=== PATIENT | female | born 1960 | race Caucasian/White ===

== ENCOUNTER 2023-06-09 06:11 | Emergency (ER) | payer MEDICARE, MEDICAID, SELFPAY ==
[2023-06-09 06:12] VITALS: BP 158/85; PULSE 84; RESP 16; TEMP 36.7; O2SAT 94; BMI 33.7
--- NOTE | 2023-06-09 06:18 | RAD_ITS ---
INDICATION: Fall, right wrist pain, injury EXAMINATION/TECHNIQUE: X-RAY - RIGHT XR Wrist Min 3 Views COMPARISON: None. FINDINGS: SOFT TISSUES: Wrist soft tissue swelling. No radiopaque foreign body detected. BONES/JOINTS: Mildly impacted fracture distal radial metaphysis with no definitive intra-articular extension. There is mild dorsal displacement of distal fracture fragment. No dislocation. Mild degenerative joint space narrowing 1st and 2nd carpometacarpal joints. RAD/Wrist min 3 Views IMPRESSION: Partially displaced and mildly impacted extra-articular fracture right distal radius Electronically Signed: Rafa Galindo MD at 6:43 EST ,
--- NOTE | 2023-06-09 06:19 | EX.ED.UPPERE ---
HPI History of Present Illness Chief Complaint: Upper Extremity Injury Informant: patient Narrative Narrative: Left hand dominant female presents through public service ride after waking up on the ground with right wrist pain. She thinks she is was sleepwalking. She has done this years ago. She does not remember. She denies headache neck pain. Chronic back pain on gabapentin. No worsening pain. Able to ambulate. Pain with movement of the right wrist. Does not follow an orthopedist. PFSH PFS Medical History Depression Pain Home Medications amitriptyline 25 mg tablet 25 mg PO DAILY 12/14/16 [History Last Taken 12/13/16] bupropion HCl 150 mg tablet,12 hr sustained-release 150 mg PO BID 12/14/16 [History Last Taken 12/14/16] diclofenac sodium 50 mg tablet,delayed release 50 mg PO DAILY 12/14/16 [History Last Taken 12/14/16] tramadol 50 mg tablet 50 mg PO DAILY 12/14/16 [History Last Taken 12/13/16] dicyclomine 10 mg capsule 10 mg PO TIDAC PRN Pain ##20 12/15/16 [Rx Last Taken Unknown] docusate sodium 100 mg capsule (DOK) 100 mg PO DAILY #20 CAPSULES 06/09/23 [Rx Last Taken Unknown] hydrocodone-acetaminophen 5-325mg 5mg-325mg 1 tab PO Q6H PRN PRN Pain 3 days #12 TABLETS 06/09/23 [Rx Last Taken Unknown] Allergy/AdvReac Type Severity Reaction Status Date / Time Sulfa (Sulfonamide Allergy Other Verified 06/09/23 06:12 Antibiotics) tetracycline AdvReac Vomiting Verified 06/09/23 06:12 Surgical History History of carpal tunnel surgery Social History Smoking Status: Former smoker ROS ROS ED Constitutional Constitutional ED: Denies chills, fever(s) or sweats Eyes Eyes: Denies change in vision ENT ENT ED: Denies dysphagia or sore throat Cardiovascular Cardiovascular: Denies chest pain, leg edema, palpitations or racing heartbeat Respiratory/Chest Respiratory/Chest: Denies cough, dyspnea or dyspnea on exertion Gastrointestinal Gastrointestinal: Denies abdominal pain, diarrhea, nausea or vomiting Genitourinary Genitourinary ED: Denies dysuria, hematuria or urinary frequency Musculoskeletal Musculoskeletal: Reports extremity pain; Denies back pain or neck pain Integumentary Denies rash or wounds Neurologic Neurologic: Denies headache(s), paresthesias or weakness EXAM Physical Exam Const Vital Signs: 06/09/23 06:12 Temperature 98.1 F Temperature Source Temporal Pulse Rate 84 Respiratory Rate 16 Blood Pressure 158/85 H Blood Pressure Mean 109 Pulse Ox 94 Positive well nourished and well developed Constitutional Narrative: GCS 15 General Appearance ED: well developed and NAD HEENT Reports moist mucous membranes normocephalic and atraumatic Eyes PERRL, EOMs intact bilaterally and conjunctivae normal General Eye ED: Yes normal appearance of both eyes Neck no lymphadenopathy and supple General: Negative for tenderness Chest Wall Chest: Negative for tenderness Resp normal respiratory effort and normal air movement Effort and Inspection: symmetric chest movement; Negative for respiratory distress Cardio regular rate, regular rhythm and no murmurs Peripheral Pulses: pulses 2+ throughout GI normal to inspection, nondistended, normoactive bowel sounds and non-tender Palpation: Negative for guarding or rebound tenderness present Back/Spine no CVA tenderness and no thoracic nor lumbar tenderness Extremity Extremity Narrative: Right upper extremity: No shoulder or elbow tenderness. There is swelling distal forearm with tenderness distal radius. No hand tenderness. No gross deformities. Skin intact. Neuro vas intact. Left upper extremity: Full range of motion without tenderness. No deformities. Pulses intact distally. Lower extremities: Negative logroll bilateral lower extremities. No tenderness. No deformities. Neuro vas intact distally. General Extremety ED: Yes edema and tenderness General Extremity: edema Neuro oriented x3, CN's II-XII intact bilaterally and no sensory deficits noted Sensorium / Orientation: awake and alert Skin no rashes or lesions noted and no wounds MDM MDM MDM Narrative Medical decision making narrative: Interventions / MDM: Differential diagnosis: Fracture Diagnosis considered but do not suspect: N/A My EKG interpretation: N/A Imaging independently reviewed and interpreted by myself: Three-view x-ray right wrist: Distal radius fracture minimal displacement mild dorsal tilt. Extra-articular. This also read by radiology. External documents reviewed: N/A Test considered but not ordered:N/A ED course: Patient has swelling distal forearm with tenderness bony prominences. Concerns for clinical fracture. Hydrocodone provided. X-ray right wrist ordered. X-ray confirms fracture she is placed in a wrist splint. She declines shoulder sling. Prescription for pain medicines and stool softener sent to her pharmacy. Orthopedic follow-up given. Procedure note: Verbal consent with splinting. Nylon sleeve was placed over the right forearm, Curlex dressing extra padding at the wrist. 4 inch plaster splint used for AP splinting, Marco wrap to secure place in a slight flexed position of the wrist. Toller procedure well. Neurovascular intact post splinting. Re-evaluation: stable Disposition discussed with patient/family/significant other: Patient Case discussed with consulting clinician: N/A This note was generated with [employer] dictation software. It may contain incorrect words, spelling, and punctuation that were not noted in checking the note before signing. Discharge Plan Triage Chief Complaint: Upper Extremity Injury ED Provider: Sharif Chandler Dx/Rx/DC Orders Clinical Impression: Closed fracture of distal end of radius, Fall Instructions: ED Fracture, Wrist, General Prescriptions: New docusate sodium [DOK] 100 mg capsule 100 mg PO DAILY Qty: 20 0RF hydrocodone-acetaminophen [hydrocodone-acetaminophen] 5-325 mg tablet 1 tab PO Q6H PRN PRN (Reason: Pain) 3 Days Qty: 12 0RF No Action bupropion HCl 150 MG tablet sustained-release 12 hr 150 mg PO BID tramadol 50 MG tablet 50 mg PO DAILY Patient Comments: TAKE 1 TABLET BY MOUTH EVERY 6 HOURS NEEDED FOR PAIN amitriptyline 25 MG tablet 25 mg PO DAILY Patient Comments: TAKE 1 TO 2 TABLETS BY MOUTH AT BEDTIME diclofenac sodium 50 MG tablet 50 mg PO DAILY dicyclomine 10 MG capsule 10 mg PO TIDAC PRN (Reason: Pain) Qty: 20 0RF Primary Care Provider: Rafa Clemons Referrals: Prashant Garcia DO [Med Staff - Active Staff] - 3-5 Days Rafa Clemons MD [Primary Care Provider] - Activity Restrictions/Additional Instructions: Fracture of distal radius of your wrist bone on the right side. Keep splint on, ice and elevate. Use pain medicine as prescribed. Stool softeners to prevent constipation. Call the office Dr. Garcia to make an appointment for follow-up evaluation. Disposition Disposition: Home, Self Care
[2023-06-09] MEDS: HYDROcodone Bitartrate/Apap 5/325 Tablet PO (06:27)
== END 2023-06-09 07:12 | disposition home or self-care (01) ==
PROVIDERS: Emergency Provider Emergency Medicine; PCP Family Medicine; Visit Provider Emergency Medicine
DX: S52.501A Unspecified fracture of the lower end of right radius, initial encounter for closed fracture (principal); Z87.891 Personal history of nicotine dependence; X58.XXXA Exposure to other specified factors, initial encounter
CPT/HCPCS: 73110; 99282

== ENCOUNTER 2023-06-18 10:54 | Day surgery (SDC) | payer MEDICARE, MEDICAID, SELFPAY ==
[2023-06-18] VITALS (15 sets, daily range): BP systolic 132–209; BP diastolic 59–168; PULSE 82–99; RESP 14–20; TEMP 35.9–36.3; O2SAT 16–100; BMI 31.6
[2023-06-18] MEDS: Lactated Ringers 1,000 ML 15 ML IV ×2 (11:18→16:54)
--- NOTE | 2023-06-18 13:28 | PCM.HP.BLA ---
History and Physical Date of Admission: 06/18/23 [facility] [id number] [place] [address] OFFICE VISIT Date of Service: 06/16/23 MR#: [id number] Acct: [id number] Name: NESTOR KWOK Rep #: [id number] : 1960 Provider: Dr. Prashant Garcia, Age/Sex: 62/F Location: [facility] [place].[facility] Status: Signed Intake Vital Signs 06/09/2306:12 Height 5 ft 6 in Intake Visit Reasons: RIGHT WRIST Chief Complaint: right wrist fracture Is patient in pain?: Yes Allergies Sulfa (Sulfonamide Antibiotics) Allergy (Verified 06/16/23 16:06) Othertetracycline Adverse Reaction (Verified 06/16/23 16:06) Vomiting Medications amitriptyline 25 mg tablet 25 mg PO DAILY 12/14/16 [History Confirmed 06/16/23] bupropion HCl 150 mg tablet,12 hr sustained-release 150 mg PO BID 12/14/16 [History Confirmed 06/16/23] diclofenac sodium 50 mg tablet,delayed release 50 mg PO DAILY 12/14/16 [History Confirmed 06/16/23] acetaminophen 325 mg capsule (Tylenol) 325 mg PO ONCE PRN 06/16/23 [History Confirmed 06/16/23] bupropion HCl 300 mg 24 hr tablet, extended release 300 mg PO 06/16/23 [History Confirmed 06/16/23] loratadine 10 mg tablet 10 mg PO DAILY 06/16/23 [History Confirmed 06/16/23] PFSH Medical History Depression Pain Surgical History History of carpal tunnel surgery Social History Smoking Status: Former smoker HPI RIGHT WRIST Chief Complaint: right wrist fracture. Details: This documentation accurately reflects the service provided and the decisions made by me, Dr. Prashant Garcia, 06/16/23 1156. Part of today?s visit was documented by [ ], acting as scribe. NESTOR KWOK is a 62 year old F here today for right wrist fracture. DOI 06-09-23 Pt. advises she woke up on the ground with right wrist pain. She thinks she was sleepwalking because she he has done this in the past. She does not remember. She was seen at [facility] ED dept where she was X-rayed and splinted. She is left hand dominant. She denies any numbness or tingling. Ortho Exam General General: Yes no acute distress Neurologic: Yes alert and Yes oriented x3 Psychologic: Yes reasonable and appropriate Right Wrist/Hand Skin/Wound: Yes Swelling, Yes Ecchymosis and Yes capillary refill normal WRIST: No gross motor or sensory deficits compartments are soft Left Wrist/Hand Skin/Wound: Yes Swelling and Yes Ecchymosis Head: Normocephalic Atraumatic Chest: symmetrical rise, non-labored breathing, no audible wheeze Abdomen: no guarding, non-rigid Supplemental Info 06/16/2023 x-ray right wrist:Intra-articular distal radius fracture with comminution mild loss of radial height 06/09/2023 x-ray right wrist: Intra-articular distal radius fracture with comminution mild loss of radial height Coding Level of Care Code Off vis,new,level 3 Diagnoses Other closed intra-articular fracture of distal end of right radius, initial encounter S52.571A Encounter type: initial encounter Fracture morphology: other intra-articular Laterality: right Assessment and Plan Assessment and Plan (1) Closed fracture of distal end of radius: Status: Inactive Qualifiers: Encounter type: initial encounter Fracture morphology: other intra-articular Laterality: right Qualified Code(s): S52.571A - Other intraarticular fracture of lower end of right radius, initial encounter for closed fracture Orders: Orders Wrist min 3 Views 06/16/23 S52.509A - Unspecified fracture of the lower end of unspecified radius, initial encounter for closed fracture Plan Educated the patient about the anatomy of the wrist and etiology of her pain. Spoke with her about her fracture and due to the fracture into the joint and loss of height and comminution, it is recommended that she have surgery. If she does not want to proceed with surgery, she may be casted. Spoke with her about the risks and benefits of both options. Patient should not push or pull following her surgery. She should continue to keep her wrist elevated and move her fingers. She should not take NSAIDs until after surgery. She is able to take tylenol. Risk of surgery not limited to but include infection hardware failure tendon irritation nerve artery tissue damage need for further surgery continued pain postoperative arthritis stiffness and loss of function. Follow up in 1-2 weeks depending on surgery or sooner if pain, swelling, numbness or associated symptoms, or concerns develop. All questions answered. Patient in agreement of plan. 06/17/23 1322 <Electronically signed by Prashant Garcia DO> Date Prashant Garcia DO Cosigner Signature: Date (if applicable) CC: ~ I have examined the patient and the H&P has been reviewed. There are no clinical changes since date of exam.
--- NOTE | 2023-06-18 13:33 | RAD_ITS ---
INDICATION: ORIF WRIST EXAMINATION/TECHNIQUE: X-RAY - RIGHT XR Wrist Min 3 Views 4 VIEWS COMPARISON: Prior study dated: 06/16/2023. FINDINGS: 3 views of the right wrist were obtained intraoperatively on a C-arm for open reduction internal fixation of fracture of the distal radius with sideplate and screws. The alignment and position as seen on this examination appear to be satisfactory. The examination however was not obtained for diagnostic purposes. The fluoroscopy time was 23.1 seconds. RAD/Wrist min 3 Views IMPRESSION: Intraoperative exam as described above. Electronically Signed: Eliu Cason MD at 15:52 EST ,
[2023-06-18] MEDS: Cefazolin 2 GM in 0.9% Normal Saline (100mL Bag) 100 ML IV (13:37)
--- NOTE | 2023-06-18 15:26 | OP.PCM_ITS ---
Operative Report Date of Procedure: 06/18/23 Preoperative diagnosis: Displaced distal radius fracture intra-articular comminuted greater than 3 fragments Postoperative diagnosis: Same Anesthesia: General with postop axillary block Procedure: ORIF of the distal radius Implants: Synthes distal radius variable angle locking plate Tourniquet time: 43 minutes Complications: None Indication for procedure: 62-year-old female patient had ground-level fall sustaining a impacted intra-articular distal radius fracture right hand we discu ssed risks benefits and alternatives of conservative versus surgical intervention. Including the risk of bleeding infection nerve artery tissue damage need for further surgery continued pain postoperative stiffness need for postoperative physical therapy and the expected postoperative course. Procedure: The patient was met in the preoperative holding area the operative extremity was identified by both patient and physician and marked. Patient was met by anesthesia she was brought back to the operating room on a wheeled cart and transferred to the operating table in the supine position anesthesia was started. A well-padded tourniquet was placed on the upper arm of the operative extremity. She was prepped and draped in the usual sterile fashion. A Time out was called to ensure the proper patient procedure and extremity were being contemplated. A 15 blade scalpel was used to make a linear incision over the FCR tendon this was carried down through the skin and subcutaneous tissue. Electrocautery was used to maintain hemostasis. Marizol retractors were used. The FCR tendon sheath was incised and the FCR tendon was mobilized radially. A deep blade scalpel was used to perforate the fascia of the deep FCR tendon sheath and Littler scissors were used to dissect proximally and distally. Blunt dissection was performed a kian was placed on the radial and ulnar side of the radius. The pronator quadratus was partially torn from the injury and was released off the radial border of the radius with electrocautery and was elevated with a moise elevator. The Hohmann retractors were then placed deep to this muscle. The fracture site was visualized and was freed of hematoma and clot debris with the use of small rongeur and [place]. The fracture was then reduced with the use of a [place] and ulnar deviation and wrist flexion. This was checked under fluoroscopy to ensure that an adequate reduction could be performed. A plate was then positioned over the fracture site and temporarily fixed to the bone with K wires. A cortical screw was then placed in the shaft and sequential locking screws were placed distally this was checked on both AP and lateral projections to ensure screw placement was not penetrating the joint and was in the proper location. Bone drill sleeve was used for the radial styloid screw and a variable angle fashion. The remainder of the cortical screws were placed in the shaft. And the fracture and hardware were visualized in both AP and lateral projections in good alignment and fracture positioning. The wound was thoroughly irrigated. Pronator quadratus was not repairable. Tourniquet was let let down to assess for bleeding there was some mild venous bleeding which was coagulated with the Bovie. A subcutaneous stitch with 3-0 Vicryl was p erformed followed by 4-0 nylon vertical mattress stitches. Followed by Xeroform 4 x 4 ABD web roll stockinette more web roll volar paster splint and an Marco wrap. The tourniquet was let down. There was no complications intraoperatively and the patient was brought back to the PACU in stable condition where she received an axillary block. All counts were correct.
--- NOTE | 2023-06-18 15:29 | DCINST_ITS ---
Discharge Instructions Diet Discharge Diet: No restrictions Dressing / Incision Call your doctor if you observe: Shortness of breath and Chest pain Additional Dressing/Incision Instructions:: Strict elevation of operative extremity above heart for next 72 hours. Ice 15 minutes on 15 minutes off. Continue ice and elevation for 7 days postoperatively. Encourage finger range of motion. No lifting pushing or pulling more than a coffee cup. Must keep splint on clean and dry. Follow-up in office in 2 week Follow Up Care Please Follow Up With: Prashant Garcia DO When: 2 weeks Test Results: Test results from this visit will be discussed in further detail at your follow- up appointment, if applicable. Discharge Plan Admission Primary Reason for Your Visit: Right distal radius open reduction internal fixation Attending Provider: Prashant Garcia Primary Care Provider: Rafa Clemons Discharge Orders/Prescriptions Prescriptions: New acetaminophen [acetaminophen] 500 mg tablet 1,000 mg PO Q6H PRN Qty: 100 0RF cephalexin [cephalexin] 500 mg capsule 1,000 mg PO Q8 Qty: 4 0RF Rx Instructions: take 2 tabs at 9:00 pm and 2 tabs after 5 am when you wake up oxycodone 5 mg tablet 5 - 10 mg PO Q4H PRN (Reason: pain) 5 Days Qty: 30 0RF Continued bupropion HCl 300 mg tablet extended release 24 hr 300 mg PO .qam Patient Comments: Take 1 tablet by mouth once daily. Take in AM loratadine 10 mg tablet 10 mg PO DAILY bupropion HCl 150 MG tablet sustained-release 12 hr 150 mg PO BID amitriptyline 25 MG tablet 25 mg PO DAILY Patient Comments: TAKE 1 TO 2 TABLETS BY MOUTH AT BEDTIME Held diclofenac sodium 50 MG tablet 50 mg PO DAILY Hold Instructions: Resume on 06/19/23. Discontinued acetaminophen [Tylenol] 325 mg capsule 325 mg PO ONCE PRN (Reason: fever or pain) Referrals / Follow Up: Rafa Clemons MD [Primary Care Provider] - Disposition Disposition (needs filled in before D/C Order can be placed): Home, Self Care
--- NOTE | 2023-06-18 15:35 | SUR.PHASEI ---
DR CROUCH AT BEDSIDE STATING HE WANTS PATIENT TO HAVE A POST-OP NERVE BLOCK, STATES HE DISCUSSED w/ PRE-OP. DR VOGEL NOTIFIED.
[2023-06-18] MEDS: Cefazolin 1 GM/50 ML BAG IV (15:55)
--- NOTE | 2023-06-18 16:15 | SUR.PHASEI ---
IV PAIN MEDS ARE INEFFECTIVE PATIENT CRYING, BP INCREASING, PAGED DR VOGEL TO ADMINISTER NERVE BLOCK TO WHICH PATIENT IS AGREEABLE, VERIFIED WITH 3 RN'S: KAMILLE MATTA, AND MARCELO. 1625 DR RAMIREZ ARRIVES TO PACU, EXPLAINED DR RCOUCH HAS REQUESTED A POST-OP NERVE BLOCK, IV PAIN MEDS HAVE BEEN INEFFECTIVE, PAIN NOW 9-10/10, CRYING, GRIMACING, BP ELEVATED. DR RAMIREZ PERFORMS AXILLARY NERVE BLOCK.
== END 2023-06-18 18:51 | disposition home or self-care (01) ==
LOC: SDC 10:55 → AC 10:57
PROVIDERS: PCP Family Medicine; Referring Provider Orthopaedic Surgery; Visit Provider Orthopaedic Surgery
PROC: (CPT 25608; principal; 2023-06-18 12:55)
DX: S52.571A Other intraarticular fracture of lower end of right radius, initial encounter for closed fracture (principal); F32.A Depression, unspecified; F41.9 Anxiety disorder, unspecified; Z87.891 Personal history of nicotine dependence; Z79.899 Other long term (current) drug therapy; X58.XXXA Exposure to other specified factors, initial encounter
CPT/HCPCS: 25608; 64417; 01830; 73110; 76000; 93005; C1713; J7120; J2405

== ENCOUNTER 2023-08-10 14:30 | Outpatient (RCR) | payer MEDICARE, MEDICAID, SELFPAY ==
--- NOTE | 2023-07-12 13:21 | HP.OTEVAL ---
Patient's Visit Information Visit Information Visit Information: NESTOR KWOK is a 62 year old F, referred to Occupational Therapy by Dr. Prashant Garcia DO, with a diagnosis of right distal radius fx. Date of Evaluation: 07/12/23 Occupational Therapist: Luba Self OTR/Sanjiv, CHT Subjective Subjective: This 62 year old female was seen for OT eval with dx of right distal radius fx. Pt states DOI was on 2022 and had sx on 2022. pt had ORIF to repair distal radius fx. pt [facility] pt is left handed pt is on disability due to bad back pt is limited with bilateral hand use for ADls and IADLS due to her recent fall. pt would like to return to her PLOF. Pain right wrist: Current Pain Intensity: 0 Pain Intensity Range: 1 ROM Forearm: right/left WNL Wrist: right 30/25 left 55/55 ROM Comments: right RD [address] 15 UD 15 Strength Account Services Manager: right NT left 55 Lateral Pinch: right NT left 14# Tripod Pinch: right NT left 14# Strength Comments: will test right hourly shift manager strength at later date Edema Wrist: right 18.5cm left 16cm Sensation Sensation Comments: denies Quick DASH-Disab of Arm,Shoulder& Hand Quick DASH Score: 36.3625 Goals Goal:Daily scar massage when approriate: Yes Goal:ROM equal to unaffected hand: Yes Goal:Account Services Manager/Pinch strength at least 75% of unaffected hand: Yes Comment: will not initiate strengthening until week 6 s/p unless otherwise instructe Goal:No pain with affected hand use: Yes Goal:Full use of affected hand in daily activities including work: Yes Other Goal: pt will demo understanding of using brace when out of her home by end of 1st session. Rehabilitation General Assessment: pt arrives 3 weeks and 3 days s/p ORIF of right distal radius. Pt demo with limited right wrist ROM and weakness due to healing structures. pt is limited with ADLS and IADLs at this time and would benefit from skilled OT services 2x week for 4 weeks to return pt to her PLOF. Today therapist ed. pt on AROM of wrist fles/ext RD/UD, along with tendon glide and scar mtg. pt was given handout on HEP and demo understanding and agree to her POD. Rehabilitation Potential: Good Anticipated Interventions Anticipated Interventions: A/AAROM/PROM, Strengthening, Scar Care, Triggerpoint Release, Modalities, Orthoses, Joint Protection/Energy Conservation, Education re assistive Equipment, Education re Diagnosis and Home Program Visit Plan Frequency: 2-3x /Week Duration: 4 Weeks General Plan: work on ROM until week 6 and initiate strengthening as tolerated may have brace of for ex and when in home advised to sleep in brace ( pt has been sleeping without) return pt to her PLOF. TEXT: Thank you for the opportunity to evaluate your patient. For Medicare and Medicare HMO plans, please review the plan of care and approve it. It will need to be FAXED BACK to us at [phone] for Medicare purposes. Please let me know if there are questions or concerns regarding this plan of care. Physician Signature: Date:
--- NOTE | 2023-08-10 14:53 | HP.OTDCSUM_ITS ---
Discharge Summary D/C Summary: It has been my pleasure to treat NESTOR KWOK under orders from Dr. Prashant Garcia DO, for the diagnosis of right distal radius fx for a total of 4 visit(s). Please see the following information for a summary of their discharge status. Overall Improvement % Improvement: 90 Objective Objective/Function: right wrist 45/35 right die out worker strength 40# left is at 60# right lateral pinch 8# right tripod pinch 6# pt states she does not feel her wrist or her right hand is limiting her ability to perform her ADls and IADLs. pt states she can clean/cook and do her dishes pt states she does get swelling from time to time but she will put ice pack on it and this helps. Goals Patient Goals: Regain Mobility, Regain Strength, Use Hand/Wrist/Arm Normally Again and Be More Independent in ADLS Goal:Daily scar massage when approriate: Yes Goal:ROM equal to unaffected hand: Yes Goal:Furrier Shop Supervisor/Pinch strength at least 75% of unaffected hand: Yes Goal:No pain with affected hand use: Yes Goal:Full use of affected hand in daily activities including work: Yes Other Goal: pt will demo understanding of using brace when out of her home by end of 1st session. Plan Plan: Continue POC: 4 weeks (2-3x week) D/C Information Discharge Comments: pt has made good gains in OT following a right distal radius fx with ORIF. Pt has attended 4 OT sessions- with two no show apts. pt states she feels she is 90% better and feel she can perform her ADLs and IADLs SABINA level. pt states she is ready for D/C. pt has met goals and pt agrees to continue with her HEP as tolerate. d/c sentence: If there are questions or concerns regarding this patient's occupational therapy, please fell free to call me at [phone]. Thank you for the referral of this patient. Sincerely, Luba Self, OTR/L, CHT
== END 2023-08-10 19:00 | disposition home or self-care (01) ==
LOC: OT 14:30
PROVIDERS: PCP Family Medicine; Visit Provider Orthopaedic Surgery
DX: S62.101D Fracture of unspecified carpal bone, right wrist, subsequent encounter for fracture with routine healing (principal)
CPT/HCPCS: 97110; 97166; 97530

== ENCOUNTER 2024-04-19 15:04 | Emergency (ER) | payer MEDICARE, MEDICAID, SELFPAY ==
[2024-04-19 15:06] VITALS: BP 142/100; PULSE 95; RESP 16; TEMP 36.8; O2SAT 95; BMI 32.8
[2024-04-19 17:54] LABS: Absolute Neutrophil Count 5.8 X10^3/uL (2.0-7.7); Basophil# 0.07 X10^3/uL; Basophil% 0.8 % (0-1); Eosinophil# 0.17 X10^3/uL; Eosinophils% 1.9 % (0-5); Hematocrit 43.8 % (37-47); Hemoglobin 14.4 g/dL (12.0-15.0); Lymphocyte % 23.7 % (19-41); Mean Corp Hgb Conc 32.9 g/dL (32-36); Mean Corpuscular Hgb 28.6 pg (27.0-32.0); Mean Corpuscular Volume 86.9 fL (81-99); Mean Platelet Vol. 9.2 fl (6.2-12.0); Monocyte# 0.74 X10^3/uL; Monocyte% 8.3 % (0-10); NRBC Flagged by Analyzer 0 % (0-5); Neutrophil # 5.76 X10^3/uL (2.7-7.7); Platelet Count 315 K/mm3 (150-450); RBC Distribution Width CV 12.1 % (11.6-14.6); RBC Distribution Width SD 38.4 fl (35.1-43.9); Red Blood Count 5.04 M/mm3 (4.2-5.4); White Blood Count 8.9 K/mm3 (4.4-11.0)
[2024-04-19 18:08] LABS: Anion Gap 10 (5-15); BUN 12 mg/dL (7-18); BUN/Creat Ratio 13.7 RATIO (10-20); Calcium,Total 9.3 mg/dL (8.5-10.1); Chloride 103 mmol/L (98-107); Creatinine, Serum 0.88 mg/dL (0.55-1.02); EST Glomerular Filtration Rate 69 mL/min (>60); Est Glom Filt Rate - Afr Amer 84 mL/min (>60); Estimated Creatinine Clearance 74.93 ml/min; Glucose 129 mg/dL (74-106); Potassium 3.5 mmol/L (3.5-5.1); Sodium Level 141 mmol/L (136-145)
[2024-04-19 18:35] LABS: Amphetamine Urine VISTA NEGATIVE (<1000 ng/mL); Barbiturate Urine VISTA NEGATIVE (< 200 ng/mL); Benzodiazepine Urine VISTA NEGATIVE (< 200 ng/mL); Cocaine Urine VISTA NEGATIVE (< 300 ng/mL); Ecstacy Urine VISTA POSITIVE (< 500 ng/mL); Methadone Urine VISTA NEGATIVE (< 300 ng/mL); PCP Urine VISTA NEGATIVE (< 25 ng/mL); THC Urine VISTA NEGATIVE (< 50 ng/mL); Vista UDS pH Range 4
[2024-04-19 18:43] LABS: Alcohol, Blood (Medical)-Serum < 3.0 mg/dL
--- NOTE | 2024-04-19 18:47 | EX.ED.VIS.PS ---
HPI HPI - Psych History of Present Illness Chief Complaint: Mental Health Informant: patient Narrative Narrative: Patient is a 63 year old female with history of depression, anxiety and OA presenting with worsening depression and auditory hallucinations. Patient states that she has been hearing a growling sound in her ears. She denies any HI/SI. Patient is concerned that she has upper antidepressants. Her psychiatric medications are managed by her PCP, Dr. Lico Pretty. Patient currently is on bupropion XL 300 mg in the morning as well as 150 mg in the evening. She also takes amitriptyline 100 mg every night. She denies any physical complaints. She does states she has been a bit more fatigued lately. States that she is compliant with her medications. No other complaints or concerns at this time. [facility] Medical History Wears glasses Wears dentures Anxiety Arthritis Non-smoker Pain Depression Home Medications ?Medication ?Instructions ?Recorded ?Last Taken ?Type amitriptyline 25 mg tablet 25 mg PO DAILY 12/14/16 12/13/16 History bupropion HCl 150 mg tablet,12 hr 150 mg PO BID 12/14/16 12/14/16 History sustained-release diclofenac sodium 50 mg 50 mg PO DAILY 12/14/16 12/14/16 History tablet,delayed release bupropion HCl 300 mg 24 hr tablet, 300 mg PO .qam 06/16/23 Unknown History extended release loratadine 10 mg tablet 10 mg PO DAILY 06/16/23 Unknown History acetaminophen 500 mg tablet 1,000 mg (2 x 500 mg) PO Q6H PRN 06/18/23 Unknown Rx #100 tabs cephalexin 500 mg capsule 1,000 mg (2 x 500 mg) PO Q8 #4 caps 06/18/23 Unknown Rx olanzapine 2.5 mg tablet (Zyprexa) 2.5 mg PO DAILY #30 tabs 04/19/24 Unknown Rx Allergy/AdvReac Type Severity Reaction Status Date / Time Sulfa (Sulfonamide Allergy Other Verified 04/19/24 15:06 Antibiotics) tetracycline AdvReac Vomiting Verified 04/19/24 15:06 Surgical History H/O tubal ligation History of carpal tunnel surgery Social History Smoking Status: Former smoker ROS ROS ED Constitutional Constitutional ED: Denies chills or fever(s) Eyes Eyes: Denies change in vision Respiratory/Chest Respiratory/Chest: Denies cough or dyspnea Gastrointestinal Gastrointestinal: Denies nausea or vomiting Neurologic Neurologic: Denies headache(s) Psychiatric Psychiatric: Reports anxiety, depression and other Details: Reports auditory hallucinations?hearing a growling sound ; Denies suicidal ideation or suicidal thoughts EXAM Physical Exam Const Vital Signs: 04/19/24 15:06 04/19/24 19:05 Temperature 98.3 F 98.7 F Temperature Source Temporal Temporal Pulse Rate 95 88 Respiratory Rate 16 14 Blood Pressure 142/100 H 134/78 H Blood Pressure Mean 114 96 Pulse Ox 95 98 Oxygen Delivery Method Room Air Room Air Positive well nourished and well developed General Appearance ED: well developed and NAD HEENT Reports moist mucous membranes normocephalic and atraumatic Eyes PERRL Neck supple Resp normal respiratory effort and clear to auscultation bilaterally Cardio Rate: regular rate Rhythm: regular rhythm GI non-tender and non-distended Extremity normal to inspection General Extremety ED: Negative for edema General Extremity: Negative for edema Neuro oriented x3 Sensorium / Orientation: alert Motor Exam: strength 5/5 throughout and muscle tone normal throughout Psych mental status grossly normal, cooperative, affect normal, activity/motor behavior normal, denies homicidal ideation and denies suicidal ideation Appearance: grossly normal and well kempt Attitude: calm Thought Process: normal thought process Thought Content: hallucination(s) Positive for auditory Attention / Concentration: attention grossly intact Memory / Cognition: memory grossly intact Insight: insight good Judgement: judgement good Skin Rashes: no rashes MDM MDM MDM Narrative Medical decision making narrative: Patient is evaluated for worsening depression and a new auditory hallucination. Patient overall is quite well-appearing. She is insightful about what is going on. She did bring in her medications so we could check them. She states that she has been compliant with her meds. She denies any HI or SI. At this time I do not think patient is a risk to herself or others or needs emergent psychiatric evaluation. Protocol psychiatric orders are placed which are largely normal. I did discuss the case with Dr. Ibraihm, PCP on-call for her office. He reviewed the patient's chart and medications. He confirmed that patient is taking all the medications that we discussed in the ER. We will start the patient on Zyprexa 2.5 mg daily for this new auditory elucidation and she will follow-up in the office on Wednesday at 10 AM with her PCP. I will provide this prescription. Patient is quite agreeable with this plan. Patient is also given outpatient referral information for the counseling center. Given return precautions. Patient discharged home in stable condition. Lab Data Labs: Laboratory Results - last 24 hr 04/19/24 04/19/24 17:40 17:45 WBC 8.9 RBC 5.04 Hgb 14.4 Hct 43.8 MCV 86.9 MCH 28.6 MCHC 32.9 RDW Std Deviation 38.4 RDW Coeff of Bandar 12.1 Plt Count 315 MPV 9.2 Immature Gran % (Auto) 0.300 Neut % (Auto) 65.0 Lymph % (Auto) 23.7 [place] % (Auto) 8.3 Eos % (Auto) 1.9 Baso % (Auto) 0.8 Absolute Neuts (auto) 5.8 Absolute Lymphs (auto) 2.10 Nucleated RBC % 0 Sodium 141 Potassium 3.5 Chloride 103 Carbon Dioxide 28.0 Anion Gap 10 BUN 12 Creatinine 0.88 Estim Creat Clear Calc 74.93 Est GFR (MDRD) Af Amer 84 Est GFR (MDRD) Non-Af 69 BUN/Creatinine Ratio 13.7 Glucose 129 H Calcium 9.3 Urine Opiates Screen NEGATIVE Urine Methadone Screen NEGATIVE Ur Barbiturates Screen NEGATIVE Ur Phencyclidine Scrn NEGATIVE Ur Amphetamines Screen NEGATIVE MDMA (Ecstasy) Screen POSITIVE H U Benzodiazepines Scrn NEGATIVE Urine Cocaine Screen NEGATIVE U Cannabinoids Screen NEGATIVE Ur Drug Screen Comment Ethyl Alcohol < 3.0 Discharge Plan Triage Chief Complaint: Mental Health ED Provider: Ernestine Suarez Dx/Rx/DC Orders Clinical Impression: Depression, Auditory hallucination Instructions: ED Depression Prescriptions: New olanzapine [Zyprexa] 2.5 mg tablet 2.5 mg PO DAILY Qty: 30 0RF No Action bupropion HCl 300 mg tablet extended release 24 hr 300 mg PO .qam Patient Comments: Take 1 tablet by mouth once daily. Take in AM loratadine 10 mg tablet 10 mg PO DAILY bupropion HCl 150 MG tablet sustained-release 12 hr 150 mg PO BID amitriptyline 25 MG tablet 25 mg PO DAILY Patient Comments: TAKE 1 TO 2 TABLETS BY MOUTH AT BEDTIME diclofenac sodium 50 MG tablet 50 mg PO DAILY acetaminophen [acetaminophen] 500 mg tablet 1,000 mg PO Q6H PRN Qty: 100 0RF cephalexin [cephalexin] 500 mg capsule 1,000 mg PO Q8 Qty: 4 0RF Rx Instructions: take 2 tabs at 9:00 pm and 2 tabs after 5 am when you wake up Primary Care Provider: Rafa Clemons Referrals: Counseling,Center [Group of Physicians] - As Needed Rafa Clemons MD [Primary Care Provider] - Activity Restrictions/Additional Instructions: Continue taking your medications as prescribed. We have prescribed an additional medication after talking with your primary care office. Please call the counseling center or your primary care office if you have worsening symptoms or further concerns. You have an appointment scheduled for April 28 at 10 AM with your primary care doctor. Please call the office if you need to change his appointment. Print Language: Bengali Disposition Disposition: Home, Self Care
[2024-04-19 19:05] VITALS: BP 134/78; PULSE 88; RESP 14; TEMP 37.1; O2SAT 98
[2024-04-19 19:40] VITALS: BP 137/77; PULSE 81; RESP 18; TEMP 36.7; O2SAT 98
== END 2024-04-19 19:41 | disposition home or self-care (01) ==
PROVIDERS: Emergency Provider Emergency Medicine; PCP Family Medicine; Visit Provider Emergency Medicine
DX: F32.A Depression, unspecified (principal); R44.0 Auditory hallucinations; Z87.891 Personal history of nicotine dependence
CPT/HCPCS: 36415; 80048; 80307; 82077; 85025; 99282

== ENCOUNTER 2024-04-20 09:37 | Emergency (ER) | payer MEDICARE, MEDICAID, SELFPAY ==
[2024-04-20 09:38] VITALS: BP 122/73; PULSE 96; RESP 18; TEMP 36.7; O2SAT 93; BMI 33.0
--- NOTE | 2024-04-20 10:09 | EDS_ITS ---
HPI HPI - Psych History of Present Illness Chief Complaint: Mental Health [facility] Medical History Wears glasses Wears dentures Anxiety Arthritis Non-smoker Pain Depression Home Medications ?Medication ?Instructions ?Recorded ?Last Taken ?Type amitriptyline 25 mg tablet 25 mg PO DAILY 12/14/16 12/13/16 History bupropion HCl 150 mg tablet,12 hr 150 mg PO BID 12/14/16 12/14/16 History sustained-release diclofenac sodium 50 mg 50 mg PO DAILY 12/14/16 12/14/16 History tablet,delayed release bupropion HCl 300 mg 24 hr tablet, 300 mg PO .qam 06/16/23 Unknown History extended release loratadine 10 mg tablet 10 mg PO DAILY 06/16/23 Unknown History cephalexin 500 mg capsule 1,000 mg (2 x 500 mg) PO Q8 #4 caps 06/18/23 Unknown Rx olanzapine 2.5 mg tablet (Zyprexa) 2.5 mg PO DAILY #30 tabs 04/19/24 Unknown Rx Allergy/AdvReac Type Severity Reaction Status Date / Time Sulfa (Sulfonamide Allergy Other Verified 04/19/24 15:06 Antibiotics) tetracycline AdvReac Vomiting Verified 04/19/24 15:06 Family History unable to obtain Surgical History H/O tubal ligation History of carpal tunnel surgery Social History Smoking Status: Former smoker EXAM Physical Exam Const Vital Signs: 04/20/24 09:38 04/20/24 11:37 04/20/24 13:00 Temperature 98.0 F Temperature Source Oral Pulse Rate 96 80 91 Respiratory Rate 18 17 18 Blood Pressure 122/73 H 117/61 113/61 Blood Pressure Mean 89 79 78 Pulse Ox 93 96 93 Oxygen Delivery Method Room Air Room Air Room Air 04/20/24 15:26 04/20/24 17:00 Temperature Temperature Source Pulse Rate 106 H 97 Respiratory Rate 17 16 Blood Pressure 142/98 H 147/117 H Blood Pressure Mean 112 127 Pulse Ox 93 Oxygen Delivery Method Room Air Room Air MDM MDM MDM Narrative Medical decision making narrative: HISTORY OF PRESENT ILLNESS: 63-year-old female history of depression anxiety. The patient does not participate in history. Denies any physical complaints however. REVIEW OF SYSTEMS: Unable to obtain reliable review of systems secondary to patient's altered mental status PHYSICAL EXAM: Nursing triage notes reviewed, Vital signs reviewed Constitutional: please see mdm HENT: MMM Eyes: Pupils equal round and reactive to light, Extraocular muscles intact Neck: No stridor, no JVD, full neck ROM Lungs: Clear to auscultation, No wheezing or rales. No increased work of breathing, no conversational dyspnea, no accessory muscle use, no nasal flaring. No respiratory distress noted Heart: Regular rate and rhythm, No murmurs, No rubs and No gallops, 2+ distal pulses (radial, femoral, posterior tibial) in all extremities Abdomen: Soft, there is no tenderness, rigidity, rebound or guarding, no obvious peritoneal signs, no palpable pulsatile abdominal masses, no auscultated abdominal bruit : No CVAT Extremities: No edema Neuro: Somnolent, alert to minor stimuli, oriented to person, place but not time. No obvious lateralizing focal neurological deficits, cranial nerves II through XII intact, 5/5 strength in all extremities. Intact sensation to light touch in all extremities, 2+ reflexes bilateral patella tendons. Skin: No rash or lesions noted MEDICAL DECISION MAKING: Chief Complaint: Mental health External records reviewed: Reviewed prior ED visit on 04/19/2024. Per this note patient was suffering from auditory elucidation's, depression. Medications reviewed: Patient currently on Zyprexa and bupropion. During last ED visit she was prescribed Zyprexa 2.5 mg. And discharged. During this visit patient's mental status was documented as oriented x 3. Factors affecting care: depression, anxiety Social determinants of health: n mental health disorder History obtained from others: EMS Consults: Behavioral health MDM Narrative: Patient was initially hemodynamically stable, afebrile and nontoxic-appearing. Exam without obvious trauma. No focus of infection. No focal cardiopulmonary abnormalities. Given the patient's change in mental status from yesterday I obtained a broad lab and imaging workup including a CT scan of the head as well as labs to rule out signs of electrolyte abnormalities, dehydration, infectious etiologies. Patient's pulse ox while was not in the hypoxic range was in the low end of normal so I obtained an x-ray and COVID swab as well as an EKG to further assess. I considered the following differential diagnosis: ICH, electrolyte disturbance, metabolic abnormality, infection, intoxication, decompensated psychiatric illness ALL IMAGES (IF OBTAINED) HAVE BEEN PERSONALLY REVIEWED AND INTERPRETED BY MYSELF. EKG with normal sinus rhythm, normal axis, normal intervals, no STEMI CT scan of the head was negative I have personally reviewed the patient's chest x-ray. Chest x-ray is unremarkable for pulmonary edema, pneumothorax, pneumonia or focal cardiopulmonary abnormality. CBC without leukocytosis, severe anemia, no thrombocytopenia. BMP with mild hypokalemia otherwise no other significant electrolyte normalities, there is no anion gap to suggest endorgan hypoperfusion, no signs of metabolic acidosis with normal bicarb, no acute kidney injury LFTs with minor abnormalities, no prior for comparison Serum alcohol is negative COVID-negative Crisis evaluated the patient and recommended admission. Awaiting placement this time. Signed out to p.m. physician pending placement. [place] slip and transfer form signed. The patient and/or family, caregivers express understanding. The patient and/or family, caregivers agrees with the plan. Shared decision making: I will have a discussion with the patient and or visitors regarding risk/benefits of further testing or admission. They will be made aware of of the risk/benefits inherent in this decision they will be given the opportunity to voice understanding. Total critical care time today provided was at least 0 [] minutes. This excludes separately billable procedures. Critical care time (if documented) is secondary to the patient having high probability of clinically significant/life threatening deterioration in the patient's condition which required my urgent intervention. Impression: 1. Altered mental status 2. Abnormal behavior Dispo: Admit to behavioral facility. Awaiting placement This note was generated with [employer] [employer] dictation software. It may contain incorrect words, spelling, and punctuation that were not noted in review of the chart prior to signing. Lab Data Labs: Laboratory Results - last 24 hr 04/20/24 04/20/24 11:00 11:02 WBC 8.8 RBC 4.91 Hgb 14.0 Hct 43.5 MCV 88.6 MCH 28.5 MCHC 32.2 RDW Std Deviation 39.4 RDW Coeff of [place] 12.1 Plt Count 265 MPV 8.9 Immature Gran % (Auto) 0.300 Neut % (Auto) 75.1 H Lymph % (Auto) 15.1 L [place] % (Auto) 7.8 Eos % (Auto) 1.0 Baso % (Auto) 0.7 Absolute Neuts (auto) 6.6 Absolute Lymphs (auto) 1.33 Nucleated RBC % 0 Sodium 138 Potassium 3.1 L Chloride 102 Carbon Dioxide 29.0 Anion Gap 7 BUN 18 Creatinine 1.02 Estim Creat Clear Calc 64.86 Est GFR (MDRD) Af Amer 70 Est GFR (MDRD) Non-Af 58 L BUN/Creatinine Ratio 17.6 Glucose 131 H Calcium 9.5 Total Bilirubin 0.70 AST 49 H ALT 59 H Alkaline Phosphatase 136 H Total Protein 7.8 Albumin 4.5 Globulin 3.3 Albumin/Globulin Ratio 1.4 Urine Color Yellow Urine Clarity Sl. Cloudy Urine pH 6.0 Ur Specific [place] 1.020 Urine Protein 15 H Urine Glucose (UA) Normal Urine Ketones Negative Urine Occult Blood 10 H Urine Nitrite Negative Urine Bilirubin Negative Urine Urobilinogen Normal Ur Leukocyte Esterase 500 H Urine RBC 0-5 SEEN Urine WBC 25-50 SEEN Ur Squamous Epith Cells 0-5 SEEN Urine Bacteria 2+ Urine Mucus 2+ Urine Opiates Screen NEGATIVE Urine Methadone Screen NEGATIVE Ur Barbiturates Screen NEGATIVE Ur Phencyclidine Scrn NEGATIVE Ur Amphetamines Screen NEGATIVE MDMA (Ecstasy) Screen POSITIVE H U Benzodiazepines Scrn NEGATIVE Urine Cocaine Screen NEGATIVE U Cannabinoids Screen NEGATIVE Ur Drug Screen Comment Ethyl Alcohol < 3.0 Radiography Diagnostic Testing: Clinical Impression(s) from Imaging Studies Brain CT 04/20/24 10:22 IMPRESSION: Chronic involutional changes of the brain. Electronically Signed: Taiwo Zuniga MD at 11:04 EDT , Chest X-Ray 04/20/24 10:30 IMPRESSION: No acute abnormality is seen. Electronically Signed: Taiwo Zuniga MD at 10:54 EDT , Discharge Plan Triage Chief Complaint: Mental Health ED Provider: Moe Morelos Dx/Rx/DC Orders Prescriptions: No Action bupropion HCl 300 mg tablet extended release 24 hr 300 mg PO .qam Patient Comments: Take 1 tablet by mouth once daily. Take in AM loratadine 10 mg tablet 10 mg PO DAILY bupropion HCl 150 MG tablet sustained-release 12 hr 150 mg PO BID amitriptyline 25 MG tablet 25 mg PO DAILY Patient Comments: TAKE 1 TO 2 TABLETS BY MOUTH AT BEDTIME diclofenac sodium 50 MG tablet 50 mg PO DAILY cephalexin [cephalexin] 500 mg capsule 1,000 mg PO Q8 Qty: 4 0RF Rx Instructions: take 2 tabs at 9:00 pm and 2 tabs after 5 am when you wake up olanzapine [Zyprexa] 2.5 mg tablet 2.5 mg PO DAILY Qty: 30 0RF Primary Care Provider: Rafa Clemons Referrals: Rafa Clemons MD [Primary Care Provider] - Print Language: Scottish
--- NOTE | 2024-04-20 10:22 | CT_ITS ---
STUDY: CT BRAIN WITHOUT CONTRAST REASON FOR EXAM: Female, 63 years old. AMS RADIATION DOSAGE (If Supplied By Facility): CTDIvol = ( 44.99 ) mGy, DLP = ( 812.98 ) mGycm TECHNIQUE: Transaxial CT imaging of the brain was performed without administration of intravenous contrast material. Individualized dose optimization techniques were used for this CT. COMPARISON: No relevant priors. FINDINGS: Normal soft tissue structures. Normal calvarium. There is mild cerebral atrophy with widening of the extra-axial spaces and ventricular dilatation. Normal white matter tracts of the cerebral hemispheres. Normal basal ganglia and thalami. Normal brainstem. Normal cerebellum. There is no intracranial hemorrhage. There are no findings of an acute ischemic infarction. Normal visualized paranasal sinuses. CT/Brain/Head without Contrast IMPRESSION: Chronic involutional changes of the brain. Electronically Signed: Taiwo Zuniga MD at 11:04 EDT ,
--- NOTE | 2024-04-20 10:30 | RAD_ITS ---
STUDY: X-RAY CHEST REASON FOR EXAM: Female, 63 years old. AMS TECHNIQUE: Single AP portable view of the chest. COMPARISON: None. FINDINGS: EKG electrodes are seen. The lungs are clear and expanded. There is no demonstrated pleural abnormality. Normal size heart. Normal mediastinum and adwoa. Normal visualized pulmonary arteries. Normal visualized aortic arch and descending thoracic aorta. There are degenerative changes of the visualized thoracic spine. Calcific tendinitis of the right shoulder. Degenerative changes of both acromioclavicular joints. There is no demonstrated abnormality of the visualized soft tissue structures of the upper abdomen. RAD/Chest 1 View (Portable) IMPRESSION: No acute abnormality is seen. Electronically Signed: Taiwo Zuniga MD at 10:54 EDT ,
--- NOTE | 2024-04-20 10:33 | EKG12_ITS ---
Test Reason : ALT MENTAL STATUS Blood Pressure : / mmHG Vent. Rate : 084 BPM Atrial Rate : 084 BPM P-R Int : 160 ms QRS Dur : 072 ms QT Int : 398 ms P-R-T Axes : 048 047 024 degrees QTc Int : 470 ms Normal sinus rhythm Normal ECG When compared with ECG of 18-JUN-2023 11:47, No significant change was found Confirmed by Angel Chaney ([id number]), editorial intern ANA ZUÑIGA ([id number]) on 04/24/2024 1:19:56 PM Referred By: Confirmed By:Angel Chaney
[2024-04-20 11:08] LABS: Absolute Lymphocyte Count 1.33 X10^3/uL (0.83-4.51); Absolute Neutrophil Count 6.6 X10^3/uL (2.0-7.7); Basophil# 0.06 X10^3/uL; Basophil% 0.7 % (0-1); Eosinophil# 0.09 X10^3/uL; Hematocrit 43.5 % (37-47); Lymphocyte # 1.33 X10^3/ul (0.83-4.51); Lymphocyte % 15.1 % (19-41); Mean Corp Hgb Conc 32.2 g/dL (32-36); Mean Corpuscular Hgb 28.5 pg (27.0-32.0); Mean Corpuscular Volume 88.6 fL (81-99); Mean Platelet Vol. 8.9 fl (6.2-12.0); Monocyte# 0.69 X10^3/uL; Monocyte% 7.8 % (0-10); NRBC Flagged by Analyzer 0 % (0-5); Neutrophil # 6.63 X10^3/uL (2.7-7.7); Neutrophil % 75.1 % (47-70); Platelet Count 265 K/mm3 (150-450); RBC Distribution Width CV 12.1 % (11.6-14.6); RBC Distribution Width SD 39.4 fl (35.1-43.9); Red Blood Count 4.91 M/mm3 (4.2-5.4); White Blood Count 8.8 K/mm3 (4.4-11.0)
[2024-04-20 11:18] LABS: Alcohol, Blood (Medical)-Serum < 3.0 mg/dL
[2024-04-20 11:22] LABS: ALB/GLOB Ratio 1.4 RATIO (0.9-2.4); AST(SGOT) 49 U/L (15-37); Alanine Aminotransfer ALT/SGPT 59 U/L (13-56); Albumin, Serum 4.5 g/dL (3.2-5.0); Alkaline Phosphatase 136 U/L (45-117); Anion Gap 7 (5-15); BUN 18 mg/dL (7-18); BUN/Creat Ratio 17.6 RATIO (10-20); Calcium,Total 9.5 mg/dL (8.5-10.1); Chloride 102 mmol/L (98-107); Creatinine, Serum 1.02 mg/dL (0.55-1.02); EST Glomerular Filtration Rate 58 mL/min (>60); Est Glom Filt Rate - Afr Amer 70 mL/min (>60); Estimated Creatinine Clearance 64.86 ml/min; Globulin 3.3 g/dL (2.2-4.2); Glucose 131 mg/dL (74-106); Potassium 3.1 mmol/L (3.5-5.1); Protein, Total 7.8 g/dL (6.4-8.2); Sodium Level 138 mmol/L (136-145)
[2024-04-20 11:37] VITALS: BP 117/61; PULSE 80; RESP 17; O2SAT 96
[2024-04-20 12:11] LABS: Color, Urine Yellow (Yellow); Glucose, Dipstick Normal (Normal); Ketone-Dipstick Negative (Negative); Leukocyte Esterase-Dipstick 500 /ul (Negative); Nitrite-Dipstick Negative (Negative); Occult Blood-Urine 10 /ul (Negative); Protein-Dipstick 15 mg/dl (Negative); Urine Bilirubin Dipstick Negative (Negative); Urine Clarity Sl. Cloudy (Clear); Urine Urobilinogen Normal (Normal)
[2024-04-20 12:20] LABS: Bacteria 2+ /hpf (None Seen); Mucous, Urine 2+ /hpf (<or=2+); Red Blood Cells-Urine 0-5 SEEN /hpf (0-5); Squamous Epithelial Cells - UA 0-5 SEEN /hpf (5-10); White Blood Cells 25-50 SEEN /hpf (0-5)
[2024-04-20 12:26] LABS: Amphetamine Urine VISTA NEGATIVE (<1000 ng/mL); Barbiturate Urine VISTA NEGATIVE (< 200 ng/mL); Benzodiazepine Urine VISTA NEGATIVE (< 200 ng/mL); Cocaine Urine VISTA NEGATIVE (< 300 ng/mL); Ecstacy Urine VISTA POSITIVE (< 500 ng/mL); Methadone Urine VISTA NEGATIVE (< 300 ng/mL); PCP Urine VISTA NEGATIVE (< 25 ng/mL); THC Urine VISTA NEGATIVE (< 50 ng/mL); Vista UDS pH Range 4
[2024-04-20 13:00] VITALS: BP 113/61; PULSE 91; RESP 18; O2SAT 93
--- NOTE | 2024-04-20 13:17 | NURSING ---
CALLED [facility]. TALKED TO [facility]J
--- NOTE | 2024-04-20 13:21 | NURSING ---
FAXED CHART TO [facility]
--- NOTE | 2024-04-20 13:49 | ED.RN ---
PT HEARD SCREAMING. ATTEMPT TO REORIENT PT TO SURROUNDINGS. PT STATES WANTS LIGHT ON. PT WANTS A DRINK. BOTH PROVIDED. PT THEN RIPS OFF ALL MONITOR LEADS. PT BEGINS TO COME OUT OF ROOM.THIS RN IN TO TALK TO PT. PT STATES SHE FEELS PARANOID AND SCARED. REQUESTS SOMETHING FOR ANXIETY
[2024-04-20] MEDS: OLANZapine 5 MG/TAB TAB.RAPDIS PO (14:31)
--- NOTE | 2024-04-20 15:13 | NURSING ---
JAEL, [facility] TO COME IN
[2024-04-20 15:26] VITALS: BP 142/98; PULSE 106; RESP 17
[2024-04-20 17:00] VITALS: BP 147/117; PULSE 97; RESP 16; O2SAT 93
--- NOTE | 2024-04-20 17:50 | ED.RN ---
PER PT, PT HAS NOT BEEN TAKING HER SCHEDULED MEDICATIONS.
[2024-04-21 01:15] VITALS: BP 121/89; PULSE 89; RESP 16; O2SAT 98
[2024-04-21 04:48] VITALS: BP 116/60; PULSE 88; RESP 16; TEMP 36.7; O2SAT 96
[2024-04-21 08:07] VITALS: BP 168/81; PULSE 77; RESP 18; O2SAT 98
--- NOTE | 2024-04-21 08:20 | CM.ED ---
Social Work Received call from Pankaj at [facility] ([facility]) [phone]. Pankaj asking for a status update as follow up to a concern [facility] received about this patient who reportedly lives in the independent living at [facility]. For continuity of care and safety of this patient, updated to plan for inpatient mental health treatment. Pankaj reports will make a note of this and will be closing the case for now, since patient is going to get help. -GAUTAM Cesar
== END 2024-04-21 08:58 ==
PROVIDERS: Emergency Provider Emergency Medicine; PCP Family Medicine; Visit Provider Emergency Medicine
DX: R41.82 Altered mental status, unspecified (principal); F32.A Depression, unspecified; F41.9 Anxiety disorder, unspecified; Z79.899 Other long term (current) drug therapy; Z87.891 Personal history of nicotine dependence
CPT/HCPCS: 70450; 71045; 80053; 80307; 81001; 82077; 85025; 87635; 93005; 99285; A4216

== ENCOUNTER 2024-06-10 16:15 | Emergency (ER) | payer MEDICARE, MEDICAID, SELFPAY ==
[2024-06-10 16:15] VITALS: BP 141/108; PULSE 94; RESP 18; TEMP 36.8; O2SAT 94; BMI 33.5
[2024-06-10 16:57] LABS: Absolute Lymphocyte Count 1.82 X10^3/uL (0.83-4.51); Absolute Neutrophil Count 7.3 X10^3/uL (2.0-7.7); Basophil# 0.09 X10^3/uL; Basophil% 0.9 % (0-1); Eosinophil# 0.14 X10^3/uL; Eosinophils% 1.4 % (0-5); Hematocrit 42.2 % (37-47); Hemoglobin 14.3 g/dL (12.0-15.0); Lymphocyte # 1.82 X10^3/ul (0.83-4.51); Mean Corp Hgb Conc 33.9 g/dL (32-36); Mean Corpuscular Hgb 29.4 pg (27.0-32.0); Mean Corpuscular Volume 86.7 fL (81-99); Mean Platelet Vol. 9.4 fl (6.2-12.0); Monocyte# 0.73 X10^3/uL; Monocyte% 7.2 % (0-10); NRBC Flagged by Analyzer 0 % (0-5); Neutrophil # 7.27 X10^3/uL (2.7-7.7); Neutrophil % 72.1 % (47-70); Platelet Count 308 K/mm3 (150-450); Red Blood Count 4.87 M/mm3 (4.2-5.4); White Blood Count 10.1 K/mm3 (4.4-11.0)
[2024-06-10 17:09] LABS: Bacteria 0 SEEN /hpf (None Seen); Mucous, Urine 0 SEEN /hpf (<or=2+); Red Blood Cells-Urine 0 SEEN /hpf (0-5)
[2024-06-10 17:15] LABS: Alcohol, Blood (Medical)-Serum < 3.0 mg/dL
[2024-06-10 17:16] LABS: Anion Gap 8 (5-15); BUN 16 mg/dL (7-18); BUN/Creat Ratio 16.2 RATIO (10-20); Calcium,Total 9.1 mg/dL (8.5-10.1); Chloride 105 mmol/L (98-107); Creatinine, Serum 0.99 mg/dL (0.55-1.02); EST Glomerular Filtration Rate 60 mL/min (>60); Est Glom Filt Rate - Afr Amer 73 mL/min (>60); Estimated Creatinine Clearance 67.27 ml/min; Glucose 131 mg/dL (74-106); Potassium 3.7 mmol/L (3.5-5.1); Sodium Level 140 mmol/L (136-145)
[2024-06-10 17:21] LABS: Amphetamine Urine VISTA NEGATIVE (<1000 ng/mL); Barbiturate Urine VISTA NEGATIVE (< 200 ng/mL); Benzodiazepine Urine VISTA NEGATIVE (< 200 ng/mL); Cocaine Urine VISTA NEGATIVE (< 300 ng/mL); Ecstacy Urine VISTA POSITIVE (< 500 ng/mL); Methadone Urine VISTA NEGATIVE (< 300 ng/mL); PCP Urine VISTA NEGATIVE (< 25 ng/mL); THC Urine VISTA NEGATIVE (< 50 ng/mL); Vista UDS pH Range 5
[2024-06-10 17:22] LABS: Color, Urine Straw (Yellow); Glucose, Dipstick Normal (Normal); Ketone-Dipstick Negative (Negative); Leukocyte Esterase-Dipstick 500 /ul (Negative); Nitrite-Dipstick Negative (Negative); Occult Blood-Urine Negative /ul (Negative); Protein-Dipstick Negative (Negative); Urine Bilirubin Dipstick Negative (Negative); Urine Clarity Clear (Clear); Urine Urobilinogen Normal (Normal)
[2024-06-10 17:34] LABS: Squamous Epithelial Cells - UA 10-25 SEEN /hpf (5-10); Transitional Epithelial - Ur 5-10 SEEN /hpf (0-5); White Blood Cells >100 SEEN /hpf (0-5)
== END 2024-06-10 19:43 | disposition home or self-care (01) ==
PROVIDERS: Emergency Provider Emergency Medicine; PCP Family Medicine; Referring Provider Emergency Medicine; Visit Provider Emergency Medicine
DX: Z00.00 Encounter for general adult medical examination without abnormal findings (principal); F41.9 Anxiety disorder, unspecified; F32.A Depression, unspecified; Z79.899 Other long term (current) drug therapy; Z87.891 Personal history of nicotine dependence
CPT/HCPCS: 80048; 80307; 81001; 82077; 85025; 87086; 87088; 99282

== ENCOUNTER 2025-03-03 10:43 | Emergency (ER) | payer MEDICARE, MEDICAID, SELFPAY ==
[2025-03-03 10:43] VITALS: BP 147/67; PULSE 89; RESP 14; TEMP 35.6; O2SAT 98; BMI 30.7
--- NOTE | 2025-03-03 11:17 | EX.ED.DYSGE1 ---
HPI History of Present Illness Chief Complaint: Mental Health Narrative Narrative: Patient is a 64-year-old female with past medical history anxiety, depression who presented to the emergency department with a chief complaint of wandering around. Per crisis they note that they brought her manage as they were called out as she is wandering into the streets and notes that she does not recall this. She states that she has been hearing voices through the register that is telling her to take her medications. Patient denies any suicidal homicidal ideation [facility] Medical History Wears glasses Wears dentures Anxiety Arthritis Non-smoker Pain Depression Home Medications ?Medication ?Instructions ?Recorded ?Last Taken ?Type bupropion HCl 150 mg tablet,12 hr 150 mg PO QHS 12/14/16 12/14/16 History sustained-release bupropion HCl 300 mg 24 hr tablet, 300 mg PO .qam 06/16/23 Unknown History extended release loratadine 10 mg tablet 10 mg PO DAILY 06/16/23 Unknown History olanzapine 2.5 mg tablet (Zyprexa) 2.5 mg PO DAILY #30 tabs 04/19/24 Unknown Rx amitriptyline 100 mg tablet 100 mg PO QHS 06/10/24 Unknown History diclofenac sodium 75 mg 75 mg PO BID pain 06/10/24 Unknown History tablet,delayed release gabapentin 400 mg capsule 400 mg PO BID 06/10/24 Unknown History Allergy/AdvReac Type Severity Reaction Status Date / Time Sulfa (Sulfonamide Allergy Other Verified 04/19/24 15:06 Antibiotics) tetracycline AdvReac Vomiting Verified 04/19/24 15:06 Surgical History H/O tubal ligation History of carpal tunnel surgery Social History Smoking Status: Heavy Smoker (>10/day) ROS ROS ED ROS Narrative Constitutional: Denies headache, lightness, dizziness, fevers or chills Eyes: Denies double vision Cardiovascular: Denies chest pain Respiratory: Denies shortness of breath Abdomen: Denies abdominal pain nausea vomit diarrhea : Denies any urinary symptoms Neurological: Denies numbness, wheeze, tingling Musculoskeletal: Denies back pain Skin: Denies any rashes or lesions EXAM Physical Exam Narrative Exam Narrative: General: Patient lying in bed rest comfortably did not appear in any acute distress Head: Atraumatic, normocephalic Eyes: PERRL bilaterally, EOMI bilaterally no conjunctival injection noted Neck: Soft, supple, trachea midline Cardiovascular: Regular rate and rhythm Respiratory: Clear to auscultation bilaterally Abdomen: Soft, nondistended, nontender to palpation Extremities: +5/5 strength noted in the bilateral lower extremities Neurological: Patient follow commands and that she was at [facility] years 2024 Psych: Calm, cooperative, Skin: Warm, dry, tact no rashes or lesions noted Const Vital Signs: 03/03/25 10:43 Temperature 96.1 F L Temperature Source Temporal Pulse Rate 89 Respiratory Rate 14 Blood Pressure 147/67 H Blood Pressure Mean 93 Pulse Ox 98 Oxygen Delivery Method Room Air MDM MDM MDM Narrative Medical decision making narrative: Patient is a 64-year-old female who presented to the emergency department with a chief complaint of hearing voices and needing stabilization. On the differential diagnosis includes but limited to electrolyte O'Carlos, UTI, schizophrenia, anxiety, depression. Once workup is obtained reviewed she will be placed by crisis. Patient CBC reviewed showed no evidence leukocytosis white blood count was normal at 9.6, hemoglobin stable 12.1, platelet count of 270. Patient sodium is 140, potassium normal at 3.6, creatinine normal at 0.73. Patient's drug screen negative, alcohol level less than 10. Patient is medically cleared will be evaluated by crisis and will be placed for stabilization. Lab Data Labs: Laboratory Results - last 24 hr 03/03/25 03/03/25 11:49 13:10 WBC 9.6 RBC 4.19 L Hgb 12.1 Hct 36.8 L MCV 87.8 MCH 28.9 MCHC 32.9 RDW Std Deviation 41.1 RDW Coeff of Bandar 12.8 Plt Count 270 MPV 9.3 Immature Gran % (Auto) 0.400 Neut % (Auto) 73.3 H Lymph % (Auto) 14.5 L [place] % (Auto) 7.6 Eos % (Auto) 3.6 Baso % (Auto) 0.6 Absolute Neuts (auto) 7.0 Absolute Lymphs (auto) 1.39 Nucleated RBC % 0 Sodium 140 Potassium 3.6 Chloride 105 Carbon Dioxide 22.7 Anion Gap 13 BUN 15 Creatinine 0.73 Estim Creat Clear Calc 86.21 Est GFR (MDRD) Non-Af 91 BUN/Creatinine Ratio 21.0 H Glucose 110 H Calcium 8.7 Urine Opiates Screen NEGATIVE U Buprenorphine Qual NEGATIVE Ur Oxycodone Screen NEGATIVE Urine Methadone Screen NEGATIVE Urine Fentanyl Screen NEGATIVE Ur Barbiturates Screen NEGATIVE Ur Phencyclidine Scrn NEGATIVE Ur Amphetamines Screen NEGATIVE U Benzodiazepines Scrn NEGATIVE Urine Cocaine Screen NEGATIVE U Cannabinoids Screen NEGATIVE Ethyl Alcohol < 10.1 Discharge Plan Triage Chief Complaint: Mental Health ED Provider: Prosper [place] Dx/Rx/DC Orders Clinical Impression: Auditory hallucinations, Depression Prescriptions: No Action bupropion HCl 300 mg tablet extended release 24 hr 300 mg PO .qam Patient Comments: Take 1 tablet by mouth once daily. Take in AM loratadine 10 mg tablet 10 mg PO DAILY bupropion HCl 150 MG tablet sustained-release 12 hr 150 mg PO QHS olanzapine [Zyprexa] 2.5 mg tablet 2.5 mg PO DAILY Qty: 30 0RF Patient Comments: Stopped taking give hallucinations gabapentin 400 mg capsule 400 mg PO BID diclofenac sodium 75 mg tablet,delayed release (DR/EC) 75 mg PO BID amitriptyline 100 mg tablet 100 mg PO QHS Primary Care Provider: Rafa Clemons Referrals: Rafa Clemons MD [Primary Care Provider] - Print Language: Salvadorean Disposition Disposition: Psychiatric Hospital or Unit
--- OUTSIDE RECORDS SUMMARY | 2025-03-03 11:32 | XMS RPT_ITS | CCD ---
Author Organization [facility] Care Team Providers Care Hearing Care Practitioner Name Role Phone Jason Clemons MD Primary Care Provider Dr. Jason Clemons Primary Care Provider Dr. Jason Clemons Referring Provider Dr. Prashant Garcia Attending Provider Dr. Tam Briggs Attending Provider Dr. Prashant Garcia Referring Provider Dr. Prashant Garcia Other Provider Jason Clemons MD Primary Care Provider Dr. Dulce Penn Attending Provider Dr. Prashant Garcia Referring Provider Jason Clemons MD Primary Care Provider Jason Clemons Primary Care Unavailable Moe Morelos Attending Unavailable Jason Clemons Primary Care Unavailable Prosper España Attending Unavailable Prosper España Referring Unavailable Jason Clemons Primary Care Unavailable Jason Clemons Referring Unavailable Prashant Garcia Attending Unavailable Kaci, Jason Primary Care Unavailable Tam Briggs Attending Unavailable Prashant Garcia Referring Unavailable Kaci, Jason Primary Care Unavailable Prashant Garcia Attending Unavailable Kaci, Jason Primary Care Unavailable Ernestine Suarez Attending Unavailable Kaci, Jason Primary Care Unavailable Prashant Garcia Attending Unavailable Prashant Garcia Attending Unavailable Kaci, Jason Primary Care Unavailable Kaci, Jason Primary Care Unavailable Dulce Penn Attending Unavailable Prashant Garcia Referring Unavailable Kaci, Jason Primary Care Unavailable Prashant Garcia Attending Unavailable Elderbrock, Jason Referring Unavailable Borruso, Prashant Referring Unavailable Borruso, Prashant Consulting Unavailable Elderbrock, Jason Primary Care Unavailable Borruso, Prashant Attending Unavailable Elderbrock, Jason Primary Care Unavailable Elderbrock, Jason Referring Unavailable Borruso, Prashant Attending Unavailable Elderbrock, Jason Primary Care Unavailable Tam Briggs Attending Unavailable Tannhof QUILTER FIXER.TAZOmarCarmina Unavailable Jose Alfredo QUILTER FIXER.LICENSED AIRCRAFT MAINTENANCE ENGINEERQuinton Unavailable [place]annhof QUILTER FIXER.LICENSED AIRCRAFT MAINTENANCE ENGINEEROmarCarmina Unavailable ELDERBROCK, JASON D Attending Unavailable ELDERBROCK, JASON D Primary Care Unavailable ELDERBROCK, JASON D Attending Unavailable ELDERBROCK, JASON D Primary Care Unavailable ELDERBROCK, JASON D Attending Unavailable ELDERBROCK, JASON D Primary Care Unavailable ELDERBROCK, JASON D Referring Unavailable ELDERBROCK, JASON D Primary Care Unavailable JEMAL MORALEZ Attending Unavailable ELDERBROCK, JASON D Referring Unavailable ELDERBROCK, JASON D Primary Care Unavailable ELDERBROCK, JASON D Primary Care Unavailable GALLITO NUR Attending Unavailable ELDERBROCK, JASON D Attending Unavailable ELDERBROCK, JASON D Primary Care Unavailable ELDERBROCK, JASON D Referring Unavailable ELDERBROCK, JASON D Primary Care Unavailable CARMINA SUAZO Attending Unavailable ELDERBROCK, JASON D Primary Care Unavailable ELDERBROCK, JASON D Attending Unavailable SELF Referring Unavailable ELDERBROCK, JASON D Primary Care Unavailable Allergies Allergy Classification Reported Allergen(s) Allergy Type Date of Onset Reaction(s) Facility (20 sources) metroNIDAZOLE; Translations: [METRONIDAZOLE] [facility] Sulfonamides (Antibiotic); Translations: [SULFA (SULFONAMIDE ANTIBIOTICS)] Drug Allergy 0 Hives [facility] (20 sources) Tetracycline; Translations: [TETRACYCLINE] Drug Allergy 0 Vomiting [facility] (20 sources) Sertraline; Translations: [SERTRALINE] [facility] (3 sources) Sulfonamides (Antibiotic) Allergy to substance 3 [facility] (1 source) Sulfonamides (Antibiotic) Drug allergy (disorder) 4 [facility] (1 source) Tetracycline Drug Allergy 4 [facility] Medications Current Medications Medication Drug Class(es) Dates Sig (Normalized) Sig (Original) acetaminophen 500 mg oral tablet (20 sources) Start: 06-18-2023 take 1000 mg by mouth every six hours as needed Acetaminophen Active 1000 MG PO EVERY 6 HOURS NEEDED 100 June 18, 2023 12:00am Start: 06-16-2023 End: 06-18-2023 take 1 capsule by mouth once Acetaminophen (Tylenol) 3 25 mg capsule Discontinued 325 MG PO ONCE June 16, 2023 12:00am June 18, 2023 3:30pm Start: 12-09-2018 take 1 tablet by jacobo th every six hours as needed acetaminophen (TYLENOL) 500 mg tablet Take 500 mg by mouth every 6 hours as needed. FOR PAIN 0 12/09/2018 Active Comment on above: Take 500 mg by mouth every 6 hours as needed. FOR PAIN amitriptyline hydrochloride 100 mg oral tablet (20 sources) Tricyclic Antidepressant Start: 06-07-20 End: 08-07-19 take 1 tablet by mouth once daily at bedtime amitriptyline (ELAVIL) 100 mg tablet Indications: Insomnia, unspecified type Take 1 tablet by mouth daily at bedtime. 30 tablet 08/07/2024 Active Start: 12-11-2022 take 1 tablet by jacobo th once daily at bedtime amitriptyline (ELAVIL) 100 mg tablet Indications: Insomnia, unspecified type Take 1 tablet by mouth daily at bedtime. 30 tablet 5 12/11/2022 Active Start: 06-16-2022 take 1 tablet by jacobo th once daily at bedtime amitriptyline (ELAVIL) 100 mg tablet Indications: Insomnia, unspecified type Take 1 tablet by mouth daily at bedtime. 30 tablet 5 06/16/2022 Active Start: 12-17-2021 take 1 tablet by jacobo th once daily at bedtime amitriptyline (ELAVIL) 100 mg tablet Indications: Insomnia, unspecified type Take 1 tablet by mouth daily at bedtime. 30 tablet 5 12/17/2021 Active Start: 07-01-2021 take 1 tablet by jacobo th once daily at bedtime amitriptyline (ELAVIL) 100 mg tablet Indications: Insomnia, unspecified type Take 1 tablet by mouth daily at bedtime. 30 tablet 5 07/01/2021 Active Start: 12-14-2016 take 25 mg by mouth once daily Amitriptyline Active 25 MG PO DAILY December 13, 2016 11:00pm Comment on above: Take 1 tablet by jacobo th daily at bedtime. atorvastatin 20 mg oral tablet (20 sources) HMG-CoA Reductase Inhibitor Start : 12-05 End: 12-05 take 1 tablet by mouth once daily at bedtime for hyperlipidemia atorvastatin (LIPITOR) 20 mg tablet Indications: Hypertriglyceridemia , Mixed hyperlipidemia Take 1 tablet by mouth daily at bedtime. For cholesterol. 90 tablet 1 12/05/2024 Active 24 hr buPROPion hydrochloride 150 mg extended release oral tablet (20 sources) Aminoketone Start : 10-12 buPROPion XL (WELLBUTRIN XL) 150 mg 24 hr tablet Indications: Depression, unspecified depression type Take once daily in the AM. Takes the 300 mg in the PM 10/12/2024 Active Start: 06-16-2022 End: 10-12-2024 buPROPion XL (WELLBUTRIN XL) 300 mg 24 hr tablet Indications: Depression, unspecified depression type Take 1 pill daily in PM. 30 tablet 11 10/12/2024 Active Start: 03-17-2022 End: 10-12-2024 take 1 tablet by mouth once daily in the evening buPROPion XL (WELLBUTRIN XL) 150 mg 24 hr tablet Indications: Depression, unspecified depression type Take 1 tablet by mouth once daily. Take in PM 30 tablet 11 03/21/2024 10/12/2024 Discontinued (Adjust Sig - Block E-Cancel) Start: 12-26-2021 End: 04-15-2022 take 1 tablet by mouth once daily in the morning buPROPion XL (WELLBUTRIN XL) 300 mg 24 hr tablet Indications: Depression, unspecified depression type Take 1 tablet by mouth once daily. Take in AM 30 tablet 1 04/16/2022 Active Start: 09-23-2021 take 1 tablet by jacobo th once daily in the evening buPROPion XL (WELLBUTRIN XL) 150 mg 24 hr tablet Indications: Depression, unspecified depression type Take 1 tablet by mouth once daily. Take in PM 30 tablet 5 09/23/2021 Active Start: 06-24-2021 take 1 tablet by jacobo th once daily in the morning buPROPion XL (WELLBUTRIN XL) 300 mg 24 hr tablet Indications: Depression, unspecified depression type Take 1 tablet by mouth once daily. Take in AM 30 tablet 1 06/24/2021 Active Start: 12-14-2016 take 150 mg by mouth twice daily Bupropion Hcl Active 150 MG PO TWICE A DAY December 13, 2016 11:00pm Start: 12-14-2016 take 150 mg by mouth twice daily Bupropion Hcl Active 150 MG PO TWICE A DAY December 13, 2016 11:00pm Comment on above: Take 1 tablet by jacobo th once daily. Take in AM Take 1 tablet by jacobo th once daily. Take in PM cephalexin 500 mg oral capsule (3 sources) Cephalosporin Antibacterial Start: End: take 1 capsule by mouth twice daily cephALEXin (KEFLEX) 500 mg capsule Indications: Paronychia of great toe of left foot Take 1 capsule by mouth two times a day for 7 days. 14 capsule 01/15/2025 01/22/2025 Active Start: 06-18-2023 Cephalexin Act rachelle 1000 MG PO EVERY 8 HOURS June 18, 2023 12:00am take 2 tabs at 9:00 pm and 2 tabs after 5 am when you wake up diclofenac sodium 75 mg delayed release oral tablet (20 sources) Nonsteroidal Anti-inflammatory Drug Start: 07-17-2022 End: 07-21-2024 take 1 tablet by mouth twice daily at mealtime for pain diclofenac, EC, (VOLTAREN) 75 mg EC tablet Indications: Low back pain with sciatica, sciatica laterality unspecified, unspecified back pain laterality, unspecified chronicity , Arthritis of both hands TAKE 1 TABLET BY MOUTH WITH FOOD TWICE DAILY for pain and inflamation 180 tablet 3 07/21/2024 Active Start: 07-23-2021 take 1 tablet by jacobo th twice daily at mealtime for pain diclofenac, EC, (VOLTAREN) 75 mg EC tablet Indications: Low back pain with sciatica, sciatica laterality unspecified, unspecified back pain laterality, unspecified chronicity , Arthritis of both hands TAKE 1 TABLET BY MOUTH WITH FOOD TWICE DAILY for pain and inflamation 180 tablet 3 07/23/2021 Active Start: 12-14-2016 take 50 mg by mouth once daily Diclofenac Sodium Active 50 MG PO DAILY December 13, 2016 11:00pm Comment on above: TAKE 1 TABLET BY JACOBO TH WITH FOOD TWICE DAILY for pain and inflamation doxycycline hyclate 100 mg oral capsule (2 sources) Tetracycline-class Drug Start: End: take 1 capsule by mouth twice daily doxycycline hyclate (VIBRAMYCIN) 100 mg capsule Indications: Hidradenitis suppurativa Take 1 capsule by mouth two times a day for 10 days. 20 capsule 02/15/2025 02/25/2025 Active gabapentin 400 mg oral capsule (20 sources) Anti-epileptic Agent Start: End: take 1 capsule by mouth twice daily gabapentin (NEURONTIN) 400 mg capsule Indications: Low back pain with sciatica, sciatica laterality unspecified, unspecified back pain laterality, unspecified chronicity Take 1 capsule by mouth two times a day for 180 days. 60 capsule 5 02/01/2025 07/31/2025 Active Start: 05-10-2023 End: 05-23-2024 take 1 capsule by mouth twice daily gabapentin (NEURONTIN) 300 mg capsule Indications: Low back pain with sciatica, sciatica laterality unspecified, unspecified back pain laterality, unspecified chronicity Take 1 capsule by mouth two times a day for 180 days. 60 capsule 5 11/25/2023 12/06/2023 Discontinued Start: 07-01-2021 End: 06-09-2023 take 2 capsules by mouth once daily at bedtime gabapentin (NEURONTIN) 300 mg capsule Indications: Low back pain with sciatica, sciatica laterality unspecified, unspecified back pain laterality, unspecified chronicity Take 2 capsules by mouth daily at bedtime for 180 days. 180 capsule 1 12/11/2022 05/10/2023 Discontinued Comment on above: Take 2 capsules by m outh daily at bedtime for 180 days. Take 1 capsule by mo uth two times a day for 90 days. loratadine 10 mg oral tablet (20 sources) Start: 06-07-2023 End: 08-07-2024 take 1 tablet by mouth once daily loratadine (CLARITIN) 10 mg tablet Take 1 tablet by mouth once daily. 30 tablet 11 08/07/2024 Active Start: 06-16-2022 take 1 tablet by jacobo th once daily loratadine (CLARITIN) 10 mg tablet Take 1 tablet by mouth once daily. 30 tablet 11 06/16/2022 Active Start: 06-20-2021 take 1 tablet by jacobo th once daily loratadine (CLARITIN) 10 mg tablet Take 1 tablet by mouth once daily. 30 tablet 11 06/20/2021 Active Comment on above: Take 1 tablet by jacobo th once daily. mv,Ca,min-folic acid-vit K1 (ONE-A-DAY WOMEN'S 50 PLUS) 400-20 mcg tab (20 sources) Start: 01-28-20 take 50-400 tablets by mouth once daily mv,Ca,min-folic acid-vit K1 (ONE-A-DAY WOMEN'S 50 PLUS) 400-20 mcg tab Take 1 tablet by mouth once daily. 90 tablet 3 01/27/2017 Active Comment on above: Take 1 tablet by jacobo once daily. phenylephrine hydrochloride 25 mg/ml ophthalmic solution (2 sources) alpha-1 Adrenergic Agonist Start: 12-12-19 End: 12-12-19 PHENYLephrine 2.5 % 1 drop (AK-DILATE, JAKE-SYNEPHRINE) Start: 12-11-2024 End: 12-11-2024 1 drop, BOTH EYES, DIRECT ED, Starting on Wed12/11/24 at 1000, Until Wed12/11/24 at 2159, Administer for dilation PROTECT FROM LIGHT predniSONE 10 mg oral tablet (2 sources) Start: 02-15-2025 End: 02-24-2025 predniSONE (DELTASONE) 10 mg tablet Indications: Hidradenitis suppurativa Take 4 tabs daily for 3 days, then 2 tabs daily for 3 days, then 1 tab daily for 3 days with food. 21 tablet 02/15/2025 02/24/2025 Active proparacaine hydrochloride 5 mg/ml ophthalmic solution (2 sources) Local Anesthetic Start: 12-11-2024 End: 12-11-2024 proparacaine 0.5 % 1 drop (ALCAINE) Start: 12-11-2024 End: 12-11-2024 1 drop, BOTH EYES, DIRECT ED, Starting on Wed12/11/24 at 1000, Until Wed12/11/24 at 2158, Administer for pneumo tonometry, tonopen tonometry, or pachymetry. In the event of a proparacaine shortage, administer tetracaine 0.5% ophthalmic drops 1 drop in the left eye as directed for pneumo tonometry, tonopen tonometry, or pachymetry Pseudoephedrine (20 sources) alpha-Adrenergic Agonist PSEUDOE PHEDRINE HCL (SUDAFED ORAL) Take by mouth. Active PSEUDOEPHEDRINE HCL (SUDAFED ORAL) Take by mouth. 0 Active Comment on above: Take by mouth. QUEtiapine 25 mg oral tablet (19 sources) Atypical Antipsychotic Start: 06-12-20 End: 10-14-19 take 1 tablet by mouth once daily at bedtime QUEtiapine (SEROQUEL) 25 mg tablet Indications: Auditory hallucinations Take 1 tablet by mouth daily at bedtime. 30 tablet 5 10/13/2024 Active tropicamide 10 mg/ml ophthalmic solution (2 sources) Anticholinergic Start: 12-12-19 End: 12-12-19 tropicamide 1 % 1 drop (MYDRIACYL) Start: 12-11-2024 End: 12-11-2024 1 drop, BOTH EYES, DIRECT ED, Starting on Wed12/11/24 at 1000, Until Wed12/11/24 at 2158, Administer for dilation Completed/Discontinued Medications Medication Drug Class(es) Dates Sig (Normalized) Sig (Original) acetaminophen 325 mg / HYDROcodone bitartrate 5 mg oral tablet (3 sources) Opioid Agonist Start: 06-09-2023 End: 06-16-2023 take 1 tablet by mouth every six hours as needed Hydrocodone-Acetami nophen Discontinued 1 TABLET PO EVERY 6 HOURS NEEDED 12 June 09, 2023 June 16, 2023 4:21pm ciclopirox 80 mg/ml topical solution (6 sources) Start: 11-24-2021 End: 05-06-2022 Ciclopirox (PENLAC) 8 % solution Indications: Achalasia Apply to affected area once daily. TO AFFECTED AREA. 6.6 mL 3 11/24/2021 05/06/2022 Discontinued Start: 07-24-2021 Ciclopirox (PE NLAC) 8 % solution Apply to affected area once daily. TO AFFECTED AREA. 6.6 mL 3 07/24/2021 Active Comment on above: Apply to affected ar ea once daily. TO AFFECTED AREA. dicyclomine hydrochloride 10 mg oral capsule (3 sources) Anticholinergic Start: End: take 10 mg by mouth three times daily before mealtime Dicyclomine Discontinued 10 MG PO THREE TIMES DAILY BEFORE MEALS December 14, 2016 11:35pm June 16, 2023 4:20pm docusate sodium 100 mg oral capsule (3 sources) Start: End: take 1 capsule by mouth once daily Docusate Sodium (Dok) 100 mg capsule Discontinued 100 MG PO DAILY June 09, 2023 12:00am June 16, 2023 4:21pm OLANZapine 2.5 mg oral tablet (2 sources) Atypical Antipsychotic Start: End: take 1 tablet by mouth once daily at bedtime OLANZapine (ZYPREXA) 2.5 mg tablet Indications: Mental health disorder , Auditory hallucinations Take 1 tablet by mouth daily at bedtime. 30 tablet 2 06/05/2024 06/12/2024 Discontinued (Changing Therapy/Dosage Form) oxyCODONE hydrochloride 5 mg oral tablet (2 sources) Opioid Agonist Start: End: take 5-10 mg by mouth every four hours Oxycodone Discontinued 5 - 10 MG PO Q4H 30 5 June 18, 2023 July 05, 2023 2:55pm sertraline 50 mg oral tablet (2 sources) Serotonin Reuptake Inhibitor Start: End: take 1 tablet by mouth once daily sertraline (ZOLOFT) 50 mg tablet Indications: Depression, unspecified depression type Take 1 tablet by mouth once daily. 30 tablet 5 07/23/2021 11/12/2021 Discontinued Comment on above: Take 1 tablet by jacobo th once daily. traMADol hydrochloride 50 mg oral tablet (3 sources) Opioid Agonist Start: End: take 50 mg by mouth once daily Tramadol Discontinued 50 MG PO DAILY December 13, 2016 11:00pm June 16, 2023 4:14pm Problems Active Problems Problem Classification Problem Date Documented Date Episodic/Chronic Anxiety disorders (5 sources) Generalized anxiety disorder; Translations: [Generalized anxiety disorder] Onset: 02-15-2025 05-18-2024 Chronic Blindness and vision defects (10 sources) Bilateral myopia of eyes; Translations: [Myopia, bilateral] Onset: 12-11-2024 Episodic Cataract (3 sources) Bilateral senile combined form cataracts of eyes; Translations: [Combined forms of age-related cataract, bilateral] Onset: 12-11-2024 Chronic Diabetes mellitus without complication (4 sources) Increased glucose level; Translations: [Other abnormal glucose] Onset: 02-15-2025 12-06-2023 Episodic Disorders of lipid metabolism (13 sources) Hypercholesterolemia; Translations: [Pure hypercholesterolemia, unspecified] Onset: 02-15-2025 Chronic E Codes: Fall (3 sources) Fall; Translations: [Unspecified fall, initial encounter] 06-09-2023 Episodic Immunizations and screening for infectious disease (1 source) Needs influenza immunization; Translations: [Encounter for immunization] Episodic Miscellaneous mental health disorders (3 sources) Mental disorder; Translations: [Mental disorder, not otherwise specified] 05-18-2024 Chronic Mood disorders (20 sources) Depressive disorder; Translations: [Depression, unspecified depression type] Onset: 05-27-2010 Chronic Mood disorders (2 sources) Mood disorders; Translations: [Depression, unspecified] Onset: 08-13-2015 Osteoarthritis (20 sources) Degenerative joint disease involving multiple joints; Translations: [Polyosteoarthritis, unspecified] Onset: 03-02-2019 03-02-2019 Chronic Other aftercare (1 source) Encounter for other orthopedic aftercare; Translations: [Unspecified orthopedic aftercare] 07-05-2023 Episodic Other aftercare (1 source) Post-discharge follow-up; Translations: [Encounter for follow-up examination after completed treatment for conditions other than malignant neoplasm] 05-18-2024 Episodic Other aftercare (1 source) Encounter for therapeutic drug level monitoring; Translations: [Medication monitoring encounter] Onset: 02-15-2025 Episodic Other circulatory disease (3 sources) Elevated blood-pressure reading without diagnosis of hypertension; Translations: [Elevated blood-pressure reading, without diagnosis of hypertension] 03-14-2024 Episodic Other eye disorders (2 sources) Posterior vitreous detachment of left eye; Translations: [Vitreous degeneration, left eye] Chronic Other eye disorders (1 source) Vitreous degeneration, left eye; Translations: [Posterior vitreous detachment of left eye] Onset: 12-11-2024 Chronic Other eye disorders (1 source) Tear film insufficiency; Translations: [Dry eye syndrome of bilateral lacrimal glands] Episodic Other eye disorders (1 source) Eye / vision finding 11-07-2024 Episodic Other nervous system disorders (1 source) Chronic pain; Translations: [Other chronic pain] 11-07-2024 Chronic Other nervous system disorders (2 sources) Acute postoperative pain; Translations: [Other acute postprocedural pain] 06-18-2023 Episodic Other screening for suspected conditions (not mental disorders or infectious disease) (7 sources) Patient encounter status; Translations: [Encounter for screening mammogram for malignant neoplasm of breast] Episodic Other skin disorders (2 sources) Onychogryposis; Translations: [Onychogryphosis] 01-15-2025 Episodic Other skin disorders (1 source) Hidradenitis suppurativa; Translations: [Hidradenitis suppurativa] 02-15-2025 Episodic Other skin disorders (1 source) Hidradenitis suppurativa; Translations: [Hidradenitis suppurativa] Onset: 02-15-2025 Episodic Other skin disorders (1 source) Onychogryphosis; Translations: [Onychogryposis of toenail] Onset: 01-15-2025 Episodic Other upper respiratory disease (20 sources) Allergic rhinitis; Translations: [Allergic rhinitis, unspecified] Chronic Other upper respiratory disease (20 sources) Seasonal allergy; Translations: [Other seasonal allergic rhinitis] Onset: 05-27-2010 05-27-2010 Chronic Residual codes; unclassified (6 sources) Auditory hallucinations; Translations: [Auditory hallucinations] 05-18-2024 Episodic Residual codes; unclassified (1 source) Altered mental status, unspecified; Translations: [Altered mental status, unspecified] Onset: 05-15-2024 Episodic Skin and subcutaneous tissue infections (3 sources) Paronychia of toe of left foot; Translations: [Cellulitis of left toe] Onset: 01-15-2025 01-15-2025 Episodic Substance-related disorders (1 source) Tobacco dependence caused by cigarettes; Translations: [Nicotine dependence, cigarettes, uncomplicated] 11-07-2024 Chronic Past or Other Problems Problem Classification Problem Date Documented Da te Episodic/Chronic Fracture of upper limb (9 sources) Fracture at wrist and/or hand level; Translations: [Fracture of unspecified carpal bone, right wrist, initial encounter for closed fracture] Onset: 07-19-2023 06-09-2023 Episodic Other circulatory disease (1 source) Elevated blood-pressure reading, without diagnosis of hypertension; Translations: [Elevated blood pressure reading without diagnosis of hypertension] Onset: 03-14-2024 Episodic Residual codes; unclassified (20 sources) Insomnia; Translations: [Insomnia, unspecified] Onset: 01-04-2015 01-04-2015 Episodic Residual codes; unclassified (1 source) Insomnia, unspecified; Translations: [Insomnia, unspecified type] Onset: 01-04-2015 Episodic Spondylosis; intervertebral disc disorders; other back problems (20 sources) Backache; Translations: [Dorsalgia, unspecified] Onset: 05-27-2010 Episodic Unclassified (1 source) Patient encounter status 10-10-2024 Results Test Name Value Interpretation Reference Range Facility CBC panel Auto (Bld)on 02-15 Erythrocyte distribution width (RBC) [Ratio] 12.1 % Normal 11.5-15.0 [facility] Comment on above: Order Comment: Speci men Type: BLOOD SPECIMENOrdering Facility: [facility] Address: [address] [place] [address] Performed By: #### 5 8410-2 ####[facility] [id number] [place] [address] [place] Hematocrit (Bld) [Volume fraction] 39.6 % Normal 36.0-46.0 [facility] Comment on above: Order Comment: Speci men Type: BLOOD SPECIMENOrdering Facility: [facility] Address: [address] [place] [address] Performed By: #### 5 8410-2 ####[facility] [id number] [place] [address] [place] Hemoglobin (Bld) [Mass/Vol] 13.0 g/dL Normal 11.5-15.5 [facility] Comment on above: Order Comment: Speci men Type: BLOOD SPECIMENOrdering Facility: [facility] Address: [address] [place] [address] Performed By: #### 5 8410-2 ####[facility]IA [id number] [place] [address] [place] MCH (RBC) [Entitic mass] 29.1 pg Normal 26.0-34.0 [facility] Comment on above: Order Comment: Speci men Type: BLOOD SPECIMENOrdering Facility: [facility] Address: [address] [place] [address] Performed By: #### 5 8410-2 ####[facility] [id number] [place] [address] [place] MCHC (RBC) [Mass/Vol] 32.8 g/dL Normal 30.5-36.0 [facility] Comment on above: Order Comment: Speci men Type: BLOOD SPECIMENOrdering Facility: [facility] Address: [address] [place] [address] Performed By: #### 5 8410-2 ####[facility]IA [id number] [place] [address] [place] MCV (RBC) [Entitic vol] 88.8 fL Normal 80.0-100.0 [facility] Comment on above: Order Comment: Speci men Type: BLOOD SPECIMENOrdering Facility: [facility] Address: [address] [place] [address] Performed By: #### 5 8410-2 ####[facility] LABIA [id number] [place] [address] [place] Nucleated RBC (Bld) [#/Vol] 10*3/uL Normal <0.01 [facility] Comment on above: Order Comment: Speci men Type: BLOOD SPECIMENOrdering Facility: [facility] Address: [address] [place] [address] Performed By: #### 5 8410-2 ####[facility] [id number] [place] [address] [place] Platelet mean volume (Bld) [Entitic vol] 9.3 fL Normal 9.0-12.7 [facility] Comment on above: Order Comment: Speci men Type: BLOOD SPECIMENOrdering Facility: [facility] Address: [address] [place] [address] Performed By: #### 5 8410-2 ####[facility] [id number] [place] [address] [place] Platelets (Bld) [#/Vol] 435 10*3/uL High 150-400 [facility] Comment on above: Order Comment: Speci men Type: BLOOD SPECIMENOrdering Facility: [facility] Address: [address] [place] [address] Performed By: #### 5 8410-2 ####[facility] [id number] [place] [address] [place] RBC (Bld) [#/Vol] 4.46 10*6/uL Normal 3.90-5.20 [facility] Comment on above: Order Comment: Speci men Type: BLOOD SPECIMENOrdering Facility: [facility] Address: [address] [place] [address] Performed By: #### 5 8410-2 ####[facility] [id number] [address] [address] [place] WBC (Bld) [#/Vol] 13.29 10*3/uL High 3.70-11.00 [facility] Comment on above: Order Comment: Speci men Type: BLOOD SPECIMENOrdering Facility: [facility] Address: [address] [place] [address] Performed By: #### 5 8410-2 ####[facility] CARMITA [id number] [place] [address] [place] CNOVon 02-15-2025 CNOV Office Visit (FAMPWS ) YADIRA CANAS ([id number]) 1960 F Date Time Provider Department 02/15/25 3:20 PM JASON CLEMONS FAMPWS During your visit today, we recorded the following information about you: Pulse Respiration Blood pressure Weight 88/minute 18/minute 120/80 86.9 kg Jason Clemons MD 02/15/2025 5:14 PM Signed Chief Complaint Patient presents with: F/U 3 Month HPI Yadira Canas is a 64 year old female who presents here today for 3 month follow up. No bowel, Gi, or urinary. Hx of elevated BP. No chest pains, dizziness, or SOB. Watching sodium in food. Lipid: Taking Lipitor 20 mg daily, tolerating well. Tries to watch diet and walks for exercise. Watching sodium in diet. Pain: Chronic; stable with Amitriptyline 100 mg at bedtime, Gabapentin 400 mg 1 pill BID and Voltarent 75 mg 1 pill BID. Psych: Hx of auditory hallucinations and been hospitalized for psychiatric issues. Denies having anymore hallucinations. [facility] but never scheduled. Taking Seroquel 25 mg daily, Wellbutrin xl 150 mg at night and 300 mg daily in AM. Uses Amitriptyline for insomnia. Saw Optometry Dr. Moralez for vision changes on 12/11/24. Rash: under the right arm, painful, pimple like bumps that started a few days ago. Has been putting Petroleum jelly on the arm. Positive bleeding. No rash anywhere else, never had rash like this before. Past medical history, appointments, medications, allergies reviewed. Previous Medical History PAST MEDICAL HISTORY Diagnosis Date Allergic rhinitis Back pain Depression Previous Surgical History PAST SURGICAL HISTORY Procedure Laterality Date COLONOSCOPY FLX DX W/COLLJ SPEC WHEN PFRMD 11/01/13 Colonoscopy LIG/TRNSXJ FLP TUBE ABDL/VAG APPR UNI/BI 1989 Tubal ligation NEUROPLASTY AND/TRANSPOS MEDIAN NRV CARPAL TUNNE Carpal tunnel decomp bilaterally PAST SURGICAL HISTORY OF 2013 dental extractions Family History FAMILY HISTORY Problem Relation Age of Onset Cataract Mother Diabetes Mother Arthritis Mother Stroke Mother Patient Allergies ALLERGIES Allergen Reactions Sulfa (Sulfonamide * Hives Tetracycline Vomiting Flagyl [Metronidazo* GI Upset Sertraline GI Upset Current Medications Current Outpatient Medications on File Prior to Visit Medication Sig gabapentin (NEURONTIN) 400 mg capsule Take 1 capsule by mouth two times a day for 180 days. atorvastatin (LIPITOR) 20 mg tablet Take 1 tablet by mouth daily at bedtime. For cholesterol. QUEtiapine (SEROQUEL) 25 mg tablet Take 1 tablet by mouth daily at bedtime. buPROPion XL (WELLBUTRIN XL) 300 mg 24 hr tablet Take 1 pill daily in PM. buPROPion XL (WELLBUTRIN XL) 150 mg 24 hr tablet Take once daily in the AM. Takes the 300 mg in the PM loratadine (CLARITIN) 10 mg tablet Take 1 tablet by mouth once daily. amitriptyline (ELAVIL) 100 mg tablet Take 1 tablet by mouth daily at bedtime. diclofenac, EC, (VOLTAREN) 75 mg EC tablet TAKE 1 TABLET BY MOUTH WITH FOOD TWICE DAILY for pain and inflamation acetaminophen (TYLENOL) 500 mg tablet Take 500 mg by mouth every 6 hours as needed. FOR PAIN mv,Ca,min-folic acid-vit K1 (ONE-A-DAY WOMEN'S 50 PLUS) 400-20 mcg tab Take 1 tablet by mouth once daily. PSEUDOEPHEDRINE HCL (SUDAFED ORAL) Take by mouth. No current facility-administered medications on file prior to visit. Social History Social History Tobacco Use Smoking status: Every Day Current packs/day: 0.00 Average packs/day: 0.5 packs/day for 5.0 years (2.5 ttl pk-yrs) Types: Cigarettes Start date: 05/02/2011 Last attempt to quit: 05/02/2016 Years since quittin.7 Smokeless tobacco: Never Tobacco comments: Smoking about 1/4 ppd Vaping Use Vaping status: Never Used Substance Use Topics Alcohol use: No Drug use: No EXAM: BP 120/80 Pulse 88 Resp 18 Wt 86.9 kg (191 lb 9.3 oz) BMI 31.88 kg/m? General Appearance: Well appearing, alert, in no acute distress, well-hydrated, well nourished.. Skin: multiple cysts and inflammation right axilla; several cysts have ruptured and are draining blood.. Lungs: Lungs clear to auscultation. No wheezing, rhonchi, rales.. Heart: RRR without murmur, gallop, or rubs. No ectopy . Health Maintenance List DTaP,Tdap,Td Vaccine(1 - Tdap) Never done Mammogram Screening due on 02/04/2022 Cervical Cancer Screening due on 03/14/2025 HIV Screening due on 03/14/2025 Covid-19 Vaccine( season) due on 05/18/2025 Pneumococcal Vaccine: 50+(2 of 2 - PPSV23) due on 02/15/2026 Influenza Vaccine(1) due on 04/02/2025 Anxiety Screening due on 05/18/2025 Diabetes Screening due on 11/07/2026 Lipid Screening due on 11/07/2028 Colorectal Cancer Screening due on 03/07/2029 RSV Vaccine(1 - 1-dose 75+ series) due on 10/06/2035 Medicare Advantage Annual Wellness Visit Completed Hepatitis C Screeni (more content not included)... Normal [facility] Comprehensive metabolic 2000 panelon 02-15-2025 Albumin [Mass/Vol] 4.3 g/dL Normal 3.9-4.9 [facility] Comment on above: Order Comment: Speci men Type: BLOOD SPECIMENOrdering Facility: [facility] Address: [address] [place] [address] Performed By: #### L IP, 38457-6 ####[facility] LABCLIA [id number] [place] [address] [place] ALP [Catalytic activity/Vol] 146 U/L High 34-123 [facility] Comment on above: Order Comment: Speci men Type: BLOOD SPECIMENOrdering Facility: [facility] Address: [address] [place] [address] Performed By: #### L IPNF, 13654-1 ####[facility] LABCLIA [id number] [address] [address] [place] ALT [Catalytic activity/Vol] 17 U/L Normal 7-38 [facility] Comment on above: Order Comment: Speci men Type: BLOOD SPECIMENOrdering Facility: [facility] Address: [address] [place] [address] Performed By: #### L IPNF, 73504-4 ####[facility] LABCLIA [id number] [place] [id number] [place] Anion gap [Moles/Vol] 15 mmol/L Normal 8-15 [facility] Comment on above: Order Comment: Speci men Type: BLOOD SPECIMENOrdering Facility: [facility] Address: [address] [place] [address] Performed By: #### L IPNF, 53228-9 ####[facility] LABCLIA [id number] [place] [id number] [place] AST [Catalytic activity/Vol] 17 U/L Normal 13-35 [facility] Comment on above: Order Comment: Speci men Type: BLOOD SPECIMENOrdering Facility: [facility] Address: [address] [place] [address] Performed By: #### L IPNF, 59762-2 ####[facility] LABCLIA [id number] [place] [id number] [place] Bilirubin [Mass/Vol] mg/dL Low 0.2-1.3 [facility] Comment on above: Order Comment: Speci men Type: BLOOD SPECIMENOrdering Facility: [facility] Address: [address] [place] [address] Performed By: #### L IPNF, 98841-7 ####[facility] LABCLIA [id number] [place] [id number] [place] Calcium [Mass/Vol] 9.4 mg/dL Normal 8.5-10.2 [facility] Comment on above: Order Comment: Speci men Type: BLOOD SPECIMENOrdering Facility: [facility] Address: [address] [place] [address] Performed By: #### L IPNF, ####[facility] LABCLIA [id number] [place] [address] [place] Chloride [Moles/Vol] 101 mmol/L Normal 98-107 [facility] Comment on above: Order Comment: Speci men Type: BLOOD SPECIMENOrdering Facility: [facility] Address: [address] [place] [address] Performed By: #### L IPNF, ####[facility]CL[facility] [id number] [place] [address] [place] CO2 [Moles/Vol] 24 mmol/L Normal 22-30 [facility] Comment on above: Order Comment: Speci men Type: BLOOD SPECIMENOrdering Facility: [facility] Address: [address] [place] [address] Performed By: #### L IPNF, ####[facility] LABCL[facility] [id number] [place] [address] [place] Creatinine [Mass/Vol] 0.77 mg/dL Normal 0.58-0.96 [facility] Comment on above: Order Comment: Speci men Type: BLOOD SPECIMENOrdering Facility: [facility] Address: [address] [place] [address] Performed By: #### L IPNF, ####[facility]CL[facility] [id number] [place] [id number] [place] eGFRcr SerPlBld CKD-EPI 2021 86 mL/min/1.73m??? Normal >=60 [facility] Comment on above: Order Comment: Speci men Type: BLOOD SPECIMENOrdering Facility: [facility] Address: [address] [place] [address] Result Comment: Shannon mated Glomerular Filtration Rate (eGFR) is calculated using the 2020 CKD-EPI creatinine equation. This equation utilizes serum creatinine, sex, and age as parameters. The creatinine assay has traceable calibration to isotope dilution-mass spectrometry. Refer to KDIGO guidelines for clinical interpretation. In patients with unstable renal function, e.g. those with acute kidney injury, the eGFR may not accurately reflect actual GFR. Performed By: #### L CHATA, 85170-2 ####[facility] [id number] [place] [address] [place] Glucose [Mass/Vol] 102 mg/dL High 74-99 [facility] Comment on above: Order Comment: Ken boateng Type: BLOOD SPECIMENOrdering Facility: [facility] Address: [address] [place] [address] Result Comment: The [place] Diabetes Association (ADA) provides guidance for cutoff values for fasting glucose and random glucose. The ADA defines fasting as no caloric intake for at least 8 hours. Fasting plasma glucose results between 100 to 125 mg/dL indicate increased risk for diabetes (prediabetes). Fasting plasma glucose results greater than or equal to 126 mg/dL meet the criteria for diagnosis of diabetes. In the absence of unequivocal hyperglycemia, results should be confirmed by repeat testing. In a patient with classic symptoms of hyperglycemia or hyperglycemic crisis, random plasma glucose results greater than or equal to 200 mg/dL meet the criteria for diagnosis of diabetes. Reference: Standards of Medical Care in Diabetes 2016, [place] Diabetes Association. Diabetes Care. 2016.39(Suppl 1). Performed By: #### L CHATA, 94917-4 ####[facility] [id number] [place] [id number] [place] Potassium [Moles/Vol] 4.7 mmol/L Normal 3.7-5.1 [facility] Comment on above: Order Comment: Ken boateng Type: BLOOD SPECIMENOrdering Facility: [facility] Address: [address] [place] [address] Performed By: #### L CHATA, ####[facility] LABCLIA [id number] [address] [address] [place] Protein [Mass/Vol] 6.9 g/dL Normal 6.3-8.0 [facility] Comment on above: Order Comment: Speci men Type: BLOOD SPECIMENOrdering Facility: [facility] Address: [address] [place] [address] Performed By: #### L IPNF, 71458-0 ####[facility] LABCL[facility] [id number] [place] [address] [place] Sodium [Moles/Vol] 140 mmol/L Normal 136-144 [facility] Comment on above: Order Comment: Speci men Type: BLOOD SPECIMENOrdering Facility: [facility] Address: [address] [place] [address] Performed By: #### L IPNF, 97995-2 ####[facility] LABCL[facility] [id number] [place] [address] [place] Urea nitrogen [Mass/Vol] 10 mg/dL Normal 7-21 [facility] Comment on above: Order Comment: Speci men Type: BLOOD SPECIMENOrdering Facility: [facility] Address: [address] [place] [address] Performed By: #### L IPNF, 83872-6 ####[facility] LABCL[facility] [id number] [place] [id number] [place] HbA1c (Bld)on 02-15-2025 Average glucose Estimated from glycated hemoglobin (Bld) [Mass/Vol] 123 mg/dL Normal [facility] Comment on above: Order Comment: Speci men Type: BLOOD SPECIMENOrdering Facility: [facility] Address: [address] [place] [address] Result Comment: eAG: (Estimated average glucose) is a calculated value from HgbA1c and is manufacturer's representative of the average blood glucose level in the last 2-3 month period. Performed By: #### 5 5454-3 ####[facility] LABCLIA [id number] [facility] [id number] [address] [place] HbA1c (Bld) [Mass fraction] 5.9 % High 4.3-5.6 [facility] Comment on above: Order Comment: Ken boateng Type: BLOOD SPECIMENOrdering Facility: [facility] Address: [address] [place] [address] Result Comment: Amer [place] Diabetes Association guidelines indicate that patients with HgbA1c in the range 5.7-6.4% are at increased risk for development of diabetes, and intervention by lifestyle modification may be beneficial. HgbA1c greater or equal to 6.5% is considered diagnostic of diabetes. Performed By: #### 5 5454-3 ####[facility]CL[facility] [id number] [facility] [address], [facility]95 [facility] [place] LIPID PANEL, NONFASTINGon Cholesterol [Mass/Vol] 134 mg/dL Normal <200 [facility] Comment on above: Order Comment: Ken men Type: BLOOD SPECIMENOrdering Facility: [facility] Address: [address] [place] [address] Result Comment: <200 mg/dL, Desirable 200-239 mg/dL, Borderline high >239 mg/dL, High Performed By: #### L IPNF, 82651-4 ####[facility]CLIA [id number] [facility] [address], [facility] [place] HDL CHOLESTEROL, NF 32 mg/dL Low >39 [facility] Comment on above: Order Comment: Robi men Type: BLOOD SPECIMENOrdering Facility: [facility] Address: [address] [place] [address] Result Comment: 40-5 9 mg/dL, Acceptable >59 mg/dL, High: Negative risk factor for coronary heart disease <40 mg/dL, Low: Positive risk factor for coronary heart disease Performed By: #### L IPNF, 45937-4 ####[facility]CL[facility] [id number] [facility] LDL CHOLESTEROL CALCULATED, NF 56 mg/dL Normal <100 [facility] Comment on above: Order Comment: Ken tasneem Type: BLOOD SPECIMENOrdering Facility: [facility] Address: [address] [place] [address] Result Comment: <100 mg/dL, Optimal 100-129 mg/dL, Near optimal/above optimal 130-159 mg/dL, Borderline high 160-189 mg/dL, High >189 mg/dL, Very high Secondary prevention optimal LDL Cholesterol levels are recommended to be <70 mg/dL LDL cholesterol is calculated using the Kwong-NIH equation. Performed By: #### L ALISE, 86317-6 ####[facility] [id number] [address] LDL/HDL RATIO, NF 1.75 mg/dL Normal <2.54 [facility] Comment on above: Order Comment: Ken boateng Type: BLOOD SPECIMENOrdering Facility: [facility] Address: [address] [place] [address] Result Comment: Refmilly thomson: 1. National Cholesterol Education Program ATP III Guideline At-A-Glance Quick Desk Reference: National Heart, Lung, and Blood [place]. National Institutes of Health. 2001: NIH Publication No. 01-3305. 2. An International Atherosclerosis Society position paper: global recommendations for the management of dyslipidemia: executive summary, Atherosclerosis. 2014: 232(2):410-413. Performed By: #### L CHATA, 51639-5 ####[facility] [id number] [address] STATES [place] [facility] NON HDL CHOL, NF 102 mg/dL Normal <130 [facility] Comment on above: Order Comment: Ken tasneem Type: BLOOD SPECIMENOrdering Facility: [facility] Address: [address] [place] [address] Result Comment: <130 mg/dL, Optimal 130-159 mg/dL, Near optimal/above optimal 160-189 mg/dL, Borderline high 190-219 mg/dL, High >219 mg/dL, Very high Secondary prevention optimal non HDL Cholesterol levels are recommended to be <100 mg/dL Performed By: #### L IPNF, 78754-0 ####[facility] LABCL[facility] [id number] [address] STATES [place] T CHOL/HDL RATIO NF 4.19 mg/dL Normal <5.10 [facility] Comment on above: Order Comment: Speci men Type: BLOOD SPECIMENOrdering Facility: [facility] Address: [address] [place] [address] Performed By: #### L IPNF, ####[facility] [id number] [place] [address] [facility] [place] TRIGLYCERIDES, NF 291 mg/dL High <150 [facility] Comment on above: Order Comment: Speci men Type: BLOOD SPECIMENOrdering Facility: [facility] Address: [address] [place] [address] Result Comment: <150 mg/dL, Normal 150-199 mg/dL, Borderline high 200-499 mg/dL, High >499 mg/dL, Very high Performed By: #### L IPNF, ####[facility] [id number] [address] STATES [place] VLDL CHOLESTEROL, NF 42 mg/dL High <30 [facility] Comment on above: Order Comment: Speci men Type: BLOOD SPECIMENOrdering Facility: [facility] Address: [address] [place] [address] Performed By: #### L IPNF, ####[facility] [id number] [address] [place] Paul 01-16-2025 YAO Telephone (JOSSIE) MISSAELYADIRA eMlonie ([id number]) 1960 F Date Time Provider Department 01/16/25 NEGRO MORGAN During your visit today, we recorded the following information about you: Negro Morgan MSW 01/16/2025 8:43 AM Signed Sw left patient message in regards to transportation assistance needs. Sw unsure if patient is linked up with [employer] [facility] that assists with rides or [employer] [place]. Sw will be out of the office for a few days and will return on 01/22. Sw will check in with patient at that time and see what transportation assistance needs patient has. Negro Morgan MSW 01/23/2025 10:55 AM Signed Sw left message for patient to return Sw call to discuss transportation resource needs to medical appts. Allergies As of Date: 01/16/2025 Noted Allergy Reaction SULFA (SULFONAMIDE ANTIBIOTICS) 05/27/2010 4 - Hives TETRACYCLINE 05/27/2010 11 - Vomiting FLAGYL (METRONIDAZOLE) 03/14/2019 8 - GI Upset SERTRALINE 11/12/2021 8 - GI Upset Date Reviewed: 01/15/2025 Reviewed by: Louann Quan MA - Fully Assessed Prescriptions as of 01/23/2025 - atorvastatin (LIPITOR) 20 mg tablet Take 1 tablet by mouth daily at bedtime. For cholesterol. - QUEtiapine (SEROQUEL) 25 mg tablet Take 1 tablet by mouth daily at bedtime. - buPROPion XL (WELLBUTRIN XL) 300 mg 24 hr tablet Take 1 pill daily in PM. - buPROPion XL (WELLBUTRIN XL) 150 mg 24 hr tablet Take once daily in the AM. Takes the 300 mg in the PM - loratadine (CLARITIN) 10 mg tablet Take 1 tablet by mouth once daily. - amitriptyline (ELAVIL) 100 mg tablet Take 1 tablet by mouth daily at bedtime. - diclofenac, EC, (VOLTAREN) 75 mg EC tablet TAKE 1 TABLET BY MOUTH WITH FOOD TWICE DAILY for pain and inflamation - gabapentin (NEURONTIN) 400 mg capsule Take 1 capsule by mouth two times a day for 180 days. - acetaminophen (TYLENOL) 500 mg tablet Take 500 mg by mouth every 6 hours as needed. FOR PAIN - mv,Ca,min-folic acid-vit K1 (ONE-A-DAY WOMEN'S 50 PLUS) 400-20 mcg tab Take 1 tablet by mouth once daily. - PSEUDOEPHEDRINE HCL (SUDAFED ORAL) Take by mouth. Problem List As Of Date 01/16/2025 Noted Resolved Depression [F32.A] 05/27/2010 Seasonal allergies [J30.2] 05/27/2010 Back pain [M54.9] 05/27/2010 Insomnia [G47.00] 01/04/2015 Generalized osteoarthritis [M15.9] 03/02/2019 Allergic rhinitis [J30.9] Encounter Status:Closed by NEGRO MORGAN on 01/23/25 [facility] CNOVon 01-15-2025 CNOV Office Visit (UCWSTR ) YADIRA CANAS ([id number]) 1960 F Date Time Provider Department 01/15/25 5:15 PM GALLITO NUR [facility] During your visit today, we recorded the following information about you: Temperature Pulse Respiration Blood pressure 98.3 degrees 112/minute 20/minute 148/68 Weight 89 kg Gallito Nur MD 01/15/2025 5:29 PM Signed [facility] Subjective Yadira Wilhelm Missael is a 64 year old female. Patient presents with: Ingrown Toenail: ZOHREH great toe issues x 1 week Patient presents with 4 days of left great toe pain. She has swelling and discomfort. She is concerned she has an ingrown nail with an infection. She has tried to treat the nail by filing it down. She has a thickened right great nail also but it is not painful. She has been applying triple antibiotic ointment to the toe. Review of Systems Objective BP 148/68 Pulse 112 Temp 36.8 ?C (98.3 ?F) Resp 20 Wt 89 kg (196 lb 3.4 oz) SpO2 95% BMI 32.65 kg/m? Physical Exam Constitutional: General: She is not in acute distress. Feet: Comments: Thickened discolored and deformed great toenails. Trace periungual erythema on the right great toe. Violaceous erythema with edema at the proximal nail fold on the left. No obvious fluctuance however pressing on the distal nail raises the nail below the proximal nail fold. The medial distal corner of the left great nail was filed to the point of revealing some nailbed. Neurological: Mental Status: She is alert. {ASSESSMENT/PLAN: 1. Paronychia of great toe of left foot - ICD9: 681.11, ICD10: L03.032 (primary diagnosis) 2. Onychogryposis of toenail - ICD9: 703.8, ICD10: L60.2 - CONSULT TO PODIATRY for further evaluation and treatment. - CEPHALEXIN 500 MG CAPSULE -to help with current infection. She has limited ability to get rides and came by taxi here today. I suggested she contact her insurance to see if they provide vouchers for travel to medical appointments and offered referral to social work. Gallito Nur MD Differential Diagnoses - Thickened nails with mechanical trauma and paronychia is more likely for the following reason(s): suggested by [facility] Procedures Allergies As of Date: 01/15/2025 Noted Allergy Reaction SULFA (SULFONAMIDE ANTIBIOTICS) 05/27/2010 4 - Hives TETRACYCLINE 05/27/2010 11 - Vomiting FLAGYL (METRONIDAZOLE) 03/14/2019 8 - GI Upset SERTRALINE 11/12/2021 8 - GI Upset Date Reviewed: 01/15/2025 Reviewed by: Louann Quan MA - Fully Assessed Reason for Visit: Ingrown Toenail [111] Cmt: ZOHREH great toe issues x 1 week Primary Visit Diagnosis:Paronychia of great toe of left foot [L03.032] Other Visit Diagnosis:Onychogrypos is of toenail [L60.2] Order(s):CONSULT TO PODIATRY [9034] Order #: [id number]: 1 FUTURE cephALEXin (KEFLEX) 500 mg capsuleTake 1 capsule by mouth two times a day for 7 days.Disp: 14 capsuleRfl: 0 Prescriptions as of 01/15/2025 - cephALEXin (KEFLEX) 500 mg capsule Take 1 capsule by mouth two times a day for 7 days. - atorvastatin (LIPITOR) 20 mg tablet Take 1 tablet by mouth daily at bedtime. For cholesterol. - QUEtiapine (SEROQUEL) 25 mg tablet Take 1 tablet by mouth daily at bedtime. - buPROPion XL (WELLBUTRIN XL) 300 mg 24 hr tablet Take 1 pill daily in PM. - buPROPion XL (WELLBUTRIN XL) 150 mg 24 hr tablet Take once daily in the AM. Takes the 300 mg in the PM - loratadine (CLARITIN) 10 mg tablet Take 1 tablet by mouth once daily. - amitriptyline (ELAVIL) 100 mg tablet Take 1 tablet by mouth daily at bedtime. - diclofenac, EC, (VOLTAREN) 75 mg EC tablet TAKE 1 TABLET BY MOUTH WITH FOOD TWICE DAILY for pain and inflamation - gabapentin (NEURONTIN) 400 mg capsule Take 1 capsule by mouth two times a day for 180 days. - acetaminophen (TYLENOL) 500 mg tablet Take 500 mg by mouth every 6 hours as needed. FOR PAIN - mv,Ca,min-folic acid-vit K1 (ONE-A-DAY WOMEN'S 50 PLUS) 400-20 mcg tab Take 1 tablet by mouth once daily. - PSEUDOEPHEDRINE HCL (SUDAFED ORAL) Take by mouth. Problem List As Of Date 01/15/2025 Noted Resolved Depression [F32.A] 05/27/2010 Seasonal allergies [J30.2] 05/27/2010 Back pain [M54.9] 05/27/2010 Insomnia [G47.00] 01/04/2015 Generalized osteoarthritis [M15.9] 03/02/2019 Allergic rhinitis [J30.9] Prescriptions ordered this encounter Disp Refills Start End CEPHALEXIN 500 MG CAPSULE 14 c* 0 01/15/2025 01/22/2025 Route: PO Sig: Take 1 capsule by mouth two times a day for 7 days. Level of Service: OFFICE/OUTPATIENT ESTABLISHED MOD MDM 30 MIN [39243] Encounter Status:Closed by GALLITO NUR on 01/15/25 [facility] CNOVon 11-07-2024 CNOV Office Visit (FAMPWS ) YADIRA CANAS ([id number]) 1960 F Date Time Provider Department 11/07/24 1:20 PM [facility] During your visit today, we recorded the following information about you: Pulse Respiration Blood pressure Weight 84/minute 18/minute 128/80 89.4 kg Height 1.651 m Jason Clemons MD 11/07/2024 3:02 PM Addendum Yadira Canas is a 64 year old female here for a Medicare wellness visit. Medicare Health Risk Assessment General Health Excellent Exercise: Minutes/Day 60 min Exercise: Days/Week 7 days Alcohol: Daily Use Never Alcohol: Drinks/Day Patient does not drink Alcohol: 6 or more drinks Never Feel off balance No Concerns: Teeth/Dentures No Concerns: Sexual function No Troubled by feelings None of the above Frequency: Eating healthy diet Nearly every day ADLs requiring help None of the above; Driving Safety precautions in home/vehicle Yes Smoke, vape, chews tobacco Yes, but I'm not ready to quit Difficulty hearing No Difficulty seeing Yes Current Providers Specialists: I have reviewed specialist-related care of the patient in the medical record. Current care team: Patient Care Team: Jason Clemons MD as PCP - General (Family Medicine) Carmina Suazo APRN.CNP as Slitter Scorer Cut Off Operator (Family Medicine) Quinton Ramirez APRN.CNP as Slitter Scorer Cut Off Operator (Family Medicine) Medical/Family history review Reviewed and updated problem list, medical/surgical/famil y/social history, medications, and allergies. Opioid use review Opioid Medications (last 90 days) No data to display Anxiety/Depression screening PHQ-2 Score: 0 (Lower risk for depression) Recommendation: no further intervention at this time Cognitive screening Mini Cog Score: 1 Cognitive screening reviewed and Recommended referral for further evaluation (score 0-2). Functional Observation Was the patient's Timed Up AND Go test unsteady or >= 12 seconds? No Advance Care Planning Patient did not wish or was not able to name a surrogate decision maker or provide an advance care plan Measurements BP 128/80 Pulse 84 Resp 18 Ht 165.1 cm (5' 5) Wt 89.4 kg (197 lb 1.5 oz) BMI 32.80 kg/m? Vision Screening: Right: 20/20 Left: 20/ 20 Both: 20/20 Assessment/Plan Medicare annual wellness visit, subsequent (Z00.00) - Counseled on healthy diet and regular exercise - Fall avoidance information provided - Personalized prevention plan provided Chief Complaint Patient presents with: Medicare Wellness Exam 6 Month Exam HPI Yadira Canas is a 64 year old female who presents here today for 3 month follow up. No bowel, Gi, or urinary. Lipid: Taking Lipitor 20 mg daily, tolerating well. Tries to watch diet and walks for exercise. Watching sodium in diet. Pain: Chronic; stable with Amitriptyline 100 mg at bedtime, Gabapentin 400 mg 1 pill BID and Voltarent 75 mg 1 pill BID. Psych: Hx of auditory hallucinations and been hospitalized for psychiatric issues. Denies having anymore hallucinations. Referred to Counseling Center but never scheduled. Taking Seroquel 25 mg daily, Wellbutrin xl 150 mg at night and 300 mg daily in AM. Uses Amitriptyline for insomnia. Hx of elevated BP. No chest pains, dizziness, or SOB. Watching sodium in food. Past medical history, appointments, medications, allergies reviewed. Previous Medical History PAST MEDICAL HISTORY Diagnosis Date Allergic rhinitis Back pain Depression Previous Surgical History PAST SURGICAL HISTORY Procedure Laterality Date COLONOSCOPY FLX DX W/COLLJ SPEC WHEN PFRMD 11/01/13 Colonoscopy LIG/TRNSXJ FLP TUBE ABDL/VAG APPR UNI/BI 1989 Tubal ligation NEUROPLASTY AND/TRANSPOS MEDIAN NRV CARPAL TUNNE Carpal tunnel decomp bilaterally PAST SURGICAL HISTORY OF 2013 dental extractions Family History FAMILY HISTORY Problem Relation Age of Onset Diabetes Mother Arthritis Mother Stroke Mother Patient Allergies ALLERGIES Allergen Reactions Sulfa (Sulfonamide * Hives Tetracycline Vomiting Flagyl [Metronidazo* GI Upset Sertraline GI Upset Current Medications Current Outpatient Medications on File Prior to Visit Medication Sig loratadine (CLARITIN) 10 mg tablet Take 1 tablet by mouth once daily. amitriptyline (ELAVIL) 100 mg tablet Take 1 tablet by mouth daily at bedtime. diclofenac, EC, (VOLTAREN) 75 mg EC tablet TAKE 1 TABLET BY MOUTH WITH FOOD TWICE DAILY for pain and inflamation gabapentin (NEURONTIN) 400 mg capsule Take 1 capsule by mouth two times a day for 180 days. atorvastatin (LIPITOR) 20 mg tablet Take 1 tablet by mouth daily at bedtime. For cholesterol. QUEtiapine (SEROQUEL) 25 mg tablet Take 1 tablet by mouth daily at bedtime. buPROPion XL (WELLBUTRIN XL) 150 mg 24 hr tablet Take 1 tablet by mouth once daily. Take in PM buPROPion XL (WELLBUTRIN XL) 300 mg 24 hr tablet Take 1 ta (more content not included)... Normal [facility] CNOVon 08-07-2024 CNOV Office Visit (FAMPWS ) YADIRA CANAS ([id number]) 1960 F Date Time Provider Department 08/07/24 5:00 PM JASON CLEMONS During your visit today, we recorded the following information about you: Pulse Respiration Blood pressure Weight 80/minute 18/minute 124/66 90.7 kg Jason Clemons MD 08/07/2024 5:21 PM Signed Chief Complaint Patient presents with: Follow Up HPI Yadira Canas is a 63 year old female who presents here today for 2 month follow up. Pt here today for a 2 month follow up. Psych: Was referred to the Counseling Center at previous visit. Pt has not made an appt at the Counseling Center, she's decided not to go. Asking if she needs to do this? Reports she only has a track phone not a mobile plan. Wondering if she could get a home phone for medical reasons. Pt was started on Seroquel 25 mg daily at last visit in addition to her regimen of Wellbutrin xl 150 mg in PM and 300 mg in AM. Is also taking Amitriptyline 100 mg at bedtime. Pt reports that the Seroquel medication has helped a lot, feels a lot more mentally clearer. No longer having any auditory hallucinations. Overall feels she's she's doing well. BP - Hx of elevated BP at recent office visits. At most recent OV pt's BP was normal. Currently on no medication at this time. Denies checking her BP at home or having symptoms of chest pain, sob, or dizziness. Has cut back on high foods in sodium. Lipids - Taking Lipitor 20 mg once daily. Working on watching her diet and losing weight. Cut out high foods in sodium, eating better food options. Exercising by walking a lot. Pain: Chronic; taking Voltaren 75 mg 1 pill BID, Amitriptyline 100 mg at bedtime, and Gabapentin 400 mg 1 pill BID. Past medical history, appointments, medications, allergies reviewed. Previous Medical History PAST MEDICAL HISTORY Diagnosis Date Allergic rhinitis Back pain Depression Previous Surgical History PAST SURGICAL HISTORY Procedure Laterality Date COLONOSCOPY FLX DX W/COLLJ SPEC WHEN PFRMD 11/01/13 Colonoscopy LIG/TRNSXJ FLP TUBE ABDL/VAG APPR UNI/BI 1989 Tubal ligation NEUROPLASTY AND/TRANSPOS MEDIAN NRV CARPAL TUNNE Carpal tunnel decomp bilaterally PAST SURGICAL HISTORY OF 2013 dental extractions Family History FAMILY HISTORY Problem Relation Age of Onset Diabetes Mother Arthritis Mother Stroke Mother Patient Allergies ALLERGIES Allergen Reactions Sulfa (Sulfonamide * Hives Tetracycline Vomiting Flagyl [Metronidazo* GI Upset Sertraline GI Upset Current Medications Current Outpatient Medications on File Prior to Visit Medication Sig diclofenac, EC, (VOLTAREN) 75 mg EC tablet TAKE 1 TABLET BY MOUTH WITH FOOD TWICE DAILY for pain and inflamation gabapentin (NEURONTIN) 400 mg capsule Take 1 capsule by mouth two times a day for 180 days. atorvastatin (LIPITOR) 20 mg tablet Take 1 tablet by mouth daily at bedtime. For cholesterol. QUEtiapine (SEROQUEL) 25 mg tablet Take 1 tablet by mouth daily at bedtime. buPROPion XL (WELLBUTRIN XL) 150 mg 24 hr tablet Take 1 tablet by mouth once daily. Take in PM buPROPion XL (WELLBUTRIN XL) 300 mg 24 hr tablet Take 1 tablet by mouth once daily. Take in AM amitriptyline (ELAVIL) 100 mg tablet Take 1 tablet by mouth daily at bedtime. loratadine (CLARITIN) 10 mg tablet Take 1 tablet by mouth once daily. acetaminophen (TYLENOL) 500 mg tablet Take 500 mg by mouth every 6 hours as needed. FOR PAIN mv,Ca,min-folic acid-vit K1 (ONE-A-DAY WOMEN'S 50 PLUS) 400-20 mcg tab Take 1 tablet by mouth once daily. PSEUDOEPHEDRINE HCL (SUDAFED ORAL) Take by mouth. No current facility-administered medications on file prior to visit. Social History Social History Tobacco Use Smoking status: Former Current packs/day: 0.00 Average packs/day: 0.5 packs/day for 5.0 years (2.5 ttl pk-yrs) Types: Cigarettes Start date: 05/02/2011 Quit date: 05/02/2016 Years since quittin.2 Smokeless tobacco: Never Vaping Use Vaping status: Never Used Substance Use Topics Alcohol use: No Drug use: No Review of Symptoms EXAM: BP 124/66 (BP Site: Left Arm, BP Position: Sitting, BP Cuff Size: Large Adult) Pulse 80 Resp 18 Wt 90.7 kg (199 lb 15.3 oz) BMI 33.27 kg/m? General Appearance: Well appearing, alert, in no acute distress, well-hydrated, well nourished. and Obese. Lungs: Lungs clear to auscultation. No wheezing, rhonchi, rales.. Heart: RRR without murmur, gallop, or rubs. No ectopy. Health Maintenance List DTaP,Tdap,Td Vaccine(1 - Tdap) Never done Pneumococcal Vaccine: 50+(2 of 2 - PPSV23) due on 04/11/2020 Mammogram Screening due on 02/04/2022 Cervical Cancer Screening due on 03/14/2025 HIV Screening due on 03/14/2025 Covid-19 Vaccine( season) due on 05/18/2025 Anxiety Screening due on 05/18/2025 Diabetes Screening due on 11/07 (more content not included)... Normal [facility] Krunal 07-18-2024 CNCO Letter Text Normal [facility] Paul 06-19-2024 [facility] MISSAELYADIRA ([id number]) 1960 F Date Time Provider Department 06/19/24 JASON CLEMONS During your visit today, we recorded the following information about you: Lois Douglas RN 06/19/2024 4:12 PM Addendum [facility] calling to say that during the month of May they only filled the Wellbutrin script for 150 mg daily. She says they did not call PCP office to verity patient's dose after she was treated in an inpatient facility. She says they will now fill both scripts for 150 mg in the PM and 300 mg in the AM. SOLOMON Bates Mark D, MD 06/19/2024 7:04 PM Signed Noted; do they need new prescriptions? If not may close encounter. MD Misael Castillo Donna M, RN 06/19/2024 7:42 PM Signed No new scripts needed at this time. Lois Douglas RN Allergies As of Date: 06/19/2024 Noted Allergy Reaction SULFA (SULFONAMIDE ANTIBIOTICS) 05/27/2010 4 - Hives TETRACYCLINE 05/27/2010 11 - Vomiting FLAGYL (METRONIDAZOLE) 03/14/2019 8 - GI Upset SERTRALINE 11/12/2021 8 - GI Upset Date Reviewed: 06/12/2024 Reviewed by: Rossi Wall MA - Fully Assessed Reason for Visit: Medication Problem [65] Prescriptions as of 06/19/2024 - QUEtiapine (SEROQUEL) 25 mg tablet Take 1 tablet by mouth daily at bedtime. - buPROPion XL (WELLBUTRIN XL) 150 mg 24 hr tablet Take 1 tablet by mouth once daily. Take in PM - atorvastatin (LIPITOR) 20 mg tablet Take 1 tablet by mouth daily at bedtime. For cholesterol. - gabapentin (NEURONTIN) 400 mg capsule Take 1 capsule by mouth two times a day for 180 days. - buPROPion XL (WELLBUTRIN XL) 300 mg 24 hr tablet Take 1 tablet by mouth once daily. Take in AM - diclofenac, EC, (VOLTAREN) 75 mg EC tablet TAKE 1 TABLET BY MOUTH WITH FOOD TWICE DAILY for pain and inflamation - amitriptyline (ELAVIL) 100 mg tablet Take 1 tablet by mouth daily at bedtime. - loratadine (CLARITIN) 10 mg tablet Take 1 tablet by mouth once daily. - acetaminophen (TYLENOL) 500 mg tablet Take 500 mg by mouth every 6 hours as needed. FOR PAIN - mv,Ca,min-folic acid-vit K1 (ONE-A-DAY WOMEN'S 50 PLUS) 400-20 mcg tab Take 1 tablet by mouth once daily. - PSEUDOEPHEDRINE HCL (SUDAFED ORAL) Take by mouth. Problem List As Of Date 06/19/2024 Noted Resolved Depression [F32.A] 05/27/2010 Seasonal allergies [J30.2] 05/27/2010 Back pain [M54.9] 05/27/2010 Insomnia [G47.00] 01/04/2015 Generalized osteoarthritis [M15.9] 03/02/2019 Allergic rhinitis [J30.9] Encounter Status:Closed by LOIS DOUGLAS on 06/19/24 [facility] CNOVon 06-12-2024 CNOV Office Visit (FAMPWS ) YADIRA CANAS ([id number]) 1960 F Date Time Provider Department 06/12/24 5:40 PM JASON CLEMONSPWS During your visit today, we recorded the following information about you: Pulse Respiration Blood pressure Weight 88/minute 16/minute 120/72 90.2 kg Jason Clemons MD 06/12/2024 5:58 PM Signed Chief Complaint Patient presents with: Medication Follow-up HPI Yadira Melonie Missael is a 63 year old female who presents here today for medication follow up. Pt seen at [facility] ED on 06/10/24 for hearing things in her apartment complex and wanting a mental evaluation. Psych: Is on Wellbutrin 300 mg daily in AM and 150 mg daily at night, Amitriptyline 100 mg daily at bedtime, and Zyprexa 2.5 mg daily. She stated prior to adding Zyprexa she was hallucinating, hearing people in the hallway of her apt complex that were not there. Referred to Psychiatry from the ER. She feels that the Zyprexa made her loopy so she stopped taking it. This hallucinations and voices are different than it was when she was admitted to the Psych [facility]. She is still hearing voices but not as much as before. She feels like she is sleeping better. She is willing to go to the counseling center for psychiatric treatment. [facility] ED records: Narrative: Patient is a 63-year-old female past medical history of anxiety, depression who presents to the emergency department with a chief complaint of needing a mental health evaluation. According to the patient and she states that she has been having issues with her neighbors and they think that she is crazy. They claim that she is hearing things in the [place] which she states that she has but states that she is hearing the events in the wall and notes that this is normal. Patient states that she had been hospitalized in the past for anxiety but deniesany history of schizophrenia, paranoia. Patient denies any suicidal or homicidal ideation. Medical decision making narrative: Patient is a 63-year-old female who presented to the emerged part with a chief complaint of needing a mental health evaluation. Patient will have a workup performed here on the differential diagnose includes Melamin to anxiety, depression, schizophrenia, paranoia, UTI. Once workup is obtained she will be reevaluated. Patient CBC reviewed and was largely unremarkable no evidence leukocytosis white blood count normal at 10.1, hemoglobin stable 14.3, platelet count normal at 308. Patient sodium normal at 140, potassium normal at 3.7, creatinine normal at 0.99. Patient's urinalysis was reviewed and showed 500 leukocyte esterase greater than 100 white cells however there are 10-25 squamous epithelial cells indicating a contaminated sample with no bacteria seen and this will be sent forculture. Patient's drug screen was positive for MDMA rest of her test was negative. Patient's alcohol level less than 3. Patient was evaluated by social work team here in the emergency department and the patient was referred to counseling services and was help with getting transportation to the services and other resources. Once again the patient is not suicidal homicidal is acting appropriate here in the emergency department. Patient was encouraged to return with worsening symptoms or any concerns. She is advised to follow-up with her primary care physician as well. She is agreeable this plan she would like to go all question concerns answered she was discharged home in stable condition. Past medical history, appointments, medications, allergies reviewed. Previous Medical History PAST MEDICAL HISTORY Diagnosis Date Allergic rhinitis Back pain Depression Previous Surgical History PAST SURGICAL HISTORY Procedure Laterality Date COLONOSCOPY FLX DX W/COLLJ SPEC WHEN PFRMD 11/01/13 Colonoscopy LIG/TRNSXJ FLP TUBE ABDL/VAG APPR UNI/BI 1989 Tubal ligation NEUROPLASTY AND/TRANSPOS MEDIAN NRV CARPAL TUNNE 1980s Carpal tunnel decomp bilaterally PAST SURGICAL HISTORY OF 2013 dental extractions Family History FAMILY HISTORY Problem Relation Age of Onset Diabetes Mother Arthritis Mother Stroke Mother Patient Allergies ALLERGIES Allergen Reactions Sulfa (Sulfonamide * Hives Tetracycline Vomiting Flagyl [Metronidazo* GI Upset Sertraline GI Upset Current Medications Current Outpatient Medications on File Prior to Visit Medication Sig OLANZapine (ZYPREXA) 2.5 mg tablet Take 1 tablet by mouth daily at bedtime. buPROPion XL (WELLBUTRIN XL) 150 mg 24 hr tablet Take 1 tablet by mouth once daily. Take in PM atorvastatin (LIPITOR) 20 mg tablet Take 1 tablet by mouth daily at bedtime. For cholesterol. gabapentin (NEURONTIN) 400 mg capsule Take 1 capsule by mouth two times a day for 180 days. buPROPion XL (WELLBUTRIN XL) 300 mg 24 hr tablet Take 1 tablet by mouth once daily. Take in AM d (more content not included)... Normal [facility] Urine Cultureon 06-12-2024 URC Mixed Gram Positive Organisms [place] Count 1000-10,000 MIXC Mixed contaminants. Submit a new specimen if indicated. Normal [facility] Comment on above: Performed By: #### M 100.2200 ####[facility] [address] [place], [address] Alcohol, Blood (Medical)-Ser umon 06-10-2024 SERUM ETOH < 3.0 Normal [facility] Comment on above: Result Comment: The serum:whole blood ethanol ratio is approximately 1.14 and varies slightly with hematocrit. Medical Alcohol reference interval and critical value in non-tolerant individuals; 50 - 100 Impairment 100 Intoxication 100 - 250 Severe Poisoning 250 - 400 Deep/possible fatal coma Performed By: #### L 505.5000, L500.2500, L100.0100, L501.9100 #### [facility] [address] [place], [address] Basic Metabolic Profile (BMP )on 06-10-2024 BUN/CRE 16.2 RATIO Normal 10-20 [facility] Comment on above: Performed By: #### L 505.5000, L500.2500, L100.0100, L501.9100 ####[facility] [address] [place], [address] CA,Total 9.1 mg/dL Normal 8.5-10.1 [facility] Comment on above: Performed By: #### L 505.5000, L500.2500, L100.0100, L501.9100 ####[facility] [address] [place], [address] Chloride [Moles/Vol] 105 mmol/L Normal 98-107 [facility] Comment on above: Performed By: #### L 505.5000, L500.2500, L100.0100, L501.9100 ####[facility] [address] [facility] [address] CO2 [Moles/Vol] 27.0 mmol/L Normal 21.0-32.0 [facility] Comment on above: Performed By: #### L 505.5000, L500.2500, L100.0100, L501.9100 ####[facility] [address] [place], [address] Creatinine [Mass/Vol] 0.99 mg/dL Normal 0.55-1.02 [facility] Comment on above: Result Comment: The validity of the calculated GFR GFRAA in patients over 70 years has not been determined. Clinical correlation is essential. Performed By: #### L 505.5000, L500.2500, L100.0100, L501.9100 ####[facility] [address] [place], [address] ECRCL 67.27 ml/min Normal [facility] Comment on above: Performed By: #### L 505.5000, L500.2500, L100.0100, L501.9100 ####[facility] [address] [place], [address] EST GFR - AA 73 mL/min Normal >60 [facility] Comment on above: Result Comment: Afri can [place] GFR Calc Performed By: #### L 505.5000, L500.2500, L100.0100, L501.9100 ####[facility] [address] [place], [address] GAP 8 Normal 5-15 [facility] Comment on above: Performed By: #### L 505.5000, L500.2500, L100.0100, L501.9100 ####[facility] [address] [place], [address] GFR/1.73 sq M.predicted among non-blacks MDRD (S/P/Bld) [Vol rate/Area] 60 mL/min/{1.73_m2} Normal >60 [facility] Comment on above: Result Comment: Non- GFR Calc Performed By: #### L 505.5000, L500.2500, L100.0100, L501.9100 ####[facility] [address] [place], [address] Glucose [Mass/Vol] 131 mg/dL High 74-106 [facility] Comment on above: Result Comment: Fast ing Glucose result greater than or equal to 126 mg/dL suggests DIABETES MELLITUS per A.D.A. criteria. Performed By: #### L 505.5000, L500.2500, L100.0100, L501.9100 ####[facility] [address] [place], [address] Potassium [Moles/Vol] 3.7 mmol/L Normal 3.5-5.1 [facility] Comment on above: Performed By: #### L 505.5000, L500.2500, L100.0100, L501.9100 ####[facility] [address] [place], [address] Sodium [Moles/Vol] 140 mmol/L Normal 136-145 [facility] Comment on above: Performed By: #### L 505.5000, L500.2500, L100.0100, L501.9100 ####[facility] [address] [place], [address] Urea nitrogen [Mass/Vol] 16 mg/dL Normal 7-18 [facility] Comment on above: Performed By: #### L 505.5000, L500.2500, L100.0100, L501.9100 ####[facility] [address] [place], [address] CBC W/Diff, Automatedon 11-0 9-2023 Absolute Lymph 1.82 X10 3/uL Normal 0.83-4.51 [facility] Comment on above: Performed By: #### L 505.5000, L500.2500, L100.0100, L501.9100 #### [facility] [address] [place], [address] Absolute Neut 7.3 X10 3/uL Normal 2.0-7.7 [facility] Comment on above: Performed By: #### L 505.5000, L500.2500, L100.0100, L501.9100 #### [facility] [address] [place], [address] Basophils/100 WBC (Bld) 0.9 % Normal 0-1 [facility] Comment on above: Performed By: #### L 505.5000, L500.2500, L100.0100, L501.9100 #### [facility] [address] [place], [address] Eosinophils/100 WBC (Bld) 1.4 % Normal 0-5 [facility] Comment on above: Performed By: #### L 505.5000, L500.2500, L100.0100, L501.9100 #### [facility] [address] [place], [address] Erythrocyte distribution width (RBC) [Ratio] 12.0 % Normal 11.6-14.6 [facility] Comment on above: Performed By: #### L 505.5000, L500.2500, L100.0100, L501.9100 #### [facility] [address] [place], [address] Hematocrit (Bld) [Volume fraction] 42.2 % Normal 37-47 [facility] Comment on above: Performed By: #### L 505.5000, L500.2500, L100.0100, L501.9100 #### [facility] [address] [place], [address] Hemoglobin (Bld) [Mass/Vol] 14.3 g/dL Normal 12.0-15.0 [facility] Comment on above: Performed By: #### L 505.5000, L500.2500, L100.0100, L501.9100 #### [facility] [address] [place], [address] IG% 0.400 Normal 0.0-0.9 [facility] Comment on above: Result Comment: IG% - Immature Granulocytes (promyelocytes, myelocytes and metamyelocytes) > 1% indicates that a LEFT SHIFT is Present. Performed By: #### L 505.5000, L500.2500, L100.0100, L501.9100 #### [facility] [address] [place], [address] Lymphocytes/100 WBC (Bld) 18.0 % Low 19-41 [facility] Comment on above: Performed By: #### L 505.5000, L500.2500, L100.0100, L501.9100 #### [facility] [address] [place], [address] MCH (RBC) [Entitic mass] 29.4 pg Normal 27.0-32.0 [facility] Comment on above: Performed By: #### L 505.5000, L500.2500, L100.0100, L501.9100 #### [facility] [address] [place], [address] MCHC (RBC) [Mass/Vol] 33.9 g/dL Normal 32-36 [facility] Comment on above: Performed By: #### L 505.5000, L500.2500, L100.0100, L501.9100 #### [facility] [address] [place], [address] MCV (RBC) [Entitic vol] 86.7 fL Normal 81-99 [facility] Comment on above: Performed By: #### L 505.5000, L500.2500, L100.0100, L501.9100 #### [facility] [address] [place], [address] Monocytes/100 WBC (Bld) 7.2 % Normal 0-10 [facility] Comment on above: Performed By: #### L 505.5000, L500.2500, L100.0100, L501.9100 #### [facility] [address] [place], [address] Neutrophils/100 WBC (Bld) 72.1 % High 47-70 [facility] Comment on above: Performed By: #### L 505.5000, L500.2500, L100.0100, L501.9100 #### [facility] [address] [place], [address] Nucleated RBC (Bld) [#/Vol] 0 10*3/uL Normal 0-5 [facility] Comment on above: Performed By: #### L 505.5000, L500.2500, L100.0100, L501.9100 #### [facility] [address] [place], [address] Platelet mean volume (Bld) [Entitic vol] 9.4 fL Normal 6.2-12.0 [facility] Comment on above: Performed By: #### L 505.5000, L500.2500, L100.0100, L501.9100 #### [facility] [address] [place], [address] Platelets (Bld) [#/Vol] 308 10*3/uL Normal 150-450 [facility] Comment on above: Performed By: #### L 505.5000, L500.2500, L100.0100, L501.9100 #### [facility] [address] [place], [address] RBC (Bld) [#/Vol] 4.87 10*6/uL Normal 4.2-5.4 [facility] Comment on above: Performed By: #### L 505.5000, L500.2500, L100.0100, L501.9100 #### [facility] [address] [place], [address] RDW SD 38.0 fl Normal 35.1-43.9 [facility] Comment on above: Performed By: #### L 505.5000, L500.2500, L100.0100, L501.9100 #### [facility] [address] [place], [address] WBC (Bld) [#/Vol] 10.1 10*3/uL Normal 4.4-11.0 [facility] Comment on above: Performed By: #### L 505.5000, L500.2500, L100.0100, L501.9100 #### [facility] [address] [place], [address] Emergency Department Summary on 06-10-2024 Emergency Department Summary [facility] Medical Records Department [address] [place] [address] Emergency Department Summary 06/10/24 MR#: [id number] Acct: [id number] Name: YADIRA CANAS Rep #: [id number] : 1960 63 From: Prosper España DO PCP: Dr. Jason Clemons MD Status:REG ER Location: ED HPI HPI - Psych History of Present Illness Chief Complaint: Mental Health Narrative Narrative: Patient is a 63-year-old female past medical history of anxiety, depression who presents to the emergency department with a chief complaint of needing a mental health evaluation. According to the patient and she states that she has been having issues with her neighbors and they think that she is crazy. They claim that she is hearing things in the gallegos which she states that she has but states that she is hearing the events in the wall and notes that this is normal. Patient states that she had been hospitalized in the past for anxiety but denies any history of schizophrenia, paranoia. Patient denies any suicidal or homicidal ideation [facility] Medical History Wears glasses Wears dentures Anxiety Arthritis Non-smoker Pain Depression Home Medications ???Medication ???Instructions ???Recorded ???Last Taken ???Type bupropion HCl 150 mg tablet,12 hr 150 mg PO QHS 12/14/16 12/14/16 History sustained-release bupropion HCl 300 mg 24 hr tablet, 300 mg PO .qam 06/16/23 Unknown History extended release loratadine 10 mg tablet 10 mg PO DAILY 06/16/23 Unknown History olanzapine 2.5 mg tablet (Zyprexa) 2.5 mg PO DAILY #30 tabs 04/19/24 Unknown Rx amitriptyline 100 mg tablet 100 mg PO QHS 06/10/24 Unknown History diclofenac sodium 75 mg 75 mg PO BID pain 06/10/24 Unknown History tablet,delayed release gabapentin 400 mg capsule 400 mg PO BID 06/10/24 Unknown History Allergy/AdvReac Type Severity Reaction Status Date / Time Sulfa (Sulfonamide Allergy Other Verified 04/19/24 15:06 Antibiotics) tetracycline AdvReac Vomiting Verified 04/19/24 15:06 Surgical History H/O tubal ligation History of carpal tunnel surgery Social History Smoking Status: Former smoker ROS ROS ED ROS Narrative Constitutional: Denies any fevers, chills, headaches, lightness, dizziness Eyes: Denies change in vision double vision blurry vision Cardiovascular: Denies chest pain palpitations Respiratory: Denies cough or wheezing shortness of breath Abdomen: Denies abdominal pain nausea vomit diarrhea : Denies any urinary symptoms Neurological: Denies numbness, just, tingling Musculoskeletal: Denies back pain Skin: Denies rashes or lesions EXAM Physical Exam Narrative Exam Narrative: General: Patient lying in bed rest comfortably did not appear to be in acute distress Head: Atraumatic, normocephalic Eyes: PERRL bilateral, EOMI bladder, no conjunctival injection noted Neck: Soft, supple, trach midline Cardiovascular: Regular rate and rhythm no murmurs gallops rubs noted Respiratory: Clear to auscultation bilaterally Abdomen: Soft, nondistended, nontender to palpation, bowel sounds present for Extremities: +5/5 strength noted in the bilateral lower extremities, no pedal edema on exam, radial pulses +2/4 in the bilateral per extremities Neurological: Patient follow commands knew that she was at [facility] the year is 2023 Skin: Warm, dry, intact Const Vital Signs: 06/10/24 16:15 Temperature 98.2 F Temperature Source Temporal Pulse Rate 94 Respiratory Rate 18 Blood Pressure 141/108 H Blood Pressure Mean 119 Pulse Ox 94 Oxygen Delivery Method Room Air MDM MDM MDM Narrative Medical decision making narrative: Patient is a 63-year-old female who presented to the emerged part with a chief complaint of needing a mental health evaluation. Patient will have a workup performed here on the differential diagnose includes Melamin to anxiety, depression, schizophrenia, paranoia, UTI. Once workup is obtained she will be reevaluated. Patient CBC reviewed and was largely unremarkable no evidence leukocytosis white blood count normal at 10.1, hemoglobin stable 14.3, platelet count normal at 308. Patient sodium normal at 140, potassium normal at 3.7, creatinine normal at 0.99. Patient's urinalysis was reviewed and showed 500 leukocyte esterase greater than 100 white cells however there are 10-25 squamous epithelial cells indicating a contaminated sample with no bacteria seen and this will be sent for culture. Patient's drug screen was positive for MDMA rest of her test was negative. Patient's alcohol level less than 3. Patient was evaluated by social work team here in the emergency dep (more content not included)... Normal [facility] Urinalysis, Completeon 06-10 EPI,SQUAMOUS 10-25 SEEN Normal 5-10 [facility] Comment on above: Order Comment: CLEAN CATCH Performed By: #### L 400.0001 #### [facility] [address] [place], [address] EPI,TRANSITION 5-10 SEEN Normal 0-5 [facility] Comment on above: Order Comment: CLEAN CATCH Performed By: #### L 400.0001 #### [facility] [address] [place], [address] WBC >100 SEEN Normal 0-5 [facility] Comment on above: Order Comment: CLEAN CATCH Performed By: #### L 400.0001 #### [facility] [address] [place], [address] BILIRUBIN URINE Negative Normal Negative [facility] Comment on above: Order Comment: CLEAN CATCH Performed By: #### L 400.0001 #### [facility] [address] [place], [address] Clarity (U) Clear Normal Clear [facility] Comment on above: Order Comment: CLEAN CATCH Performed By: #### L 400.0001 #### [facility] [address] [place], [address] Color (U) Straw Normal Yellow [facility] Comment on above: Order Comment: CLEAN CATCH Performed By: #### L 400.0001 #### [facility] [address] [place], [address] GLUCOSE, UR Normal Normal Normal [facility] Comment on above: Order Comment: CLEAN CATCH Performed By: #### L 400.0001 #### [facility] [address] [place], [address] KETONE UR Negative Normal Negative [facility] Comment on above: Order Comment: CLEAN CATCH Performed By: #### L 400.0001 #### [facility] [address] [place], [address] LEUK ESTERASE 500 /ul Abnormal Negative [facility] Comment on above: Order Comment: CLEAN CATCH Performed By: #### L 400.0001 #### [facility] [address] [facility] [address] Nitrite Ql (U) Negative Normal Negative [facility] Comment on above: Order Comment: CLEAN CATCH Performed By: #### L 400.0001 #### [facility] [address] [place], [address] OCCULT BLOOD-UR Negative Normal Negative [facility] Comment on above: Order Comment: CLEAN CATCH Performed By: #### L 400.0001 #### [facility] [address] [place], [address] pH UR 6.0 Normal 5.0 - 8.0 [facility] Comment on above: Order Comment: CLEAN CATCH Performed By: #### L 400.0001 #### [facility] [address] [place], [address] PROT DIPSTX Negative Normal Negative [facility] Comment on above: Order Comment: CLEAN CATCH Performed By: #### L 400.0001 #### [facility] [address] [place], [address] SP.GR. DIPSTX 1.010 Normal 1.002-1.030 [facility] Comment on above: Order Comment: CLEAN CATCH Performed By: #### L 400.0001 #### [facility] [address] [place], [address] UROBILI Normal Normal Normal [facility] Comment on above: Order Comment: CLEAN CATCH Performed By: #### L 400.0001 #### [facility] [address] [place], [address] BACTERIA 0 SEEN Normal None Seen [facility] Comment on above: Order Comment: CLEAN CATCH Performed By: #### L 400.0001 #### [facility] [address] [place], [address] Mucus Ql (Urine sed) 0 SEEN Normal [facility] Comment on above: Order Comment: CLEAN CATCH Performed By: #### L 400.0001 #### [facility] [address] [place], [address] RBC 0 SEEN Normal 0-5 [facility] Comment on above: Order Comment: CLEAN CATCH Performed By: #### L 400.0001 #### [facility] [address] [place], [address] Urine Drug Screen (VISTA)on 06-10-2024 AMPHETAMINES Negative Normal <1000 ng/mL [facility] Comment on above: Performed By: #### L 505.5000, L500.2500, L100.0100, L501.9100 #### [facility] [address] [place], [address] BARBITIURATES Negative Normal < 200 ng/mL [facility] Comment on above: Performed By: #### L 505.5000, L500.2500, L100.0100, L501.9100 #### [facility] [address] [place], [address] BENZODIAZIPINE Negative Normal < 200 ng/mL [facility] Comment on above: Performed By: #### L 505.5000, L500.2500, L100.0100, L501.9100 #### [facility] [address] [place], [address] COCAINE Negative Normal < 300 ng/mL [facility] Comment on above: Performed By: #### L 505.5000, L500.2500, L100.0100, L501.9100 #### [facility] [address] [place], [address] ECSTACY Positive Abnormal < 500 ng/mL [facility] Comment on above: Performed By: #### L 505.5000, L500.2500, L100.0100, L501.9100 #### [facility] [address] [place], [address] METHADONE Negative Normal < 300 ng/mL [facility] Comment on above: Performed By: #### L 505.5000, L500.2500, L100.0100, L501.9100 #### [facility] [address] [place], [address] OPIATES Negative Normal < 300 ng/mL [facility] Comment on above: Performed By: #### L 505.5000, L500.2500, L100.0100, L501.9100 #### [facility] [address] [place], [address] PCP Negative Normal < 25 ng/mL [facility] Comment on above: Performed By: #### L 505.5000, L500.2500, L100.0100, L501.9100 #### [facility] [address] [place], [address] THC Negative Normal < 50 ng/mL [facility] Comment on above: Performed By: #### L 505.5000, L500.2500, L100.0100, L501.9100 #### [facility] [address] [place], [address] VISTA UDS PH 5 Normal [facility] Comment on above: Performed By: #### L 505.5000, L500.2500, L100.0100, L501.9100 #### [facility] [address] [place], [address] CNPDiana 06-06-2024 CNPN Telephone (4CQ) YADIRA CANAS ([id number]) 1960 F Date Time Provider Department 06/06/24 JASON CLEMONS 4CQ During your visit today, we recorded the following information about you: LarsAideeHiwot 06/06/2024 8:02 AM Signed Pt has consult to psych, please advise Lois Douglas RN 06/12/2024 12:58 PM Signed Patient calling to say she feels she is having side effect of hallucinations from Olanzapine. Asking to discuss alternatives with PCP. While scheduling patient, noticed that she was in the ER on 06/10/24 requesting mental health evaluation. Scheduled same day appointment with PCP. SOLOMON Bates Mark D, MD 06/12/2024 6:00 PM Signed Seen in office Jason Clemons MD Allergies As of Date: 06/06/2024 Noted Allergy Reaction SULFA (SULFONAMIDE ANTIBIOTICS) 05/27/2010 4 - Hives TETRACYCLINE 05/27/2010 11 - Vomiting FLAGYL (METRONIDAZOLE) 03/14/2019 8 - GI Upset SERTRALINE 11/12/2021 8 - GI Upset Date Reviewed: 05/18/2024 Reviewed by: Jolynn Brock MA - Fully Assessed Reason for Visit: Medication Follow-up [270] Prescriptions as of 06/12/2024 - QUEtiapine (SEROQUEL) 25 mg tablet Take 1 tablet by mouth daily at bedtime. - buPROPion XL (WELLBUTRIN XL) 150 mg 24 hr tablet Take 1 tablet by mouth once daily. Take in PM - atorvastatin (LIPITOR) 20 mg tablet Take 1 tablet by mouth daily at bedtime. For cholesterol. - gabapentin (NEURONTIN) 400 mg capsule Take 1 capsule by mouth two times a day for 180 days. - buPROPion XL (WELLBUTRIN XL) 300 mg 24 hr tablet Take 1 tablet by mouth once daily. Take in AM - diclofenac, EC, (VOLTAREN) 75 mg EC tablet TAKE 1 TABLET BY MOUTH WITH FOOD TWICE DAILY for pain and inflamation - amitriptyline (ELAVIL) 100 mg tablet Take 1 tablet by mouth daily at bedtime. - loratadine (CLARITIN) 10 mg tablet Take 1 tablet by mouth once daily. - acetaminophen (TYLENOL) 500 mg tablet Take 500 mg by mouth every 6 hours as needed. FOR PAIN - mv,Ca,min-folic acid-vit K1 (ONE-A-DAY WOMEN'S 50 PLUS) 400-20 mcg tab Take 1 tablet by mouth once daily. - PSEUDOEPHEDRINE HCL (SUDAFED ORAL) Take by mouth. Problem List As Of Date 06/06/2024 Noted Resolved Depression [F32.A] 05/27/2010 Seasonal allergies [J30.2] 05/27/2010 Back pain [M54.9] 05/27/2010 Insomnia [G47.00] 01/04/2015 Generalized osteoarthritis [M15.9] 03/02/2019 Allergic rhinitis [J30.9] Encounter Status:Closed by JASON CLEMONS on 06/12/24 [facility] 05-18-2024 [facility] Office Visit (FAMPWS ) YADIRA CANAS ([id number]) 1960 F Date Time Provider Department 05/18/24 2:20 PM [facility] During your visit today, we recorded the following information about you: Pulse Respiration Blood pressure Weight 84/minute 18/minute 142/70 92.9 kg Jason Clemons MD 05/18/2024 4:12 PM Signed Chief Complaint Patient presents with: Hospital Follow Up HPI Yadira Canas is a 63 year old female who presents here today for Hospital Discharge Follow up. Almost forgot about her appt today, her Transportation called and reminded her. Pt admitted to [facility] on 04/19/24 for Mental Health concerns, was evaluated and was safe to discharge home. Given Counseling Center information to contact them. She then returned back to the [facility] ER on 04/20/24 for same issues and was admitted, pink slipped and transferred to [facility] [address]. Pt at this time is unsure when she got d/c from the Facility. Pt today reports that she is feeling much better than she was prior to going to ED. Pt today reports she feels happy, healthy and is walking more. Very happy with where she is now at present time. Pt states she doesn't really remember a lot of the events that occurred, which she is okay with, she doesn't want to remember. Was given the Counseling Centers information to setup a follow up visit. Pt asking to not have to go due to having to find Transportation and she doesn't want to go talk to someone or remember what occurred. Pt unable to recall how long she was experiencing symptoms prior to going to ED but doesn't feel it was very long. Notes that she does have increased stress with her Brother and Daughter, they try to control her. She is unsure if this is a potential reason this occurred. Pt admits that she doesn't really remember her trips to the [facility] ED. She vaguely remembers being taken in the Ambulance to [place]. Pt was d/c home with Zyprexa 2.5 mg once daily and Seroquel 25 mg once daily. States she took this for a couple of days and feels these made her loopy and confused on where she was. She was not able to function while taking thses so she stopped thism After d/c medications this resolved. Pt had lab work, urine screening, Covid test and Urine Tox screen. Pt's UDS showed + for MDMA. Below copied from Care Everywhere: 04/19/24 HPI - Psych History of Present Illness Chief Complaint: Mental Health Informant: patient Narrative Narrative: Patient is a 63 year old female with history of depression, anxiety and OA presenting with worsening depression and auditory hallucinations. Patient states that she has been hearing a growling sound in her ears. She denies any HI/SI. Patient is concerned that she has upper antidepressants. Her psychiatric medications are managed by her PCP, Dr. Lico Pretty. Patient currently is on bupropion XL 300 mg in the morning as well as 150 mg in the evening. She also takes amitriptyline 100 mg every night. She denies any physical complaints. She does states she has been a bit more fatigued lately. States that she is compliant with her medications. No other complaints or concerns at this time. Medical decision making narrative: Patient is evaluated for worsening depression and a new auditory hallucination. Patient overall is quite well-appearing. She is insightful about what is going on. She did bring in her medications so we could check them. She states that she has been compliant with her meds. She denies any HI or SI. At this time I do not think patient is a risk to herself or others or needs emergent psychiatric evaluation. Protocol psychiatric orders are placed which are largely normal. I did discuss the case with Dr. Zabala, PCP on-call for her office. He reviewedthe patient's chart and medications. He confirmed that patient is taking all the medications that we discussed in the ER. We will start the patient on Zyprexa 2.5 mg daily for this new auditory elucidation and she will follow-up inthe office on Wednesday at 10 AM with her PCP. I will provide this prescription. Patient is quite agreeable with this plan. Patient is also givenoutpatient referral information for the counseling center. Given return precautions. Patient discharged home in stable condition. 04/20/24 [facility] Narrative: Patient was initially hemodynamically stable, afebrile and nontoxic-appearing. Exam without obvious trauma. No focus of infection. No focal cardiopulmonary abnormalities. Given the patient's change in mental status from yesterday I obtained a broad lab and imaging workup including a CT scan of the head as well as labs to rule out signs of electrolyte abnormalities, dehydration, infectious etiologies. Patient's pulse ox while was not in the hypoxic range was in the low end of normal so I obtained an x-ray and COVID swab as w (more content not included)... [facility] CNPNon 04-21-2024 CNPN Telephone (FAMWS) YADIRA CANAS ([id number]) 1960 F Date Time Provider Department 04/21/24 [facility] During your visit today, we recorded the following information about you: Lorena Cedeno RN 04/21/2024 2:47 PM Signed [facility] pharmacist calls as patient is currently there for treatment and they are needing to verify gabapentin and amitriptyline orders. Verified current orders on file with gabapentin 400 mg by mouth two times daily and amitriptyline 10 mg at bedtime. Pharmacist viewed oars report and recommended that [facility] be contacted as patient has been filling a prescription for both gabapentin 300 mg and 400 mg. Called and spoke to Angelika with [facility]. Cancelled further refills on gabapentin 300 mg prescription as current order should be 400 mg. SOLOMON Rider Jesse, APRN.TAZ 04/24/2024 12:40 PM Signed Okalexandr noted. Thank you for cancelling the 300 mg order. Quinton Ramirez APRN.[facility] Allergies As of Date: 04/21/2024 Noted Allergy Reaction SULFA (SULFONAMIDE ANTIBIOTICS) 05/27/2010 4 - Hives TETRACYCLINE 05/27/2010 11 - Vomiting FLAGYL (METRONIDAZOLE) 03/14/2019 8 - GI Upset SERTRALINE 11/12/2021 8 - GI Upset Date Reviewed: 03/14/2024 Reviewed by: Carline Lane LPN - Fully Assessed Reason for Visit: Patient Question [5087] Prescriptions as of 04/24/2024 - buPROPion XL (WELLBUTRIN XL) 150 mg 24 hr tablet Take 1 tablet by mouth once daily. Take in PM - atorvastatin (LIPITOR) 20 mg tablet Take 1 tablet by mouth daily at bedtime. For cholesterol. - gabapentin (NEURONTIN) 400 mg capsule Take 1 capsule by mouth two times a day for 180 days. - buPROPion XL (WELLBUTRIN XL) 300 mg 24 hr tablet Take 1 tablet by mouth once daily. Take in AM - diclofenac, EC, (VOLTAREN) 75 mg EC tablet TAKE 1 TABLET BY MOUTH WITH FOOD TWICE DAILY for pain and inflamation - amitriptyline (ELAVIL) 100 mg tablet Take 1 tablet by mouth daily at bedtime. - loratadine (CLARITIN) 10 mg tablet Take 1 tablet by mouth once daily. - acetaminophen (TYLENOL) 500 mg tablet Take 500 mg by mouth every 6 hours as needed. FOR PAIN - mv,Ca,min-folic acid-vit K1 (ONE-A-DAY WOMEN'S 50 PLUS) 400-20 mcg tab Take 1 tablet by mouth once daily. - PSEUDOEPHEDRINE HCL (SUDAFED ORAL) Take by mouth. Problem List As Of Date 04/21/2024 Noted Resolved Depression [F32.A] 05/27/2010 Seasonal allergies [J30.2] 05/27/2010 Back pain [M54.9] 05/27/2010 Insomnia [G47.00] 01/04/2015 Generalized osteoarthritis [M15.9] 03/02/2019 Allergic rhinitis [J30.9] Encounter Status:Closed by QUINTON RAMIREZ on 04/24/24 [facility] 12 Lead EKGon 04-20-2024 12 Lead EKG [facility] Cardiovascular Services [address] [place] [address] 12 Lead EKG 04/20/24 1048 MR#: [id number] Acct: [id number] Name: YADIRA CANAS Rep #: [id number] : 1960 63 From: Angel Chaney MD Attending Dr: Status: DEP ER Ordering Dr: Moe Morelos DO Date: 04/20/24 Location: ED Sex: F C Admitted: Test Reason : ALT MENTAL STATUS Blood Pressure : / mmHG Vent. Rate : 084 BPM Atrial Rate : 084 BPM P-R Int : 160 ms QRS Dur : 072 ms QT Int : 398 ms P-R-T Axes : 048 047 024 degrees QTc Int : 470 ms Normal sinus rhythm Normal ECG When compared with ECG of 18-JUN-2023 11:47, No significant change was found Confirmed by Angel Chaney ([id number]), avid editor ANA ZUÑIGA ([id number]) on 04/24/2024 1:19:56 PM Referred By: Confirmed By:Angel Chaney 04/24/24 1320 Date Angel Chaney MD CC: Dr. Jason Clemons MD; Dr. Moe Morelos DO Signed Normal [facility] Alcohol, Blood (Medical)-Ser on 04-20-2024 SERUM ETOH < 3.0 Normal [facility] Comment on above: Result Comment: The serum:whole blood ethanol ratio is approximately 1.14 and varies slightly with hematocrit. Medical Alcohol reference interval and critical value in non-tolerant individuals; 50 - 100 Impairment 100 Intoxication 100 - 250 Severe Poisoning 250 - 400 Deep/possible fatal coma Performed By: #### M 100.019, L501.9100, L500.4050, L100.0100, L505.5000 ####[facility] [address] [facility] [place], [address] Brain/Head without Contrasto n 04-20-2024 Brain/Head without Contrast [facility] Imaging Services [address] [place] [address] Brain/Head without Contrast MR#: [id number] Acct: [id number] Name: YADIRA CANAS Rep #: [id number] : 1960 F 63 From: Taiwo baker MD PCP: Dr. Jason Clemons MD Status: REG ER Study: Brain/Head without Contrast Date of Exam: 04/02 04/25 Exam# [id number] Ordering Dr: Moe Morelos DO [id number] STUDY: CT BRAIN WITHOUT CONTRAST REASON FOR EXAM: Female, 63 years old. AMS RADIATION DOSAGE (If Supplied By Facility): CTDIvol = ( 44.99 ) mGy, DLP = ( 812.98 ) mGycm TECHNIQUE: Transaxial CT imaging of the brain was performed without administration of intravenous contrast material. Individualized dose optimization techniques were used for this CT. COMPARISON: No relevant priors. FINDINGS: Normal soft tissue structures. Normal calvarium. There is mild cerebral atrophy with widening of the extra-axial spaces and ventricular dilatation. Normal white matter tracts of the cerebral hemispheres. Normal basal ganglia and thalami. Normal brainstem. Normal cerebellum. There is no intracranial hemorrhage. There are no findings of an acute ischemic infarction. Normal visualized paranasal sinuses. CT/Brain/Head without Contrast IMPRESSION: Chronic involutional changes of the brain. Electronically Signed: Taiwo Zuniga MD at 11:04 EDT Reading Location ID and State: [address] [place] [address] , Service support , CC: Dr. Jason Clemons MD; Dr. Moe Morelos DO Gauge Checker: Signed Normal [facility] CBC W/Diff, Automatedon 04-02 Absolute Lymph 1.33 X10 3/uL Normal 0.83-4.51 [facility] Comment on above: Performed By: #### M 100.019, L501.9100, L500.4050, L100.0100, L505.5000 ####[facility] [address] [place], [place], [address] Absolute Neut 6.6 X10 3/uL Normal 2.0-7.7 [facility] Comment on above: Performed By: #### M 100.019, L501.9100, L500.4050, L100.0100, L505.5000 ####[facility] [address] [place], [address] Basophils/100 WBC (Bld) 0.7 % Normal 0-1 [facility] Comment on above: Performed By: #### M 100.019, L501.9100, L500.4050, L100.0100, L505.5000 ####[facility] [address] [place], [address] Eosinophils/100 WBC (Bld) 1.0 % Normal 0-5 [facility] Comment on above: Performed By: #### M 100.019, L501.9100, L500.4050, L100.0100, L505.5000 ####[facility] [address] [place], [address] Erythrocyte distribution width (RBC) [Ratio] 12.1 % Normal 11.6-14.6 [facility] Comment on above: Performed By: #### M 100.019, L501.9100, L500.4050, L100.0100, L505.5000 ####[facility] [address] [place], [address] Hematocrit (Bld) [Volume fraction] 43.5 % Normal 37-47 [facility] Comment on above: Performed By: #### M 100.019, L501.9100, L500.4050, L100.0100, L505.5000 ####[facility] [address] [place], [address] Hemoglobin (Bld) [Mass/Vol] 14.0 g/dL Normal 12.0-15.0 [facility] Comment on above: Performed By: #### M 100.019, L501.9100, L500.4050, L100.0100, L505.5000 ####[facility] [address] [place], [address] IG% 0.300 Normal 0.0-0.9 [facility] Comment on above: Result Comment: IG% - Immature Granulocytes (promyelocytes, myelocytes and metamyelocytes) > 1% indicates that a LEFT SHIFT is Present. Performed By: #### M 100.019, L501.9100, L500.4050, L100.0100, L505.5000 ####[facility] [address] [place], [address] Lymphocytes/100 WBC (Bld) 15.1 % Low 19-41 [facility] Comment on above: Performed By: #### M 100.019, L501.9100, L500.4050, L100.0100, L505.5000 ####[facility] [address] [place], [address] MCH (RBC) [Entitic mass] 28.5 pg Normal 27.0-32.0 [facility] Comment on above: Performed By: #### M 100.019, L501.9100, L500.4050, L100.0100, L505.5000 ####[facility] [address] [place], [address] MCHC (RBC) [Mass/Vol] 32.2 g/dL Normal 32-36 [facility] Comment on above: Performed By: #### M 100.019, L501.9100, L500.4050, L100.0100, L505.5000 ####[facility] [address] [place], [address] MCV (RBC) [Entitic vol] 88.6 fL Normal 81-99 [facility] Comment on above: Performed By: #### M 100.019, L501.9100, L500.4050, L100.0100, L505.5000 ####[facility] [address] [place], [address] Monocytes/100 WBC (Bld) 7.8 % Normal 0-10 [facility] Comment on above: Performed By: #### M 100.019, L501.9100, L500.4050, L100.0100, L505.5000 ####[facility] [address] [place], [address] Neutrophils/100 WBC (Bld) 75.1 % High 47-70 [facility] Comment on above: Performed By: #### M 100.019, L501.9100, L500.4050, L100.0100, L505.5000 ####[facility] [address] [place], [address] Nucleated RBC (Bld) [#/Vol] 0 10*3/uL Normal 0-5 [facility] Comment on above: Performed By: #### M 100.019, L501.9100, L500.4050, L100.0100, L505.5000 ####[facility] [address] [place], [address] Platelet mean volume (Bld) [Entitic vol] 8.9 fL Normal 6.2-12.0 [facility] Comment on above: Performed By: #### M 100.019, L501.9100, L500.4050, L100.0100, L505.5000 ####[facility] [address] [place], [address] Platelets (Bld) [#/Vol] 265 10*3/uL Normal 150-450 [facility] Comment on above: Performed By: #### M 100.019, L501.9100, L500.4050, L100.0100, L505.5000 ####[facility] [address] [place], [address] RBC (Bld) [#/Vol] 4.91 10*6/uL Normal 4.2-5.4 [facility] Comment on above: Performed By: #### M 100.019, L501.9100, L500.4050, L100.0100, L505.5000 ####[facility] [address] [place], [address] RDW SD 39.4 fl Normal 35.1-43.9 [facility] Comment on above: Performed By: #### M 100.019, L501.9100, L500.4050, L100.0100, L505.5000 ####[facility] [address] [place], [address] WBC (Bld) [#/Vol] 8.8 10*3/uL Normal 4.4-11.0 [facility] Comment on above: Performed By: #### M 100.019, L501.9100, L500.4050, L100.0100, L505.5000 ####[facility] [address] [place], [address] Chest 1 View (Portable)on Chest 1 View (Portable) [facility] Imaging Services [address] [place] [address] Chest 1 View (Portable) MR#: [id number] Acct: [id number] Name: YADIRA CANAS Rep #: [id number] : 1960 F 63 From: Taiwo baker MD PCP: Dr. Jason Clemons MD Status: [facility] ER Study: Chest 1 View (Portable) Date of Exam: 04/20/24 Exam# [id number] Ordering Dr: Moe Morelos DO [id number] STUDY: X-RAY CHEST REASON FOR EXAM: Female, 63 years old. AMS TECHNIQUE: Single AP portable view of the chest. COMPARISON: None. FINDINGS: EKG electrodes are seen. The lungs are clear and expanded. There is no demonstrated pleural abnormality. Normal size heart. Normal mediastinum and adwoa. Normal visualized pulmonary arteries. Normal visualized aortic arch and descending thoracic aorta. There are degenerative changes of the visualized thoracic spine. Calcific tendinitis of the right shoulder. Degenerative changes of both acromioclavicular joints. There is no demonstrated abnormality of the visualized soft tissue structures of the upper abdomen. RAD/Chest 1 View (Portable) IMPRESSION: No acute abnormality is seen. Electronically Signed: Taiwo Zuniga MD at 10:54 EDT , CC: Dr. Jason Clemons MD; Dr. Moe Morelos DO Gauge Checker: Signed Normal [facility] Comprehensive Metabolic Prof ilon 04-20-2024 Albumin [Mass/Vol] 4.5 g/dL Normal 3.2-5.0 [facility] Comment on above: Performed By: #### M 100.019, L501.9100, L500.4050, L100.0100, L505.5000 ####[facility] [address] [place], [address] Albumin/Globulin [Mass ratio] 1.4 {ratio} Normal 0.9-2.4 [facility] Comment on above: Performed By: #### M 100.019, L501.9100, L500.4050, L100.0100, L505.5000 ####[facility] [address] [place], [address] ALK P 136 U/L High 45-117 [facility] Comment on above: Performed By: #### M 100.019, L501.9100, L500.4050, L100.0100, L505.5000 ####[facility] [address] [place], [address] ALT [Catalytic activity/Vol] 59 U/L High 13-56 [facility] Comment on above: Performed By: #### M 100.019, L501.9100, L500.4050, L100.0100, L505.5000 ####[facility] [address] [place], [address] AST [Catalytic activity/Vol] 49 U/L High 15-37 [facility] Comment on above: Performed By: #### M 100.019, L501.9100, L500.4050, L100.0100, L505.5000 ####[facility] [address] [place], [address] Bilirubin [Mass/Vol] 0.70 mg/dL Normal 0.20-1.00 [facility] Comment on above: Result Comment: For patients on eltrombopag therapy, use of Dimension [place] TBIL is not recommended. Performed By: #### M 100.019, L501.9100, L500.4050, L100.0100, L505.5000 ####[facility] [address] [place], [address] BUN/CRE 17.6 RATIO Normal 10-20 [facility] Comment on above: Performed By: #### M 100.019, L501.9100, L500.4050, L100.0100, L505.5000 ####[facility] [address] [place], [address] CA,Total 9.5 mg/dL Normal 8.5-10.1 [facility] Comment on above: Performed By: #### M 100.019, L501.9100, L500.4050, L100.0100, L505.5000 ####[facility] [address] [place], [address] Chloride [Moles/Vol] 102 mmol/L Normal 98-107 [facility] Comment on above: Performed By: #### M 100.019, L501.9100, L500.4050, L100.0100, L505.5000 ####[facility] [address] [place], [address] CO2 [Moles/Vol] 29.0 mmol/L Normal 21.0-32.0 [facility] Comment on above: Performed By: #### M 100.019, L501.9100, L500.4050, L100.0100, L505.5000 ####[facility] [address] [place], [address] Creatinine [Mass/Vol] 1.02 mg/dL Normal 0.55-1.02 [facility] Comment on above: Result Comment: The validity of the calculated GFR GFRAA in patients over 70 years has not been determined. Clinical correlation is essential. Performed By: #### M 100.019, L501.9100, L500.4050, L100.0100, L505.5000 ####[facility] [address] [place], [address] ECRCL 64.86 ml/min Normal [facility] Comment on above: Performed By: #### M 100.019, L501.9100, L500.4050, L100.0100, L505.5000 ####[facility] [address] [place], [address] EST GFR - AA 70 mL/min Normal >60 [facility] Comment on above: Result Comment: Afri can Rw[place]an GFR Calc Performed By: #### M 100.019, L501.9100, L500.4050, L100.0100, L505.5000 ####[facility] [address] [place], [address] GAP 7 Normal 5-15 [facility] Comment on above: Performed By: #### M 100.019, L501.9100, L500.4050, L100.0100, L505.5000 ####[facility] [address] [place], [address] GFR/1.73 sq M.predicted among non-blacks MDRD (S/P/Bld) [Vol rate/Area] 58 mL/min/{1.73_m2} Low >60 [facility] Comment on above: Result Comment: Non- GFR Calc Performed By: #### M 100.019, L501.9100, L500.4050, L100.0100, L505.5000 ####[facility] [address] [place], [address] Globulin (S) [Mass/Vol] 3.3 g/dL Normal 2.2-4.2 [facility] Comment on above: Performed By: #### M 100.019, L501.9100, L500.4050, L100.0100, L505.5000 ####[facility] [address] [place], [address] Glucose [Mass/Vol] 131 mg/dL High 74-106 [facility] Comment on above: Result Comment: Fast ing Glucose result greater than or equal to 126 mg/dL suggests DIABETES MELLITUS per A.D.A. criteria. Performed By: #### M 100.019, L501.9100, L500.4050, L100.0100, L505.5000 ####[facility] [address] [place], [address] Potassium [Moles/Vol] 3.1 mmol/L Low 3.5-5.1 [facility] Comment on above: Performed By: #### M 100.019, L501.9100, L500.4050, L100.0100, L505.5000 ####[facility] [address] [place], [address] Sodium [Moles/Vol] 138 mmol/L Normal 136-145 [facility] Comment on above: Performed By: #### M 100.019, L501.9100, L500.4050, L100.0100, L505.5000 ####[facility] [address] [place], [address] T PROT 7.8 g/dL Normal 6.4-8.2 [facility] Comment on above: Performed By: #### M 100.019, L501.9100, L500.4050, L100.0100, L505.5000 ####[facility] [address] [place], [address] Urea nitrogen [Mass/Vol] 18 mg/dL Normal 7-18 [facility] Comment on above: Performed By: #### M 100.019, L501.9100, L500.4050, L100.0100, L505.5000 ####[facility] [address] [place], [address] Emergency Department Summary on 04-20-2024 Emergency Department Summary [facility] Medical Records Department [address] [place] [address] Emergency Department Summary 04/20/24 MR#: [id number] Acct: [id number] Name: YADIRA CANAS Rep #: [id number] : 1960 63 From: Moe Morelos DO PCP: Dr. Jason Clemons MD Status:REG ER Location: ED HPI HPI - Psych History of Present Illness Chief Complaint: Mental Health [facility] Medical History Wears glasses Wears dentures Anxiety Arthritis Non-smoker Pain Depression Home Medications ???Medication ???Instructions ???Recorded ???Last Taken ???Type amitriptyline 25 mg tablet 25 mg PO DAILY 12/14/16 12/13/16 History bupropion HCl 150 mg tablet,12 hr 150 mg PO BID 12/14/16 12/14/16 History sustained-release diclofenac sodium 50 mg 50 mg PO DAILY 12/14/16 12/14/16 History tablet,delayed release bupropion HCl 300 mg 24 hr tablet, 300 mg PO .qam 06/16/23 Unknown History extended release loratadine 10 mg tablet 10 mg PO DAILY 06/16/23 Unknown History cephalexin 500 mg capsule 1,000 mg (2 x 500 mg) PO Q8 #4 caps 06/18/23 Unknown Rx olanzapine 2.5 mg tablet (Zyprexa) 2.5 mg PO DAILY #30 tabs 04/19/24 Unknown Rx Allergy/AdvReac Type Severity Reaction Status Date / Time Sulfa (Sulfonamide Allergy Other Verified 04/19/24 15:06 Antibiotics) tetracycline AdvReac Vomiting Verified 04/19/24 15:06 Family History unable to obtain Surgical History H/O tubal ligation History of carpal tunnel surgery Social History Smoking Status: Former smoker EXAM Physical Exam Const Vital Signs: 04/20/24 09:38 04/20/24 11:37 04/20/24 13:00 Temperature 98.0 F Temperature Source Oral Pulse Rate 96 80 91 Respiratory Rate 18 17 18 Blood Pressure 122/73 H 117/61 113/61 Blood Pressure Mean 89 79 78 Pulse Ox 93 96 93 Oxygen Delivery Method Room Air Room Air Room Air 04/20/24 15:26 04/20/24 17:00 Temperature Temperature Source Pulse Rate 106 H 97 Respiratory Rate 17 16 Blood Pressure 142/98 H 147/117 H Blood Pressure Mean 112 127 Pulse Ox 93 Oxygen Delivery Method Room Air Room Air [facility] MDM MDM Narrative Medical decision making narrative: HISTORY OF PRESENT ILLNESS: 63-year-old female history of depression anxiety. The patient does not participate in history. Denies any physical complaints however. REVIEW OF SYSTEMS: Unable to obtain reliable review of systems secondary to patient's altered mental status PHYSICAL EXAM: Nursing triage notes reviewed, Vital signs reviewed Constitutional: please see mdm HENT: MMM Eyes: Pupils equal round and reactive to light, Extraocular muscles intact Neck: No stridor, no JVD, full neck ROM Lungs: Clear to auscultation, No wheezing or rales. No increased work of breathing, no conversational dyspnea, no accessory muscle use, no nasal flaring. No respiratory distress noted Heart: Regular rate and rhythm, No murmurs, No rubs and No gallops, 2+ distal pulses (radial, femoral, posterior tibial) in all extremities Abdomen: Soft, there is no tenderness, rigidity, rebound or guarding, no obvious peritoneal signs, no palpable pulsatile abdominal masses, no auscultated abdominal bruit : No CVAT Extremities: No edema Neuro: Somnolent, alert to minor stimuli, oriented to person, place but not time. No obvious lateralizing focal neurological deficits, cranial nerves II through XII intact, 5/5 strength in all extremities. Intact sensation to light touch in all extremities, 2+ reflexes bilateral patella tendons. Skin: No rash or lesions noted MEDICAL DECISION MAKING: Chief Complaint: Mental health External records reviewed: Reviewed prior ED visit on 04/19/2024. Per this note patient was suffering from auditory elucidation's, depression. Medications reviewed: Patient currently on Zyprexa and bupropion. During last ED visit she was prescribed Zyprexa 2.5 mg. And discharged. During this visit patient's mental status was documented as oriented x 3. Factors affecting care: depression, anxiety Social determinants of health: n mental health disorder History obtained from others: EMS Consults: Behavioral health MDM Narrative: Patient was initially hemodynamically stable, afebrile and nontoxic-appearing. Exam without obvious trauma. No focus of infection. No focal cardiopulmonary abnormalities. Given the patient's change in mental status from yesterday I obtained a broad lab and imaging workup including a CT scan of the head as well as labs to rule out signs of electrolyte abnormalities, dehydration, infectious etiologies. Patient's pulse ox while was not in the hypox (more content not included)... Normal [facility] M100.019on 04-20-2024 M100.019 Negative Normal [facility] Comment on above: Performed By: #### M 100.019, L501.9100, L500.4050, L100.0100, L505.5000 ####[facility] [address] [place], [address] Urinalysis, Completeon 04-20 BACTERIA 2+ /hpf Normal None Seen [facility] Comment on above: Order Comment: CLEAN CATCH Performed By: #### L 400.0001 ####[facility] [address] [place], [address] EPI,SQUAMOUS 0-5 SEEN Normal 5-10 [facility] Comment on above: Order Comment: CLEAN CATCH Performed By: #### L 400.0001 ####[facility] [address] [place], [address] Mucus Ql (Urine sed) 2+ /hpf Normal [facility] Comment on above: Order Comment: CLEAN CATCH Performed By: #### L 400.0001 ####[facility] [address] [place], [address] RBC 0-5 SEEN Normal 0-5 [facility] Comment on above: Order Comment: CLEAN CATCH Performed By: #### L 400.0001 ####[facility] [address] [place], [address] WBC 25-50 SEEN Normal 0-5 [facility] Comment on above: Order Comment: CLEAN CATCH Performed By: #### L 400.0001 ####[facility] [address] [place], [address] Urine Drug Screen (VISTA)on 04-20-2024 AMPHETAMINES Negative Normal <1000 ng/mL [facility] Comment on above: Performed By: #### M 100.019, L501.9100, L500.4050, L100.0100, L505.5000 ####[facility] [address] [place], [address] BARBITIURATES Negative Normal < 200 ng/mL [facility] Comment on above: Performed By: #### M 100.019, L501.9100, L500.4050, L100.0100, L505.5000 ####[facility] [address] [place], [address] BENZODIAZIPINE Negative Normal < 200 ng/mL [facility] Comment on above: Performed By: #### M 100.019, L501.9100, L500.4050, L100.0100, L505.5000 ####[facility] [address] [place], [address] COCAINE Negative Normal < 300 ng/mL [facility] Comment on above: Performed By: #### M 100.019, L501.9100, L500.4050, L100.0100, L505.5000 ####[facility] [address] [place], [address] ECSTACY Positive Abnormal < 500 ng/mL [facility] Comment on above: Performed By: #### M 100.019, L501.9100, L500.4050, L100.0100, L505.5000 ####[facility] [address] [place], [address] METHADONE Negative Normal < 300 ng/mL [facility] Comment on above: Performed By: #### M 100.019, L501.9100, L500.4050, L100.0100, L505.5000 ####[facility] [address] [place], [address] OPIATES Negative Normal < 300 ng/mL [facility] Comment on above: Performed By: #### M 100.019, L501.9100, L500.4050, L100.0100, L505.5000 ####[facility] [address] [place], [address] PCP Negative Normal < 25 ng/mL [facility] Comment on above: Performed By: #### M 100.019, L501.9100, L500.4050, L100.0100, L505.5000 ####[facility] [address] [place], [address] THC Negative Normal < 50 ng/mL [facility] Comment on above: Performed By: #### M 100.019, L501.9100, L500.4050, L100.0100, L505.5000 ####[facility] [address] [place], [address] VISTA UDS PH 4 Normal [facility] Comment on above: Performed By: #### M 100.019, L501.9100, L500.4050, L100.0100, L505.5000 ####[facility] [address] [place], [address] Alcohol, Blood (Medical)-Ser umon 04-19-2024 SERUM ETOH < 3.0 Normal [facility] Comment on above: Result Comment: The serum:whole blood ethanol ratio is approximately 1.14 and varies slightly with hematocrit. Medical Alcohol reference interval and critical value in non-tolerant individuals; 50 - 100 Impairment 100 Intoxication 100 - 250 Severe Poisoning 250 - 400 Deep/possible fatal coma Performed By: #### L 505.5000, L500.2500, L501.9100, L100.0100 ####[facility] [address] [place], [address] Basic Metabolic Profile (BMP )on 04-19-2024 BUN/CRE 13.7 RATIO Normal 10-20 [facility] Comment on above: Performed By: #### L 505.5000, L500.2500, L501.9100, L100.0100 ####[facility] [address] [place], [address] CA,Total 9.3 mg/dL Normal 8.5-10.1 [facility] Comment on above: Performed By: #### L 505.5000, L500.2500, L501.9100, L100.0100 ####[facility] [address] [place], [address] Chloride [Moles/Vol] 103 mmol/L Normal 98-107 [facility] Comment on above: Performed By: #### L 505.5000, L500.2500, L501.9100, L100.0100 ####[facility] [address] [place], [address] CO2 [Moles/Vol] 28.0 mmol/L Normal 21.0-32.0 [facility] Comment on above: Performed By: #### L 505.5000, L500.2500, L501.9100, L100.0100 ####[facility] [address] [place], [address] Creatinine [Mass/Vol] 0.88 mg/dL Normal 0.55-1.02 [facility] Comment on above: Result Comment: The validity of the calculated GFR GFRAA in patients over 70 years has not been determined. Clinical correlation is essential. Performed By: #### L 505.5000, L500.2500, L501.9100, L100.0100 ####[facility] [address] [place], [address] ECRCL 74.93 ml/min Normal [facility] Comment on above: Performed By: #### L 505.5000, L500.2500, L501.9100, L100.0100 ####[facility] [address] [place], [address] EST GFR - AA 84 mL/min Normal >60 [facility] Comment on above: Result Comment: Afri can Rwandan GFR Calc Performed By: #### L 505.5000, L500.2500, L501.9100, L100.0100 ####[facility] [address] [place], [address] GAP 10 Normal 5-15 [facility] Comment on above: Performed By: #### L 505.5000, L500.2500, L501.9100, L100.0100 ####[facility] [address] [place], [address] GFR/1.73 sq M.predicted among non-blacks MDRD (S/P/Bld) [Vol rate/Area] 69 mL/min/{1.73_m2} Normal >60 [facility] Comment on above: Result Comment: Non- GFR Calc Performed By: #### L 505.5000, L500.2500, L501.9100, L100.0100 ####[facility] [address] [place], [address] Glucose [Mass/Vol] 129 mg/dL High 74-106 [facility] Comment on above: Result Comment: Fast ing Glucose result greater than or equal to 126 mg/dL suggests DIABETES MELLITUS per A.D.A. criteria. Performed By: #### L 505.5000, L500.2500, L501.9100, L100.0100 ####[facility] [address] [place], [address] Potassium [Moles/Vol] 3.5 mmol/L Normal 3.5-5.1 [facility] Comment on above: Performed By: #### L 505.5000, L500.2500, L501.9100, L100.0100 ####[facility] [address] [place], [address] Sodium [Moles/Vol] 141 mmol/L Normal 136-145 [facility] Comment on above: Performed By: #### L 505.5000, L500.2500, L501.9100, L100.0100 ####[facility] [address] [place], [address] Urea nitrogen [Mass/Vol] 12 mg/dL Normal 7-18 [facility] Comment on above: Performed By: #### L 505.5000, L500.2500, L501.9100, L100.0100 ####[facility] [address] [place], [address] CBC W/Diff, Automatedon 04-02 Absolute Lymph 2.10 X10 3/uL Normal 0.83-4.51 [facility] Comment on above: Performed By: #### L 505.5000, L500.2500, L501.9100, L100.0100 ####[facility] [address] [place], [address] Absolute Neut 5.8 X10 3/uL Normal 2.0-7.7 [facility] Comment on above: Performed By: #### L 505.5000, L500.2500, L501.9100, L100.0100 ####[facility] [address] [place], [address] Basophils/100 WBC (Bld) 0.8 % Normal 0-1 [facility] Comment on above: Performed By: #### L 505.5000, L500.2500, L501.9100, L100.0100 ####[facility] [address] [place], [address] Eosinophils/100 WBC (Bld) 1.9 % Normal 0-5 [facility] Comment on above: Performed By: #### L 505.5000, L500.2500, L501.9100, L100.0100 ####[facility] [address] [place], [address] Erythrocyte distribution width (RBC) [Ratio] 12.1 % Normal 11.6-14.6 [facility] Comment on above: Performed By: #### L 505.5000, L500.2500, L501.9100, L100.0100 ####[facility] [address] [place], [address] Hematocrit (Bld) [Volume fraction] 43.8 % Normal 37-47 [facility] Comment on above: Performed By: #### L 505.5000, L500.2500, L501.9100, L100.0100 ####[facility] [address] [place], [address] Hemoglobin (Bld) [Mass/Vol] 14.4 g/dL Normal 12.0-15.0 [facility] Comment on above: Performed By: #### L 505.5000, L500.2500, L501.9100, L100.0100 ####[facility] [address] [place], [address] IG% 0.300 Normal 0.0-0.9 [facility] Comment on above: Result Comment: IG% - Immature Granulocytes (promyelocytes, myelocytes and metamyelocytes) > 1% indicates that a LEFT SHIFT is Present. Performed By: #### L 505.5000, L500.2500, L501.9100, L100.0100 ####[facility] [address] [place], [address] Lymphocytes/100 WBC (Bld) 23.7 % Normal 19-41 [facility] Comment on above: Performed By: #### L 505.5000, L500.2500, L501.9100, L100.0100 ####[facility] [address] [place], [address] MCH (RBC) [Entitic mass] 28.6 pg Normal 27.0-32.0 [facility] Comment on above: Performed By: #### L 505.5000, L500.2500, L501.9100, L100.0100 ####[facility] [address] [place], [address] MCHC (RBC) [Mass/Vol] 32.9 g/dL Normal 32-36 [facility] Comment on above: Performed By: #### L 505.5000, L500.2500, L501.9100, L100.0100 ####[facility] [address] [place], [address] MCV (RBC) [Entitic vol] 86.9 fL Normal 81-99 [facility] Comment on above: Performed By: #### L 505.5000, L500.2500, L501.9100, L100.0100 ####[facility] [address] [place], [address] Monocytes/100 WBC (Bld) 8.3 % Normal 0-10 [facility] Comment on above: Performed By: #### L 505.5000, L500.2500, L501.9100, L100.0100 ####[facility] [address] [place], [address] Neutrophils/100 WBC (Bld) 65.0 % Normal 47-70 [facility] Comment on above: Performed By: #### L 505.5000, L500.2500, L501.9100, L100.0100 ####[facility] [address] [place], [address] Nucleated RBC (Bld) [#/Vol] 0 10*3/uL Normal 0-5 [facility] Comment on above: Performed By: #### L 505.5000, L500.2500, L501.9100, L100.0100 ####[facility] [address] [place], [address] Platelet mean volume (Bld) [Entitic vol] 9.2 fL Normal 6.2-12.0 [facility] Comment on above: Performed By: #### L 505.5000, L500.2500, L501.9100, L100.0100 ####[facility] [address] [place], [address] Platelets (Bld) [#/Vol] 315 10*3/uL Normal 150-450 [facility] Comment on above: Performed By: #### L 505.5000, L500.2500, L501.9100, L100.0100 ####[facility] [address] [place], [address] RBC (Bld) [#/Vol] 5.04 10*6/uL Normal 4.2-5.4 [facility] Comment on above: Performed By: #### L 505.5000, L500.2500, L501.9100, L100.0100 ####[facility] [address] [place], [address] RDW SD 38.4 fl Normal 35.1-43.9 [facility] Comment on above: Performed By: #### L 505.5000, L500.2500, L501.9100, L100.0100 ####[facility] [address] [place], [place], [address] WBC (Bld) [#/Vol] 8.9 10*3/uL Normal 4.4-11.0 [facility] Comment on above: Performed By: #### L 505.5000, L500.2500, L501.9100, L100.0100 ####[facility] [address] [place], [place], [address] [facility] Tele[facility] (INTMWS) YADIRA CANAS ([id number]) 1960 F Date Time Provider Department 04/19/24 JARETH ZABALA INTWS During your visit today, we recorded the following information about you: Jareth Zabala MD 04/19/2024 6:55 PM Signed DOC received call from [facility]. Patient presented with c/o of increased auditory hallucinations (growling sounds). Patient brought in bottle of Elavil and her Wellbutrin XL 300 mg a day. Chart says she should also be on Wellbutrin XL 150 mg as well for a total of 450 mg a day. Per ER provider it does not seem like patient needs an acute psych admission. Will have her place patient on zyprexia 2.5 mg a day if she is taking both doses of Wellbutrin and f/u with PCP on 04/28/2024 at 10:00 AM. If she is not on both doses she will be instructed to do so and keep the f/u appt. Patient may need to see Betty in Psych here at [facility]. (Please schedule patient with Dr. Clemons for hospital f/u on 04/28/2024 at 10:00 Am for 40 min) Saray Price MA 04/19/2024 7:10 PM Signed Patient scheduled. Please assist patient with scheduling with Betty. DEIDRA Cast Ida 04/20/2024 12:04 PM Signed Routed to Raissa Brar MA 04/20/2024 12:39 PM Signed Betty is not accepting new patients at this time due to patient over load and only being in [place] one day a week. Staff please have patient call to schedule with psych at [facility] [phone] Or [facility] [phone] DEIDRA Powell Kathryn, MA 04/20/2024 1:40 PM Signed Called pt, line rings, VM picks up with pt stating her name, then static and disconnects. Will try again later. DEIDRA Luna Kathryn, MA 04/25/2024 11:25 AM Signed Pt was recently admitted to [facility]. Rossi Wall MA Allergies As of Date: 04/19/2024 Noted Allergy Reaction SULFA (SULFONAMIDE ANTIBIOTICS) 05/27/2010 4 - Hives TETRACYCLINE 05/27/2010 11 - Vomiting FLAGYL (METRONIDAZOLE) 03/14/2019 8 - GI Upset SERTRALINE 11/12/2021 8 - GI Upset Date Reviewed: 03/14/2024 Reviewed by: Carline Lane LPN - Fully Assessed Reason for Visit: Patient Update [1234] Prescriptions as of 04/25/2024 - buPROPion XL (WELLBUTRIN XL) 150 mg 24 hr tablet Take 1 tablet by mouth once daily. Take in PM - atorvastatin (LIPITOR) 20 mg tablet Take 1 tablet by mouth daily at bedtime. For cholesterol. - gabapentin (NEURONTIN) 400 mg capsule Take 1 capsule by mouth two times a day for 180 days. - buPROPion XL (WELLBUTRIN XL) 300 mg 24 hr tablet Take 1 tablet by mouth once daily. Take in AM - diclofenac, EC, (VOLTAREN) 75 mg EC tablet TAKE 1 TABLET BY MOUTH WITH FOOD TWICE DAILY for pain and inflamation - amitriptyline (ELAVIL) 100 mg tablet Take 1 tablet by mouth daily at bedtime. - loratadine (CLARITIN) 10 mg tablet Take 1 tablet by mouth once daily. - acetaminophen (TYLENOL) 500 mg tablet Take 500 mg by mouth every 6 hours as needed. FOR PAIN - mv,Ca,min-folic acid-vit K1 (ONE-A-DAY WOMEN'S 50 PLUS) 400-20 mcg tab Take 1 tablet by mouth once daily. - PSEUDOEPHEDRINE HCL (SUDAFED ORAL) Take by mouth. Problem List As Of Date 04/19/2024 Noted Resolved Depression [F32.A] 05/27/2010 Seasonal allergies [J30.2] 05/27/2010 Back pain [M54.9] 05/27/2010 Insomnia [G47.00] 01/04/2015 Generalized osteoarthritis [M15.9] 03/02/2019 Allergic rhinitis [J30.9] Encounter Status:Closed by ROSSI WALL on 04/25/24 Normal [facility] Emergency Department Summary on 04-19-2024 Emergency Department Summary [facility] Medical Records Department [address] [place] [id number] Emergency Department Summary 04/19/24 MR#: [id number] Acct: [id number] Name: YADIRA CANAS Rep #: [id number] : 1960 63 From: Ernestine Suarez DO PCP: Dr. Jason Clemons MD Status:REG ER Location: ED HPI HPI - Psych History of Present Illness Chief Complaint: Mental Health Informant: patient Narrative Narrative: Patient is a 63 year old female with history of depression, anxiety and OA presenting with worsening depression and auditory hallucinations. Patient states that she has been hearing a growling sound in her ears. She denies any HI/SI. Patient is concerned that she has upper antidepressants. Her psychiatric medications are managed by her PCP, Dr. Lico Pretty. Patient currently is on bupropion XL 300 mg in the morning as well as 150 mg in the evening. She also takes amitriptyline 100 mg every night. She denies any physical complaints. She does states she has been a bit more fatigued lately. States that she is compliant with her medications. No other complaints or concerns at this time. [facility] Medical History Wears glasses Wears dentures Anxiety Arthritis Non-smoker Pain Depression Home Medications ???Medication ???Instructions ???Recorded ???Last Taken ???Type amitriptyline 25 mg tablet 25 mg PO DAILY 12/14/16 12/13/16 History bupropion HCl 150 mg tablet,12 hr 150 mg PO BID 12/14/16 12/14/16 History sustained-release diclofenac sodium 50 mg 50 mg PO DAILY 12/14/16 12/14/16 History tablet,delayed release bupropion HCl 300 mg 24 hr tablet, 300 mg PO .qam 06/16/23 Unknown History extended release loratadine 10 mg tablet 10 mg PO DAILY 06/16/23 Unknown History acetaminophen 500 mg tablet 1,000 mg (2 x 500 mg) PO Q6H PRN 06/18/23 Unknown Rx #100 tabs cephalexin 500 mg capsule 1,000 mg (2 x 500 mg) PO Q8 #4 caps 06/18/23 Unknown Rx olanzapine 2.5 mg tablet (Zyprexa) 2.5 mg PO DAILY #30 tabs 04/19/24 Unknown Rx Allergy/AdvReac Type Severity Reaction Status Date / Time Sulfa (Sulfonamide Allergy Other Verified 04/19/24 15:06 Antibiotics) tetracycline AdvReac Vomiting Verified 04/19/24 15:06 Surgical History H/O tubal ligation History of carpal tunnel surgery Social History Smoking Status: Former smoker ROS ROS ED Constitutional Constitutional ED: Denies chills or fever(s) Eyes Eyes: Denies change in vision Respiratory/Chest Respiratory/Chest: Denies cough or dyspnea Gastrointestinal Gastrointestinal: Denies nausea or vomiting Neurologic Neurologic: Denies headache(s) Psychiatric Psychiatric: Reports anxiety, depression and other Details: Reports auditory hallucinations???heari ng a growling sound ; Denies suicidal ideation or suicidal thoughts EXAM Physical Exam Const Vital Signs: 04/19/24 15:06 04/19/24 19:05 Temperature 98.3 F 98.7 F Temperature Source Temporal Temporal Pulse Rate 95 88 Respiratory Rate 16 14 Blood Pressure 142/100 H 134/78 H Blood Pressure Mean 114 96 Pulse Ox 95 98 Oxygen Delivery Method Room Air Room Air Positive well nourished and well developed General Appearance ED: well developed and NAD HEENT Reports moist mucous membranes normocephalic and atraumatic Eyes PERRL Neck supple Resp normal respiratory effort and clear to auscultation bilaterally Cardio Rate: regular rate Rhythm: regular rhythm GI non-tender and non-distended Extremity normal to inspection General Extremety ED: Negative for edema General Extremity: Negative for edema Neuro oriented x3 Sensorium / Orientation: alert Motor Exam: strength 5/5 throughout and muscle tone normal throughout Psych mental status grossly normal, cooperative, affect normal, activity/motor behavior normal, denies homicidal ideation and denies suicidal ideation Appearance: grossly normal and well kempt Attitude: calm Thought Process: normal thought process Thought Content: hallucination(s) Positive for auditory Attention / Concentration: attention grossly intact Memory / Cognition: memory grossly intact Insight: insight good Judgement: judgement good Skin Rashes: no rashes MDM MDM MDM Narrative Medical decision making narrative: Patient is evaluated for worsening depression and a new auditory hallucination. Patient overall is quite well-appearing. She is insightful about what is going on. She did bring in her medications so we could check them. She states that she has been compliant with her meds. She denies any HI or SI. At this time I do not think patient is a risk to herself or others or needs aurora (more content not included)... Normal [facility] Urine Drug Screen (VISTA)on 04-19-2024 AMPHETAMINES Negative Normal <1000 ng/mL [facility] Comment on above: Performed By: #### L 505.5000, L500.2500, L501.9100, L100.0100 ####[facility] [address] [place], [place], [id number] BARBITIURATES Negative Normal < 200 ng/mL [facility] Comment on above: Performed By: #### L 505.5000, L500.2500, L501.9100, L100.0100 ####[facility] [address] [place], [address] BENZODIAZIPINE Negative Normal < 200 ng/mL [facility] Comment on above: Performed By: #### L 505.5000, L500.2500, L501.9100, L100.0100 ####[facility] [address] [place], [address] COCAINE Negative Normal < 300 ng/mL [facility] Comment on above: Performed By: #### L 505.5000, L500.2500, L501.9100, L100.0100 ####[facility] [address] [place], [place], [phone] ECSTACY Positive Abnormal < 500 ng/mL [facility] Comment on above: Performed By: #### L 505.5000, L500.2500, L501.9100, L100.0100 ####[facility] [address] [place], [place], [phone] METHADONE Negative Normal < 300 ng/mL [facility] Comment on above: Performed By: #### L 505.5000, L500.2500, L501.9100, L100.0100 ####[facility] [address] [place], [place], [phone] OPIATES Negative Normal < 300 ng/mL [facility] Comment on above: Performed By: #### L 505.5000, L500.2500, L501.9100, L100.0100 ####[facility] [address] [place], [address] PCP Negative Normal < 25 ng/mL [facility] Comment on above: Performed By: #### L 505.5000, L500.2500, L501.9100, L100.0100 ####[facility] [address] [place], [address] THC Negative Normal < 50 ng/mL [facility] Comment on above: Performed By: #### L 505.5000, L500.2500, L501.9100, L100.0100 ####[facility] [address] [place], [address] VISTA UDS PH 4 Normal [facility] Comment on above: Performed By: #### L 505.5000, L500.2500, L501.9100, L100.0100 ####[facility] [address] [place], [address] CNOVon 03-14-2024 CNOV Office Visit (FAMPWS ) YADIRA CANAS ([id number]) 1960 F Date Time Provider Department 03/14/24 2:20 PM [facility] During your visit today, we recorded the following information about you: Pulse Respiration Blood pressure Weight 89/minute 16/minute 150/80 92 kg Carmina Suazo APRN.CNP 03/14/2024 2:19 PM Addendum Get fasting labs completed, no food 10-12 hours prior, may have black coffee and water. Continue to take all medication as prescribed. May consider Tdap booster at the pharmacy. Monitor blood pressure at home, goal 130/80 or less. If BP is elevated follow back up in the office. Follow up in 6 months or sooner pending test results. Carmina Suazo APRN.CNP 03/14/2024 5:28 PM Signed This is a 63 year old female who presents today with: Patient presents with: Follow Up: 3 month follow up HISTORY OF PRESENT ILLNESS: Yadira Melonie Canas is a 63 year old female. Patient presents with: Follow Up: 3 month follow up 3 month follow up Chronic low back pain: Using Tylenol, amitriptyline 100 mg, diclofenac 75 mg twice daily, and gabapentin 400 mg twice daily. Pain is stable with medication. Depression: Taking Wellbutrin XL 450 mg daily. Symptoms well controlled. No SI/HI. Lipids: Started on Lipitor 20 mg daily Tolerating medication well. Eating a well balanced diet. Walking daily. Due for repeat labs. Pap: Last completed 2017. Would like to exit screening. Vaccines: Due for Tdap booster at pharmacy. PAST MEDICAL HISTORY: PAST MEDICAL HISTORY No date: Allergic rhinitis No date: Back pain No date: Depression PAST SURGICAL HISTORY 11/01/13: COLONOSCOPY FLX DX W/COLLJ SPEC WHEN PFRMD Comment: Colonoscopy 1989: LIG/TRNSXJ FLP TUBE ABDL/VAG APPR UNI/BI Comment: Tubal ligation 1980s: NEUROPLASTY AND/TRANSPOS MEDIAN NRV CARPAL TUNNE Comment: Carpal tunnel decomp bilaterally 2013: PAST SURGICAL HISTORY OF Comment: dental extractions ALLERGIES Sulfa (Sulfonamide Antibiotics), Tetracycline, Flagyl [Metronidazole], and Sertraline MEDICATIONS Current Outpatient Medications Medication Sig atorvastatin (LIPITOR) 20 mg tablet Take 1 tablet by mouth daily at bedtime. For cholesterol. gabapentin (NEURONTIN) 400 mg capsule Take 1 capsule by mouth two times a day for 180 days. buPROPion XL (WELLBUTRIN XL) 300 mg 24 hr tablet Take 1 tablet by mouth once daily. Take in AM diclofenac, EC, (VOLTAREN) 75 mg EC tablet TAKE 1 TABLET BY MOUTH WITH FOOD TWICE DAILY for pain and inflamation amitriptyline (ELAVIL) 100 mg tablet Take 1 tablet by mouth daily at bedtime. loratadine (CLARITIN) 10 mg tablet Take 1 tablet by mouth once daily. buPROPion XL (WELLBUTRIN XL) 150 mg 24 hr tablet Take 1 tablet by mouth once daily. Take in PM acetaminophen (TYLENOL) 500 mg tablet Take 500 mg by mouth every 6 hours as needed. FOR PAIN mv,Ca,min-folic acid-vit K1 (ONE-A-DAY WOMEN'S 50 PLUS) 400-20 mcg tab Take 1 tablet by mouth once daily. PSEUDOEPHEDRINE HCL (SUDAFED ORAL) Take by mouth. No current facility-administered medications for this visit. FAMILY HISTORY Problem Relation Age of Onset Diabetes Mother Arthritis Mother Stroke Mother Social History Tobacco Use Smoking status: Former Packs/day: 0.50 Years: 5.00 Additional pack years: 0.00 Total pack years: 2.50 Types: Cigarettes Quit date: 05/02/2016 Years since quittin.8 Smokeless tobacco: Never Vaping Use Vaping Use: Never used Substance Use Topics Alcohol use: No Drug use: No REVIEW OF SYSTEMS GENERAL: No weight loss, malaise or fevers/chills HEENT: Negative for frequent or significant headaches, No changes in hearing or vision. NECK: Negative for lumps, goiter, pain and significant neck swelling RESPIRATORY: Negative for cough, hemoptysis, wheezing, dyspnea or shortness of breath CARDIOVASCULAR: Negative for chest pain, leg swelling, orthopnea, or palpitations GI: No nausea, vomiting, or diarrhea/constipation. No hematochezia/melena. No heartburn or reflux symptoms. : No history of dysuria, frequency or incontinence MUSCULOSKELETAL: Negative for joint pain or swelling. SKIN: Negative for lesions, rash, and itching ENDOCRINE: Negative for cold or heat intolerance, polyuria, polydipsia and goiter NEURO: No history of headaches, syncope, paralysis, seizures or tremors MOOD: Negative for depression, anxiety, or suicidal ideation. EXAM: BP 160/72 Pulse 89 Resp 16 Wt 92 kg (202 lb 13.2 oz) SpO2 98% BMI 33.75 kg/m? BP 150/80 Pulse 89 Resp 16 Wt 92 kg (202 lb 13.2 oz) SpO2 98% BMI 33.75 kg/m? PHYSICAL EXAM: General Appearance: Well appearing, alert, in no acute distress, well-hydrated, well nourished. Skin: Skin color, texture, turgor normal, no suspicious rashes or lesions. Head: Normocephalic, no masses, lesions, tenderness or abnormalities. Eyes: Anicteric sc (more content not included)... [facility] Tele[facility] (FAMPWS) YADIRA CANAS ([id number]) 1960 F Date Time Provider Department 03/08/24 CARMINA SUAZO During your visit today, we recorded the following information about you: Abhi Perezie MAXWELL Hobson 03/08/2024 2:16 PM Signed Pt called and she had an apt scheduled for today and her transportation did not show up. Pt has been rescheduled to 03-14-24. Office notified. Anastacio Perez LPN Twila Saab 03/08/2024 2:57 PM Signed Patient called back and confirmed the below appointment. Twila Marie Pss Allergies As of Date: 03/08/2024 Noted Allergy Reaction SULFA (SULFONAMIDE ANTIBIOTICS) 05/27/2010 4 - Hives TETRACYCLINE 05/27/2010 11 - Vomiting FLAGYL (METRONIDAZOLE) 03/14/2019 8 - GI Upset SERTRALINE 11/12/2021 8 - GI Upset Date Reviewed: 05/10/2023 Reviewed by: Jolynn Brock MA - Fully Assessed Reason for Visit: apt problem pt calling [Other] Prescriptions as of 03/08/2024 - atorvastatin (LIPITOR) 20 mg tablet Take 1 tablet by mouth daily at bedtime. For cholesterol. - gabapentin (NEURONTIN) 400 mg capsule Take 1 capsule by mouth two times a day for 180 days. - buPROPion XL (WELLBUTRIN XL) 300 mg 24 hr tablet Take 1 tablet by mouth once daily. Take in AM - diclofenac, EC, (VOLTAREN) 75 mg EC tablet TAKE 1 TABLET BY MOUTH WITH FOOD TWICE DAILY for pain and inflamation - amitriptyline (ELAVIL) 100 mg tablet Take 1 tablet by mouth daily at bedtime. - loratadine (CLARITIN) 10 mg tablet Take 1 tablet by mouth once daily. - buPROPion XL (WELLBUTRIN XL) 150 mg 24 hr tablet Take 1 tablet by mouth once daily. Take in PM - acetaminophen (TYLENOL) 500 mg tablet Take 500 mg by mouth every 6 hours as needed. FOR PAIN - mv,Ca,min-folic acid-vit K1 (ONE-A-DAY WOMEN'S 50 PLUS) 400-20 mcg tab Take 1 tablet by mouth once daily. - PSEUDOEPHEDRINE HCL (SUDAFED ORAL) Take by mouth. Problem List As Of Date 03/08/2024 Noted Resolved Depression [F32.A] 05/27/2010 Seasonal allergies [J30.2] 05/27/2010 Back pain [M54.9] 05/27/2010 Insomnia [G47.00] 01/04/2015 Generalized osteoarthritis [M15.9] 03/02/2019 Allergic rhinitis [J30.9] Encounter Status:Closed by ANA ANASTACIO ANGELESN on 03/08/24 Normal [facility] OT D/C Summaryon 08-10-2023 OT D/C Summary [facility] Occupational Therapy [facility] [address] [place] [address] / REHABILITATION SERVICES DISCHARGE SUMMARY MR#: [id number] Acct: [id number] Name: YADIRA CANAS Rep #: [id number] : 1960 62 From: Luba Self OTR/L, CHT Referring Dr.: Dr. Prashant Garcia DO Status: R EG RCR Eval Date: Discharge Date: Discharge Summary D/C Summary: It has been my pleasure to treat YADIRA CANAS under orders from Dr. Prashant Garcia DO, for the diagnosis of right distal radius fx for a total of 4 visit(s). Please see the following information for a summary of their discharge status. Overall Improvement % Improvement: 90 Objective Objective/Function: right wrist 45/35 right monkey keeper strength 40# left is at 60# right lateral pinch 8# right tripod pinch 6# pt states she does not feel her wrist or her right hand is limiting her ability to perform her ADls and IADLs. pt states she can clean/cook and do her dishes pt states she does get swelling from time to time but she will put ice pack on it and this helps. Goals Patient Goals: Regain Mobility, Regain Strength, Use Hand/Wrist/Arm Normally Again and Be More Independent in ADLS Goal:Daily scar massage when approriate: Yes Goal:ROM equal to unaffected hand: Yes Goal:Senior Adults Director/Pinch strength at least 75% of unaffected hand: Yes Goal:No pain with affected hand use: Yes Goal:Full use of affected hand in daily activities including work: Yes Other Goal: pt will demo understanding of using brace when out of her home by end of 1st session. Plan Plan: Continue POC: 4 weeks (2-3x week) D/C Information Discharge Comments: pt has made good gains in OT following a right distal radius fx with ORIF. Pt has attended 4 OT sessions- with two no show apts. pt states she feels she is 90% better and feel she can perform her ADLs and IADLs SABINA level. pt states she is ready for D/C. pt has met goals and pt agrees to continue with her HEP as tolerate. d/c sentence: If there are questions or concerns regarding this patient's occupational therapy, please fell free to call me at [phone]. Thank you for the referral of this patient. Sincerely, JOVANNY Bobo/EMILE Kincaid 08/10/23 1453 CC: Dr. Prashant Garcia DO; Dr. Jason Clemons MD MK Signed Normal [facility] OT General Evaluationon 07-02 OT General Evaluation [facility] [address] [place] [address] [address] [place] [address] / REHABILITATION SERVICES INITIAL EVALUATION MR#: [id number] Acct: [id number] Name: YADIRA CANAS Rep #: [id number] : 1960 62 From: Luba WEEKS CHT Referring Dr.: Dr. Prashant Garcia DO Status: R EG RCR Insurance: [facility] COMPLETE Eval Date: MEDICAID Patient's Visit Information Visit Information Visit Information: YADIRA CANAS is a 62 year old F, referred to Occupational Therapy by Dr. Prashant Garcia DO, with a diagnosis of right distal radius fx. Date of Evaluation: 07/12/23 Occupational Therapist: JOVANNY Bobo/EMILE Kincaid Subjective Subjective: This 62 year old female was seen for OT eval with dx of right distal radius fx. Pt states DOI was on 2022 and had sx on 2022. pt had ORIF to repair distal radius fx. pt lives at [facility] pt is left handed pt is on disability due to bad back pt is limited with bilateral hand use for ADls and IADLS due to her recent fall. pt would like to return to her PLOF. Pain right wrist: Current Pain Intensity: 0 Pain Intensity Range: 1 ROM Forearm: right/left WNL Wrist: right 30/25 left 55/55 ROM Comments: right RD [address] 15 UD 15 Strength Senior Adults Director: right NT left 55 Lateral Pinch: right NT left 14# Tripod Pinch: right NT left 14# Strength Comments: will test right monkey keeper strength at later date Edema Wrist: right 18.5cm left 16cm Sensation Sensation Comments: denies Quick DASH-Disab of Arm,Shoulder Hand Quick DASH Score: 36.3625 Goals Goal:Daily scar massage when approriate: Yes Goal:ROM equal to unaffected hand: Yes Goal:Senior Adults Director/Pinch strength at least 75% of unaffected hand: Yes Comment: will not initiate strengthening until week 6 s/p unless otherwise instructe Goal:No pain with affected hand use: Yes Goal:Full use of affected hand in daily activities including work: Yes Other Goal: pt will demo understanding of using brace when out of her home by end of 1st session. Rehabilitation General Assessment: pt arrives 3 weeks and 3 days s/p ORIF of right distal radius. Pt demo with limited right wrist ROM and weakness due to healing structures. pt is limited with ADLS and IADLs at this time and would benefit from skilled OT services 2x week for 4 weeks to return pt to her PLOF. Today therapist ed. pt on AROM of wrist fles/ext RD/UD, along with tendon glide and scar mtg. pt was given handout on HEP and demo understanding and agree to her POD. Rehabilitation Potential: Good Anticipated Interventions Anticipated Interventions: A/AAROM/PROM, Strengthening, Scar Care, Triggerpoint Release, Modalities, Orthoses, Joint Protection/Energy Conservation, Education re assistive Equipment, Education re Diag nosis and Home Program Visit Plan Frequency: 2-3x /Week Duration: 4 Weeks General Plan: work on ROM until week 6 and initiate strengthening as tolerated may have brace of for ex and when in home advised to sleep in brace ( pt has been sleeping without) return pt to her PLOF. TEXT: Thank you for the opportunity to evaluate your patient. For Medicare and Medicare HMO plans, please review the plan of care and approve it. It will need to be FAXED BACK to us at [phone] for Medicare purposes. Please let me know if there are questions or concerns regarding this plan of care. Physician Signature: Date:__ 07/12/23 1321 CC: Dr. Prashant Garcia DO; Dr. Jason Clemons MD MK Signed For Medicare only, by signing this I certify the plan of care. Physicians Signature Date Normal [facility] Orthopedic Visit Reporton Orthopedic Visit Report [facility] [address] [place], [place] [id number] OFFICE VISIT Date of Service: 07/05/23 MR#: [id number] Acct: [id number] Name: MISSAELYADIRA J Rep #: [id number] : 1960 Provider: Dr. Prashant manzo DO Age/Sex: 62/F Location: [facility] Status: Signed Intake Vital Signs 06/18/23 11:09 Height 5 ft 6 in Intake Visit Reasons: RIGHT WRIST Chief Complaint: right wrist fracture Accompanied by: Self Allergies Sulfa (Sulfonamide Antibiotics) Allergy (Verified 07/05/23 14:55) Other tetracycline Adverse Reaction (Verified 07/05/23 14:55) Vomiting Medications amitriptyline 25 mg tablet 25 mg PO DAILY 12/14/16 [History Confirmed 07/05/23] bupropion HCl 150 mg tablet,12 hr sustained-release 150 mg PO BID 12/14/16 [History Confirmed 07/05/23] diclofenac sodium 50 mg tablet,delayed release 50 mg PO DAILY 12/14/16 [History Confirmed 07/05/23] bupropion HCl 300 mg 24 hr tablet, extended release 300 mg PO .qam 06/16/23 [History Confirmed 07/05/23] loratadine 10 mg tablet 10 mg PO DAILY 06/16/23 [History Confirmed 07/05/23] acetaminophen 500 mg tablet 1,000 mg (2 x 500 mg) PO Q6H PRN #100 tabs 06/18/23 [Rx Confirmed 07/05/23] cephalexin 500 mg capsule 1,000 mg (2 x 500 mg) PO Q8 #4 caps 06/18/23 [Rx Confirmed 07/05/23] PFSH Medical History Anxiety Arthritis Depression Non-smoker Pain Wears dentures Wears glasses Surgical History H/O tubal ligation History of carpal tunnel surgery Social History Smoking Status: Former smoker HPI RIGHT WRIST Details: This documentation accurately reflects the service provided and the decisions made by me, Dr. Prashant Garcia, DO 07/05/23 0757. Part of today???s visit was documented by [ ], acting as scribe. YADIRA CANAS is a 62 year old F here today for 2 wk post-op ORIF of the distal radius. States that she is doing well and she only gets pain if she moves her wrist the wrong way. Denies numbness, tingling or other associated symptoms. She takes extra strength Tylenol for her pain is she needs it. She is doing well on her finger ROM as well. Ortho Exam General General: Yes no acute distress Neurologic: Yes alert and Yes oriented x3 Right Wrist/Hand WRIST: chronic deformity of index finger-unable to bend at PIP. other fingers able to bring to palm. 5 extension, 10 flexion, radial deviation 5, ulnar deviation 7, Incision well-approximated no signs of infection sutures were removed today Supplemental Info 06/18/2023 ORIF right wrist distal radius Dr. Garcia 06/16/2023 x-ray right wrist:Intra-articular distal radius fracture with comminution mild loss of radial height 06/09/2023 x-ray right wrist: Intra-articular distal radius fracture with comminution mild loss of radial height Coding Level of Care Code Global Post Op Diagnoses Orthopedic aftercare Z47.89 Assessment and Plan Assessment and Plan (1) Orthopedic aftercare: Orders: Orders Wrist min 3 Views Today S52.509A - Unspecified fracture of the lower end of unspecified radius, initial encounter for closed fracture Wrist 2 Views Today S52.509A - Unspecified fracture of the lower end of unspecified radius, initial encounter for closed fracture Referrals Occupational Therapy Referral S62.101A - Fracture of unspecified carpal bone, right wrist, initial encounter for closed fracture Plan Patient should continue to work on wrist range of motion. Demonstrated all exercises she should do. She should remove her splint 3 times a day for range of motion. She should not push or pull any weight for 4 weeks. She is only able to lift 1/2 pound. She should do formal occupational therapy. She should wash her incision daily but should not submurge. I encouraged her to DC the splint completely in 2 weeks and to try to be without it is much as possible. Follow up in 4 weeks no x-rays at that time or sooner if pain, swelling, numbness or associated symptoms, or concerns develop. All questions answered. Patient in agreement of plan. 07/05/23 1553 Date Prashant Garcia DO Cosigner Signature: Date (if applicable) CC: Normal [facility] Wrist min 3 Viewson 07-05-20 Wrist min 3 Views [facility] [address] [place] [address] Wrist min 3 Views MR#: [id number] Acct: [id number] Name: YADIRA CANAS Melonie Rep #: [id number] : 1960 F 62 From: Keith Mcmahon DO PCP: Dr. Jason Clemons MD Status: DEP AMB Study: Wrist min 3 Views Date of Exam: 07/05/23 Exam# [id number] Ordering Dr: Prashant Garcia DO [id number] INDICATION: s/p dital radius fx -- 2 view, modified EXAMINATION/TECHNIQUE: X-RAY - RIGHT XR Wrist 3 VIEWS COMPARISON: June 16, 2023 FINDINGS: Status post ORIF a distal radius. The bony fragments are relatively well aligned and approximated RAD/Wrist min 3 Views IMPRESSION: Status post ORIF for a distal radial fracture. Electronically Signed: Keith Mcmahon DO at 16:15 EST , CC: Dr. Prashant Garcia DO; Dr. Jason Clemons MD Gauge Checker: Signed Normal [facility] Discharge Instructionon 06-02 Discharge Instruction [facility] Medical Records Department [address] [place] [address] Instructions for Home/Discharge Instructions 06/18/23 1529 MR#: [id number] Acct: [id number] Name: YADIRA CANAS Rep #: [id number] : 1960 62 From: Prashant Garcia DO PCP: Dr. Jason Clemons MD Status:[facility] Discharge Instructions Diet Discharge Diet: No restrictions Dressing / Incision Call your doctor if you observe: Shortness of breath and Chest pain Additional Dressing/Incision Instructions:: Strict elevation of operative extremity above heart for next 72 hours. Ice 15 minutes on 15 minutes off. Continue ice and elevation for 7 days postoperatively. Encourage finger range of motion. No lifting pushing or pulling more than a coffee cup. Must keep splint on clean and dry. Follow-up in office in 2 week Follow Up Care Please Follow Up With: Prashant Garcia DO When: 2 weeks Test Results: Test results from this visit will be discussed in further detail at your follow-up appointment, if applicable. Discharge Plan Admission Primary Reason for Your Visit: Right distal radius open reduction internal fixation Attending Provider: Prashant Garcia Primary Care Provider: Jason Clemons Discharge Orders/Prescriptions Prescriptions: New acetaminophen [acetaminophen] 500 mg tablet 1,000 mg PO Q6H PRN Qty: 100 0RF cephalexin [cephalexin] 500 mg capsule 1,000 mg PO Q8 Qty: 4 0RF Rx Instructions: take 2 tabs at 9:00 pm and 2 tabs after 5 am when you wake up oxycodone 5 mg tablet 5 - 10 mg PO Q4H PRN (Reason: pain) 5 Days Qty: 30 0RF Continued bupropion HCl 300 mg tablet extended release 24 hr 300 mg PO .qam Patient Comments: Take 1 tablet by mouth once daily. Take in AM loratadine 10 mg tablet 10 mg PO DAILY bupropion HCl 150 MG tablet sustained-release 12 hr 150 mg PO BID amitriptyline 25 MG tablet 25 mg PO DAILY Patient Comments: TAKE 1 TO 2 TABLETS BY MOUTH AT BEDTIME Held diclofenac sodium 50 MG tablet 50 mg PO DAILY Hold Instructions: Resume on 06/19/23. Discontinued acetaminophen [Tylenol] 325 mg capsule 325 mg PO ONCE PRN (Reason: fever or pain) Referrals / Follow Up: Jason Clemons MD [Primary Care Provider] - Disposition Disposition (needs filled in before D/C Order can be placed): Home, Self Care 06/18/23 1533 Prashant Garcia DO CC: Dr. Jason Clemons MD Signed Normal [facility] Operative Reporton 3 Operative Report [facility] Medical Records Department [address] [place] [address] Operative Report 06/18/23 1526 MR#: [id number] Acct: [id number] Name: YADIRA CANAS Rep #: [id number] : 1960 62 From: Prashant Garcia DO PCP: Dr. Jason Clemons MD Status:[facility] Location: [place] [address] Operative Report Date of Procedure: 06/18/23 Preoperative diagnosis: Displaced distal radius fracture intra-articular comminuted greater than 3 fragments Postoperative diagnosis: Same Anesthesia: General with postop axillary block Procedure: ORIF of the distal radius Implants: Synthes distal radius variable angle locking plate Tourniquet time: 43 minutes Complications: None Indication for procedure: 62-year-old female patient had ground-level fall sustaining a impacted intra-articular distal radius fracture right hand we discussed risks benefits and alternatives of conservative versus surgical intervention. Including the risk of bleeding infection nerve artery tissue damage need for further surgery continued pain postoperative stiffness need for postoperative physical therapy and the expected postoperative course. Procedure: The patient was met in the preoperative holding area the operative extremity was identified by both patient and physician and marked. Patient was met by anesthesia she was brought back to the operating room on a wheeled cart and transferred to the operating table in the supine position anesthesia was started. A well-padded tourniquet was placed on the upper arm of the operative extremity. She was prepped and draped in the usual sterile fashion. A Time out was called to ensure the proper patient procedure and extremity were being contemplated. A 15 blade scalpel was used to make a linear incision over the FCR tendon this was carried down through the skin and subcutaneous tissue. Electrocautery was used to maintain hemostasis. Marizol retractors were used. The FCR tendon sheath was incised and the FCR tendon was mobilized radially. A deep blade scalpel was used to perforate the fascia of the deep FCR tendon sheath and Littler scissors were used to dissect proximally and distally. Blunt dissection was performed a kian was placed on the radial and ulnar side of the radius. The pronator quadratus was partially torn from the injury and was released off the radial border of the radius with electrocautery and was elevated with a moise elevator. The Hohmann retractors were then placed deep to this muscle. The fracture site was visualized and was freed of hematoma and clot debris with the use of small rongeur and Bainbridge. The fracture was then reduced with the use of a Bainbridge and ulnar deviation and wrist flexion. This was checked under fluoroscopy to ensure that an adequate reduction could be performed. A plate was then positioned over the fracture site and temporarily fixed to the bone with K wires. A cortical screw was then placed in the shaft and sequential locking screws were placed distally this was checked on both AP and lateral projections to ensure screw placement was not penetrating the joint and was in the proper location. Bone drill sleeve was used for the radial styloid screw and a variable angle fashion. The remainder of the cortical screws were placed in the shaft. And the fracture and hardware were visualized in both AP and lateral projections in good alignment and fracture positioning. The wound was thoroughly irrigated. Pronator quadratus was not repairable. Tourniquet was let let down to assess for bleeding there was some mild venous bleeding which was coagulated with the Bovie. A subcutaneous stitch with 3-0 Vicryl was performed followed by 4-0 nylon vertical mattress stitches. Followed by Xeroform 4 x 4 ABD web roll stockinette more web roll volar paster splint and an Marco wrap. The tourniquet was let down. There was no complications intraoperatively and the patient was brought back to the PACU in stable condition where she received an axillary block. All counts were correct. 06/18/23 1528 Cosigner Signature (if applicable): CC: Dr. Prashant Garcia DO; Dr. Jason Clemons MD Signed Normal [facility] Wrist min 3 Viewson 06-18-20 Wrist min 3 Views [facility] [address] [place] [address] Wrist min 3 Views MR#: [id number] Acct: [id number] Name: YADIRA CANAS Rep #: [id number] : 1960 F 62 From: Eliu Acevedo PCP: Dr. Jason Clemons MD Status: [facility] Study: Wrist min 3 Views Date of Exam: 06/18/23 Exam# [id number] Ordering Dr: Prashant Garcia DO [id number] INDICATION: ORIF WRIST EXAMINATION/TECHNIQUE: X-RAY - RIGHT XR Wrist Min 3 Views 4 VIEWS COMPARISON: Prior study dated: 06/16/2023. FINDINGS: 3 views of the right wrist were obtained intraoperatively on a C-arm for open reduction internal fixation of fracture of the distal radius with sideplate and screws. The alignment and position as seen on this examination appear to be satisfactory. The examination however was not obtained for diagnostic purposes. The fluoroscopy time was 23.1 seconds. RAD/Wrist min 3 Views IMPRESSION: Intraoperative exam as described above. Electronically Signed: Eliu Cason MD at 15:52 EST , CC: Dr. Prashant Garcia DO; Dr. Jason Clemons MD Gauge Checker: Signed Normal [facility] Orthopedic Visit Reporton Orthopedic Visit Report [facility] [address] [place] [address] [address] [place] [address] OFFICE VISIT Date of Service: 06/16/23 MR#: [id number] Acct: [id number] Name: YADIRA CANAS Rep #: [id number] : 1960 Provider: Dr. Prashant manzo DO Age/Sex: 62/F Location: [facility] Status: Signed Intake Vital Signs 06/09/23 06:12 Height 5 ft 6 in Intake Visit Reasons: RIGHT WRIST Chief Complaint: right wrist fracture Is patient in pain?: Yes Allergies Sulfa (Sulfonamide Antibiotics) Allergy (Verified 06/16/23 16:06) Other tetracycline Adverse Reaction (Verified 06/16/23 16:06) Vomiting Medications amitriptyline 25 mg tablet 25 mg PO DAILY 12/14/16 [History Confirmed 06/16/23] bupropion HCl 150 mg tablet,12 hr sustained-release 150 mg PO BID 12/14/16 [History Confirmed 06/16/23] diclofenac sodium 50 mg tablet,delayed release 50 mg PO DAILY 12/14/16 [History Confirmed 06/16/23] acetaminophen 325 mg capsule (Tylenol) 325 mg PO ONCE PRN 06/16/23 [History Confirmed 06/16/23] bupropion HCl 300 mg 24 hr tablet, extended release 300 mg PO 06/16/23 [History Confirmed 06/16/23] loratadine 10 mg tablet 10 mg PO DAILY 06/16/23 [History Confirmed 06/16/23] [facility] Medical History Depression Pain Surgical History History of carpal tunnel surgery Social History Smoking Status: Former smoker HPI RIGHT WRIST Chief Complaint: right wrist fracture. Details: This documentation accurately reflects the service provided and the decisions made by me, Dr. Prashant Garcia, DO 06/16/23 1156. Part of today???s visit was documented by [ ], acting as scribe. YADIRA CANAS is a 62 year old F here today for right wrist fracture. DOI 06-09-23 Pt. advises she woke up on the ground with right wrist pain. She thinks she was sleepwalking because she he has done this in the past. She does not remember. She was seen at [facility] ED dept where she was X-rayed and splinted. She is left hand dominant. She denies any numbness or tingling. Ortho Exam General General: Yes no acute distress Neurologic: Yes alert and Yes oriented x3 Psychologic: Yes reasonable and appropriate Right Wrist/Hand Skin/Wound: Yes Swelling, Yes Ecchymosis and Yes capillary refill normal WRIST: No gross motor or sensory deficits compartments are soft Left Wrist/Hand Skin/Wound: Yes Swelling and Yes Ecchymosis Supplemental Info 06/16/2023 x-ray right wrist:Intra-articular distal radius fracture with comminution mild loss of radial height 06/09/2023 x-ray right wrist: Intra-articular distal radius fracture with comminution mild loss of radial height Coding Level of Care Code Off vis,new,level 3 Diagnoses Other closed intra-articular fracture of distal end of right radius, initial encounter S52.571A Encounter type: initial encounter Fracture morphology: other intra-articular Laterality: right Assessment and Plan Assessment and Plan (1) Closed fracture of distal end of radius: Status: Inactive Qualifiers: Encounter type: initial encounter Fracture morphology: other intra-articular Laterality: right Qualified Code(s): S52.571A - Other intraarticular fracture of lower end of right radius, initial encounter for closed fracture Orders: Orders Wrist min 3 Views 06/16/23 S52.509A - Unspecified fracture of the lower end of unspecified radius, initial encounter for closed fracture Plan Educated the patient about the anatomy of the wrist and etiology of her pain. Spoke with her about her fracture and due to the fracture into the joint and loss of height and comminution, it is recommended that she have surgery. If she does not want to proceed with surgery, she may be casted. Spoke with her about the risks and benefits of both options. Patient should not push or pull following her surgery. She should continue to keep her wrist elevated and move her fingers. She should not take NSAIDs until after surgery. She is able to take tylenol. Risk of surgery not limited to but include infection hardware failure tendon irritation nerve artery tissue damage need for further surgery continued pain postoperative arthritis stiffness and loss of function. Follow up in 1-2 weeks depending on surgery or sooner if pain, swelling, numbness or associated symptoms, or concerns develop. All questions answered. Patient in agreement of plan. 06/17/23 1322 Date Prashant Garcia DO Cosignsteven Signature: Date (if applicable) CC: Normal [facility] Wrist min 3 Viewson 06-16-20 Wrist min 3 Views [facility] [address] [place] [address] Wrist min 3 Views MR#: [id number] Acct: [id number] Name: YADIRA CANAS Rep #: [id number] : 1960 F 62 From: Gallito Acevedo PCP: Dr. Jason Clemons MD Status: DEP AMB Study: Wrist min 3 Views Date of Exam: 06/16/23 Exam# [id number] Ordering Dr: Prashant Garcia DO [id number] STUDY: X-RAY - RIGHT WRIST REASON FOR EXAM: Female, 62 years old. PAIN TECHNIQUE: 3 view(s) of the wrist were obtained. COMPARISON: June 09, 2023 FINDINGS: Fracture distal radius unchanged in alignment. Fiberglas splint obscures detail. Normal radiocarpal articulation. Normal distal radioulnar articulation. Normal carpal bones. Normal carpal articulations. Normal carpometacarpal articulation of the thumb. Normal second through fifth carpometacarpal articulations. Normal visualized metacarpal bones. The soft tissue structures are unremarkable. RAD/Wrist min 3 Views IMPRESSION: Fracture distal radius unchanged status post casting Electronically Signed: Gallito Mota MD at 18:40 EST , CC: Dr. Prashant Garcia DO; Dr. Jason Clemons MD Gauge Checker: Signed [facility] Vital Signs Date Time Vital Sign Value Performing Clinician Facility 02-15-2025 15:28-0400 Body mass index (BMI) [Ratio] 31.88 kg/m2 Jason Clemons MD Work Phone: [facility] 02-15-2025 15:28-0400 Body weight 86.9 kg Jason Clemons MD Work Phone: [facility] 02-15-2025 15:28-0400 Diastolic blood pressure 80 mm[Hg] Jason Celmons MD Work Phone: [facility] 02-15-2025 15:28-0400 Heart rate 88 /min Jason Clemons MD Work Phone: [facility] 02-15-2025 15:28-0400 Respiratory rate 18 /min Jason Clemons MD Work Phone: [facility] 02-15-2025 15:28-0400 Systolic blood pressure 120 mm[Hg] Jason Clemons MD Work Phone: [facility] 01-15-2025 17:07-0400 Body mass index (BMI) [Ratio] 32.65 kg/m2 Gallito Nur MD Work Phone: [facility] 01-15-2025 17:07-0400 Body temperature 98.29 [degF] Gallito Nur MD Work Phone: [facility] 01-15-2025 17:07-0400 Body weight 89 kg Gallito Nur MD Work Phone: [facility] 01-15-2025 17:07-0400 Diastolic blood pressure 68 mm[Hg] Gallito Nur MD Work Phone: [facility] 01-15-2025 17:07-0400 Heart rate 112 /min Gallito Nur MD Work Phone: [facility] 01-15-2025 17:07-0400 Respiratory rate 20 /min Gallito Nur MD Work Phone: [facility] 01-15-2025 17:07-0400 SaO2% (BldA) [Mass fraction] 95 % Gallito Nur MD Work Phone: [facility] 01-15-2025 17:07-0400 Systolic blood pressure 148 mm[Hg] Gallito Nur MD Work Phone: [facility] 11-07-2024 13:15-0400 Body height 165.1 cm Jason Clemons MD Work Phone: [facility] 11-07-2024 13:15-0400 Body mass index (BMI) [Ratio] 32.8 kg/m2 Jason Clemons MD Work Phone: [facility] 11-07-2024 13:15-0400 Body weight 89.4 kg Jason Clemons MD Work Phone: [facility] 11-07-2024 13:15-0400 Diastolic blood pressure 80 mm[Hg] Jason Clemons MD Work Phone: [facility] 11-07-2024 13:15-0400 Heart rate 84 /min Jason Clemons MD Work Phone: [facility] 11-07-2024 13:15-0400 Respiratory rate 18 /min Jason Clemons MD Work Phone: [facility] 11-07-2024 13:15-0400 Systolic blood pressure 128 mm[Hg] Jason Clemons MD Work Phone: [facility] 08-07-2024 16:49-0500 Body mass index (BMI) [Ratio] 33.27 kg/m2 Jason Clemons MD Work Phone: [facility] 08-07-2024 16:49-0500 Body weight 90.7 kg Jason Clemons MD Work Phone: [facility] 08-07-2024 16:49-0500 Diastolic blood pressure 66 mm[Hg] Jason Clemons MD Work Phone: [facility] 08-07-2024 16:49-0500 Heart rate 80 /min Jason Clemons MD Work Phone: [facility] 08-07-2024 16:49-0500 Respiratory rate 18 /min Jason Clemons MD Work Phone: [facility] 08-07-2024 16:49-0500 Systolic blood pressure 124 mm[Hg] Jason Clemons MD Work Phone: [facility] 06-12-2024 17:43-0500 Body mass index (BMI) [Ratio] 33.09 kg/m2 Jason Clemons MD Work Phone: [facility] 06-12-2024 17:43-0500 Body weight 90.2 kg Jason Clemons MD Work Phone: [facility] 06-12-2024 17:43-0500 Diastolic blood pressure 72 mm[Hg] Jason Clemons MD Work Phone: [facility] 06-12-2024 17:43-0500 Heart rate 88 /min Jason Clemons MD Work Phone: [facility] 06-12-2024 17:43-0500 Respiratory rate 16 /min Jason Clemons MD Work Phone: [facility] 06-12-2024 17:43-0500 Systolic blood pressure 120 mm[Hg] Jason Clemons MD Work Phone: [facility] 05-18-2024 14:30-0400 Diastolic blood pressure 70 mm[Hg] Jason Clemons MD Work Phone: [facility] 05-18-2024 14:30-0400 Systolic blood pressure 142 mm[Hg] Jason Clemons MD Work Phone: [facility] 05-18-2024 14:15-0400 Body mass index (BMI) [Ratio] 34.08 kg/m2 Jason Clemons MD Work Phone: [facility] 05-18-2024 14:15-0400 Body weight 92.9 kg Jason Clemons MD Work Phone: [facility] 05-18-2024 14:15-0400 Heart rate 84 /min Jason Clemons MD Work Phone: [facility] 05-18-2024 14:15-0400 Respiratory rate 18 /min Jason Clemons MD Work Phone: [facility] 03-14-2024 14:15-0400 Diastolic blood pressure 80 mm[Hg] Carmina Matthof QUILTER FIXER.[employer]ICENSED AIRCRAFT MAINTENANCE ENGINEER Work Phone: [facility] 03-14-2024 14:15-0400 Systolic blood pressure 150 mm[Hg] Carminakiara Matthof QUILTER FIXER.LICENSED AIRCRAFT MAINTENANCE ENGINEER Work Phone: [facility] 03-14-2024 14:01-0400 Body mass index (BMI) [Ratio] 33.75 kg/m2 Carmina Matthof QUILTER FIXER.LICENSED AIRCRAFT MAINTENANCE ENGINEER Work Phone: [facility] 03-14-2024 14:01-0400 Body weight 92 kg Carmina Matthof QUILTER FIXER.LICENSED AIRCRAFT MAINTENANCE ENGINEER Work Phone: [facility] 03-14-2024 14:01-0400 Heart rate 89 /min Carmina Matthof QUILTER FIXER.LICENSED AIRCRAFT MAINTENANCE ENGINEER Work Phone: [facility] 03-14-2024 14:01-0400 Respiratory rate 16 /min Carmina Matthof QUILTER FIXER.LICENSED AIRCRAFT MAINTENANCE ENGINEER Work Phone: [facility] 03-14-2024 14:01-0400 SaO2% (BldA) [Mass fraction] 98 % Carmina Tannhof QUILTER FIXER.LICENSED AIRCRAFT MAINTENANCE ENGINEER Work Phone: [facility] 12-06-2023 13:47-0400 Body mass index (BMI) [Ratio] 34.11 kg/m2 Quinton Jose Alfredo QUILTER FIXER.LICENSED AIRCRAFT MAINTENANCE ENGINEER Work Phone: [facility] 12-06-2023 13:47-0400 Body weight 92.99 kg Quinton Jose Alfredo QUILTER FIXER.LICENSED AIRCRAFT MAINTENANCE ENGINEER Work Phone: [facility] 12-06-2023 13:47-0400 Diastolic blood pressure 77 mm[Hg] Quinton Jose Alfredo QUILTER FIXER.LICENSED AIRCRAFT MAINTENANCE ENGINEER Work Phone: [facility] 12-06-2023 13:47-0400 Heart rate 93 /min Quinton Jose Alfredo QUILTER FIXER.LICENSED AIRCRAFT MAINTENANCE ENGINEER Work Phone: [facility] 12-06-2023 13:47-0400 Respiratory rate 16 /min Quinton Jose Alfredo QUILTER FIXER.LICENSED AIRCRAFT MAINTENANCE ENGINEER Work Phone: [facility] 12-06-2023 13:47-0400 SaO2% (BldA) [Mass fraction] 98 % Quinton Jose Alfredo QUILTER FIXER.LICENSED AIRCRAFT MAINTENANCE ENGINEER Work Phone: [facility] 12-06-2023 13:47-0400 Systolic blood pressure 131 mm[Hg] Quinton Jose Alfredo QUILTER FIXER.LICENSED AIRCRAFT MAINTENANCE ENGINEER Work Phone: [facility] 06-18-2023 18:20-0500 Diastolic blood pressure 64 mm[Hg] Dr. Jason Clemons Work Phone: [facility] 06-18-2023 18:20-0500 Heart rate 84 /min Dr. Jason Clemons Work Phone: [facility] 06-18-2023 18:20-0500 Respiratory rate 16 /min Dr. Jason Clemons Work Phone: [facility] 06-18-2023 18:20-0500 SaO2% (BldA) [Mass fraction] 100 % Dr. Jason Clemons Work Phone: [facility] 06-18-2023 18:20-0500 Systolic blood pressure 140 mm[Hg] Dr. Jason Clemons Work Phone: [facility] 06-18-2023 18:10-0500 Body temperature 96.9 [degF] Dr. Jason Clemons Work Phone: [facility] 06-18-2023 17:45-0500 Inhaled oxygen flow rate 1 L/min Dr. Jason Clemons Work Phone: [facility] 06-18-2023 11:09-0500 Body height 167.[address] Jason Clemons Work Phone: [facility] 06-18-2023 11:09-0500 Body mass index (BMI) [Ratio] 31.6 kg/m2 Dr. Jason Clemons Work Phone: [facility] 06-18-2023 11:09-0500 Body weight [address] Jason Clemons Work Phone: [facility] 06-09-2023 06:12-0500 Body height 167.64 cm [facility] 06-09-2023 06:12-0500 Body mass index (BMI) [Ratio] 33.7 kg/m2 [facility] 06-09-2023 06:12-0500 Body temperature 98.1 [degF] [facility] 06-09-2023 06:12-0500 Body weight 94.8 kg [facility] 06-09-2023 06:12-0500 Diastolic blood pressure 85 mm[Hg] [facility] 06-09-2023 06:12-0500 Heart rate 84 /min [facility] 06-09-2023 06:12-0500 Respiratory rate 16 /min [facility] 06-09-2023 06:12-0500 SaO2% (BldA) [Mass fraction] 94 % [facility] 06-09-2023 06:12-0500 Systolic blood pressure 158 mm[Hg] [facility] 05-10-2023 12:26-0400 Body weight 90.54 kg Jason Clemons MD Work Phone: [facility] 05-10-2023 12:26-0400 Diastolic blood pressure 70 mm[Hg] Jason Clemons MD Work Phone: [facility] 05-10-2023 12:26-0400 Heart rate 96 /min Jason Clemons MD Work Phone: [facility] 05-10-2023 12:26-0400 Respiratory rate 18 /min Jason Clemons MD Work Phone: [facility] 05-10-2023 12:26-0400 Systolic blood pressure 128 mm[Hg] Jason Clemons MD Work Phone: [facility] 11-05-2022 08:16-0400 Body weight 91.81 kg Jason Clemons MD Work Phone: [facility] 11-05-2022 08:16-0400 Diastolic blood pressure 74 mm[Hg] Jason Clemons MD Work Phone: [facility] 11-05-2022 08:16-0400 Heart rate 78 /min Jason Clemons MD Work Phone: [facility] 11-05-2022 08:16-0400 Respiratory rate 16 /min Jason Clemons MD Work Phone: [facility] 11-05-2022 08:16-0400 Systolic blood pressure 122 mm[Hg] Jason Clemons MD Work Phone: [facility] 05-06-2022 12:42-0400 Body weight 89.36 kg Jason Clemons MD Work Phone: [facility] 05-06-2022 12:42-0400 Diastolic blood pressure 78 mm[Hg] Jason Clemons MD Work Phone: [facility] 05-06-2022 12:42-0400 Heart rate 80 /min Jason Clemons MD Work Phone: [facility] 05-06-2022 12:42-0400 Respiratory rate 18 /min Jason Clemons MD Work Phone: [facility] 05-06-2022 12:42-0400 Systolic blood pressure 120 mm[Hg] Jason Clemons MD Work Phone: [facility] 10-27-2021 13:37-0400 Body weight 89.13 kg Jason Clemons MD Work Phone: [facility] 10-27-2021 13:37-0400 Diastolic blood pressure 76 mm[Hg] Jason Clemons MD Work Phone: [facility] 10-27-2021 13:37-0400 Heart rate 72 /min Jason Clemons MD Work Phone: [facility] 10-27-2021 13:37-0400 Respiratory rate 16 /min Jason Clemons MD Work Phone: [facility] 10-27-2021 13:37-0400 Systolic blood pressure 120 mm[Hg] Jason Clemons MD Work Phone: [facility] Encounters Encounter Date Encounter Type Care Provider Facility Start: 02-20-2025 End: 02-21-2025 Follow-up encounter Jason Clemons MD Work Phone: [facility] Comment on above: Results Start: 02-15-2025 End: 02-15-2025 ambulatory JASON CLEMONS Facility:[facility] Start: 02-15-2025 End: 02-15-2025 Office outpatient visit 25 minutes Jason Clemons MD Work Phone: [facility] Comment on above: Depression, unspecif ied depression type (Primary Dx); Mixed hyperlipidemia; ROBERT (generalized anxiety disorder); Low back pain with sciatica, sciatica laterality unspecified, unspecified back pain laterality, unspecified chronicity; Medication monitoring encounter; Elevated glucose; Hidradenitis suppurativa; Major depressive disorder with single episode, in full remission Start: 01-31-2025 End: 02-01-2025 Refill Jason Clemons MD Work Phone: [facility] Comment on above: Refill Request Start: 01-16-2025 End: 01-23-2025 Telephone encounter Negro [facility] Start: 01-15-2025 End: 01-15-2025 Office outpatient visit 25 minutes Gallito Nur MD Work Phone: [facility] Comment on above: Paronychia of great toe of left foot (Primary Dx); Onychogryposis of toenail Start: 01-15-2025 End: 01-15-2025 ambulatory JASON CLEMONS Facility:[facility] Start: 12-11-2024 End: 12-11-2024 Patient encounter procedure Jemal Moralez OD Work Phone: Ophthalmology Comment on above: Combined forms of ag e-related cataract of both eyes (Primary Dx); Posterior vitreous detachment of left eye; Myopia, bilateral; Regular astigmatism of both eyes; Presbyopia Start: 12-11-2024 End: 12-11-2024 ambulatory JEMAL MORALEZ Facility:[facility] Start: 12-05-2024 End: 12-05-2024 Refill Jason Clemons MD Work Phone: [facility] Comment on above: Refill Request Start: 11-07-2024 End: 11-07-2024 ambulatory JASON CLEMONS Facility:[facility] Start: 11-07-2024 End: 11-07-2024 Patient encounter procedure Jason Clemons MD Work Phone: [facility] Comment on above: Depression, unspecif ied depression type (Primary Dx); ROBERT (generalized anxiety disorder); Mixed hyperlipidemia; Elevated glucose; Medication monitoring encounter; Vision changes; Encounter for Medicare annual wellness exam; Nicotine dependence, cigarettes, uncomplicated; Other chronic pain Start: 10-13-2024 End: 10-13-2024 Refill Jason Clemons MD Work Phone: [facility] Comment on above: Refill Request Start: 10-12-2024 End: 10-12-2024 Refill Jason Clemons MD Work Phone: [address] [place] [address] Comment on above: Refill Request Start: 10-10-2024 End: 11-10-2024 Refill Jason Clemons MD Work Phone: [facility] Comment on above: Refill Request Start: 09-13-2024 End: 09-13-2024 Refill Jason Clemons MD Work Phone: [facility] Comment on above: Pharmacy Call Start: 08-07-2024 End: 08-07-2024 ambulatory JASON CLEMONS Facility:[facility] Start: 08-07-2024 End: 08-07-2024 Patient encounter procedure Jason Clemons MD Work Phone: [facility] Comment on above: Auditory hallucinati ons (Primary Dx); Depression, unspecified depression type; ROBERT (generalized anxiety disorder); Mental health disorder; Insomnia, unspecified type; Elevated blood pressure reading without diagnosis of hypertension; Low back pain with sciatica, sciatica laterality unspecified, unspecified back pain laterality, unspecified chronicity Start: 07-21-2024 End: 07-21-2024 Refill Jason Clemons MD Work Phone: [facility] Comment on above: Refill Request Start: 07-10-2024 End: 07-11-2024 Refill Jason Clemons MD Work Phone: Family [facility] Comment on above: Refill Request Start: 07-06-2024 End: 07-06-2024 Refill Jason Clemons MD Work Phone: [facility] Comment on above: Refill Request Start: 06-21-2024 End: 06-21-2024 [facility] Start: 06-21-2024 End: 06-21-2024 Patient encounter procedure [facility] Comment on above: Population Health Na vigation Outreach ([facility] AWV Initiative) Start: 06-12-2024 End: 06-12-2024 ambulatory JASON CLEMONS Facility:[facility] Start: 06-12-2024 End: 06-12-2024 Patient encounter procedure Jason Clemons MD Work Phone: [facility] Comment on above: Auditory hallucinati ons (Primary Dx); Depression, unspecified depression type; Low back pain with sciatica, sciatica laterality unspecified, unspecified back pain laterality, unspecified chronicity Start: 06-10-2024 End: 06-10-2024 Emergency department patient visit [facility] Facility:[facility] Start: 06-06-2024 End: 06-12-2024 Telephone encounter Jason Clemons MD Work Phone: [address] [place] [address] Comment on above: Medication Follow-up Start: 06-05-2024 End: 06-05-2024 ambulatory Jason Clemons MD Work Phone: [facility] Comment on above: Symptoms Start: 05-18-2024 End: 05-18-2024 ambulatory JASON CLEMONS Facility:[facility] Start: 05-18-2024 End: 05-18-2024 Patient encounter procedure Jason Clemons MD Work Phone: [facility] Comment on above: Hospital discharge f ollow-up (Primary Dx); Mental health disorder; Depression, unspecified depression type; Auditory hallucinations; ROBERT (generalized anxiety disorder); Elevated BP without diagnosis of hypertension; Encounter for screening examination for other mental health and behavioral disorders; Encounter for immunization Start: 04-21-2024 End: 04-24-2024 Telephone encounter Jason Clemons MD Work Phone: [facility] Comment on above: Patient Question Start: 04-20-2024 End: 04-21-2024 Emergency department patient visit [facility] Facility:[facility] Start: 04-19-2024 End: 04-19-2024 Emergency department patient visit [facility] Facility:[facility] Start: 04-19-2024 End: 04-25-2024 Telephone encounter Jareth Zabala MD Work Phone: [facility] Comment on above: Patient Update Start: 03-21-2024 End: 03-21-2024 Refill Jason Clemons MD Work Phone: [facility] Comment on above: Refill Request Start: 03-14-2024 End: 03-14-2024 Patient encounter procedure Carmina Suazo APRN.CNP Work Phone: [facility] Comment on above: Elevated blood press ure reading without diagnosis of hypertension (Primary Dx); Low back pain with sciatica, sciatica laterality unspecified, unspecified back pain laterality, unspecified chronicity; Depression, unspecified depression type; Mixed hyperlipidemia; Insomnia, unspecified type Start: 03-14-2024 End: 03-14-2024 ambulatory CARMINA SUAZO Facility:[facility] Start: 03-08-2024 Telephone encounter Carmina Augustine jael QUILTER FIXER.[employer]ENS[employer]CRAFT MAINTENANCE ENGINEER Work Phone: [facility] Comment on above: apt problem pt juani ng Start: 12-06-2023 End: 12-06-2023 Office outpatient visit 25 minutes Quinton Ramirez QUILTER [employer]ER.[employer]ENS[employer]CRAFT MAINTENANCE ENGINEER Work Phone: [facility] Comment on above: Low back pain with s ciatica, sciatica laterality unspecified, unspecified back pain laterality, unspecified chronicity (Primary Dx); Depression, unspecified depression type; Insomnia, unspecified type; Hypertriglyceridemia; Mixed hyperlipidemia; Elevated glucose Start: 11-25-2023 Telephone encounter Jason thomas MD Work Phone: [facility] Comment on above: Refill Request Start: 11-10-2023 ambulatory Jason feliciano MD Work Phone: [facility] [place] Start: 10-01-2023 Refill Jason feliciano MD Work Phone: [facility] Comment on above: Refill Request Start: 09-07-2023 Refill Jason feliciano MD Work Phone: [facility] Comment on above: Refill Request Start: 08-23-2023 ambulatory [facility] Facility :[facility] Start: 08-10-2023 End: 08-10-[address] Jason Clemons Work Phone: [facility] Work Phone: Start: 08-10-2023 End: 08-10-[address] Jason Clemons Work Phone: [facility] Work Phone: Start: 08-04-2023 ambulatory Jason Clemons Facilit y:[facility] Start: 07-06-2023 Refill Jason feliciano MD Work Phone: [facility] Comment on above: Refill Request Start: 07-05-2023 End: 07-05-[address] Jason Clemons Work Phone: [facility] Work Phone: Start: 07-05-2023 End: 07-05-2023 ambulatory Jason Clemons Facility:[facility] Start: 06-18-2023 ambulatory [facility] Facility :[facility] Start: 06-18-2023 Non-patient / Non-visit Dr. Deidra Clemons Work Phone: [facility] Start: 06-18-2023 End: 06-18-2023 Non-patient / Non-visit Dr. Jason Clemons Work Phone: [facility] Work Phone: Start: 06-18-2023 End: 06-18-2023 Admission to same day surgery center Dr. Jason Clemons Work Phone: [facility] Start: 06-18-2023 End: 06-18-[address] Jason Clemons Work Phone: [facility] Work Phone: Start: 06-16-2023 End: 06-16-[address] Jason Clemons Work Phone: [facility] Work Phone: Start: 06-16-2023 End: 06-16-2023 ambulatory Jason Clemons Facility:[facility] Start: 06-09-2023 End: 06-09-2023 Emergency department patient visit [facility] Work Phone: Start: 05-10-2023 End: 05-10-2023 Patient encounter procedure Jason Clemons MD Work Phone: [facility] Comment on above: Depression, unspecif ied depression type (Primary Dx); Low back pain with sciatica, sciatica laterality unspecified, unspecified back pain laterality, unspecified chronicity; Insomnia, unspecified type; Elevated cholesterol Start: 03-09-2023 Refill Jason feliciano MD Work Phone: [facility] [place] Comment on above: Refill Request Start: 11-06-2022 Telephone encounter Jason thomas MD Work Phone: [facility] Comment on above: Results Start: 11-05-2022 End: 11-05-2022 Patient encounter procedure Jason Clemons MD Work Phone: [facility] [place] Comment on above: Depression, unspecif ied depression type (Primary Dx); Insomnia, unspecified type; Low back pain with sciatica, sciatica laterality unspecified, unspecified back pain laterality, unspecified chronicity; Elevated cholesterol Start: 10-13-2022 Refill Jason feliciano MD Work Phone: [facility] [place] Comment on above: Refill Request Start: 08-14-2022 Refill Jason feliciano MD Work Phone: [facility] [place] Comment on above: Refill Request Start: 05-28-2022 End: 05-28-2022 Patient encounter procedure Jemal Moralez OD Work Phone: Ophthalmology Comment on above: Posterior vitreous d etachment of left eye (Primary Dx); Combined forms of age-related cataract of both eyes; Dry eye syndrome of both eyes; Myopia, bilateral; Regular astigmatism of both eyes; Presbyopia Start: 05-06-2022 End: 05-06-2022 Patient encounter procedure Jason Clemons MD Work Phone: [facility] [place] Comment on above: Depression, unspecif ied depression type (Primary Dx); Need for influenza vaccination; Insomnia, unspecified type; Generalized osteoarthritis; Back pain, unspecified back location, unspecified back pain laterality, unspecified chronicity; Elevated cholesterol Start: 04-15-2022 Refill Brianda Seal [facility] [place] Comment on above: Refill Request Start: 03-18-2022 ambulatory Jason feliciano MD Work Phone: [facility] Medicine [place] Start: 02-16-2022 Refill Jason feliciano MD Work Phone: [facility] [place] Comment on above: Refill Request Start: 11-11-2021 ambulatory Jason feliciano MD Work Phone: [facility] [place] Comment on above: Nurse Triage Call Start: 10-27-2021 End: 10-27-2021 Patient encounter procedure Jason Clemons MD Work Phone: [facility] [place] Comment on above: Depression, unspecif ied depression type (Primary Dx); Back pain, unspecified back location, unspecified back pain laterality, unspecified chronicity; Allergic rhinitis, unspecified seasonality, unspecified trigger Procedures Date Procedure Procedure Detail Performing Clinician Start: 02-15-2025 Lipid 1995 panel - S glory or Plasma Jason Clemons MD Work Phone: Start: 11-08-2023 Lipid 1995 panel - S glory or Plasma Jason Clemons MD Work Phone: Start: 07-05-2023 Plain x-ray of wrist Dr Alysha Clemons Work Phone: Start: 06-18-2023 Fluoroscopic guidance Kristina Clemons Work Phone: Start: 06-18-2023 Plain x-ray of wrist Dr Alysha Clemons Work Phone: Start: 06-18-2023 Open reduction of fr acture with internal fixation Dr. Jason Clemons Work Phone: Start: 06-16-2023 Plain x-ray of wrist Dr Alysha Clemons Work Phone: Start: 06-09-2023 Plain x-ray of wrist Start: 11-05-2022 Lipid 1996 panel - S glory or Plasma Jason Clemons MD Work Phone: Start: 05-06-2022 INFLUENZA VACCINE QUADRIVALENT 6 MO - 64 YRS IM Jason Clemons MD Work Phone: Start: 02-04-2021 Mammography Jason pretty MD Work Phone: Start: 03-07-2019 Colonoscopy Jason pretty MD Work Phone: Plan of Treatment Date Care Activity Detail Author Start: 10-06-2035 RSV Vaccine (1 - 1-dose 75+ series) RSV Vaccine (1 - 1-dose 75+ series) [facility] Start: 02-15-2030 Lipid panel Lipid Screening [facility] Start: 03-07-2029 Colonoscopy COLONOSCOPY [facility] Start: 03-07-2029 COLORECTAL CANCER SCREENING COLORECTAL CANCER SCREENING [facility] Start: 03-07-2029 Screening for malignant neoplasm of colon [facility] Start: 11-07-2028 Lipid panel Lipid Screening [facility] Start: 02-16-2028 Diabetes Screening Diabetes Screening [facility] Start: 11-06-2027 Lipid 1996 panel - Serum or Plasma Lipid Screening [facility] Start: 11-06-2027 Lipid panel Lipid Screening [facility] Start: 11-06-2027 LIPID SCREEN LIPID SCREEN [facility] Start: 11-07-2026 Diabetes Screening Diabetes Screening [facility] Start: 02-15-2026 Pneumococcal Vaccine: 50+ (2 of 2 - PPSV23) Pneumococcal Vaccine: 50+ (2 of 2 - PPSV23) [facility] Comment on above: Postponed from 06/06/2019 (Declined at t his time) Start: 01-22-2026 LIPID SCREEN LIPID SCREEN [facility] Start: 12-13-2025 End: 12-13-2025 Patient encounter procedure 12/13/2025 9:45 AM EDT Office Visit [facility] [address] [place] [address] Jemal Moralez, OD [address] [place] [address] Return in one year (after December 11, 2025) for complete eye exam Ophthalmology Comment on above: Return in one year (after December 11, 2025) for complete eye exam Start: 11-05-2025 DIABETES SCREEN DIABETES SCREEN [facility] Start: 11-05-2025 Diabetes Screening Diabetes Screening [facility] Start: 08-20-2025 End: 08-20-2025 Patient encounter procedure 08/20/2025 3:40 PM EST Office Visit [facility] [place] [address] [facility] [place] [address] Bradley Sheldon MD [address] [place] [address] transfer care/6 month follow [facility] [place] Comment on above: transfer care/6 month follow Start: 05-18-2025 Anxiety Screening Anxiety Screening [facility] Start: 05-18-2025 Covid-19 Vaccine () Covid-19 Vaccine () [facility] Comment on above: Postponed from 04/02/2024 (Declined at t his time) Start: 04-02-2025 Influenza vaccination Influenza Vaccine (#1) [facility] Start: 03-14-2025 HIV screening HIV Screening [facility] Comment on above: Postponed from 1978 (Declined at t his time) Start: 03-14-2025 Screening for malignant neoplasm of cervix Cervical Cancer Screening [facility] Comment on above: Postponed from 03/01/2023 (Declined at t his time) Start: 02-15-2025 End: 02-15-2025 Patient encounter procedure 02/15/2025 3:20 PM EDT Office Visit [facility] [place] [address] [place] [address] Jason Clemons MD [address] [place] [address] 3 month follow up [facility] [place] Comment on above: 3 month follow up Start: 02-15-2025 End: 05-17-2025 CBC panel - Blood by Automated count [facility] Comment on above: Expected: 02/15/2025 (Approximate), Expi res: 05/17/2025 Start: 02-15-2025 End: 05-17-2025 Comprehensive metabolic 2000 panel - Serum or Plasma [facility] Work Phone: Comment on above: Expected: 02/15/2025 (Approximate), Expi res: 05/17/2025 Start: 02-15-2025 End: 05-17-2025 Hemoglobin A1c in Blood [facility] Comment on above: Expected: 02/15/2025, Expires: Start: 02-15-2025 End: 05-17-2025 LIPID PANEL, NONFASTING [facility] Comment on above: Expected: 02/15/2025 (Approximate), Expi res: 05/17/2025 Start: 02-06-2025 End: 02-06-2025 Patient encounter procedure 02/06/2025 2:00 PM EDT Office Visit [facility] [place] [address] [place] [address] Jason Clemons MD [address] [place] [address] 3 month follow up [facility] [place] Comment on above: 3 month follow up Start: 02-05-2025 End: 02-05-2025 Patient encounter procedure 02/05/2025 2:00 PM EDT Office Visit Podiatry [address] [place] [address] Mirza Becerra [address] [place] [address] Paronychia of great toe of left foot [L03.032]; Onychogryposis of toenail [L60.2] Podiatry Comment on above: Paronychia of great toe of left foot [L0 3.032]; Onychogryposis of toenail [L60.2] Start: 12-19-2024 End: 12-19-2024 Patient encounter procedure 12/19/2024 2:30 PM EDT Office Visit [facility] [address] [place] [address] Jemal Moralez, OD [address] [place] [address] Vision changes [H53.9] Ophthalmology Comment on above: Vision changes [H53.9] Start: 11-07-2024 End: 02-06-2025 CBC panel - Blood by Automated count COMPLETE BLOOD COUNT Lab Routine ROBERT (generalized anxiety disorder) Medication monitoring encounter Expected: 11/07/2024 (Approximate), Expires: 02/06/2025 [facility] Comment on above: Expected: 11/07/2024 (Approximate), Expi res: 02/06/2025 Start: 11-07-2024 End: 02-06-2025 Comprehensive metabolic 2000 panel - Serum or Plasma COMPREHENSIVE METABOLIC PANEL Lab Routine Mixed hyperlipidemia Elevated glucose Medication monitoring encounter Expected: 11/07/2024 (Approximate), Expires: 02/06/2025 [facility] Work Phone: Comment on above: Expected: 11/07/2024 (Approximate), Expi res: 02/06/2025 Start: 11-07-2024 End: 02-06-2025 Hemoglobin A1c in Blood HEMOGLOBIN A1C Lab Routine Elevated glucose Expected: 11/07/2024 (Approximate), Expires: 02/06/2025 [facility] Comment on above: Expected: 11/07/2024 (Approximate), Expi res: 02/06/2025 Start: 11-07-2024 End: 02-06-2025 Lipid 1996 panel - Serum or Plasma LIPID PANEL, FASTING Lab Routine Mixed hyperlipidemia Elevated glucose Medication monitoring encounter Expected: 11/07/2024 (Approximate), Expires: 02/06/2025 [facility] Comment on above: Expected: 11/07/2024 (Approximate), Expi res: 02/06/2025 Start: 11-07-2024 End: 11-07-2024 Patient encounter procedure 11/07/2024 1:20 PM EDT Office Visit [facility] [place] [address] [place] [id number] Jason Clemons MD [address] [place] [place] [address] 3 mo f/u - Medicare Wellness [facility] [place] Comment on above: 3 mo f/u - Medicare Wellness Start: 09-25-2024 End: 09-25-2024 Patient encounter procedure [facility] [place] Comment on above: 6 month follow up 6 month follow up - Needs Medicare Wellness on list to complete. 6 month follow up/Me dicare Wellness*Per [employer] Initiative- G0438, G0439 Modifier 25* Start: 07-18-2024 End: 07-18-2024 Patient encounter procedure 07/18/2024 3:00 PM EST Office Visit [facility] [place] [address] [facility] [place] [address] Jason Clemons MD [address] [facility] [place] [address] 2 mo f/u - BP check/Psych Family [facility] [place] Comment on above: 2 mo f/u - BP check/Psych Start: 04-28-2024 End: 04-28-2024 Patient encounter procedure 04/28/2024 10:00 AM EDT Office Visit [facility] [place] [address] [facility] [place] [address] Jason Clemons MD [address] [facility] [place], [place] [address] hospital follow up [facility] [place] Comment on above: hospital follow up Start: 04-02-2024 Covid-19 Vaccine ( season) Covid-19 Vaccine ( season) [facility] Start: 04-02-2024 Influenza vaccination Influenza Vaccine (#1) [facility] Start: 03-14-2024 End: 03-14-2024 Patient encounter procedure 03/14/2024 2:20 PM EDT Office Visit [facility] Luanne [place] [address] [place] [address] Carmina Suazo, QUILTER FIXER.LICENSED AIRCRAFT MAINTENANCE ENGINEER [address] [place] [address] 3 month follow up [facility] [place] Comment on above: 3 month follow up Start: 03-07-2024 End: 06-06-2024 Comprehensive metabolic 2000 panel - Serum or Plasma COMPREHENSIVE METABOLIC PANEL Lab Routine Hypertriglyceridemia Mixed hyperlipidemia Expected: 03/07/2024 (Approximate), Expires: 06/06/2024 [facility] Comment on above: Expected: 03/07/2024 (Approximate), Expi res: 06/06/2024 Start: 03-07-2024 End: 06-06-2024 Hemoglobin A1c in Blood HEMOGLOBIN A1C Lab Routine Elevated glucose Expected: 03/07/2024 (Approximate), Expires: 06/06/2024 [facility] Comment on above: Expected: 03/07/2024 (Approximate), Expi res: 06/06/2024 Start: 03-07-2024 End: 06-06-2024 Lipid 1996 panel - Serum or Plasma LIPID PANEL BASIC Lab Routine Hypertriglyceridemia Mixed hyperlipidemia Expected: 03/07/2024 (Approximate), Expires: 06/06/2024 [facility] Work Phone: Comment on above: Expected: 03/07/2024 (Approximate), Expi res: 06/06/2024 Start: 03-07-2024 End: 03-07-2024 Patient encounter procedure 03/07/2024 1:00 PM EDT Office Visit Family [facility] [place] [address] [place] [address] Quinton Ramirez, QUILTER FIXER.LICENSED AIRCRAFT MAINTENANCE ENGINEER [address] [place] [address] 3 Month F/U Family [facility] [place] Comment on above: 3 Month F/U Start: 01-23-2024 DIABETES SCREEN DIABETES SCREEN [facility] Start: 12-06-2023 End: 12-06-2023 Patient encounter procedure 12/06/2023 1:40 PM EDT Office Visit [facility] Luanne [place] [address] [place] [address] Quinton Ramirez, QUILTER FIXER.LICENSED AIRCRAFT MAINTENANCE ENGINEER [address] [place], [place] [address] 7 month follow up [facility] [place] Comment on above: 7 month follow up Start: 11-09-2023 End: 01-09-2024 Comprehensive metabolic 2000 panel - Serum or Plasma COMP METABOLIC PANEL Lab Routine Elevated cholesterol Expected: 11/09/2023 (Approximate), Expires: 01/09/2024 [facility] Work Phone: Comment on above: Expected: 11/09/2023 (Approximate), Expi res: 01/09/2024 Start: 11-09-2023 End: 01-09-2024 Lipid 1996 panel - Serum or Plasma LIPID PANEL BASIC Lab Routine Elevated cholesterol Expected: 11/09/2023 (Approximate), Expires: 01/09/2024 [facility] Work Phone: Comment on above: Expected: 11/09/2023 (Approximate), Expi res: 01/09/2024 Start: 11-06-2023 HIV SCREENING HIV SCREENING [facility] Comment on above: Postponed from 1978 (Declined at t his time) Start: 11-06-2023 HIV screening HIV Screening [facility] Comment on above: Postponed from 1978 (Declined at t his time) Start: 11-06-2023 HPV TESTING HPV TESTING [facility] Comment on above: Postponed from 03/01/2023 (Declined at t his time) Start: 11-06-2023 Mammography [facility] Comment on above: Postponed from 02/04/2022 (Declined at t his time) Start: 11-06-2023 PAP TESTING PAP TESTING [facility] Comment on above: Postponed from 03/01/2023 (Declined at t his time) Start: 11-06-2023 Screening for malignant neoplasm of breast Mammogram Screening [facility] Comment on above: Postponed from 02/04/2022 (Declined at t his time) Start: 11-06-2023 Screening for malignant neoplasm of cervix [facility] Comment on above: Postponed from 03/01/2023 (Declined at t his time) Start: 07-05-2023 Patient referral [facility] Work Phone: Start: 06-18-2023 Application of ice collar, cap or bag [facility] Start: 06-18-2023 Elevation of affected extremity [facility] Start: 06-18-2023 Patient discharge [facility] Start: 06-18-2023 Catheterization of vein [facility] Start: 06-18-2023 Following clinical pathway protocol [facility] Start: 06-18-2023 Procedure discontinued [facility] Start: 06-18-2023 Taking patient vital signs [facility] Start: 06-18-2023 Vital signs measurements [facility] Start: 06-18-2023 [facility] Start: 06-18-2023 Anes arthrs/endscpy dstl radius ulna/wrist/hand ANESTH LOWER ARM SURGERY [facility] Start: 06-18-2023 Injection aa&/strd axillary nerve NJX AA&/STRD AX NERVE IMG [facility] Start: 06-18-2023 Optx dstl radl i-artic fx/epiphysl sep 2 frag TREAT FX RAD INTRA-ARTICUL [facility] Start: 06-18-2023 Medication education [facility] Start: 06-09-2023 [facility] Start: 04-02-2023 Covid-19 Vaccine () Covid-19 Vaccine () [facility] Start: 04-02-2023 Influenza vaccination [facility] Start: 03-01-2023 HPV TESTING HPV TESTING [facility] Start: 03-01-2023 PAP TESTING PAP TESTING [facility] Start: 03-01-2023 Screening for malignant neoplasm of cervix [facility] Start: 11-04-2022 End: 01-04-2023 CBC W Auto Differential panel - Blood CBC + DIFF Lab Routine Generalized osteoarthritis Depression, unspecified depression type Expected: 11/04/2022 (Approximate), Expires: 01/04/2023 [facility] Work Phone: Comment on above: Expected: 11/04/2022 (Approximate), Expi res: 01/04/2023 Start: 11-04-2022 End: 01-04-2023 Comprehensive metabolic 2000 panel - Serum or Plasma COMP METABOLIC PANEL Lab Routine Depression, unspecified depression type Elevated cholesterol Expected: 11/04/2022 (Approximate), Expires: 01/04/2023 [facility] Work Phone: Comment on above: Expected: 11/04/2022 (Approximate), Expi res: 01/04/2023 Start: 11-04-2022 End: 01-04-2023 Lipid 1996 panel - Serum or Plasma LIPID PANEL BASIC Lab Routine Elevated cholesterol Expected: 11/04/2022 (Approximate), Expires: 01/04/2023 [facility] Work Phone: Comment on above: Expected: 11/04/2022 (Approximate), Expi res: 01/04/2023 Start: 04-02-2022 Influenza vaccination INFLUENZA (#1) [facility] Start: 03-03-2022 COVID-19 VACCINE (5 - Booster for Moderna series) COVID-19 VACCINE (5 - Booster for Moderna series) [facility] Start: 02-04-2022 Mammography MAMMOGRAM [facility] Start: 02-04-2022 Screening for malignant neoplasm of breast Mammogram Screening [facility] Start: 01-20-2022 HIV SCREENING HIV SCREENING [facility] Comment on above: Postponed from 1978 (Declined at t his time) Start: 11-29-2021 COVID-19 VACCINE (4 - Booster for Moderna series) COVID-19 VACCINE (4 - Booster for Moderna series) [facility] Start: 2020 RSV Vaccine (1 - 1-dose 60+ series) RSV Vaccine (1 - 1-dose 60+ series) [facility] Start: 04-11-2020 Pneumococcal Vaccine: 50+ (2 of 2 - PPSV23) Pneumococcal Vaccine: 50+ (2 of 2 - PPSV23) [facility] Start: 06-06-2019 Pneumococcal Vaccine: 50+ (2 of 2 - PPSV23) Pneumococcal Vaccine: 50+ (2 of 2 - PPSV23) [facility] Start: 09-29-2014 FECAL OCCULT BLOOD FECAL OCCULT BLOOD [facility] Start: 09-29-2014 Screening for malignant neoplasm of colon Fecal Occult Blood [facility] Start: 2005 COLOGUARD (FIT-DNA) COLOGUARD (FIT-DNA) [facility] Start: [address] COLONOGRAPHY [facility] Start: 2005 Screening for malignant neoplasm of colon [facility] Start: 2005 SIGMOIDOSCOPY SIGMOIDOSCOPY [facility] Start: 10-06-1979 Urine microalbumin profile [facility] Start: 1978 Anxiety Screening Anxiety Screening [facility] Start: 1978 HIV SCREENING HIV SCREENING [facility] Start: 1978 HIV screening HIV Screening [facility] End: 11-09-2025 DBT Breast - bilateral screening [facility] Radiology Routine Encounter for screening mammogram for breast cancer 1 Occurrences starting 10/10/2024 until 11/09/2025 [facility] Work Phone: Comment on above: 1 Occurrences starting 10/10/2024 until 11/09/2025 End: 12-09-2024 MG Breast Screening [facility] Routine Encounter for screening mammogram for breast cancer 1 Occurrences starting 11/10/2023 until 12/09/2024 [facility] Work Phone: Comment on above: 1 Occurrences starting 11/10/2023 until 12/09/2024 Patient Education ED Fracture, Wrist, Gen eral [facility] Work Phone: Patient referral [facility] Work Phone: End: 04-17-2023 Screening mammography bi 2-view breast inc cad [facility] Routine Encounter for screening mammogram for breast cancer 1 Occurrences starting 03/18/2022 until 04/17/2023 [facility] Work Phone: Comment on above: 1 Occurrences starting 03/18/2022 until 04/17/2023 [place]R Wrist 2 [place] [facility] Immunization Date Immunization Notes Care Provider [facility] 05-18-2024 influenza, seasonal, injectable Jason Clemons MD Work Phone: [facility] 05-18-2024 influenza virus vaccine, unspecified formulation Jason Clemons MD Work Phone: [facility] 04-16-2023 influenza, injectabl e, quadrivalent, preservative free Quinton Ramirez QUILTER [employer]ER.LICENSED AIRCRAFT MAINTENANCE ENGINEER Work Phone: [facility] 04-16-2023 influenza virus vaccine, unspecified formulation Carmina Suazo QUILTER FIXER.LICENSED AIRCRAFT MAINTENANCE ENGINEER Work Phone: [facility] 05-06-2022 influenza, injectabl e, quadrivalent, contains preservative Jason Clemons MD Work Phone: [facility] 05-06-2022 influenza virus vaccine, unspecified formulation Jason Clemons MD Work Phone: [facility] 05-02-2021 influenza, seasonal, injectable Jason Clemons MD Work Phone: [facility] 04-28-2021 influenza, injectabl e, quadrivalent, preservative free Quinton Jose Alfredo QUILTER FIXER.LICENSED AIRCRAFT MAINTENANCE ENGINEER Work Phone: [facility] 01-01-2021 COVID-19 vaccine, fu ll dose (MODERNA) Jason Clemons MD Work Phone: [facility] 12-03-2020 COVID-19 vaccine, fu ll dose (MODERNA) Jason Clemons MD Work Phone: [facility] 04-03-2020 influenza, injectabl e, quadrivalent, preservative free Quinton Jose Alfredo QUILTER FIXER.LICENSED AIRCRAFT MAINTENANCE ENGINEER Work Phone: [facility] 01-11-2020 zoster vaccine recombinant Jason Clemons MD Work Phone: [facility] 08-31-2019 zoster vaccine recombinant Jason Clemons MD Work Phone: [facility] 06-20-2019 zoster vaccine recombinant Jason Clemons MD Work Phone: [facility] 04-11-2019 influenza, injectabl e, quadrivalent, contains preservative Jason Clemons MD Work Phone: [facility] 04-11-2019 influenza, injectabl e, quadrivalent, preservative free Quinton Jose Alfredo QUILTER FIXER.LICENSED AIRCRAFT MAINTENANCE ENGINEER Work Phone: [facility] 04-11-2019 pneumococcal conjuga te vaccine, 13 valent Jason Clemons MD Work Phone: [facility] 05-09-2018 influenza, seasonal, injectable Jason Clemons MD Work Phone: [facility] 04-19-2018 influenza, injectabl e, quadrivalent, preservative free Quinton Jose Alfredo QUILTER FIXER.LICENSED AIRCRAFT MAINTENANCE ENGINEER Work Phone: [facility] 04-21-2017 influenza, injectabl e, quadrivalent, contains preservative Jason Clemons MD Work Phone: [facility] 05-02-2016 influenza, seasonal, injectable Jason Clemons MD Work Phone: [facility] 06-02-2015 influenza, seasonal, injectable Jason Clemons MD Work Phone: [facility] Payers Date Payer Category Payer Self-pay 2023 Unknown [id number] 2022 Medicare (Managed Care) [id number] 2022 Unknown [id number] 2019 Medicaid [place] [id number] 2019-Present [phone] [address] [place] [address] Medicaid [id number] 2019 Medicaid [id number] 2019 Unknown [id number] 2018 Medicare MEDICARE MEDICAR E A AND B [id number] 2018-Present [phone] [address] [address] [place] [address] Medicare [id number] 2018 Medicare [id number] 2010 Unknown [employer] [id number] Medicare MEDICARE PART A B [id number] Unknown [id number] Unknown [id number] Unknown [id number] Unknown [id number] Unknown [id number] Unknown [id number] 462 Unknown [id number] 462 Unknown [id number] 462 Unknown [id number] 462 Unknown [id number] 462 Unknown [id number] 462 Unknown [id number] 462 Unknown [id number] 462 Social History Date Type Detail Facility Start: 09-30-2016 End: 05-18-2024 Tobacco smoking status NHIS Ex-smoker [facility] Start: 05-02-2011 End: 05-02-2016 History of tobacco use Current smoker [facility] Start: 05-02-2011 End: 05-02-2016 History of tobacco use Cigarette Smoker [facility] Start: 09-30-2016 End: 05-10-2023 Cigarettes smoked current (pack per day) - Reported 0.5 [facility] Work Phone: Start: 09-30-2016 End: 08-07-2024 Tobacco use and exposure Smokeless tobacco non-user [facility] Start: 10-27-2021 End: 02-15-2025 Alcohol intake Current non-drinker of alcohol (finding) [facility] Start: 03-04-2020 History SDOH Social Connections Phone 5 [facility] Start: 03-04-2020 History SDOH Social Connections [facility] Start: 03-04-2020 History SDOH Social Connections Meetings 2 [facility] Start: 03-04-2020 History SDOH Physica l Activity DPW 6 [facility] Start: 03-04-2020 History SDOH Physica l Activity MPS 3 [facility] Start: 03-04-2020 Education 13 [facility] Start: 1960 Sex Assigned At Not on file [facility] Start: 10-17-2021 End: 05-06-2022 Exposure to SARS-CoV-2 (event) Not sure [facility] Start: 03-04-2020 End: 05-10-2023 Social connection and isolation panel [facility] Work Phone: Do you belong to any clubs or organizations such as taoist groups, unions, fraternal or athletic groups, or school groups? Yes [facility] Work Phone: Are you now , , , , never or living with a partner? [facility] Work Phone: How hard is it for y ou to pay for the very basics like food, housing, medical care, and heating Not hard at all [facility] Work Phone: Do you feel stress - tense, restless, nervous, or anxious, or unable to sleep at night because your mind is troubled all the time - these days [OSQ] Only a little [facility] Work Phone: (I/We) worried wheth er (my/our) food would run out before (I/we) got money to buy more. Never true [facility] Work Phone: Start: 06-09-2023 End: 07-05-2023 Tobacco smoking status NHIS Unknown if ever smoked [facility] Start: 06-09-2023 None [facility] Start: 06-09-2023 Alone [facility] Start: 06-09-2023 Cigarettes [facility] Start: 1960 Sex Assigned At Female [facility] Start: 05-02-2011 [facility] Start: 08-07-2024 Tobacco Comment Smoking about 1/4 pp d [facility] How often to you hav e a drink containing alcohol? Never [facility] Medical Equipment Procedure Code Equipment Code Equipment Origin al Text Equipment Identifier Dates ORIF, fracture, wrist ([id number]) Orthopaedic fixation plate, non-bioabsorbable, sterile ()[id number] FDA Start: 06-18-2023 ORIF, fracture, wrist ([id number]) Orthopaedic bone screw, non-bioabsorbable, non-sterile ()[id number] FDA Start: 06-18-2023 ORIF, fracture, wrist ([id number]) Orthopaedic bone screw, non-bioabsorbable, non-sterile ()[id number] FDA Start: 06-18-2023 Goals Date Patient Goal Desired Activity /State Functional Status Date Assessment Result Facility 11-07-2024 Total score [AUDIT-C] 0 11/08/19 25 1:08 PM BREANNT Rossi Wall MA [facility] 01-04-2015 Are you deaf, or do you have serious difficulty hearing No 01/04/2015 8:15 AM BREANNT Caitie Falcon LPN No [facility] 01-04-2015 Are you blind, or do you have serious difficulty seeing, even when wearing glasses Yes 01/04/2015 8:15 AM Caitie Lawson LPN Yes [facility] 01-04-2015 Do you have serious difficulty walking or climbing stairs No 01/04/2015 8:15 AM Caitie Lawson LPN No [facility] 01-04-2015 Do you have difficul ty dressing or bathing No 01/04/2015 8:15 AM Caitie Lawson LPN No [facility] 01-04-2015 Because of a physica l, mental, or emotional condition, do you have difficulty doing errands alone such as visiting a physician's office or shopping No 01/04/2015 8:15 AM EDT Caitie Falcon LPN No [facility] Mental Status Date Assessment Result Facility 06-18-2023 Cognitive function Touch/Shaking ;Light Pain [facility] Work Phone: 01-04-2015 Because of a physica l, mental, or emotional condition, do you have serious difficulty concentrating, remembering, or making decisions Yes 01/04/2015 8:15 AM EDT Caitie Falcon LPN Yes [facility] Clinical Notes 10-27-2021 to 02-21-2025 Telephone Encounter - Jolynn Brock MA - 02/21/2025 11:12 AM EDTTelephone Encounter - Jolynn Brock MA - 02/21/2025 11:12 AM EDTTelephone Encounter - Jason Clemons MD - 02/20/2025 5:29 PM EDT Note Date & Type Note Facility 02-21-2025 Telephone encounter Note Pt called and notified of results below from Provider. Pt verbalized understanding. Jolynn Brock MA [facility] 02-21-2025 Miscellaneous Notes Pt called and notified of results below from Provider. Pt verbalized understanding. Jolynn Brock MA Please notify patient that her recent lab results look OK; some slight abnormalities because of the infection in her armpit, so let me know if the infection under her arm has not cleared up. Jason Clemons MD documented in this encounter [facility] 02-20-2025 Telephone encounter Note Please notify patient that her recent lab results look OK; some slight abnormalities because of the infection in her armpit, so let me know if the infection under her arm has not cleared up. Jason Clemons MD [facility] 02-15-2025 History of Present illness Narrative Chief Complaint Patient presents with: F/U 3 Month HPI Yadira Canas is a 64 year old female who presents here today for 3 month follow up. No bowel, Gi, or urinary. Hx of elevated BP. No chest pains, dizziness, or SOB. Watching sodium in food. Lipid: Taking Lipitor 20 mg daily, tolerating well. Tries to watch diet and walks for exercise. Watching sodium in diet. Pain: Chronic; stable with Amitriptyline 100 mg at bedtime, Gabapentin 400 mg 1 pill BID and Voltarent 75 mg 1 pill BID. Psych: Hx of auditory hallucinations and been hospitalized for psychiatric issues. Denies having anymore hallucinations. [facility] but never scheduled. Taking Seroquel 25 mg daily, Wellbutrin xl 150 mg at night and 300 mg daily in AM. Uses Amitriptyline for insomnia. Saw Optometry Dr. Moralez for vision changes on 12/11/24. Rash: under the right arm, painful, pimple like bumps that started a few days ago. Has been putting Petroleum jelly on the arm. Positive bleeding. No rash anywhere else, never had rash like this before. Past medical history, appointments, medications, allergies reviewed. Previous Medical History PAST MEDICAL HISTORY Diagnosis Date Allergic rhinitis Back pain Depression Previous Surgical History PAST SURGICAL HISTORY Procedure Laterality Date COLONOSCOPY FLX DX W/COLLJ SPEC WHEN PFRMD 11/01/13 Colonoscopy LIG/TRNSXJ FLP TUBE ABDL/VAG APPR UNI/BI 1989 Tubal ligation NEUROPLASTY &/TRANSPOS MEDIAN NRV CARPAL TUNNE 1980s Carpal tunnel decomp bilaterally PAST SURGICAL HISTORY OF 2013 dental extractions Family History FAMILY HISTORY Problem Relation Age of Onset Cataract Mother Diabetes Mother Arthritis Mother Stroke Mother Patient Allergies ALLERGIES Allergen Reactions Sulfa (Sulfonamide * Hives Tetracycline Vomiting Flagyl [Metronidazo* GI Upset Sertraline GI Upset Current Medications Current Outpatient Medications on File Prior to Visit Medication Sig gabapentin (NEURONTIN) 400 mg capsule Take 1 capsule by mouth two times a day for 180 days. atorvastatin (LIPITOR) 20 mg tablet Take 1 tablet by mouth daily at bedtime. For cholesterol. QUEtiapine (SEROQUEL) 25 mg tablet Take 1 tablet by mouth daily at bedtime. buPROPion XL (WELLBUTRIN XL) 300 mg 24 hr tablet Take 1 pill daily in PM. buPROPion XL (WELLBUTRIN XL) 150 mg 24 hr tablet Take once daily in the AM. Takes the 300 mg in the PM loratadine (CLARITIN) 10 mg tablet Take 1 tablet by mouth once daily. amitriptyline (ELAVIL) 100 mg tablet Take 1 tablet by mouth daily at bedtime. diclofenac, EC, (VOLTAREN) 75 mg EC tablet TAKE 1 TABLET BY MOUTH WITH FOOD TWICE DAILY for pain and inflamation acetaminophen (TYLENOL) 500 mg tablet Take 500 mg by mouth every 6 hours as needed. FOR PAIN mv,Ca,min-folic acid-vit K1 (ONE-A-DAY WOMEN'S 50 PLUS) 400-20 mcg tab Take 1 tablet by mouth once daily. PSEUDOEPHEDRINE HCL (SUDAFED ORAL) Take by mouth. No current facility-administered medications on file prior to visit. Social History Social History Tobacco Use Smoking status: Every Day Current packs/day: 0.00 Average packs/day: 0.5 packs/day for 5.0 years (2.5 ttl pk-yrs) Types: Cigarettes Start date: 05/02/2011 Last attempt to quit: 05/02/2016 Years since quittin.7 Smokeless tobacco: Never Tobacco comments: Smoking about 1/4 ppd Vaping Use Vaping status: Never Used Substance Use Topics Alcohol use: No Drug use: No EXAM: BP 120/80 Pulse 88 Resp 18 Wt 86.9 kg (191 lb 9.3 oz) BMI 31.88 kg/m General Appearance: Well appearing, alert, in no acute distress, well-hydrated, well nourished.. Skin: multiple cysts and inflammation right axilla; several cysts have ruptured and are draining blood.. Lungs: Lungs clear to auscultation. No wheezing, rhonchi, rales.. Heart: RRR without murmur, gallop, or rubs. No ectopy . Health Maintenance List DTaP,Tdap,Td Vaccine(1 - Tdap) Never done Mammogram Screening due on 02/04/2022 Cervical Cancer Screening due on 03/14/2025 HIV Screening due on 03/14/2025 Covid-19 Vaccine( season) due on 05/18/2025 Pneumococcal Vaccine: 50+(2 of 2 - PPSV23) due on 02/15/2026 Influenza Vaccine(1) due on 04/02/2025 Anxiety Screening due on 05/18/2025 Diabetes Screening due on 11/07/2026 Lipid Screening due on 11/07/2028 Colorectal Cancer Screening due on 03/07/2029 RSV Vaccine(1 - 1-dose 75+ series) due on 10/06/2035 Medicare Advantage Annual Wellness Visit Completed Hepatitis C Screening Completed Shingrix Vaccine Completed Data reviewed none 1. Mixed hyperlipidemia (E78.2) Clinically stable on Lipitor. - Ordered non-fasting lipid panel. 2. 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 3. ROBERT (generalized anxiety disorder) (F41.1) Clinically stable on Seroquel and Wellbutrin. 4. Low back pain with sciatica, sciatica laterality unspecified, unspecified back pain laterality, unspecified chronicity (M54.40) Chronic condition managed with gabapentin, Voltaren, and amitriptyline. 5. Medication monitoring encounter (Z51.81) Medications managed through [facility] with home delivery service. 6. Elevated glucose (R73.09) - Ordered non-fasting glucose level. 7. Hidradenitis suppurativa (L73.2) Acute onset approximately one week ago, presenting with painful, pruritic, and bleeding lesions under the arm. Exam reveals infected and inflamed cysts. - Initiated doxycycline and a 9-day course of prednisone. - Prescriptions sent to [facility]. - Advised patient to monitor for gastrointestinal side effects from doxycycline and to report if the rash does not improve within a week. Follow up in 6 months I agree with the Chief Complaint, ROS, and Past Histories independently gathered by the clinical learning support specialist and the remaining scribed note accurately describes my personal service to the patient. Recording using ambient ShareSDK software for draft documentation of the visit was discussed with the patient/authorized manufacturer's representative; all questions welcomed and answered. Patient/authorized manufacturer's representative agreed to proceed Medical Decision Making: Problems: Moderate: New problem with uncertain prognosis and 2+ stable chronic illnesses Data: Unique test(s) ordered: 3+ Risk: Moderate: Drug management Medical Decision Making Level: 4 - Moderate Jason Clemons MD The documentation for this note was completed by Rossi Wall MA acting as scribe for Jason Clemons MD. February 15, 2025 3:25 PM. Rossi Wall MA documented in this encounter [facility] 02-15-2025 Note HNO ID: [id number] Author: JASON CLEMONS MD Service: ? Author Type: Physician Type: Progress Notes Filed: 02/15/2025 17:14 Note Text: Chief Complaint Patient presents with: F/U 3 Month HPI Yadira Canas is a 64 year old female who presents here today for 3 month follow up. No bowel, Gi, or urinary. Hx of elevated BP. No chest pains, dizziness, or SOB. Watching sodium in food. Lipid: Taking Lipitor 20 mg daily, tolerating well. Tries to watch diet and walks for exercise. Watching sodium in diet. Pain: Chronic; stable with Amitriptyline 100 mg at bedtime, Gabapentin 400 mg 1 pill BID and Voltarent 75 mg 1 pill BID. Psych: Hx of auditory hallucinations and been hospitalized for psychiatric issues. Denies having anymore hallucinations. [facility]erred to [facility] but never scheduled. Taking Seroquel 25 mg daily, Wellbutrin xl 150 mg at night and 300 mg daily in AM. Uses Amitriptyline for insomnia. Saw Optometry Dr. Moralez for vision changes on 12/11/24. Rash: under the right arm, painful, pimple like bumps that started a few days ago. Has been putting Petroleum jelly on the arm. Positive bleeding. No rash anywhere else, never had rash like this before. Past medical history, appointments, medications, allergies reviewed. Previous Medical History PAST MEDICAL HISTORY Diagnosis Date Allergic rhinitis Back pain Depression Previous Surgical History PAST SURGICAL HISTORY Procedure Laterality Date COLONOSCOPY FLX DX W/COLLJ SPEC WHEN PFRMD 11/01/13 Colonoscopy LIG/TRNSXJ FLP TUBE ABDL/VAG APPR UNI/BI 1989 Tubal ligation NEUROPLASTY AND/TRANSPOS MEDIAN NRV CARPAL TUNNE 1980s Carpal tunnel decomp bilaterally PAST SURGICAL HISTORY OF 2013 dental extractions Family History FAMILY HISTORY Problem Relation Age of Onset Cataract Mother Diabetes Mother Arthritis Mother Stroke Mother Patient Allergies ALLERGIES Allergen Reactions Sulfa (Sulfonamide * Hives Tetracycline Vomiting Flagyl [Metronidazo* GI Upset Sertraline GI Upset Current Medications Current Outpatient Medications on File Prior to Visit Medication Sig gabapentin (NEURONTIN) 400 mg capsule Take 1 capsule by mouth two times a day for 180 days. atorvastatin (LIPITOR) 20 mg tablet Take 1 tablet by mouth daily at bedtime. For cholesterol. QUEtiapine (SEROQUEL) 25 mg tablet Take 1 tablet by mouth daily at bedtime. buPROPion XL (WELLBUTRIN XL) 300 mg 24 hr tablet Take 1 pill daily in PM. buPROPion XL (WELLBUTRIN XL) 150 mg 24 hr tablet Take once daily in the AM. Takes the 300 mg in the PM loratadine (CLARITIN) 10 mg tablet Take 1 tablet by mouth once daily. amitriptyline (ELAVIL) 100 mg tablet Take 1 tablet by mouth daily at bedtime. diclofenac, EC, (VOLTAREN) 75 mg EC tablet TAKE 1 TABLET BY MOUTH WITH FOOD TWICE DAILY for pain and inflamation acetaminophen (TYLENOL) 500 mg tablet Take 500 mg by mouth every 6 hours as needed. FOR PAIN mv,Ca,min-folic acid-vit K1 (ONE-A-DAY WOMEN'S 50 PLUS) 400-20 mcg tab Take 1 tablet by mouth once daily. PSEUDOEPHEDRINE HCL (SUDAFED ORAL) Take by mouth. No current facility-administered medications on file prior to visit. Social History Social History Tobacco Use Smoking status: Every Day Current packs/day: 0.00 Average packs/day: 0.5 packs/day for 5.0 years (2.5 ttl pk-yrs) Types: Cigarettes Start date: 05/02/2011 Last attempt to quit: 05/02/2016 Years since quittin.7 Smokeless tobacco: Never Tobacco comments: Smoking about 1/4 ppd Vaping Use Vaping status: Never Used Substance Use Topics Alcohol use: No Drug use: No EXAM: BP 120/80 Pulse 88 Resp 18 Wt 86.9 kg (191 lb 9.3 oz) BMI 31.88 kg/m? General Appearance: Well appearing, alert, in no acute distress, well-hydrated, well nourished.. Skin: multiple cysts and inflammation right axilla; several cysts have ruptured and are draining blood.. Lungs: Lungs clear to auscultation. No wheezing, rhonchi, rales.. Heart: RRR without murmur, gallop, or rubs. No ectopy . Health Maintenance List DTaP,Tdap,Td Vaccine(1 - Tdap) Never done Mammogram Screening due on 02/04/2022 Cervical Cancer Screening due on 03/14/2025 HIV Screening due on 03/14/2025 Covid-19 Vaccine( season) due on 05/18/2025 Pneumococcal Vaccine: 50+(2 of 2 - PPSV23) due on 02/15/2026 Influenza Vaccine(1) due on 04/02/2025 Anxiety Screening due on 05/18/2025 Diabetes Screening due on 11/07/2026 Lipid Screening due on 11/07/2028 Colorectal Cancer Screening due on 03/07/2029 RSV Vaccine(1 - 1-dose 75+ series) due on 10/06/2035 Medicare Advantage Annual Wellness Visit Completed Hepatitis C Screening Completed Shingrix Vaccine Completed Data reviewed none 1. Mixed hyperlipidemia (E78.2) Clinically stable on Lipitor. - Ordered non-fasting lipid panel. 2. Depression, unspecified depression type (F32.A) Major depressive disorder with single episode, in full (more content not included)... [facility] 02-01-2025 Telephone encounter Note The following approved medication requests have been transmitted electronically. Requested Prescriptions Pending Prescriptions Disp Refills gabapentin (NEURONTIN) 400 mg capsule 60 capsule 5 Sig: Take 1 capsule by mouth two times a day for 180 days. Quinton Ramirez APRN.CNP [facility] 02-01-2025 Miscellaneous Notes The following approved medication requests have been transmitted electronically. Requested Prescriptions Pending Prescriptions Disp Refills gabapentin (NEURONTIN) 400 mg capsule 60 capsule 5 Sig: Take 1 capsule by mouth two times a day for 180 days. Quinton Ramirez APRN.CNP The patient has been identified by name and date of : Yes Caregiver verified no other encounters exist for this prescription request: Yes Caregiver confirmed with patient/requestor that no other refills are due, in the near future, with this provider at this time: Yes The last office visit in the department: 11/07/2024 Does the patient have a future office visit with this provider/department: Yes 02/15/2025 Requested Prescriptions Pending Prescriptions Disp Refills gabapentin (NEURONTIN) 400 mg capsule 60 capsule 5 Sig: Take 1 capsule by mouth two times a day for 180 days. Merry Hassan RN documented in this encounter [facility] 01-31-2025 Telephone encounter Note The patient has been identified by name and date of : Yes Caregiver verified no other encounters exist for this prescription request: Yes Caregiver confirmed with patient/requestor that no other refills are due, in the near future, with this provider at this time: Yes The last office visit in the department: 11/07/2024 Does the patient have a future office visit with this provider/department: Yes 02/15/2025 Requested Prescriptions Pending Prescriptions Disp Refills gabapentin (NEURONTIN) 400 mg capsule 60 capsule 5 Sig: Take 1 capsule by mouth two times a day for 180 days. Merry Hassan RN [facility] 01-23-2025 Telephone encounter Note Sw left message for patient to return Sw call to discuss transportation resource needs to medical appts. [facility] 01-23-2025 Miscellaneous Notes Sw left message for patient to return Sw call to discuss transportation resource needs to medical appts. Sw left patient message in regards to transportation assistance needs. Bee unsure if patient is linked up with [employer] that assists with rides or [employer], [place]. Sw will be out of the office for a few days and will return on 01/22. Sw will check in with patient at that time and see what transportation assistance needs patient has. documented in this encounter [facility] 01-16-2025 Telephone encounter Note Bee left patient message in regards to transportation assistance needs. Bee unsure if patient is linked up with [employer] that assists with rides or [employer], [place] [facility]. Sw will be out of the office for a few days and will return on 01/22. Sw will check in with patient at that time and see what transportation assistance needs patient has. [facility] 01-15-2025 History of Present illness Narrative [facility] Subjective Yadira Canas is a 64 year old female. Patient presents with: Ingrown Toenail: ZOHREH great toe issues x 1 week Patient presents with 4 days of left great toe pain. She has swelling and discomfort. She is concerned she has an ingrown nail with an infection. She has tried to treat the nail by filing it down. She has a thickened right great nail also but it is not painful. She has been applying triple antibiotic ointment to the toe. Review of Systems Objective BP 148/68 Pulse 112 Temp 36.8 C (98.3 F) Resp 20 Wt 89 kg (196 lb 3.4 oz) SpO2 95% BMI 32.65 kg/m Physical Exam Constitutional: General: She is not in acute distress. Feet: Comments: Thickened discolored and deformed great toenails. Trace periungual erythema on the right great toe. Violaceous erythema with edema at the proximal nail fold on the left. No obvious fluctuance however pressing on the distal nail raises the nail below the proximal nail fold. The medial distal corner of the left great nail was filed to the point of revealing some nailbed. Neurological: Mental Status: She is alert. {ASSESSMENT/PLAN: 1. Paronychia of great toe of left foot - ICD9: 681.11, ICD10: L03.032 (primary diagnosis) 2. Onychogryposis of toenail - ICD9: 703.8, ICD10: L60.2 - CONSULT TO PODIATRY for further evaluation and treatment. - CEPHALEXIN 500 MG CAPSULE -to help with current infection. She has limited ability to get rides and came by taxi here today. I suggested she contact her insurance to see if they provide vouchers for travel to medical appointments and offered referral to social work. Gallito Nur MD Differential Diagnoses - Thickened nails with mechanical trauma and paronychia is more likely for the following reason(s): suggested by H&P Procedures documented in this encounter [facility] 01-15-2025 Note HNO ID: [id number] Author: GALLITO NUR MD Service: ? Author Type: Physician Type: Progress Notes Filed: 01/15/2025 17:29 Note Text: [facility] Subjective Yadira Canas is a 64 year old female. Patient presents with: Ingrown Toenail: ZOHREH great toe issues x 1 week Patient presents with 4 days of left great toe pain. She has swelling and discomfort. She is concerned she has an ingrown nail with an infection. She has tried to treat the nail by filing it down. She has a thickened right great nail also but it is not painful. She has been applying triple antibiotic ointment to the toe. Review of Systems Objective BP 148/68 Pulse 112 Temp 36.8 ?C (98.3 ?F) Resp 20 Wt 89 kg (196 lb 3.4 oz) SpO2 95% BMI 32.65 kg/m? Physical Exam Constitutional: General: She is not in acute distress. Feet: Comments: Thickened discolored and deformed great toenails. Trace periungual erythema on the right great toe. Violaceous erythema with edema at the proximal nail fold on the left. No obvious fluctuance however pressing on the distal nail raises the nail below the proximal nail fold. The medial distal corner of the left great nail was filed to the point of revealing some nailbed. Neurological: Mental Status: She is alert. {ASSESSMENT/PLAN: 1. Paronychia of great toe of left foot - ICD9: 681.11, ICD10: L03.032 (primary diagnosis) 2. Onychogryposis of toenail - ICD9: 703.8, ICD10: L60.2 - CONSULT TO PODIATRY for further evaluation and treatment. - CEPHALEXIN 500 MG CAPSULE -to help with current infection. She has limited ability to get rides and came by taxi here today. I suggested she contact her insurance to see if they provide vouchers for travel to medical appointments and offered referral to social work. Gallito Nur MD Differential Diagnoses - Thickened nails with mechanical trauma and paronychia is more likely for the following reason(s): suggested by [facility] Procedures [facility] 12-11-2024 Note HNO ID: [id number] Author: JEMAL MORALEZ, JAYE Service: ? Author Type: CORPORATE DIRECTOR OF PHARMACY Type: Progress Notes Filed: 12/11/2024 10:31 Note Text: 1. Combined forms of age-related cataract of both eyes (Primary) PSC OS>OD Educated pt on condition Will observe for now 2. Posterior vitreous detachment of left eye Stable Warned patient about signs/symptoms of retinal pathology and to call immediately with any sudden increase in flashes/floaters or curtain/veil over vision 3. Myopia, bilateral 4. Regular astigmatism of both eyes 5. Presbyopia Finalized spec rx- educated pt that vision left eye with only be slightly improved due to cataract Follow-up in 1 year or sooner as needed Jemal Moralez, OD December 11, 2024 10:28 AM [facility] 12-11-2024 History of Present illness Narrative 1. Combined forms of age-related cataract of both eyes (Primary) PSC OS>OD Educated pt on condition Will observe for now 2. Posterior vitreous detachment of left eye Stable Warned patient about signs/symptoms of retinal pathology and to call immediately with any sudden increase in flashes/floaters or curtain/veil over vision 3. Myopia, bilateral 4. Regular astigmatism of both eyes 5. Presbyopia Finalized spec rx- educated pt that vision left eye with only be slightly improved due to cataract Follow-up in 1 year or sooner as needed Jemal Moralez, JAYE December 11, 2024 10:28 AM documented in this encounter [facility] 12-11-2024 Instructions Jemal Moralez, OD - 12/11/2024 10:26 AM EDT Use Systane Complete or Refresh Relieva 2-3 times daily Use Systane, Refresh or Blink gel nightly before bed in both eyes documented in this encounter [facility] 12-05-2024 Telephone encounter Note Upcoming appt at January The following approved medication requests have been transmitted electronically. Requested Prescriptions Pending Prescriptions Disp Refills atorvastatin (LIPITOR) 20 mg tablet 90 tablet 1 Sig: Take 1 tablet by mouth daily at bedtime. For cholesterol. Quinton Ramirez APRN.CNP [facility] 12-05-2024 Miscellaneous Notes Upcoming appt at January The following approved medication requests have been transmitted electronically. Requested Prescriptions Pending Prescriptions Disp Refills atorvastatin (LIPITOR) 20 mg tablet 90 tablet 1 Sig: Take 1 tablet by mouth daily at bedtime. For cholesterol. Quinton Ramirez APRN.CNP Prescription Refill Information The patient has been identified by name and date of : Yes Caregiver verified no other encounters exist for this prescription request: Yes Caregiver confirmed with patient/requestor that no other refills are due, in the near future, with this provider at this time: Yes The last office visit in the department: 08-07-24 Does the patient have a future office visit with this provider/department: Yes Requested Prescriptions Pending Prescriptions Disp Refills atorvastatin (LIPITOR) 20 mg tablet 90 tablet 1 Sig: Take 1 tablet by mouth daily at bedtime. For cholesterol. Susanna Swan December 05, 2024 8:49 AM documented in this encounter [facility] 12-05-2024 Telephone encounter Note Prescription Refill Information The patient has been identified by name and date of : Yes Caregiver verified no other encounters exist for this prescription request: Yes Caregiver confirmed with patient/requestor that no other refills are due, in the near future, with this provider at this time: Yes The last office visit in the department: 08-07-24 Does the patient have a future office visit with this provider/department: Yes Requested Prescriptions Pending Prescriptions Disp Refills atorvastatin (LIPITOR) 20 mg tablet 90 tablet 1 Sig: Take 1 tablet by mouth daily at bedtime. For cholesterol. Susanna Swan December 05, 2024 8:49 AM [facility] 11-07-2024 Instructions Jason Clemons MD - 11/07/2024 1:49 PM EDT We discussed your overall health and medications: - Continue taking your current medications as prescribed: - Seroquel 25 mg at bedtime. - Gabapentin 400 mg twice daily. - Diclofenac daily for pain. - Wellbutrin (300 mg and 150 mg). - Lipitor for cholesterol. - Amitriptyline 100 mg at bedtime. - No refills are needed at this time, as your pharmacy, [facility], is managing your medications and providing blister packs for easy use. We discussed your vision concerns: - You reported blurry vision in your left eye, which is weaker than your right eye. - I will place a referral for you to see an eye doctor (tablet machine operator) through the [facility] to evaluate your vision and provide a prescription for new glasses. - Once you have the prescription, you can take it to a vision provider of your choice, such as [facility], to purchase glasses. We discussed your preventive care: - It has been several years since your last mammogram. I will place an order for you to have this done at the [facility], located at the corner of [facility]. You can take a cab there if needed. - Please schedule this mammogram at your earliest convenience. We discussed your lab work: - It has been about a year since your last blood work. I have placed an order for fasting labs to check your cholesterol and other markers. - Please come in one morning for these labs. Do not eat or drink anything except water for 12 hours before your appointment. We discussed your lifestyle and habits: - You are staying active by walking regularly around [facility]--please continue this. - You are currently smoking about a quarter of a pack of cigarettes per day. While you are not ready to quit yet, cutting back is a positive step. Let us know if you would like support in quitting in the future. We discussed your next steps: - Schedule an appointment with the eye doctor through the [facility] to address your vision concerns. - Schedule your mammogram at the [facility]. - Come in for fasting labs as discussed. - We will plan to follow up with you in 3 months to check on your progress and overall health. documented in this encounter [facility] 11-07-2024 History of Present illness Narrative Images from the original note were not included. Yadira Canas is a 64 year old female here for a Medicare wellness visit. Medicare Health Risk Assessment General Health Excellent Exercise: Minutes/Day 60 min Exercise: Days/Week 7 days Alcohol: Daily Use Never Alcohol: Drinks/Day Patient does not drink Alcohol: 6 or more drinks Never Feel off balance No Concerns: Teeth/Dentures No Concerns: Sexual function No Troubled by feelings None of the above Frequency: Eating healthy diet Nearly every day ADLs requiring help None of the above; Driving Safety precautions in home/vehicle Yes Smoke, vape, chews tobacco Yes, but I'm not ready to quit Difficulty hearing No Difficulty seeing Yes Current Providers Specialists: I have reviewed specialist-related care of the patient in the medical record. Current care team: Patient Care Team: Jason Clemons MD as PCP - General (Family Medicine) Carmina Suazo APRN.TAZ as Slitter Scorer Cut Off Operator (Family Medicine) Quinton Ramirez APRN.TAZ as Slitter Scorer Cut Off Operator (Family Medicine) Medical/Family history review Reviewed and updated problem list, medical/surgical/family/social history, medications, and allergies. Opioid use review Opioid Medications (last 90 days) No data to display Anxiety/Depression screening PHQ-2 Score: 0 (Lower risk for depression) Recommendation: no further intervention at this time Cognitive screening Mini Cog Score: 1 Cognitive screening reviewed and Recommended referral for further evaluation (score 0-2). Functional Observation Was the patient's Timed Up & Go test unsteady or >= 12 seconds? No Advance Care Planning Patient did not wish or was not able to name a surrogate decision maker or provide an advance care plan Measurements BP 128/80 Pulse 84 Resp 18 Ht 165.1 cm (5' 5) Wt 89.4 kg (197 lb 1.5 oz) BMI 32.80 kg/m Vision Screening: Right: 20/20 Left: 20/ 20 Both: 20/20 Assessment/Plan Medicare annual wellness visit, subsequent (Z00.00) - Counseled on healthy diet and regular exercise - Fall avoidance information provided - Personalized prevention plan provided Chief Complaint Patient presents with: Medicare Wellness Exam 6 Month Exam HPI Yadira Canas is a 64 year old female who presents here today for 3 month follow up. No bowel, Gi, or urinary. Lipid: Taking Lipitor 20 mg daily, tolerating well. Tries to watch diet and walks for exercise. Watching sodium in diet. Pain: Chronic; stable with Amitriptyline 100 mg at bedtime, Gabapentin 400 mg 1 pill BID and Voltarent 75 mg 1 pill BID. Psych: Hx of auditory hallucinations and been hospitalized for psychiatric issues. Denies having anymore hallucinations. [facility]. Taking Seroquel 25 mg daily, Wellbutrin xl 150 mg at night and 300 mg daily in AM. Uses Amitriptyline for insomnia. Hx of elevated BP. No chest pains, dizziness, or SOB. Watching sodium in food. Past medical history, appointments, medications, allergies reviewed. Previous Medical History PAST MEDICAL HISTORY Diagnosis Date Allergic rhinitis Back pain Depression Previous Surgical History PAST SURGICAL HISTORY Procedure Laterality Date COLONOSCOPY FLX DX W/COLLJ SPEC WHEN PFRMD 11/01/13 Colonoscopy LIG/TRNSXJ FLP TUBE ABDL/VAG APPR UNI/BI 1989 Tubal ligation NEUROPLASTY &/TRANSPOS MEDIAN NRV CARPAL TUNNE Carpal tunnel decomp bilaterally PAST SURGICAL HISTORY OF 2013 dental extractions Family History FAMILY HISTORY Problem Relation Age of Onset Diabetes Mother Arthritis Mother Stroke Mother Patient Allergies ALLERGIES Allergen Reactions Sulfa (Sulfonamide * Hives Tetracycline Vomiting Flagyl [Metronidazo* GI Upset Sertraline GI Upset Current Medications Current Outpatient Medications on File Prior to Visit Medication Sig loratadine (CLARITIN) 10 mg tablet Take 1 tablet by mouth once daily. amitriptyline (ELAVIL) 100 mg tablet Take 1 tablet by mouth daily at bedtime. diclofenac, EC, (VOLTAREN) 75 mg EC tablet TAKE 1 TABLET BY MOUTH WITH FOOD TWICE DAILY for pain and inflamation gabapentin (NEURONTIN) 400 mg capsule Take 1 capsule by mouth two times a day for 180 days. atorvastatin (LIPITOR) 20 mg tablet Take 1 tablet by mouth daily at bedtime. For cholesterol. QUEtiapine (SEROQUEL) 25 mg tablet Take 1 tablet by mouth daily at bedtime. buPROPion XL (WELLBUTRIN XL) 150 mg 24 hr tablet Take 1 tablet by mouth once daily. Take in PM buPROPion XL (WELLBUTRIN XL) 300 mg 24 hr tablet Take 1 tablet by mouth once daily. Take in AM acetaminophen (TYLENOL) 500 mg tablet Take 500 mg by mouth every 6 hours as needed. FOR PAIN mv,Ca,min-folic acid-vit K1 (ONE-A-DAY WOMEN'S 50 PLUS) 400-20 mcg tab Take 1 tablet by mouth once daily. PSEUDOEPHEDRINE HCL (SUDAFED ORAL) Take by mouth. No current facility-administered medications on file prior to visit. Social History Social History Tobacco Use Smoking status: Every Day Current packs/day: 0.00 Average packs/day: 0.5 packs/day for 5.0 years (2.5 ttl pk-yrs) Types: Cigarettes Start date: 05/02/2011 Last attempt to quit: 05/02/2016 Years since quittin.5 Smokeless tobacco: Never Tobacco comments: Smoking about 1/4 ppd Vaping Use Vaping status: Never Used Substance Use Topics Alcohol use: No Drug use: No EXAM: BP 128/80 Pulse 84 Resp 18 Ht 165.1 cm (5' 5) Wt 89.4 kg (197 lb 1.5 oz) BMI 32.80 kg/m General Appearance: Well appearing, alert, in no acute distress, well-hydrated, well nourished.. Lungs: Lungs clear to auscultation. No wheezing, rhonchi, rales.. Heart: RRR without murmur, gallop, or rubs. No ectopy. Health Maintenance List DTaP,Tdap,Td Vaccine(1 - Tdap) Never done Pneumococcal Vaccine: 50+(2 of 2 - PPSV23) due on 06/06/2019 Mammogram Screening due on 02/04/2022 Cervical Cancer Screening due on 03/14/2025 HIV Screening due on 03/14/2025 Covid-19 Vaccine( season) due on 05/18/2025 Anxiety Screening due on 05/18/2025 Diabetes Screening due on 11/07/2026 Lipid Screening due on 11/07/2028 Colorectal Cancer Screening due on 03/07/2029 RSV Vaccine(1 - 1-dose 75+ series) due on 10/06/2035 Influenza Vaccine Completed Hepatitis C Screening Completed Shingrix Vaccine Completed Data reviewed none ASSESSMENT/PLAN: 1. Depression, unspecified depression type - ICD9: 311, ICD10: F32.A (primary diagnosis) Stable Continue current medications. 2. ROBERT (generalized anxiety disorder) - ICD9: 300.02, ICD10: F41.1 Continue current medications. - COMPLETE BLOOD COUNT 3. Mixed hyperlipidemia - ICD9: 272.2, ICD10: E78.2 - Control undetermined, due for labs - Continue current medications - Counseled on healthy diet and regular exercise - COMPREHENSIVE METABOLIC PANEL - LIPID PANEL, FASTING 4. Elevated glucose - ICD9: 790.29, ICD10: R73.09 Check labs - COMPREHENSIVE METABOLIC PANEL - LIPID PANEL, FASTING - HEMOGLOBIN A1C 5. Medication monitoring encounter - ICD9: V58.83, ICD10: Z51.81 Check labs - COMPREHENSIVE METABOLIC PANEL - COMPLETE BLOOD COUNT - LIPID PANEL, FASTING 6. Vision changes - ICD9: 368.9, ICD10: H53.9 - CONSULT TO OPTOMETRY 7. Encounter for Medicare annual wellness exam - ICD9: V70.0, ICD10: Z00.00 - Counseled on healthy diet and regular exercise - Follow up for annual exam in one year 8. Nicotine dependence, cigarettes, uncomplicated - ICD9: 305.1, ICD10: F17.210 - Cessation encouraged. - Physiologic and physical aspects of tobacco addiction as well as strategies for quitting were discussed. - Counseling was given focusing on the harmful effects of this addiction especially given the patient's medical condition(s) which will be worsened because of the chemicals in tobacco. 9. Other chronic pain - ICD9: 338.29, ICD10: G89.29 Stable Continue current medications. Notify of lab results Follow up in 3 months Medical Decision Making: Problems: Moderate: 2+ stable chronic illnesses Data: Unique test(s) ordered: 3+ Risk: Moderate: Drug management Medical Decision Making Level: 4 - Moderate Jason Clemons MD The documentation for this note was completed by Rossi Wall MA acting as scribe for Jason Clemons MD. November 07, 2024 1:16 PM. Rossi Wall MA The patient consented to the use of [employer] software for draft documentation of the visit consistent with [facility] s Notice of Privacy Practices. documented in this encounter [facility] 11-07-2024 Note HNO ID: [id number] Author: JASON CLEMONS MD Service: ? Author Type: Physician Type: Progress Notes Filed: 11/07/2024 15:02 Note Text: Yadira Canas is a 64 year old female here for a Medicare wellness visit. Medicare Health Risk Assessment General Health Excellent Exercise: Minutes/Day 60 min Exercise: Days/Week 7 days Alcohol: Daily Use Never Alcohol: Drinks/Day Patient does not drink Alcohol: 6 or more drinks Never Feel off balance No Concerns: Teeth/Dentures No Concerns: Sexual function No Troubled by feelings None of the above Frequency: Eating healthy diet Nearly every day ADLs requiring help None of the above; Driving Safety precautions in home/vehicle Yes Smoke, vape, chews tobacco Yes, but I'm not ready to quit Difficulty hearing No Difficulty seeing Yes Current Providers Specialists: I have reviewed specialist-related care of the patient in the medical record. Current care team: Patient Care Team: Jason Clemons MD as PCP - General (Family Medicine) Carmina Suazo APRN.TAZ as Slitter Scorer Cut Off Operator (Family Medicine) Quinton Ramirez APRN.CNP as Slitter Scorer Cut Off Operator (Family Medicine) Medical/Family history review Reviewed and updated problem list, medical/surgical/family/social history, medications, and allergies. Opioid use review Opioid Medications (last 90 days) No data to display Anxiety/Depression screening PHQ-2 Score: 0 (Lower risk for depression) Recommendation: no further intervention at this time Cognitive screening Mini Cog Score: 1 Cognitive screening reviewed and Recommended referral for further evaluation (score 0-2). Functional Observation Was the patient's Timed Up AND Go test unsteady or >= 12 seconds? No Advance Care Planning Patient did not wish or was not able to name a surrogate decision maker or provide an advance care plan Measurements BP 128/80 Pulse 84 Resp 18 Ht 165.1 cm (5' 5) Wt 89.4 kg (197 lb 1.5 oz) BMI 32.80 kg/m? Vision Screening: Right: 20/20 Left: 20/ 20 Both: 20/20 Assessment/Plan Medicare annual wellness visit, subsequent (Z00.00) - Counseled on healthy diet and regular exercise - Fall avoidance information provided - Personalized prevention plan provided Chief Complaint Patient presents with: Medicare Wellness Exam 6 Month Exam HPI Yadira Canas is a 64 year old female who presents here today for 3 month follow up. No bowel, Gi, or urinary. Lipid: Taking Lipitor 20 mg daily, tolerating well. Tries to watch diet and walks for exercise. Watching sodium in diet. Pain: Chronic; stable with Amitriptyline 100 mg at bedtime, Gabapentin 400 mg 1 pill BID and Voltarent 75 mg 1 pill BID. Psych: Hx of auditory hallucinations and been hospitalized for psychiatric issues. Denies having anymore hallucinations. [facility] but never scheduled. Taking Seroquel 25 mg daily, Wellbutrin xl 150 mg at night and 300 mg daily in AM. Uses Amitriptyline for insomnia. Hx of elevated BP. No chest pains, dizziness, or SOB. Watching sodium in food. Past medical history, appointments, medications, allergies reviewed. Previous Medical History PAST MEDICAL HISTORY Diagnosis Date Allergic rhinitis Back pain Depression Previous Surgical History PAST SURGICAL HISTORY Procedure Laterality Date COLONOSCOPY FLX DX W/COLLJ SPEC WHEN PFRMD 11/01/13 Colonoscopy LIG/TRNSXJ FLP TUBE ABDL/VAG APPR UNI/BI 1989 Tubal ligation NEUROPLASTY AND/TRANSPOS MEDIAN NRV CARPAL TUNNE Carpal tunnel decomp bilaterally PAST SURGICAL HISTORY OF 2013 dental extractions Family History FAMILY HISTORY Problem Relation Age of Onset Diabetes Mother Arthritis Mother Stroke Mother Patient Allergies ALLERGIES Allergen Reactions Sulfa (Sulfonamide * Hives Tetracycline Vomiting Flagyl [Metronidazo* GI Upset Sertraline GI Upset Current Medications Current Outpatient Medications on File Prior to Visit Medication Sig loratadine (CLARITIN) 10 mg tablet Take 1 tablet by mouth once daily. amitriptyline (ELAVIL) 100 mg tablet Take 1 tablet by mouth daily at bedtime. diclofenac, EC, (VOLTAREN) 75 mg EC tablet TAKE 1 TABLET BY MOUTH WITH FOOD TWICE DAILY for pain and inflamation gabapentin (NEURONTIN) 400 mg capsule Take 1 capsule by mouth two times a day for 180 days. atorvastatin (LIPITOR) 20 mg tablet Take 1 tablet by mouth daily at bedtime. For cholesterol. QUEtiapine (SEROQUEL) 25 mg tablet Take 1 tablet by mouth daily at bedtime. buPROPion XL (WELLBUTRIN XL) 150 mg 24 hr tablet Take 1 tablet by mouth once daily. Take in PM buPROPion XL (WELLBUTRIN XL) 300 mg 24 hr tablet Take 1 tablet by mouth once daily. Take in AM acetaminophen (TYLENOL) 500 mg tablet Take 500 mg by mouth every 6 hours as needed. FOR PAIN mv,Ca,min-folic acid-vit K1 (ONE-A-DAY WOMEN'S 50 PLUS) 400-20 mcg tab Take 1 tablet by mouth once daily. PSEUDOEPHEDRINE HCL (SUDAFED ORAL) Take by mouth. (more content not included)... [facility] 10-13-2024 Telephone encounter Note OK to refill as ordered Jason Clemons MD [facility] 10-13-2024 Miscellaneous Notes OK to refill as ordered Jason Clemons MD The patient has been identified by name and date of : Yes Caregiver verified no other encounters exist for this prescription request: Yes Caregiver confirmed with patient/requestor that no other refills are due, in the near future, with this provider at this time: Yes The last office visit in the department: 08/07/2024 Does the patient have a future office visit with this provider/department: Yes 11/07/2024 Requested Prescriptions Pending Prescriptions Disp Refills QUEtiapine (SEROQUEL) 25 mg tablet 30 tablet 5 Sig: Take 1 tablet by mouth daily at bedtime. Elizabeth Hunter LPN October 13, 2024 9:13 AM documented in this encounter [facility] 10-13-2024 Telephone encounter Note The patient has been identified by name and date of : Yes Caregiver verified no other encounters exist for this prescription request: Yes Caregiver confirmed with patient/requestor that no other refills are due, in the near future, with this provider at this time: Yes The last office visit in the department: 08/07/2024 Does the patient have a future office visit with this provider/department: Yes 11/07/2024 Requested Prescriptions Pending Prescriptions Disp Refills QUEtiapine (SEROQUEL) 25 mg tablet 30 tablet 5 Sig: Take 1 tablet by mouth daily at bedtime. Elizabeth Hunter LPN October 13, 2024 9:13 AM [facility] 10-12-2024 Telephone encounter Note OK to refill as ordered Jason Clemons MD [facility] 10-12-2024 Miscellaneous Notes OK to refill as ordered Jason Clemons MD Prescription Refill Information The patient has been identified by name and date of : Yes Caregiver verified no other encounters exist for this prescription request: Yes Caregiver confirmed with patient/requestor that no other refills are due, in the near future, with this provider at this time: Yes The last office visit in the department: Does the patient have a future office visit with this provider/department: Yes Pharmacy stated that Dr Virgie Macario up this to 300 mg in PM and 150 mg is the am pill. Requested Prescriptions Pending Prescriptions Disp Refills buPROPion XL (WELLBUTRIN XL) 300 mg 24 hr tablet 30 tablet 11 Sig: Take 1 tablet by mouth once daily. Take in AM Merry Swan October 12, 2024 10:53 AM documented in this encounter [facility] 10-12-2024 Telephone encounter Note Prescription Refill Information The patient has been identified by name and date of : Yes Caregiver verified no other encounters exist for this prescription request: Yes Caregiver confirmed with patient/requestor that no other refills are due, in the near future, with this provider at this time: Yes The last office visit in the department: Does the patient have a future office visit with this provider/department: Yes Pharmacy stated that Dr Virgie Macario up this to 300 mg in PM and 150 mg is the am pill. Requested Prescriptions Pending Prescriptions Disp Refills buPROPion XL (WELLBUTRIN XL) 300 mg 24 hr tablet 30 tablet 11 Sig: Take 1 tablet by mouth once daily. Take in AM Merry Swan October 12, 2024 10:53 AM [facility] 10-10-2024 Telephone encounter Note Prescription Refill Information The patient has been identified by name and date of : Yes Caregiver verified no other encounters exist for this prescription request: Yes Caregiver confirmed with patient/requestor that no other refills are due, in the near future, with this provider at this time: Yes The last office visit in the department: 08-07-24 Does the patient have a future office visit with this provider/department: Yes Requested Prescriptions Pending Prescriptions Disp Refills QUEtiapine (SEROQUEL) 25 mg tablet 30 tablet 5 Sig: Take 1 tablet by mouth daily at bedtime. Susanna Swan October 10, 2024 8:31 AM [facility] 10-10-2024 Miscellaneous Notes Prescription Refill Information The patient has been identified by name and date of : Yes Caregiver verified no other encounters exist for this prescription request: Yes Caregiver confirmed with patient/requestor that no other refills are due, in the near future, with this provider at this time: Yes The last office visit in the department: 08-07-24 Does the patient have a future office visit with this provider/department: Yes Requested Prescriptions Pending Prescriptions Disp Refills QUEtiapine (SEROQUEL) 25 mg tablet 30 tablet 5 Sig: Take 1 tablet by mouth daily at bedtime. Susanna Swan October 10, 2024 8:31 AM documented in this encounter [facility] 10-10-2024 Note Patient Outreach (FA MPWS) YADIRA CANAS ([id number]) 1960 F Date Time Provider Department 10/10/24 JASON CLEMONS During your visit today, we recorded the following information about you: Allergies As of Date: 10/10/2024 Noted Allergy Reaction SULFA (SULFONAMIDE ANTIBIOTICS) 05/27/2010 4 - Hives TETRACYCLINE 05/27/2010 11 - Vomiting FLAGYL (METRONIDAZOLE) 03/14/2019 8 - GI Upset SERTRALINE 11/12/2021 8 - GI Upset Date Reviewed: 08/07/2024 Reviewed by: Jolynn Brock MA - Fully Assessed Visit Diagnosis:Encounter for screening mammogram for breast cancer [Z12.31] Order(s):ELMER SCREENING W ARIANNA [[id number]] Order #: [id number] FUTURE Prescriptions as of 11/10/2024 - QUEtiapine (SEROQUEL) 25 mg tablet Take 1 tablet by mouth daily at bedtime. - buPROPion XL (WELLBUTRIN XL) 300 mg 24 hr tablet Take 1 pill daily in PM. - buPROPion XL (WELLBUTRIN XL) 150 mg 24 hr tablet Take once daily in the AM. Takes the 300 mg in the PM - loratadine (CLARITIN) 10 mg tablet Take 1 tablet by mouth once daily. - amitriptyline (ELAVIL) 100 mg tablet Take 1 tablet by mouth daily at bedtime. - diclofenac, EC, (VOLTAREN) 75 mg EC tablet TAKE 1 TABLET BY MOUTH WITH FOOD TWICE DAILY for pain and inflamation - gabapentin (NEURONTIN) 400 mg capsule Take 1 capsule by mouth two times a day for 180 days. - atorvastatin (LIPITOR) 20 mg tablet Take 1 tablet by mouth daily at bedtime. For cholesterol. - acetaminophen (TYLENOL) 500 mg tablet Take 500 mg by mouth every 6 hours as needed. FOR PAIN - mv,Ca,min-folic acid-vit K1 (ONE-A-DAY WOMEN'S 50 PLUS) 400-20 mcg tab Take 1 tablet by mouth once daily. - PSEUDOEPHEDRINE HCL (SUDAFED ORAL) Take by mouth. Problem List As Of Date 10/10/2024 Noted Resolved Depression [F32.A] 05/27/2010 Seasonal allergies [J30.2] 05/27/2010 Back pain [M54.9] 05/27/2010 Insomnia [G47.00] 01/04/2015 Generalized osteoarthritis [M15.9] 03/02/2019 Allergic rhinitis [J30.9] Encounter Status:Closed by GÓMEZ ERICKSON on 11/10/24 [facility] 02-12-2025 Telephone encounter Note [facility] requesting refill of pt's olanzapine.Updated pharmacy that this has been discontinued and pt has been switched to quetiapine. Merry Hassan RN [facility] 09-13-2024 Miscellaneous Notes [facility] requesting refill of pt's olanzapine.Updated pharmacy that this has been discontinued and pt has been switched to quetiapine. Merry Hassan RN documented in this encounter [facility] 08-07-2024 Instructions Jolynn Brock MA - 08/07/2024 5:15 PM EST Still recommend seeing the counseling center due to history of mental health. documented in this encounter [facility] 08-07-2024 History of Present illness Narrative Chief Complaint Patient presents with: Follow Up HPI Yadira Canas is a 63 year old female who presents here today for 2 month follow up. Pt here today for a 2 month follow up. Psych: Was referred to the Counseling Center at previous visit. Pt has not made an appt at the Counseling Center, she's decided not to go. Asking if she needs to do this? Reports she only has a track phone not a mobile plan. Wondering if she could get a home phone for medical reasons. Pt was started on Seroquel 25 mg daily at last visit in addition to her regimen of Wellbutrin xl 150 mg in PM and 300 mg in AM. Is also taking Amitriptyline 100 mg at bedtime. Pt reports that the Seroquel medication has helped a lot, feels a lot more mentally clearer. No longer having any auditory hallucinations. Overall feels she's she's doing well. BP - Hx of elevated BP at recent office visits. At most recent OV pt's BP was normal. Currently on no medication at this time. Denies checking her BP at home or having symptoms of chest pain, sob, or dizziness. Has cut back on high foods in sodium. Lipids - Taking Lipitor 20 mg once daily. Working on watching her diet and losing weight. Cut out high foods in sodium, eating better food options. Exercising by walking a lot. Pain: Chronic; taking Voltaren 75 mg 1 pill BID, Amitriptyline 100 mg at bedtime, and Gabapentin 400 mg 1 pill BID. Past medical history, appointments, medications, allergies reviewed. Previous Medical History PAST MEDICAL HISTORY Diagnosis Date Allergic rhinitis Back pain Depression Previous Surgical History PAST SURGICAL HISTORY Procedure Laterality Date COLONOSCOPY FLX DX W/COLLJ SPEC WHEN PFRMD 11/01/13 Colonoscopy LIG/TRNSXJ FLP TUBE ABDL/VAG APPR UNI/BI 1989 Tubal ligation NEUROPLASTY &/TRANSPOS MEDIAN NRV CARPAL TUNNE 1980s Carpal tunnel decomp bilaterally PAST SURGICAL HISTORY OF 2012 dental extractions Family History FAMILY HISTORY Problem Relation Age of Onset Diabetes Mother Arthritis Mother Stroke Mother Patient Allergies ALLERGIES Allergen Reactions Sulfa (Sulfonamide * Hives Tetracycline Vomiting Flagyl [Metronidazo* GI Upset Sertraline GI Upset Current Medications Current Outpatient Medications on File Prior to Visit Medication Sig diclofenac, EC, (VOLTAREN) 75 mg EC tablet TAKE 1 TABLET BY MOUTH WITH FOOD TWICE DAILY for pain and inflamation gabapentin (NEURONTIN) 400 mg capsule Take 1 capsule by mouth two times a day for 180 days. atorvastatin (LIPITOR) 20 mg tablet Take 1 tablet by mouth daily at bedtime. For cholesterol. QUEtiapine (SEROQUEL) 25 mg tablet Take 1 tablet by mouth daily at bedtime. buPROPion XL (WELLBUTRIN XL) 150 mg 24 hr tablet Take 1 tablet by mouth once daily. Take in PM buPROPion XL (WELLBUTRIN XL) 300 mg 24 hr tablet Take 1 tablet by mouth once daily. Take in AM amitriptyline (ELAVIL) 100 mg tablet Take 1 tablet by mouth daily at bedtime. loratadine (CLARITIN) 10 mg tablet Take 1 tablet by mouth once daily. acetaminophen (TYLENOL) 500 mg tablet Take 500 mg by mouth every 6 hours as needed. FOR PAIN mv,Ca,min-folic acid-vit K1 (ONE-A-DAY WOMEN'S 50 PLUS) 400-20 mcg tab Take 1 tablet by mouth once daily. PSEUDOEPHEDRINE HCL (SUDAFED ORAL) Take by mouth. No current facility-administered medications on file prior to visit. Social History Social History Tobacco Use Smoking status: Former Current packs/day: 0.00 Average packs/day: 0.5 packs/day for 5.0 years (2.5 ttl pk-yrs) Types: Cigarettes Start date: 05/02/2011 Quit date: 05/02/2016 Years since quittin.2 Smokeless tobacco: Never Vaping Use Vaping status: Never Used Substance Use Topics Alcohol use: No Drug use: No Review of Symptoms EXAM: BP 124/66 (BP Site: Left Arm, BP Position: Sitting, BP Cuff Size: Large Adult) Pulse 80 Resp 18 Wt 90.7 kg (199 lb 15.3 oz) BMI 33.27 kg/m General Appearance: Well appearing, alert, in no acute distress, well-hydrated, well nourished. and Obese. Lungs: Lungs clear to auscultation. No wheezing, rhonchi, rales.. Heart: RRR without murmur, gallop, or rubs. No ectopy. Health Maintenance List DTaP,Tdap,Td Vaccine(1 - Tdap) Never done Pneumococcal Vaccine: 50+(2 of 2 - PPSV23) due on 04/11/2020 Mammogram Screening due on 02/04/2022 Cervical Cancer Screening due on 03/14/2025 HIV Screening due on 03/14/2025 Covid-19 Vaccine( season) due on 05/18/2025 Anxiety Screening due on 05/18/2025 Diabetes Screening due on 11/07/2026 Lipid Screening due on 11/07/2028 Colorectal Cancer Screening due on 03/07/2029 RSV Vaccine(1 - 1-dose 75+ series) due on 10/06/2035 Influenza Vaccine Completed Hepatitis C Screening Completed Shingrix Vaccine Completed Data reviewed None ASSESSMENT/PLAN: 1. Auditory hallucinations - ICD9: 780.1, ICD10: R44.0 (primary diagnosis) - Stable, resolved - Continue current medication regimen. - Recommend seeing Psych/Counseling Center 2. Depression, unspecified depression type - ICD9: 311, ICD10: F32.A - Continue current medication regimen. 3. ROBERT (generalized anxiety disorder) - ICD9: 300.02, ICD10: F41.1 - Continue current medication regimen. 4. Mental health disorder - ICD9: 300.9, ICD10: F99 - As noted above 5. Insomnia, unspecified type - ICD9: 780.52, ICD10: G47.00 - Continue current medication regimen. - AMITRIPTYLINE 100 MG TABLET 6. Elevated blood pressure reading without diagnosis of hypertension - ICD9: 796.2, ICD10: R03.0 - Stable today - Goal of BP <130/80 7. Low back pain with sciatica, sciatica laterality unspecified, unspecified back pain laterality, unspecified chronicity - ICD9: 724.3, ICD10: M54.40 - chronic, stable - Continue current medication regimen. 3 mo f/u - Medicare Wellness. I agree with the Chief Complaint, ROS, and Past Histories independently gathered by the clinical learning support specialist and the remaining scribed note accurately describes my personal service to the patient. Medical Decision Making: Problems: Moderate: 2+ stable chronic illnesses Risk: Moderate: Drug management Medical Decision Making Level: 4 - Moderate Jason Clemons MD The documentation for this note was completed by Jolynn Brock MA acting as scribe for Jason Clemons MD. August 07, 2024 5:17 PM. Jolynn Brock MA documented in this encounter [facility] 08-07-2024 Note HNO ID: [id number] Author: JASON CLEMONS MD Service: ? Author Type: Physician Type: Progress Notes Filed: 08/07/2024 17:21 Note Text: Chief Complaint Patient presents with: Follow Up HPI Yadira Canas is a 63 year old female who presents here today for 2 month follow up. Pt here today for a 2 month follow up. Psych: Was referred to the Counseling Center at previous visit. Pt has not made an appt at the Counseling Center, she's decided not to go. Asking if she needs to do this? Reports she only has a track phone not a mobile plan. Wondering if she could get a home phone for medical reasons. Pt was started on Seroquel 25 mg daily at last visit in addition to her regimen of Wellbutrin xl 150 mg in PM and 300 mg in AM. Is also taking Amitriptyline 100 mg at bedtime. Pt reports that the Seroquel medication has helped a lot, feels a lot more mentally clearer. No longer having any auditory hallucinations. Overall feels she's she's doing well. BP - Hx of elevated BP at recent office visits. At most recent OV pt's BP was normal. Currently on no medication at this time. Denies checking her BP at home or having symptoms of chest pain, sob, or dizziness. Has cut back on high foods in sodium. Lipids - Taking Lipitor 20 mg once daily. Working on watching her diet and losing weight. Cut out high foods in sodium, eating better food options. Exercising by walking a lot. Pain: Chronic; taking Voltaren 75 mg 1 pill BID, Amitriptyline 100 mg at bedtime, and Gabapentin 400 mg 1 pill BID. Past medical history, appointments, medications, allergies reviewed. Previous Medical History PAST MEDICAL HISTORY Diagnosis Date Allergic rhinitis Back pain Depression Previous Surgical History PAST SURGICAL HISTORY Procedure Laterality Date COLONOSCOPY FLX DX W/COLLJ SPEC WHEN PFRMD 11/01/13 Colonoscopy LIG/TRNSXJ FLP TUBE ABDL/VAG APPR UNI/BI 1989 Tubal ligation NEUROPLASTY AND/TRANSPOS MEDIAN NRV CARPAL TUNNE Carpal tunnel decomp bilaterally PAST SURGICAL HISTORY OF 2013 dental extractions Family History FAMILY HISTORY Problem Relation Age of Onset Diabetes Mother Arthritis Mother Stroke Mother Patient Allergies ALLERGIES Allergen Reactions Sulfa (Sulfonamide * Hives Tetracycline Vomiting Flagyl [Metronidazo* GI Upset Sertraline GI Upset Current Medications Current Outpatient Medications on File Prior to Visit Medication Sig diclofenac, EC, (VOLTAREN) 75 mg EC tablet TAKE 1 TABLET BY MOUTH WITH FOOD TWICE DAILY for pain and inflamation gabapentin (NEURONTIN) 400 mg capsule Take 1 capsule by mouth two times a day for 180 days. atorvastatin (LIPITOR) 20 mg tablet Take 1 tablet by mouth daily at bedtime. For cholesterol. QUEtiapine (SEROQUEL) 25 mg tablet Take 1 tablet by mouth daily at bedtime. buPROPion XL (WELLBUTRIN XL) 150 mg 24 hr tablet Take 1 tablet by mouth once daily. Take in PM buPROPion XL (WELLBUTRIN XL) 300 mg 24 hr tablet Take 1 tablet by mouth once daily. Take in AM amitriptyline (ELAVIL) 100 mg tablet Take 1 tablet by mouth daily at bedtime. loratadine (CLARITIN) 10 mg tablet Take 1 tablet by mouth once daily. acetaminophen (TYLENOL) 500 mg tablet Take 500 mg by mouth every 6 hours as needed. FOR PAIN mv,Ca,min-folic acid-vit K1 (ONE-A-DAY WOMEN'S 50 PLUS) 400-20 mcg tab Take 1 tablet by mouth once daily. PSEUDOEPHEDRINE HCL (SUDAFED ORAL) Take by mouth. No current facility-administered medications on file prior to visit. Social History Social History Tobacco Use Smoking status: Former Current packs/day: 0.00 Average packs/day: 0.5 packs/day for 5.0 years (2.5 ttl pk-yrs) Types: Cigarettes Start date: 05/02/2011 Quit date: 05/02/2016 Years since quittin.2 Smokeless tobacco: Never Vaping Use Vaping status: Never Used Substance Use Topics Alcohol use: No Drug use: No Review of Symptoms EXAM: BP 124/66 (BP Site: Left Arm, BP Position: Sitting, BP Cuff Size: Large Adult) Pulse 80 Resp 18 Wt 90.7 kg (199 lb 15.3 oz) BMI 33.27 kg/m? General Appearance: Well appearing, alert, in no acute distress, well-hydrated, well nourished. and Obese. Lungs: Lungs clear to auscultation. No wheezing, rhonchi, rales.. Heart: RRR without murmur, gallop, or rubs. No ectopy. Health Maintenance List DTaP,Tdap,Td Vaccine(1 - Tdap) Never done Pneumococcal Vaccine: 50+(2 of 2 - PPSV23) due on 04/11/2020 Mammogram Screening due on 02/04/2022 Cervical Cancer Screening due on 03/14/2025 HIV Screening due on 03/14/2025 Covid-19 Vaccine( season) due on 05/18/2025 Anxiety Screening due on 05/18/2025 Diabetes Screening due on 11/07/2026 Lipid Screening due on 11/07/2028 Colorectal Cancer Screening due on 03/07/2029 RSV Vaccine(1 - 1-dose 75+ series) due on 10/06/2035 Influenza Vaccine Completed Hepatitis C Screening Completed Shingrix Vaccine Completed Data reviewed None ASSESSMENT/ (more content not included)... [facility] 07-21-2024 Telephone encounter Note The following approved medication requests have been transmitted electronically. Requested Prescriptions Pending Prescriptions Disp Refills diclofenac, EC, (VOLTAREN) 75 mg EC tablet 180 tablet 3 Sig: TAKE 1 TABLET BY MOUTH WITH FOOD TWICE DAILY for pain and inflamation Quinton Ramirez APRN.CNP [facility] 07-21-2024 Miscellaneous Notes The following approved medication requests have been transmitted electronically. Requested Prescriptions Pending Prescriptions Disp Refills diclofenac, EC, (VOLTAREN) 75 mg EC tablet 180 tablet 3 Sig: TAKE 1 TABLET BY MOUTH WITH FOOD TWICE DAILY for pain and inflamation Quinton Ramirez APRN.CNP Prescription Refill Information The patient has been identified by name and date of : Yes Caregiver verified no other encounters exist for this prescription request: Yes Caregiver confirmed with patient/requestor that no other refills are due, in the near future, with this provider at this time: Yes The last office visit in the department: 06-12-24 Does the patient have a future office visit with this provider/department: Yes Requested Prescriptions Pending Prescriptions Disp Refills diclofenac, EC, (VOLTAREN) 75 mg EC tablet 180 tablet 3 Sig: TAKE 1 TABLET BY MOUTH WITH FOOD TWICE DAILY for pain and inflamation Paris Swan July 21, 2024 11:54 AM documented in this encounter [facility] 07-21-2024 Telephone encounter Note Prescription Refill Information The patient has been identified by name and date of : Yes Caregiver verified no other encounters exist for this prescription request: Yes Caregiver confirmed with patient/requestor that no other refills are due, in the near future, with this provider at this time: Yes The last office visit in the department: 06-12-24 Does the patient have a future office visit with this provider/department: Yes Requested Prescriptions Pending Prescriptions Disp Refills diclofenac, EC, (VOLTAREN) 75 mg EC tablet 180 tablet 3 Sig: TAKE 1 TABLET BY MOUTH WITH FOOD TWICE DAILY for pain and inflamation Paris Nur [facility] July 21, 2024 11:54 AM [facility] 07-11-2024 Telephone encounter Note Pt called and is notified of providers rmessage. Pt voices understanding. Tuyet Denson RN [facility] 07-11-2024 Miscellaneous Notes Pt called and is notified of providers rmessage. Pt voices understanding. Tuyet Denson RN OK to refill as ordered Jason Clemons MD Prescription Refill Information The patient has been identified by name and date of : Yes Caregiver verified no other encounters exist for this prescription request: Yes Caregiver confirmed with patient/requestor that no other refills are due, in the near future, with this provider at this time: Yes The last office visit in the department: 06/12/2024 Does the patient have a future office visit with this provider/department: Yes Requested Prescriptions Pending Prescriptions Disp Refills gabapentin (NEURONTIN) 400 mg capsule 60 capsule 5 Sig: Take 1 capsule by mouth two times a day for 180 days. Mei Lopez July 10, 2024 4:39 PM documented in this encounter [facility] 07-10-2024 Telephone encounter Note OK to refill as ordered Jason Clemons MD [facility] 07-10-2024 Telephone encounter Note Prescription Refill Information The patient has been identified by name and date of : Yes Caregiver verified no other encounters exist for this prescription request: Yes Caregiver confirmed with patient/requestor that no other refills are due, in the near future, with this provider at this time: Yes The last office visit in the department: 06/12/2024 Does the patient have a future office visit with this provider/department: Yes Requested Prescriptions Pending Prescriptions Disp Refills gabapentin (NEURONTIN) 400 mg capsule 60 capsule 5 Sig: Take 1 capsule by mouth two times a day for 180 days. Mei Lopez July 10, 2024 4:39 PM [facility] 07-06-2024 Telephone encounter Note The following approved medication requests have been transmitted electronically. Requested Prescriptions Pending Prescriptions Disp Refills atorvastatin (LIPITOR) 20 mg tablet 90 tablet 1 Sig: Take 1 tablet by mouth daily at bedtime. For cholesterol. Quinton Ramirez APRN.CNP [facility] 07-06-2024 Miscellaneous Notes The following approved medication requests have been transmitted electronically. Requested Prescriptions Pending Prescriptions Disp Refills atorvastatin (LIPITOR) 20 mg tablet 90 tablet 1 Sig: Take 1 tablet by mouth daily at bedtime. For cholesterol. Quinton Ramirez APRN.CNP Patient has been identified by name and date of : Yes Pharmacy phones for refill(s): Requested Prescriptions Pending Prescriptions Disp Refills atorvastatin (LIPITOR) 20 mg tablet 90 tablet 1 Sig: Take 1 tablet by mouth daily at bedtime. For cholesterol. Date of last office visit in primary care: 06/12/2024 Date of next office visit in primary care: 07/18/2024 Please advise. Thank you. Teresa Hankins. documented in this encounter [facility] 07-06-2024 Telephone encounter Note Patient has been identified by name and date of : Yes Pharmacy phones for refill(s): Requested Prescriptions Pending Prescriptions Disp Refills atorvastatin (LIPITOR) 20 mg tablet 90 tablet 1 Sig: Take 1 tablet by mouth daily at bedtime. For cholesterol. Date of last office visit in primary care: 06/12/2024 Date of next office visit in primary care: 07/18/2024 Please advise. Thank you. Teresa Hankins. [facility] 06-21-2024 Note HNO ID: [id number] Author: ?, ?, ? Service: ? Author Type: ? Type: Progress Notes Filed: 06/21/2024 10:35 Note Text: POPULATION HEALTH NAVIGATION OUTREACH Action/FYI Updated follow up to include medicare wellness per AWV initiative. Reason for Outreach Care Gap/HCC or Scheduling Wellness Visits Care Gaps due: Medicare Annual Wellness Visit Patient Contacted: Unable or unnecessary to reach patient: Flipped existing appointment Updated appointment notes Navigation Signature: Leonor Horta [facility] Health Navigator June 21, 2024 10:35 AM [facility] 06-21-2024 History of Present illness Narrative POPULATION HEALTH NAVIGATION OUTREACH Action/FYI Updated follow up to include medicare wellness per AWV initiative. Reason for Outreach Care Gap/HCC or Scheduling Wellness Visits Care Gaps due: Medicare Annual Wellness Visit Patient Contacted: Unable or unnecessary to reach patient: Flipped existing appointment Updated appointment notes Navigation Signature: Leonor [facility] June 21, 2024 10:35 AM documented in this encounter [facility] 06-21-2024 Note Patient Outreach (JIMENEZ TNMAGNUS) YADIRA CANAS ([id number]) 1960 F Date Time Provider Department 06/21/24 LEONOR HORTA During your visit today, we recorded the following information about you: [facility] Navigator[facility] 06/21/2024 10:35 AM Signed POPULATION HEALTH NAVIGATION OUTREACH Action/FYI Updated follow up to include medicare wellness per AWV initiative. Reason for Outreach Care Gap/HCC or Scheduling Wellness Visits Care Gaps due: Medicare Annual Wellness Visit Patient Contacted: Unable or unnecessary to reach patient: Flipped existing appointment Updated appointment notes Navigation Signature: Leonor Horta Population Health Navigator June 21, 2024 10:35 AM Allergies As of Date: 06/21/2024 Noted Allergy Reaction SULFA (SULFONAMIDE ANTIBIOTICS) 05/27/2010 4 - Hives TETRACYCLINE 05/27/2010 11 - Vomiting FLAGYL (METRONIDAZOLE) 03/14/2019 8 - GI Upset SERTRALINE 11/12/2021 8 - GI Upset Date Reviewed: 06/12/2024 Reviewed by: Rossi Wall MA - Fully Assessed Reason for Visit: Population Health Navigation Outreach [3910] Cmt: [facility] AWV Initiative Prescriptions as of 06/21/2024 - QUEtiapine (SEROQUEL) 25 mg tablet Take 1 tablet by mouth daily at bedtime. - buPROPion XL (WELLBUTRIN XL) 150 mg 24 hr tablet Take 1 tablet by mouth once daily. Take in PM - atorvastatin (LIPITOR) 20 mg tablet Take 1 tablet by mouth daily at bedtime. For cholesterol. - gabapentin (NEURONTIN) 400 mg capsule Take 1 capsule by mouth two times a day for 180 days. - buPROPion XL (WELLBUTRIN XL) 300 mg 24 hr tablet Take 1 tablet by mouth once daily. Take in AM - diclofenac, EC, (VOLTAREN) 75 mg EC tablet TAKE 1 TABLET BY MOUTH WITH FOOD TWICE DAILY for pain and inflamation - amitriptyline (ELAVIL) 100 mg tablet Take 1 tablet by mouth daily at bedtime. - loratadine (CLARITIN) 10 mg tablet Take 1 tablet by mouth once daily. - acetaminophen (TYLENOL) 500 mg tablet Take 500 mg by mouth every 6 hours as needed. FOR PAIN - mv,Ca,min-folic acid-vit K1 (ONE-A-DAY WOMEN'S 50 PLUS) 400-20 mcg tab Take 1 tablet by mouth once daily. - PSEUDOEPHEDRINE HCL (SUDAFED ORAL) Take by mouth. Problem List As Of Date 06/21/2024 Noted Resolved Depression [F32.A] 05/27/2010 Seasonal allergies [J30.2] 05/27/2010 Back pain [M54.9] 05/27/2010 Insomnia [G47.00] 01/04/2015 Generalized osteoarthritis [M15.9] 03/02/2019 Allergic rhinitis [J30.9] Encounter Status:Closed by [facility] on 06/21/24 [facility] 06-12-2024 Telephone encounter Note Seen in office Jason Clemons MD [facility] 06-12-2024 Miscellaneous Notes Seen in office Jason Clemons MD Patient calling to say she feels she is having side effect of hallucinations from Olanzapine. Asking to discuss alternatives with PCP. While scheduling patient, noticed that she was in the ER on 06/10/24 requesting mental health evaluation. Scheduled same day appointment with PCP. Lois Douglas, RN Pt has consult to psych, please advise documented in this encounter [facility] 06-12-2024 Instructions Rossi Wall MA - 06/12/2024 5:50 PM EST Please call the [facility] to get an appointment with them to manage your psych medications. [facility] Address: [address], [place] [address] Start Seroquel 25 mg daily at bedtime. This was sent to [facility]. Stop Zyprexa. documented in this encounter [facility] 06-12-2024 History of Present illness Narrative Chief Complaint Patient presents with: Medication Follow-up HPI Yadira Canas is a 63 year old female who presents here today for medication follow up. Pt seen at [facility] ED on 06/10/24 for hearing things in her apartment complex and wanting a mental evaluation. Psych: Is on Wellbutrin 300 mg daily in AM and 150 mg daily at night, Amitriptyline 100 mg daily at bedtime, and Zyprexa 2.5 mg daily. She stated prior to adding Zyprexa she was hallucinating, hearing people in the hallway of her apt complex that were not there. Referred to Psychiatry from the ER. She feels that the Zyprexa made her loopy so she stopped taking it. This hallucinations and voices are different than it was when she was admitted to the [facility]. She is still hearing voices but not as much as before. She feels like she is sleeping better. She is willing to go to the counseling center for psychiatric treatment. [facility] ED records: Narrative: Patient is a 63-year-old female past medical history of anxiety, depression who presents to the emergency department with a chief complaint of needing a mental health evaluation. According to the patient and she states that she has been having issues with her neighbors and they think that she is crazy. They claim that she is hearing things in the [place] which she states that she has but states that she is hearing the events in the wall and notes that this is normal. Patient states that she had been hospitalized in the past for anxiety but deniesany history of schizophrenia, paranoia. Patient denies any suicidal or homicidal ideation. Medical decision making narrative: Patient is a 63-year-old female who presented to the emerged part with a chief complaint of needing a mental health evaluation. Patient will have a workup performed here on the differential diagnose includes Melamin to anxiety, depression, schizophrenia, paranoia, UTI. Once workup is obtained she will be reevaluated. Patient CBC reviewed and was largely unremarkable no evidence leukocytosis white blood count normal at 10.1, hemoglobin stable 14.3, platelet count normal at 308. Patient sodium normal at 140, potassium normal at 3.7, creatinine normal at 0.99. Patient's urinalysis was reviewed and showed 500 leukocyte esterase greater than 100 white cells however there are 10-25 squamous epithelial cells indicating a contaminated sample with no bacteria seen and this will be sent forculture. Patient's drug screen was positive for MDMA rest of her test was negative. Patient's alcohol level less than 3. Patient was evaluated by social work team here in the emergency department and the patient was referred to counseling services and was help with getting transportation to the services and other resources. Once again the patient is not suicidal homicidal is acting appropriate here in the emergency department. Patient was encouraged to return with worsening symptoms or any concerns. She is advised to follow-up with her primary care physician as well. She is agreeable this plan she would like to go all question concerns answered she was discharged home in stable condition. Past medical history, appointments, medications, allergies reviewed. Previous Medical History PAST MEDICAL HISTORY Diagnosis Date Allergic rhinitis Back pain Depression Previous Surgical History PAST SURGICAL HISTORY Procedure Laterality Date COLONOSCOPY FLX DX W/COLLJ SPEC WHEN PFRMD 11/01/13 Colonoscopy LIG/TRNSXJ FLP TUBE ABDL/VAG APPR UNI/BI 1989 Tubal ligation NEUROPLASTY &/TRANSPOS MEDIAN NRV CARPAL TUNNE 1980s Carpal tunnel decomp bilaterally PAST SURGICAL HISTORY OF 2013 dental extractions Family History FAMILY HISTORY Problem Relation Age of Onset Diabetes Mother Arthritis Mother Stroke Mother Patient Allergies ALLERGIES Allergen Reactions Sulfa (Sulfonamide * Hives Tetracycline Vomiting Flagyl [Metronidazo* GI Upset Sertraline GI Upset Current Medications Current Outpatient Medications on File Prior to Visit Medication Sig OLANZapine (ZYPREXA) 2.5 mg tablet Take 1 tablet by mouth daily at bedtime. buPROPion XL (WELLBUTRIN XL) 150 mg 24 hr tablet Take 1 tablet by mouth once daily. Take in PM atorvastatin (LIPITOR) 20 mg tablet Take 1 tablet by mouth daily at bedtime. For cholesterol. gabapentin (NEURONTIN) 400 mg capsule Take 1 capsule by mouth two times a day for 180 days. buPROPion XL (WELLBUTRIN XL) 300 mg 24 hr tablet Take 1 tablet by mouth once daily. Take in AM diclofenac, EC, (VOLTAREN) 75 mg EC tablet TAKE 1 TABLET BY MOUTH WITH FOOD TWICE DAILY for pain and inflamation amitriptyline (ELAVIL) 100 mg tablet Take 1 tablet by mouth daily at bedtime. loratadine (CLARITIN) 10 mg tablet Take 1 tablet by mouth once daily. acetaminophen (TYLENOL) 500 mg tablet Take 500 mg by mouth every 6 hours as needed. FOR PAIN mv,Ca,min-folic acid-vit K1 (ONE-A-DAY WOMEN'S 50 PLUS) 400-20 mcg tab Take 1 tablet by mouth once daily. PSEUDOEPHEDRINE HCL (SUDAFED ORAL) Take by mouth. No current facility-administered medications on file prior to visit. Social History Social History Tobacco Use Smoking status: Former Current packs/day: 0.00 Average packs/day: 0.5 packs/day for 5.0 years (2.5 ttl pk-yrs) Types: Cigarettes Start date: 05/02/2011 Quit date: 05/02/2016 Years since quittin.1 Smokeless tobacco: Never Vaping Use Vaping status: Never Used Substance Use Topics Alcohol use: No Drug use: No EXAM: BP 120/72 Pulse 88 Resp 16 Wt 90.2 kg (198 lb 13.7 oz) BMI 33.09 kg/m General Appearance: Well appearing, alert, in no acute distress, well-hydrated, well nourished.. Lungs: Lungs clear to auscultation. No wheezing, rhonchi, rales.. Heart: RRR without murmur, gallop, or rubs. No ectopy. Health Maintenance List DTaP,Tdap,Td Vaccine(1 - Tdap) Never done Mammogram Screening due on 02/04/2022 Cervical Cancer Screening due on 03/14/2025 HIV Screening due on 03/14/2025 Covid-19 Vaccine( season) due on 05/18/2025 Anxiety Screening due on 05/18/2025 Diabetes Screening due on 11/07/2026 Lipid Screening due on 11/07/2028 Colorectal Cancer Screening due on 03/07/2029 RSV Vaccine(1 - 1-dose 75+ series) due on 10/06/2035 Influenza Vaccine Completed Hepatitis C Screening Completed Shingrix Vaccine Completed Data reviewed none ASSESSMENT/PLAN: 1. Auditory hallucinations - ICD9: 780.1, ICD10: R44.0 (primary diagnosis) Refer to Counseling Center - QUETIAPINE 25 MG TABLET 2. Depression, unspecified depression type - ICD9: 311, ICD10: F32.A Continue current medications. 3. Low back pain with sciatica, sciatica laterality unspecified, unspecified back pain laterality, unspecified chronicity - ICD9: 724.3, ICD10: M54.40 Symptomatic treatment Follow up prn I agree with the Chief Complaint, ROS, and Past Histories independently gathered by the clinical learning support specialist and the remaining scribed note accurately describes my personal service to the patient. Medical Decision Making: Problems: Moderate: 1+ chronic illnesses with change Risk: Moderate: Drug management Medical Decision Making Level: 4 - Moderate Jason Clemons MD The documentation for this note was completed by Rossi Wall MA acting as scribe for Jason Clemons MD. June 12, 2024 5:53 PM. Rossi Wall MA documented in this encounter [facility] 06-12-2024 Note HNO ID: [id number] Author: JASON CLEMONS MD Service: ? Author Type: Physician Type: Progress Notes Filed: 06/12/2024 17:58 Note Text: Chief Complaint Patient presents with: Medication Follow-up HPI Yadira Canas is a 63 year old female who presents here today for medication follow up. Pt seen at [facility] ED on 06/10/24 for hearing things in her apartment complex and wanting a mental evaluation. Psych: Is on Wellbutrin 300 mg daily in AM and 150 mg daily at night, Amitriptyline 100 mg daily at bedtime, and Zyprexa 2.5 mg daily. She stated prior to adding Zyprexa she was hallucinating, hearing people in the hallway of her apt complex that were not there. Referred to Psychiatry from the ER. She feels that the Zyprexa made her loopy so she stopped taking it. This hallucinations and voices are different than it was when she was admitted to the [facility]. She is still hearing voices but not as much as before. She feels like she is sleeping better. She is willing to go to the counseling center for psychiatric treatment. [facility] ED records: Narrative: Patient is a 63-year-old female past medical history of anxiety, depression who presents to the emergency department with a chief complaint of needing a mental health evaluation. According to the patient and she states that she has been having issues with her neighbors and they think that she is crazy. They claim that she is hearing things in the [place] which she states that she has but states that she is hearing the events in the wall and notes that this is normal. Patient states that she had been hospitalized in the past for anxiety but deniesany history of schizophrenia, paranoia. Patient denies any suicidal or homicidal ideation. Medical decision making narrative: Patient is a 63-year-old female who presented to the emerged part with a chief complaint of needing a mental health evaluation. Patient will have a workup performed here on the differential diagnose includes Melamin to anxiety, depression, schizophrenia, paranoia, UTI. Once workup is obtained she will be reevaluated. Patient CBC reviewed and was largely unremarkable no evidence leukocytosis white blood count normal at 10.1, hemoglobin stable 14.3, platelet count normal at 308. Patient sodium normal at 140, potassium normal at 3.7, creatinine normal at 0.99. Patient's urinalysis was reviewed and showed 500 leukocyte esterase greater than 100 white cells however there are 10-25 squamous epithelial cells indicating a contaminated sample with no bacteria seen and this will be sent forculture. Patient's drug screen was positive for MDMA rest of her test was negative. Patient's alcohol level less than 3. Patient was evaluated by social work team here in the emergency department and the patient was referred to counseling services and was help with getting transportation to the services and other resources. Once again the patient is not suicidal homicidal is acting appropriate here in the emergency department. Patient was encouraged to return with worsening symptoms or any concerns. She is advised to follow-up with her primary care physician as well. She is agreeable this plan she would like to go all question concerns answered she was discharged home in stable condition. Past medical history, appointments, medications, allergies reviewed. Previous Medical History PAST MEDICAL HISTORY Diagnosis Date Allergic rhinitis Back pain Depression Previous Surgical History PAST SURGICAL HISTORY Procedure Laterality Date COLONOSCOPY FLX DX W/COLLJ SPEC WHEN PFRMD 11/01/13 Colonoscopy LIG/TRNSXJ FLP TUBE ABDL/VAG APPR UNI/BI 1989 Tubal ligation NEUROPLASTY AND/TRANSPOS MEDIAN NRV CARPAL TUNNE 1980s Carpal tunnel decomp bilaterally PAST SURGICAL HISTORY OF 2013 dental extractions Family History FAMILY HISTORY Problem Relation Age of Onset Diabetes Mother Arthritis Mother Stroke Mother Patient Allergies ALLERGIES Allergen Reactions Sulfa (Sulfonamide * Hives Tetracycline Vomiting Flagyl [Metronidazo* GI Upset Sertraline GI Upset Current Medications Current Outpatient Medications on File Prior to Visit Medication Sig OLANZapine (ZYPREXA) 2.5 mg tablet Take 1 tablet by mouth daily at bedtime. buPROPion XL (WELLBUTRIN XL) 150 mg 24 hr tablet Take 1 tablet by mouth once daily. Take in PM atorvastatin (LIPITOR) 20 mg tablet Take 1 tablet by mouth daily at bedtime. For cholesterol. gabapentin (NEURONTIN) 400 mg capsule Take 1 capsule by mouth two times a day for 180 days. buPROPion XL (WELLBUTRIN XL) 300 mg 24 hr tablet Take 1 tablet by mouth once daily. Take in AM diclofenac, EC, (VOLTAREN) 75 mg EC tablet TAKE 1 TABLET BY MOUTH WITH FOOD TWICE DAILY for pain and inflamation amitriptyline (ELAVIL) 100 mg tablet Take 1 tablet by mouth daily at bedtime. loratadine (CLARITIN) 10 mg tablet Take 1 tablet by mouth once daily. acetaminop (more content not included)... [facility] 06-12-2024 Telephone encounter Note Patient calling to say she feels she is having side effect of hallucinations from Olanzapine. Asking to discuss alternatives with PCP. While scheduling patient, noticed that she was in the ER on 06/10/24 requesting mental health evaluation. Scheduled same day appointment with PCP. Lois Douglas RN [facility] 06-06-2024 Telephone encounter Note Pt has consult to psych, please advise [facility] 06-05-2024 Telephone encounter Note Pt notified. Transferred to [facility] to set up psych appt. Rossi Wall MA [facility] 06-05-2024 Miscellaneous Notes Pt notified. Transferred to [facility] to set up psych appt. Rossi Wall MA I would suggest two things: 1) Add Zyprexa 2.5 mg daily to her Wellbutrin that she is on, and 2) Psychiatry consult; she may see if [facility] has available Psychiatrist Jason Clemons MD Yadira is calling Jason Clemons MD today with concern regarding her Anti depressant medication. She stated about 2 weeks ago she starting hearing people talking in her hallway of her apartment building and no one is there. Has had it where she heard someone yelling for help in the [place] and called the police and they said no one was there. She is asking about either going up on the dose or down on her Antidepressant medication. She has never experienced anything like this before and is not sure what to do. Patient has been identified by name and birthdate. Duration of symptoms: 2 weeks Person calling: self Call patient at: at home [phone] (home) [phone] (cell) Was an appointment scheduled: No Closing statement: Symptom Call: Thank you for calling [facility], your call is very important. A nurse will call in approximately 2-4 hours during business hours. If this is an emergency, please contact 911. Teresa Hankins documented in this encounter [facility] 06-05-2024 Telephone encounter Note I would suggest two things: 1) Add Zyprexa 2.5 mg daily to her Wellbutrin that she is on, and 2) Psychiatry consult; she may see if [facility] has available Psychiatrist Jason Clemons MD [facility] 06-05-2024 Telephone encounter Note Yadira is calling Jason Clemons MD today with concern regarding her Anti depressant medication. She stated about 2 weeks ago she starting hearing people talking in her hallway of her apartment building and no one is there. Has had it where she heard someone yelling for help in the [place] and called the police and they said no one was there. She is asking about either going up on the dose or down on her Antidepressant medication. She has never experienced anything like this before and is not sure what to do. Patient has been identified by name and birthdate. Duration of symptoms: 2 weeks Person calling: self Call patient at: at home [phone] (home) [phone] (cell) Was an appointment scheduled: No Closing statement: Symptom Call: Thank you for calling [facility], your call is very important. A nurse will call in approximately 2-4 hours during business hours. If this is an emergency, please contact 911. Teresa Hankins [facility] 05-18-2024 History of Present illness Narrative Chief Complaint Patient presents with: Hospital Follow Up HPI Yadira Canas is a 63 year old female who presents here today for Hospital Discharge Follow up. Almost forgot about her appt today, her Transportation called and reminded her. Pt admitted to [facility] on 04/19/24 for Mental Health concerns, was evaluated and was safe to discharge home. Given Counseling Center information to contact them. She then returned back to the [facility] ER on 04/20/24 for same issues and was admitted, pink slipped and transferred to Mental Health Facility, [facility] on the [place]. Pt at this time is unsure when she got d/c from the Facility. Pt today reports that she is feeling much better than she was prior to going to ED. Pt today reports she feels happy, healthy and is walking more. Very happy with where she is now at present time. Pt states she doesn't really remember a lot of the events that occurred, which she is okay with, she doesn't want to remember. Was given the [facility] information to setup a follow up visit. Pt asking to not have to go due to having to find Transportation and she doesn't want to go talk to someone or remember what occurred. Pt unable to recall how long she was experiencing symptoms prior to going to ED but doesn't feel it was very long. Notes that she does have increased stress with her Brother and Daughter, they try to control her. She is unsure if this is a potential reason this occurred. Pt admits that she doesn't really remember her trips to the [facility] ED. She vaguely remembers being taken in the Ambulance to [facility]. Pt was d/c home with Zyprexa 2.5 mg once daily and Seroquel 25 mg once daily. States she took this for a couple of days and feels these made her loopy and confused on where she was. She was not able to function while taking thses so she stopped thism After d/c medications this resolved. Pt had lab work, urine screening, Covid test and Urine Tox screen. Pt's UDS showed + for MDMA. Below copied from Care Everywhere: 04/19/24 HPI - Psych History of Present Illness Chief Complaint: Mental Health Informant: patient Narrative Narrative: Patient is a 63 year old female with history of depression, anxiety and OA presenting with worsening depression and auditory hallucinations. Patient states that she has been hearing a growling sound in her ears. She denies any HI/SI. Patient is concerned that she has upper antidepressants. Her psychiatric medications are managed by her PCP, Dr. Lico Pretty. Patient currently is on bupropion XL 300 mg in the morning as well as 150 mg in the evening. She also takes amitriptyline 100 mg every night. She denies any physical complaints. She does states she has been a bit more fatigued lately. States that she is compliant with her medications. No other complaints or concerns at this time. Medical decision making narrative: Patient is evaluated for worsening depression and a new auditory hallucination. Patient overall is quite well-appearing. She is insightful about what is going on. She did bring in her medications so we could check them. She states that she has been compliant with her meds. She denies any HI or SI. At this time I do not think patient is a risk to herself or others or needs emergent psychiatric evaluation. Protocol psychiatric orders are placed which are largely normal. I did discuss the case with Dr. Zabala, PCP on-call for her office. He reviewedthe patient's chart and medications. He confirmed that patient is taking all the medications that we discussed in the ER. We will start the patient on Zyprexa 2.5 mg daily for this new auditory elucidation and she will follow-up inthe office on Wednesday at 10 AM with her PCP. I will provide this prescription. Patient is quite agreeable with this plan. Patient is also givenoutpatient referral information for the counseling center. Given return precautions. Patient discharged home in stable condition. 04/20/24 MDM Narrative: Patient was initially hemodynamically stable, afebrile and nontoxic-appearing. Exam without obvious trauma. No focus of infection. No focal cardiopulmonary abnormalities. Given the patient's change in mental status from yesterday I obtained a broad lab and imaging workup including a CT scan of the head as well as labs to rule out signs of electrolyte abnormalities, dehydration, infectious etiologies. Patient's pulse ox while was not in the hypoxic range was in the low end of normal so I obtained an x-ray and COVID swab as well as an EKG to further assess. I considered the following differential diagnosis: ICH, electrolyte disturbance,metabolic abnormality, infection, intoxication, decompensated psychiatric illness HM - Agreeable to Flu vaccine today, prefers to hold off on Covid vaccine at this time. Past medical history, appointments, medications, allergies reviewed. Previous Medical History PAST MEDICAL HISTORY Diagnosis Date Allergic rhinitis Back pain Depression Previous Surgical History PAST SURGICAL HISTORY Procedure Laterality Date COLONOSCOPY FLX DX W/COLLJ SPEC WHEN PFRMD 11/01/13 Colonoscopy LIG/TRNSXJ FLP TUBE ABDL/VAG APPR UNI/BI 1989 Tubal ligation NEUROPLASTY &/TRANSPOS MEDIAN NRV CARPAL TUNNE 1980s Carpal tunnel decomp bilaterally PAST SURGICAL HISTORY OF 2013 dental extractions Family History FAMILY HISTORY Problem Relation Age of Onset Diabetes Mother Arthritis Mother Stroke Mother Patient Allergies ALLERGIES Allergen Reactions Sulfa (Sulfonamide * Hives Tetracycline Vomiting Flagyl [Metronidazo* GI Upset Sertraline GI Upset Current Medications Current Outpatient Medications on File Prior to Visit Medication Sig buPROPion XL (WELLBUTRIN XL) 150 mg 24 hr tablet Take 1 tablet by mouth once daily. Take in PM atorvastatin (LIPITOR) 20 mg tablet Take 1 tablet by mouth daily at bedtime. For cholesterol. gabapentin (NEURONTIN) 400 mg capsule Take 1 capsule by mouth two times a day for 180 days. buPROPion XL (WELLBUTRIN XL) 300 mg 24 hr tablet Take 1 tablet by mouth once daily. Take in AM diclofenac, EC, (VOLTAREN) 75 mg EC tablet TAKE 1 TABLET BY MOUTH WITH FOOD TWICE DAILY for pain and inflamation amitriptyline (ELAVIL) 100 mg tablet Take 1 tablet by mouth daily at bedtime. loratadine (CLARITIN) 10 mg tablet Take 1 tablet by mouth once daily. acetaminophen (TYLENOL) 500 mg tablet Take 500 mg by mouth every 6 hours as needed. FOR PAIN mv,Ca,min-folic acid-vit K1 (ONE-A-DAY WOMEN'S 50 PLUS) 400-20 mcg tab Take 1 tablet by mouth once daily. PSEUDOEPHEDRINE HCL (SUDAFED ORAL) Take by mouth. No current facility-administered medications on file prior to visit. Social History Social History Tobacco Use Smoking status: Former Current packs/day: 0.00 Average packs/day: 0.5 packs/day for 5.0 years (2.5 ttl pk-yrs) Types: Cigarettes Start date: 05/02/2011 Quit date: 05/02/2016 Years since quittin.0 Smokeless tobacco: Never Vaping Use Vaping status: Never Used Substance Use Topics Alcohol use: No Drug use: No EXAM: BP 142/70 Pulse 84 Resp 18 Wt 92.9 kg (204 lb 12.9 oz) BMI 34.08 kg/m General Appearance: Well appearing, alert, in no acute distress, well-hydrated, well nourished. and Obese. Lungs: Lungs clear to auscultation. No wheezing, rhonchi, rales.. Heart: RRR without murmur, gallop, or rubs. No ectopy. Health Maintenance List Anxiety Screening Never done DTaP,Tdap,Td Vaccine(1 - Tdap) Never done Mammogram Screening due on 02/04/2022 Influenza Vaccine(1) due on 04/02/2024 Covid-19 Vaccine( season) due on 04/02/2024 Cervical Cancer Screening due on 03/14/2025 HIV Screening due on 03/14/2025 Diabetes Screening due on 11/07/2026 Lipid Screening due on 11/07/2028 Colorectal Cancer Screening due on 03/07/2029 RSV Vaccine(1 - 1-dose 75+ series) due on 10/06/2035 Hepatitis C Screening Completed Shingrix Vaccine Completed Data reviewed Care Everywhere (Unable to view Mental Health Facility records via care everywhere) ASSESSMENT/PLAN: 1. Hospital discharge follow-up - ICD9: V67.59, ICD10: Z09 (primary diagnosis) - Stable today - Continue current medication regimen. 2. Mental health disorder - ICD9: 300.9, ICD10: F99 - Continue current medication regimen. Stay off antipsychotics for now due to side effects - Discussed seeing Psych, pt declining today. - will monitor closely. 3. Depression, unspecified depression type - ICD9: 311, ICD10: F32.A - Continue current medication regimen. - As noted above 4. Auditory hallucinations - ICD9: 780.1, ICD10: R44.0 - Continue current medication regimen. - resolved - Cont to monitor 5. ROBERT (generalized anxiety disorder) - ICD9: 300.02, ICD10: F41.1 - Continue current medication regimen. 6. Elevated BP without diagnosis of hypertension - ICD9: 796.2, ICD10: R03.0 - Follow up in July for recheck 7. Encounter for screening examination for other mental health and behavioral disorders - ICD9: V79.8, ICD10: Z13.39 - Continue current medication regimen. - ANXIETY SCREENING 8. Encounter for immunization - ICD9: V03.89, ICD10: Z23 - INFLUENZA VACCINE, AGE 6MO-64YR, TRIVALENT (AFLURIA, FLULAVAL, FLUVIRIN, FLUZONE) - Receive in office today. Follow up in July. Due for labs in Sep. I agree with the Chief Complaint, ROS, and Past Histories independently gathered by the clinical learning support specialist and the remaining scribed note accurately describes my personal service to the patient. Medical Decision Making: Problems: Moderate: 1+ chronic illnesses with change Data: Unique source(s) for external note(s) reviewed: 1 Risk: Moderate: Drug management Medical Decision Making Level: 4 - Moderate Jason Clemons MD The documentation for this note was completed by Jolynn Brock MA acting as scribe for Jason Clemons MD. May 18, 2024 2:47 PM. Jolynn Brock MA documented in this encounter [facility] 05-18-2024 Note HNO ID: [id number] Author: JASON CLEMONS MD Service: ? Author Type: Physician Type: Progress Notes Filed: 05/18/2024 16:12 Note Text: Chief Complaint Patient presents with: Hospital Follow Up HPI Yadira Canas is a 63 year old female who presents here today for Hospital Discharge Follow up. Almost forgot about her appt today, her Transportation called and reminded her. Pt admitted to [facility] on 04/19/24 for Mental Health concerns, was evaluated and was safe to discharge home. Given Counseling Center information to contact them. She then returned back to the [facility] ER on 04/20/24 for same issues and was admitted, pink slipped and transferred to [facility], [facility] [address]. Pt at this time is unsure when she got d/c from the Facility. Pt today reports that she is feeling much better than she was prior to going to ED. Pt today reports she feels happy, healthy and is walking more. Very happy with where she is now at present time. Pt states she doesn't really remember a lot of the events that occurred, which she is okay with, she doesn't want to remember. Was given the Counseling Centers information to setup a follow up visit. Pt asking to not have to go due to having to find Transportation and she doesn't want to go talk to someone or remember what occurred. Pt unable to recall how long she was experiencing symptoms prior to going to ED but doesn't feel it was very long. Notes that she does have increased stress with her Brother and Daughter, they try to control her. She is unsure if this is a potential reason this occurred. Pt admits that she doesn't really remember her trips to the [facility] ED. She vaguely remembers being taken in the Ambulance to [place]. Pt was d/c home with Zyprexa 2.5 mg once daily and Seroquel 25 mg once daily. States she took this for a couple of days and feels these made her loopy and confused on where she was. She was not able to function while taking thses so she stopped thism After d/c medications this resolved. Pt had lab work, urine screening, Covid test and Urine Tox screen. Pt's UDS showed + for MDMA. Below copied from Care Everywhere: 04/19/24 HPI - Psych History of Present Illness Chief Complaint: Mental Health Informant: patient Narrative Narrative: Patient is a 63 year old female with history of depression, anxiety and OA presenting with worsening depression and auditory hallucinations. Patient states that she has been hearing a growling sound in her ears. She denies any HI/SI. Patient is concerned that she has upper antidepressants. Her psychiatric medications are managed by her PCP, Dr. Lico Pretty. Patient currently is on bupropion XL 300 mg in the morning as well as 150 mg in the evening. She also takes amitriptyline 100 mg every night. She denies any physical complaints. She does states she has been a bit more fatigued lately. States that she is compliant with her medications. No other complaints or concerns at this time. Medical decision making narrative: Patient is evaluated for worsening depression and a new auditory hallucination. Patient overall is quite well-appearing. She is insightful about what is going on. She did bring in her medications so we could check them. She states that she has been compliant with her meds. She denies any HI or SI. At this time I do not think patient is a risk to herself or others or needs emergent psychiatric evaluation. Protocol psychiatric orders are placed which are largely normal. I did discuss the case with Dr. Zabala, PCP on-call for her office. He reviewedthe patient's chart and medications. He confirmed that patient is taking all the medications that we discussed in the ER. We will start the patient on Zyprexa 2.5 mg daily for this new auditory elucidation and she will follow-up inthe office on Wednesday at 10 AM with her PCP. I will provide this prescription. Patient is quite agreeable with this plan. Patient is also givenoutpatient referral information for the counseling center. Given return precautions. Patient discharged home in stable condition. 04/20/24 MDM Narrative: Patient was initially hemodynamically stable, afebrile and nontoxic-appearing. Exam without obvious trauma. No focus of infection. No focal cardiopulmonary abnormalities. Given the patient's change in mental status from yesterday I obtained a broad lab and imaging workup including a CT scan of the head as well as labs to rule out signs of electrolyte abnormalities, dehydration, infectious etiologies. Patient's pulse ox while was not in the hypoxic range was in the low end of normal so I obtained an x-ray and COVID swab as well as an EKG to further assess. I considered the following differential diagnosis: ICH, electrolyte disturbance,metabolic abnormality, infection, intoxication, decompensated psychiatric illness HM - Agreeable to Flu vaccine today, prefers to hold off on Covid vaccine a (more content not included)... [facility] 04-25-2024 Telephone encounter Note Pt was recently admitted to [facility]. Rossi Wall MA [facility] 04-25-2024 Miscellaneous Notes Pt was recently admitted to [facility]. Rossi Wall MA Called pt, line rings, VM picks up with pt stating her name, then static and disconnects. Will try again later. Rossi Wall MA [facility] is not accepting new patients at this time due to patient over load and only being in [place]by one day a week. Staff please have patient call to schedule with psych at [facility] [phone] Or [facility] [phone] Raissa Freeman MA Routed to [facility] Patient scheduled. Please assist patient with scheduling with [facility]. Saray Price MA DOC received call from [facility]. Patient presented with c/o of increased auditory hallucinations (growling sounds). Patient brought in bottle of Elavil and her Wellbutrin XL 300 mg a day. Chart says she should also be on Wellbutrin XL 150 mg as well for a total of 450 mg a day. Per ER provider it does not seem like patient needs an acute psych admission. Will have her place patient on zyprexia 2.5 mg a day if she is taking both doses of Wellbutrin and f/u with PCP on 04/28/2024 at 10:00 AM. If she is not on both doses she will be instructed to do so and keep the f/u appt. [facility] (Please schedule patient with Dr. Clemons for hospital f/u on 04/28/2024 at 10:00 Am for 40 min) documented in this encounter [facility] 04-24-2024 Telephone encounter Note Okalexandr noted. Thank you for cancelling the 300 mg order. Quinton Ramirez APRN.CNP [facility] 04-24-2024 Miscellaneous Notes Okalexandr noted. Thank you for cancelling the 300 mg order. Quinton Ramirez APRN.CNP [facility] pharmacist calls as patient is currently there for treatment and they are needing to verify gabapentin and amitriptyline orders. Verified current orders on file with gabapentin 400 mg by mouth two times daily and amitriptyline 10 mg at bedtime. Pharmacist viewed oars report and recommended that [facility] be contacted as patient has been filling a prescription for both gabapentin 300 mg and 400 mg. Called and spoke to Angelika with [facility]. Cancelled further refills on gabapentin 300 mg prescription as current order should be 400 mg. Lorena Cedeno RN documented in this encounter [facility] 04-21-2024 Telephone encounter Note [facility] pharmacist calls as patient is currently there for treatment and they are needing to verify gabapentin and amitriptyline orders. Verified current orders on file with gabapentin 400 mg by mouth two times daily and amitriptyline 10 mg at bedtime. Pharmacist viewed oars report and recommended that [facility] be contacted as patient has been filling a prescription for both gabapentin 300 mg and 400 mg. Called and spoke to Angelika with [facility]. Cancelled further refills on gabapentin 300 mg prescription as current order should be 400 mg. Lorena Cedeno RN [facility] 04-20-2024 Telephone encounter Note Called pt, line rings, VM picks up with pt stating her name, then static and disconnects. Will try again later. Rossi Wall MA [facility] 04-20-2024 Telephone encounter Note [facility] is not accepting new patients at this time due to patient over load and only being in [place] one day a week. Staff please have patient call to schedule with psych at [facility] [phone] Or [facility] [phone] Raissa Freeman MA [facility] 04-20-2024 Telephone encounter Note Routed to [facility] Work Phone: 04-19-2024 Telephone encounter Note Patient scheduled. Please assist patient with scheduling with [facility]. Saray Price MA [facility] 04-19-2024 Telephone encounter Note DOC received call from [facility]. Patient presented with c/o of increased auditory hallucinations (growling sounds). Patient brought in bottle of Elavil and her Wellbutrin XL 300 mg a day. Chart says she should also be on Wellbutrin XL 150 mg as well for a total of 450 mg a day. Per ER provider it does not seem like patient needs an acute psych admission. Will have her place patient on zyprexia 2.5 mg a day if she is taking both doses of Wellbutrin and f/u with PCP on 04/28/2024 at 10:00 AM. If she is not on both doses she will be instructed to do so and keep the f/u appt. Patient may need to see [facility] in Psych here at [facility]. (Please schedule patient with Dr. Clemons for hospital f/u on 04/28/2024 at 10:00 Am for 40 min) [facility] Work Phone: 03-21-2024 Telephone encounter Note OK to refill as ordered Jason Clemons MD [facility] 03-21-2024 Miscellaneous Notes OK to refill as ordered Jason Clemons MD Prescription Refill Information The patient has been identified by name and date of : Yes Caregiver verified no other encounters exist for this prescription request: Yes Caregiver confirmed with patient/requestor that no other refills are due, in the near future, with this provider at this time: Yes The last office visit in the department: 03/14/2024 Does the patient have a future office visit with this provider/department: Yes Requested Prescriptions Pending Prescriptions Disp Refills buPROPion XL (WELLBUTRIN XL) 150 mg 24 hr tablet 30 tablet 11 Sig: Take 1 tablet by mouth once daily. Take in PM Mei Lopez March 21, 2024 1:12 PM documented in this encounter [facility] 03-21-2024 Telephone encounter Note Prescription Refill Information The patient has been identified by name and date of : Yes Caregiver verified no other encounters exist for this prescription request: Yes Caregiver confirmed with patient/requestor that no other refills are due, in the near future, with this provider at this time: Yes The last office visit in the department: 03/14/2024 Does the patient have a future office visit with this provider/department: Yes Requested Prescriptions Pending Prescriptions Disp Refills buPROPion XL (WELLBUTRIN XL) 150 mg 24 hr tablet 30 tablet 11 Sig: Take 1 tablet by mouth once daily. Take in PM Mei Lopez March 21, 2024 1:12 PM [facility] 03-14-2024 History of Present illness Narrative This is a 63 year old female who presents today with: Patient presents with: Follow Up: 3 month follow up HISTORY OF PRESENT ILLNESS: Yadira Canas is a 63 year old female. Patient presents with: Follow Up: 3 month follow up 3 month follow up Chronic low back pain: Using Tylenol, amitriptyline 100 mg, diclofenac 75 mg twice daily, and gabapentin 400 mg twice daily. Pain is stable with medication. Depression: Taking Wellbutrin XL 450 mg daily. Symptoms well controlled. No SI/HI. Lipids: Started on Lipitor 20 mg daily Tolerating medication well. Eating a well balanced diet. Walking daily. Due for repeat labs. Pap: Last completed 2018. Would like to exit screening. Vaccines: Due for Tdap booster at pharmacy. PAST MEDICAL HISTORY: PAST MEDICAL HISTORY No date: Allergic rhinitis No date: Back pain No date: Depression PAST SURGICAL HISTORY 11/01/13: COLONOSCOPY FLX DX W/COLLJ SPEC WHEN PFRMD Comment: Colonoscopy 1989: LIG/TRNSXJ FLP TUBE ABDL/VAG APPR UNI/BI Comment: Tubal ligation 1980s: NEUROPLASTY &/TRANSPOS MEDIAN NRV CARPAL TUNNE Comment: Carpal tunnel decomp bilaterally 2013: PAST SURGICAL HISTORY OF Comment: dental extractions ALLERGIES Sulfa (Sulfonamide Antibiotics), Tetracycline, Flagyl [Metronidazole], and Sertraline MEDICATIONS Current Outpatient Medications Medication Sig atorvastatin (LIPITOR) 20 mg tablet Take 1 tablet by mouth daily at bedtime. For cholesterol. gabapentin (NEURONTIN) 400 mg capsule Take 1 capsule by mouth two times a day for 180 days. buPROPion XL (WELLBUTRIN XL) 300 mg 24 hr tablet Take 1 tablet by mouth once daily. Take in AM diclofenac, EC, (VOLTAREN) 75 mg EC tablet TAKE 1 TABLET BY MOUTH WITH FOOD TWICE DAILY for pain and inflamation amitriptyline (ELAVIL) 100 mg tablet Take 1 tablet by mouth daily at bedtime. loratadine (CLARITIN) 10 mg tablet Take 1 tablet by mouth once daily. buPROPion XL (WELLBUTRIN XL) 150 mg 24 hr tablet Take 1 tablet by mouth once daily. Take in PM acetaminophen (TYLENOL) 500 mg tablet Take 500 mg by mouth every 6 hours as needed. FOR PAIN mv,Ca,min-folic acid-vit K1 (ONE-A-DAY WOMEN'S 50 PLUS) 400-20 mcg tab Take 1 tablet by mouth once daily. PSEUDOEPHEDRINE HCL (SUDAFED ORAL) Take by mouth. No current facility-administered medications for this visit. FAMILY HISTORY Problem Relation Age of Onset Diabetes Mother Arthritis Mother Stroke Mother Social History Tobacco Use Smoking status: Former Packs/day: 0.50 Years: 5.00 Additional pack years: 0.00 Total pack years: 2.50 Types: Cigarettes Quit date: 05/02/2016 Years since quittin.8 Smokeless tobacco: Never Vaping Use Vaping Use: Never used Substance Use Topics Alcohol use: No Drug use: No REVIEW OF SYSTEMS GENERAL: No weight loss, malaise or fevers/chills HEENT: Negative for frequent or significant headaches, No changes in hearing or vision. NECK: Negative for lumps, goiter, pain and significant neck swelling RESPIRATORY: Negative for cough, hemoptysis, wheezing, dyspnea or shortness of breath CARDIOVASCULAR: Negative for chest pain, leg swelling, orthopnea, or palpitations GI: No nausea, vomiting, or diarrhea/constipation. No hematochezia/melena. No heartburn or reflux symptoms. : No history of dysuria, frequency or incontinence MUSCULOSKELETAL: Negative for joint pain or swelling. SKIN: Negative for lesions, rash, and itching ENDOCRINE: Negative for cold or heat intolerance, polyuria, polydipsia and goiter NEURO: No history of headaches, syncope, paralysis, seizures or tremors MOOD: Negative for depression, anxiety, or suicidal ideation. EXAM: BP 160/72 Pulse 89 Resp 16 Wt 92 kg (202 lb 13.2 oz) SpO2 98% BMI 33.75 kg/m BP 150/80 Pulse 89 Resp 16 Wt 92 kg (202 lb 13.2 oz) SpO2 98% BMI 33.75 kg/m PHYSICAL EXAM: General Appearance: Well appearing, alert, in no acute distress, well-hydrated, well nourished. Skin: Skin color, texture, turgor normal, no suspicious rashes or lesions. Head: Normocephalic, no masses, lesions, tenderness or abnormalities. Eyes: Anicteric sclera. Extraocular movements are intact. Lungs: Lungs clear to auscultation. No wheezing, rhonchi, rales. Heart: RRR without murmur, gallop, or rubs. No ectopy. Extremities: No deformities, edema, skin discoloration, clubbing or cyanosis. Good capillary refill. Peripheral Pulses: Normal, Capillary refill <2secs, strong peripheral pulses, Pulses palpable. Neurologic: Gait normal. Sensation grossly intact. ASSESSMENT/PLAN: 1. Elevated blood pressure reading without diagnosis of hypertension - ICD9: 796.2, ICD10: R03.0 (primary diagnosis) - Encouraged dietary sodium restriction/DASH diet - Recommended regular aerobic exercise. - Recommend home blood pressure monitoring, to bring results in on next visit - Follow up in office if at home BP readings stay elevated, difficulty with transportation. - Goal of BP <130/80 2. Low back pain with sciatica, sciatica laterality unspecified, unspecified back pain laterality, unspecified chronicity - ICD9: 724.3, ICD10: M54.40 - Stable, continue to take current medication. 3. Depression, unspecified depression type - ICD9: 311, ICD10: F32.A - Stable, continue to take current medication. 4. Mixed hyperlipidemia - ICD9: 272.2, ICD10: E78.2 - Control undetermined, due for labs - Continue current medications - Counseled on healthy diet and regular exercise - Discussed need for and benefit of weight loss. BMI 33.75 kg/(m^2) 5. Insomnia, unspecified type - ICD9: 780.52, ICD10: G47.00 - Stable, continue to take current medication. Follow-up in 6 months or sooner pending test results. Discussed treatment plan and patient voices understanding. Patient's questions answered appropriately. Medications and potential side effects were discussed and patient voices understanding. Carmina Suazo APRN.TAZ This note was partially generated using Contour voice recognition system. Note was reviewed for accuracy. There may be minor misspellings or grammar miscues with Contour voice recognition. documented in this encounter [facility] 03-14-2024 Note HNO ID: [id number] Author: CARMINA SUAZO APRN.CNP Service: ? Author Type: Nurse Practitioner Type: Progress Notes Filed: 03/14/2024 17:28 Note Text: This is a 63 year old female who presents today with: Patient presents with: Follow Up: 3 month follow up HISTORY OF PRESENT ILLNESS: Yadira Canas is a 63 year old female. Patient presents with: Follow Up: 3 month follow up 3 month follow up Chronic low back pain: Using Tylenol, amitriptyline 100 mg, diclofenac 75 mg twice daily, and gabapentin 400 mg twice daily. Pain is stable with medication. Depression: Taking Wellbutrin XL 450 mg daily. Symptoms well controlled. No SI/HI. Lipids: Started on Lipitor 20 mg daily Tolerating medication well. Eating a well balanced diet. Walking daily. Due for repeat labs. Pap: Last completed 2018. Would like to exit screening. Vaccines: Due for Tdap booster at pharmacy. PAST MEDICAL HISTORY: PAST MEDICAL HISTORY No date: Allergic rhinitis No date: Back pain No date: Depression PAST SURGICAL HISTORY 11/01/13: COLONOSCOPY FLX DX W/COLLJ SPEC WHEN PFRMD Comment: Colonoscopy 1989: LIG/TRNSXJ FLP TUBE ABDL/VAG APPR UNI/BI Comment: Tubal ligation 1980s: NEUROPLASTY AND/TRANSPOS MEDIAN NRV CARPAL TUNNE Comment: Carpal tunnel decomp bilaterally 2013: PAST SURGICAL HISTORY OF Comment: dental extractions ALLERGIES Sulfa (Sulfonamide Antibiotics), Tetracycline, Flagyl [Metronidazole], and Sertraline MEDICATIONS Current Outpatient Medications Medication Sig atorvastatin (LIPITOR) 20 mg tablet Take 1 tablet by mouth daily at bedtime. For cholesterol. gabapentin (NEURONTIN) 400 mg capsule Take 1 capsule by mouth two times a day for 180 days. buPROPion XL (WELLBUTRIN XL) 300 mg 24 hr tablet Take 1 tablet by mouth once daily. Take in AM diclofenac, EC, (VOLTAREN) 75 mg EC tablet TAKE 1 TABLET BY MOUTH WITH FOOD TWICE DAILY for pain and inflamation amitriptyline (ELAVIL) 100 mg tablet Take 1 tablet by mouth daily at bedtime. loratadine (CLARITIN) 10 mg tablet Take 1 tablet by mouth once daily. buPROPion XL (WELLBUTRIN XL) 150 mg 24 hr tablet Take 1 tablet by mouth once daily. Take in PM acetaminophen (TYLENOL) 500 mg tablet Take 500 mg by mouth every 6 hours as needed. FOR PAIN mv,Ca,min-folic acid-vit K1 (ONE-A-DAY WOMEN'S 50 PLUS) 400-20 mcg tab Take 1 tablet by mouth once daily. PSEUDOEPHEDRINE HCL (SUDAFED ORAL) Take by mouth. No current facility-administered medications for this visit. FAMILY HISTORY Problem Relation Age of Onset Diabetes Mother Arthritis Mother Stroke Mother Social History Tobacco Use Smoking status: Former Packs/day: 0.50 Years: 5.00 Additional pack years: 0.00 Total pack years: 2.50 Types: Cigarettes Quit date: 05/02/2016 Years since quittin.8 Smokeless tobacco: Never Vaping Use Vaping Use: Never used Substance Use Topics Alcohol use: No Drug use: No REVIEW OF SYSTEMS GENERAL: No weight loss, malaise or fevers/chills HEENT: Negative for frequent or significant headaches, No changes in hearing or vision. NECK: Negative for lumps, goiter, pain and significant neck swelling RESPIRATORY: Negative for cough, hemoptysis, wheezing, dyspnea or shortness of breath CARDIOVASCULAR: Negative for chest pain, leg swelling, orthopnea, or palpitations GI: No nausea, vomiting, or diarrhea/constipation. No hematochezia/melena. No heartburn or reflux symptoms. : No history of dysuria, frequency or incontinence MUSCULOSKELETAL: Negative for joint pain or swelling. SKIN: Negative for lesions, rash, and itching ENDOCRINE: Negative for cold or heat intolerance, polyuria, polydipsia and goiter NEURO: No history of headaches, syncope, paralysis, seizures or tremors MOOD: Negative for depression, anxiety, or suicidal ideation. EXAM: BP 160/72 Pulse 89 Resp 16 Wt 92 kg (202 lb 13.2 oz) SpO2 98% BMI 33.75 kg/m? BP 150/80 Pulse 89 Resp 16 Wt 92 kg (202 lb 13.2 oz) SpO2 98% BMI 33.75 kg/m? PHYSICAL EXAM: General Appearance: Well appearing, alert, in no acute distress, well-hydrated, well nourished. Skin: Skin color, texture, turgor normal, no suspicious rashes or lesions. Head: Normocephalic, no masses, lesions, tenderness or abnormalities. Eyes: Anicteric sclera. Extraocular movements are intact. Lungs: Lungs clear to auscultation. No wheezing, rhonchi, rales. Heart: RRR without murmur, gallop, or rubs. No ectopy. Extremities: No deformities, edema, skin discoloration, clubbing or cyanosis. Good capillary refill. Peripheral Pulses: Normal, Capillary refill <2secs, strong peripheral pulses, Pulses palpable. Neurologic: Gait normal. Sensation grossly intact. ASSESSMENT/PLAN: 1. Elevated blood pressure reading without diagnosis of hypertension - ICD9: 796.2, ICD10: R03.0 (primary diagnosis) - Encouraged dietary sodium restriction/DASH diet - Recommended regular aerobic exercise. - Rec (more content not included)... [facility] 03-14-2024 Instructions Carmina Suazo APRN.[employer]CE ENGINEER - 03/14/2024 2:15 PM EDT Get fasting labs completed, no food 10-12 hours prior, may have black coffee and water. Continue to take all medication as prescribed. May consider Tdap booster at the pharmacy. Monitor blood pressure at home, goal 130/80 or less. If BP is elevated follow back up in the office. Follow up in 6 months or sooner pending test results. [facility] [facility] 03-08-2024 Telephone encounter Note Patient called back and confirmed the below appointment. Twila Swan [facility] 03-08-2024 Miscellaneous Notes Patient called back and confirmed the below appointment. Twila Swan Pt called and she had an apt scheduled for today and her transportation did not show up. Pt has been rescheduled to 03-14-24. Office notified. Anastacio Perez LPN documented in this encounter [facility] 03-08-2024 Telephone encounter Note Pt called and she had an apt scheduled for today and her transportation did not show up. Pt has been rescheduled to 03-14-24. Office notified. Anastacio Perez LPN [facility] 12-06-2023 History of Present illness Narrative Chief Complaint Patient presents with: Follow Up HPI Yadira Canas is a 63 year old female who presents here today for Chronic Medical Conditions. Walks everyday. Does not eat cheese. Only boneless, skinless chicken or pork. Gave up ice cream. But still her triglycerides, LDL are quite elevated. History of chronic lower back pain. She is on as needed Tylenol, along with daily amitriptyline 100 mg, diclofenac 75 mg twice daily, gabapentin 300 mg twice daily. Amitriptyline also helps with her sleep. Would like to increase gabapentin dose if possible. Depression prescribed for 450 mg of Wellbutrin XL. Reviewing lab work with patient. She had lab work in early October. Glucose was 110, creatinine slightly elevated. Cholesterol 258, triglycerides 410, HDL 33, LDL 168. The 10-year ASCVD risk score (Gulshan LINDER, et al., 2019) is: 7.2% Values used to calculate the score: Age: 63 years Sex: Female Is Non- : No Diabetic: No Tobacco smoker: No Systolic Blood Pressure: 131 mmHg Is BP treated: No HDL Cholesterol: 33 mg/dL Total Cholesterol: 258 mg/dL Past medical history, appointments, medications, allergies reviewed. EXAM: BP 131/77 Pulse 93 Resp 16 Wt 93 kg (205 lb) SpO2 98% BMI 34.11 kg/m General Appearance: Well appearing, alert, in no acute distress, well-hydrated, well nourished.. Head: Normocephalic, no masses, lesions, tenderness or abnormalities. Lungs: Lungs clear to auscultation. No wheezing, rhonchi, rales.. Heart: RRR without murmur, gallop, or rubs. No ectopy. Latest Ref Rng 11/08/2023 Protein, Total 6.3 - 8.0 g/dL 6.7 Albumin 3.9 - 4.9 g/dL 4.4 Calcium 8.5 - 10.2 mg/dL 9.4 Bilirubin, Total 0.2 - 1.3 mg/dL 0.3 Alkaline Phosphatase 34 - 123 U/L 107 AST 13 - 35 U/L 24 ALT 7 - 38 U/L 37 Glucose 74 - 99 mg/dL 110 (H) BUN 7 - 21 mg/dL 17 Creatinine 0.58 - 0.96 mg/dL 0.98 (H) Sodium 136 - 144 mmol/L 143 Potassium 3.7 - 5.1 mmol/L 4.4 Chloride 97 - 105 mmol/L 103 CO2 22 - 30 mmol/L 28 Anion Gap 9 - 18 mmol/L 12 eGFR >=60 mL/min/1.73m 65 Cholesterol, Total <200 mg/dL 258 (H) Triglyceride <150 mg/dL 410 (H) HDL Cholesterol >39 mg/dL 33 (L) Non HDL Cholesterol <130 mg/dL 225 (H) Fasting Time hrs 12 VLDL Cholesterol <30 mg/dL -- VLDL Cholesterol 57 (H) TC:HDL Ratio <5.10 7.82 (H) LDL Cholesterol -- LDL:HDL Ratio -- LDL Cholesterol, Direct <100 mg/dL 168 (H) ASSESSMENT/PLAN: 1. Low back pain with sciatica, sciatica laterality unspecified, unspecified back pain laterality, unspecified chronicity - ICD9: 724.3, ICD10: M54.40 (primary diagnosis) Chronic low back pain - Trial increase of Gabapentin to 400 mg twice daily. 2. Depression, unspecified depression type - ICD9: 311, ICD10: F32.A - Stable on Wellbutrin 3. Insomnia, unspecified type - ICD9: 780.52, ICD10: G47.00 - Stable on Elavil 4. Hypertriglyceridemia - ICD9: 272.1, ICD10: E78.1 - see #5 - ATORVASTATIN 20 MG TABLET - LIPID PANEL BASIC - COMPREHENSIVE METABOLIC PANEL 5. Mixed hyperlipidemia - ICD9: 272.2, ICD10: E78.2 - New diagnosis - Start atorvastatin (Lipitor) - Counseled on healthy diet and regular exercise - ATORVASTATIN 20 MG TABLET - LIPID PANEL BASIC - COMPREHENSIVE METABOLIC PANEL 6. Elevated glucose - ICD9: 790.29, ICD10: R73.09 - Continue with lifestyle control - HEMOGLOBIN A1C Quinton Ramirez APRN.CNP RTO in 3 months, sooner if needed. This note was partly generated using Contour voice recognition dictation and may contain some misspelled or inaccurate words missed on review. documented in this encounter [facility] 11-25-2023 Telephone encounter Note The following approved medication requests have been transmitted electronically. Requested Prescriptions Pending Prescriptions Disp Refills gabapentin (NEURONTIN) 300 mg capsule 60 capsule 5 Sig: Take 1 capsule by mouth two times a day for 180 days. Carmina Suazo APRN.CNP [facility] 11-25-2023 Miscellaneous Notes The following approved medication requests have been transmitted electronically. Requested Prescriptions Pending Prescriptions Disp Refills gabapentin (NEURONTIN) 300 mg capsule 60 capsule 5 Sig: Take 1 capsule by mouth two times a day for 180 days. Carmina Suazo APRN.[employer]TENA[employer]CE ENGINEER Patient has been identified by name and date of : Yes, Lorena Cedeno RN Date 11/25/2023 Time 12 pm Patient phones for refill(s): Requested Prescriptions Pending Prescriptions Disp Refills gabapentin (NEURONTIN) 300 mg capsule 60 capsule 2 Sig: Take 1 capsule by mouth two times a day for 90 days. Date of last office visit in primary care: 05/10/2023 Date of next office visit in primary care: 12/06/2023 Please advise. Thank you. Lorena Cedeno RN. documented in this encounter [facility] 11-25-2023 Telephone encounter Note Patient has been identified by name and date of : Yes, Lorena Cedeno RN Date 11/25/2023 Time 12 pm Patient phones for refill(s): Requested Prescriptions Pending Prescriptions Disp Refills gabapentin (NEURONTIN) 300 mg capsule 60 capsule 2 Sig: Take 1 capsule by mouth two times a day for 90 days. Date of last office visit in primary care: 05/10/2023 Date of next office visit in primary care: 12/06/2023 Please advise. Thank you. Lorena Cedeno RN. [facility] 11-25-2023 Telephone encounter Note Pharmacy calls to request refill of Gabapentin. Patient past due for 6 month follow up appointment. Call placed to patient with no answer. Left message for patient to return call to verify prescription request and schedule needed follow up appointment. Sending as FYI. Closing encounter. Lorena Cedeno RN [facility] 11-25-2023 Miscellaneous Notes Pharmacy calls to request refill of Gabapentin. Patient past due for 6 month follow up appointment. Call placed to patient with no answer. Left message for patient to return call to verify prescription request and schedule needed follow up appointment. Sending as FYI. Closing encounter. Lorena Cedeno RN documented in this encounter [facility] 10-01-2023 Miscellaneous Notes The following approved medication requests have been transmitted electronically. Requested Prescriptions Pending Prescriptions Disp Refills buPROPion XL (WELLBUTRIN XL) 300 mg 24 hr tablet 30 tablet 11 Sig: Take 1 tablet by mouth once daily. Take in AM Quinton Ramirez APRN.TAZ Patient has been identified by name and date of : Patient phones for refill(s): Requested Prescriptions Pending Prescriptions Disp Refills buPROPion XL (WELLBUTRIN XL) 300 mg 24 hr tablet 30 tablet 11 Sig: Take 1 tablet by mouth once daily. Take in AM Date of last office visit in primary care: 05/10/2023 Date of next office visit in primary care: 11/15/2023 Please advise. Thank you. Rose Lutz RN. documented in this encounter [facility] 09-07-2023 Miscellaneous Notes OK to refill as ordered Jason Clemons MD Patient has been identified by name and date of : Yes, Provider Dr Clemons Patient phones for refill(s): Requested Prescriptions Pending Prescriptions Disp Refills gabapentin (NEURONTIN) 300 mg capsule 60 capsule 2 Sig: Take 1 capsule by mouth two times a day for 90 days. Date of last office visit in primary care: 05/10/2023 Date of next office visit in primary care: 11/15/2023 Please advise. Thank you. Therese Urbina LPN. documented in this encounter [facility] 08-10-2023 Discharge summary Note Date/Time August 10, 2023 2:53pm [facility] [address] [place] [address] / REHABILITATION SERVICES DISCHARGE SUMMARY MR#: [id number] Acct: [id number] Name: YADIRA CANAS Rep #: [id number] : 1960 62 From: Luba Self OTR/Sanjiv, CHT Referring Dr.: Dr. Prashant Garcia DO Status: REG RCR Eval Date: Discharge Date: Discharge Summary D/C Summary: It has been my pleasure to treat YADIRA CANAS under orders from Dr. Prashant Garcia DO, for the diagnosis of right distal radius fx for a total of 4 visit(s). Please see the following information for a summary of their discharge status. Overall Improvement % Improvement: 90 Objective Objective/Function: right wrist 45/35 right monkey keeper strength 40# left is at 60# right lateral pinch 8# right tripod pinch 6# pt states she does not feel her wrist or her right hand is limiting her ability to perform her ADls and IADLs. pt states she can clean/cook and do her dishes pt states she does get swelling from time to time but she will put ice pack on it and this helps. Goals Patient Goals: Regain Mobility, Regain Strength, Use Hand/Wrist/Arm Normally Again and Be More Independent in ADLS Goal:Daily scar massage when approriate: Yes Goal:ROM equal to unaffected hand: Yes Goal:Senior Adults Director/Pinch strength at least 75% of unaffected hand: Yes Goal:No pain with affected hand use: Yes Goal:Full use of affected hand in daily activities including work: Yes Other Goal: pt will demo understanding of using brace when out of her home by end of 1st session. Plan Plan: Continue POC: 4 weeks (2-3x week) D/C Information Discharge Comments: pt has made good gains in OT following a right distal radius fx with ORIF. Pt has attended 4 OT sessions- with two no show apts. pt states she feels she is 90% better and feel she can perform her ADLs and IADLs SABINA level. pt states she is ready for D/C. pt has met goals and pt agrees to continue with her HEP as tolerate. d/c sentence: If there are questions or concerns regarding this patient's occupational therapy, please fell free to call me at [phone]. Thank you for the referral of this patient. Sincerely, Luba Self OTR/L, CHT <Electronically signed by Luba Self OTR/Sanjiv, CHT> 08/10/23 7767 CC: Dr. Prashant Garcia DO; Dr. Jason Celmons MD ~ MK Signed [facility] Work Phone: 1(435) 507-872112-05-2023 Miscellaneous Notes* Telephone Encounter - Jason Clemons MD - 07/06/2023 2:26 PM EST OK to refill as ordered Jason Clemons MD * Telephone Encounter - Paris Oliva - 07/06/2023 2:04 PM EST Pharmacy verified in [facility] Patient has been identified by name and date of : Yes Patient aware RX will be sent to pharmacy. No need to notify patient. Patient phones for refill(s): Requested Prescriptions Pending Prescriptions Disp Refills diclofenac, EC, (VOLTAREN) 75 mg EC tablet 180 tablet 3 Sig: TAKE 1 TABLET BY MOUTH WITH FOOD TWICE DAILY for pain and inflamation Date of last office visit : 05/10/2023 Date of next office visit : 11/15/2023 Last 2 Encounter Wt Readings: Date: Wt: 05/10/2023 90.5 kg (199 lb 9.6 oz) 11/05/2022 91.8 kg (202 lb 6.4 oz) Not applicable Please advise. Paris Swan [facility] Discharge summary Author Prashant Garcia [facility] June 18, 2023 3:33pm Note Date/Time June 18, 2023 3:30pm [facility] Medical Records Department [address] [place] [address] Instructions for Home/Discharge Instructions 06/18/23 1529 MR#: [id number] Acct: [id number] Name: YADIRA CANAS Rep #:[id number] : 1960 62 From: Prashant Garcia DO PCP: Dr. Jason Clemons MD Status:[facility] Discharge Instructions Diet Discharge Diet: No restrictions Dressing / Incision Call your doctor if you observe: Shortness of breath and Chest pain Additional Dressing/Incision Instructions:: Strict elevation of operative extremity above heart for next 72 hours. Ice 15 minutes on 15 minutes off. Continue ice and elevation for 7 days postoperatively. Encourage finger range of motion. No lifting pushing or pulling more than a coffee cup. Must keep splint on clean and dry. Follow-up in office in 2 week Follow Up Care Please Follow Up With: Prashant Garcia DO When: 2 weeks Test Results: Test results from this visit will be discussed in further detail at your follow- up appointment, if applicable. Discharge Plan Admission Primary Reason for Your Visit: Right distal radius open reduction internal fixation Attending Provider: Prashant Garcia Primary Care Provider: Jason Clemons Discharge Orders/Prescriptions Prescriptions: New acetaminophen [acetaminophen] 500 mg tablet 1,000 mg PO Q6H PRN Qty: 100 0RF cephalexin [cephalexin] 500 mg capsule 1,000 mg PO Q8 Qty: 4 0RF Rx Instructions: take 2 tabs at 9:00 pm and 2 tabs after 5 am when you wake up oxycodone 5 mg tablet 5 - 10 mg PO Q4H PRN (Reason: pain) 5 Days Qty: 30 0RF Continued bupropion HCl 300 mg tablet extended release 24 hr 300 mg PO .qam Patient Comments: Take 1 tablet by mouth once daily. Take in AM loratadine 10 mg tablet 10 mg PO DAILY bupropion HCl 150 MG tablet sustained-release 12 hr 150 mg PO BID amitriptyline 25 MG tablet 25 mg PO DAILY Patient Comments: TAKE 1 TO 2 TABLETS BY MOUTH AT BEDTIME Held diclofenac sodium 50 MG tablet 50 mg PO DAILY Hold Instructions: Resume on 06/19/23. Discontinued acetaminophen [Tylenol] 325 mg capsule 325 mg PO ONCE PRN (Reason: fever or pain) Referrals / Follow Up: Jason Clemons MD [Primary Care Provider] - Disposition Disposition (needs filled in before D/C Order can be placed): Home, Self Care 06/18/23 1533<Electronically signed by Prashant Garcia DO>[facility] CC: Dr. Jason Clemons MD ~ Signed [facility] Work Phone: 1(443) 370-845911-17-2023 History and physical note Author [facility] June 18, 2023 1:29pm Note Date/Time June 18, 2023 1:29pm [facility] Medical Records Department [address] [place] [address] History & Physical Exam 06/18/23 1328 MR#: [id number] Acct: [id number] Name: YADIRA CANAS Rep #:[id number] : 1960 62 From: Prashant Garcia DO PCP: Dr. Jason Clemons MD Status:[facility] Location: [place] [address] History and Physical Date of Admission: 06/18/23 [facility] [address] [place] [address] OFFICE VISIT Date of Service: 06/16/23 MR#: [id number] Acct: [id number] Name: YADIRA CANAS Rep #: [id number] : 1960 Provider: Dr. Prashant Garcia DO Age/Sex: 62/F Location: [facility] Status: Signed Intake Vital Signs 06/09/2306:12 Height 5 ft 6 in Intake Visit Reasons: RIGHT WRIST Chief Complaint: right wrist fracture Is patient in pain?: Yes Allergies Sulfa (Sulfonamide Antibiotics) Allergy (Verified 06/16/23 16:06) Othertetracycline Adverse Reaction (Verified 06/16/23 16:06) Vomiting Medications amitriptyline 25 mg tablet 25 mg PO DAILY 12/14/16 [History Confirmed 06/16/23] bupropion HCl 150 mg tablet,12 hr sustained-release 150 mg PO BID 12/14/16 [History Confirmed 06/16/23] diclofenac sodium 50 mg tablet,delayed release 50 mg PO DAILY 12/14/16 [History Confirmed 06/16/23] acetaminophen 325 mg capsule (Tylenol) 325 mg PO ONCE PRN 06/16/23 [History Confirmed 06/16/23] bupropion HCl 300 mg 24 hr tablet, extended release 300 mg PO 06/16/23 [History Confirmed 06/16/23] loratadine 10 mg tablet 10 mg PO DAILY 06/16/23 [History Confirmed 06/16/23] [facility] Medical History Depression Pain Surgical History History of carpal tunnel surgery Social History Smoking Status: Former smoker HPI RIGHT WRIST Chief Complaint: right wrist fracture. Details: This documentation accurately reflects the service provided and the decisions made by me, Dr. Prashant Garcia DO 06/16/23 1156. Part of today?s visit was documented by [ ], acting as scribe. YADIRA CANAS is a 62 year old F here today for right wrist fracture. DOI 06-09-23 Pt. advises she woke up on the ground with right wrist pain. She thinks she was sleepwalking because she he has done this in the past. She does not remember. She was seen at [facility] ED dept where she was X-rayed and splinted. She is left hand dominant. She denies any numbness or tingling. Ortho Exam General General: Yes no acute distress Neurologic: Yes alert and Yes oriented x3 Psychologic: Yes reasonable and appropriate Right Wrist/Hand Skin/Wound: Yes Swelling, Yes Ecchymosis and Yes capillary refill normal WRIST: No gross motor or sensory deficits compartments are soft Left Wrist/Hand Skin/Wound: Yes Swelling and Yes Ecchymosis Head: Normocephalic Atraumatic Chest: symmetrical rise, non-labored breathing, no audible wheeze Abdomen: no guarding, non-rigid Supplemental Info 06/16/2023 x-ray right wrist:Intra-articular distal radius fracture with comminution mild loss of radial height 06/09/2023 x-ray right wrist: Intra-articular distal radius fracture with comminution mild loss of radial height Coding Level of Care Code Off vis,new,level 3 Diagnoses Other closed intra-articular fracture of distal end of right radius, initial encounter S52.571A Encounter type: initial encounter Fracture morphology: other intra-articular Laterality: right Assessment and Plan Assessment and Plan (1) Closed fracture of distal end of radius: Status: Inactive Qualifiers: Encounter type: initial encounter Fracture morphology: other intra-articular Laterality: right Qualified Code(s): S52.571A - Other intraarticularfracture of lower end of right radius, initial encounter for closed fracture Orders: Orders Wrist min 3 Views 06/16/23 S52.509A - Unspecified fracture of the lower end of unspecified radius, initial encounter for closed fracture Plan Educated the patient about the anatomy of the wrist and etiology of her pain. Spoke with her about her fracture and due to the fracture into the joint and loss of height and comminution, it is recommended that she have surgery. If she does not want to proceed with surgery, she may be casted. Spoke with her about the risks and benefits of both options. Patient should not push or pull following her surgery. She should continue to keep her wrist elevated and move her fingers. She should not take NSAIDs until after surgery. She is able to taketylenol. Risk of surgery not limited to but include infection hardware failure tendon irritation nerve artery tissue damage need for further surgery continued pain postoperative arthritis stiffness and loss of function. Follow up in 1-2 weeks depending on surgery or sooner if pain, swelling, numbness or associated symptoms, or concerns develop. All questions answered. Patient in agreement of plan. 06/17/23 1322 <Electronically signed by Prashant Garcia DO> Date Prashant Garcia DO Cosigner Signature: Date (if applicable) CC: ~ I have examined the patient and the H&P has been reviewed. There are no clinicalchanges since date of exam. 06/18/23 1329 <Electronically signed by Prashant Garcia DO> Cosigner Signature (if applicable): CC: Dr. Prashant Garcia DO; Dr. Jason Clemons MD~ Signed [facility] Work Phone: 1(955) 136-158011-17-2023 Procedure [facility] 06-18-2023 [facility] Medical Records Department [address] [place] [address] History Physical Exam 06/18/23 1328 MR#: [id number] Acct: [id number] Name: YADIRA CANAS Rep #: [id number] : 1960 62 From: Prashant Garcia DO PCP: Dr. Jason Clemons MD Status:[facility] Location: [place] [address] History and Physical Date of Admission: 06/18/23 [facility] [address] [place] [address] OFFICE VISIT Date of Service: 06/16/23 MR#: [id number] Acct: [id number] Name: YADIRA CANAS Rep #: [id number] : 1960 Provider: Dr. Prashant Garcia DO Age/Sex: 62/F Location: [facility] Status: Signed Intake Vital Signs 06/09/2306:12 Height 5 ft 6 in Intake Visit Reasons: RIGHT WRIST Chief Complaint: right wrist fracture Is patient in pain?: Yes Allergies Sulfa (Sulfonamide Antibiotics) Allergy (Verified 06/16/23 16:06) Othertetracycline Adverse Reaction (Verified 06/16/23 16:06) Vomiting Medications amitriptyline 25 mg tablet 25 mg PO DAILY 12/14/16 [History Confirmed 06/16/23] bupropion HCl 150 mg tablet,12 hr sustained-release 150 mg PO BID 12/14/16 [History Confirmed 06/16/23] diclofenac sodium 50 mg tablet,delayed release 50 mg PO DAILY 12/14/16 [History Confirmed 06/16/23] acetaminophen 325 mg capsule (Tylenol) 325 mg PO ONCE PRN 06/16/23 [History Confirmed 06/16/23] bupropion HCl 300 mg 24 hr tablet, extended release 300 mg PO 06/16/23 [History Confirmed 06/16/23] loratadine 10 mg tablet 10 mg PO DAILY 06/16/23 [History Confirmed 06/16/23] [facility] Medical History Depression Pain Surgical History History of carpal tunnel surgery Social History Smoking Status: Former smoker HPI RIGHT WRIST Chief Complaint: right wrist fracture. Details: This documentation accurately reflects the service provided and the decisions made by me, Dr. Prashant Garcia, DO 06/16/23 1156. Part of today???s visit was documented by [ ], acting as scribe. YADIRA CANAS is a 62 year old F here today for right wrist fracture. DOI 06-09-23 Pt. advises she woke up on the ground with right wrist pain. She thinks she was sleepwalking because she he has done this in the past. She does not remember. She was seen at [facility] ED dept where she was X-rayed and splinted. She is left hand dominant. She denies any numbness or tingling. Ortho Exam General General: Yes no acute distress Neurologic: Yes alert and Yes oriented x3 Psychologic: Yes reasonable and appropriate Right Wrist/Hand Skin/Wound: Yes Swelling, Yes Ecchymosis and Yes capillary refill normal WRIST: No gross motor or sensory deficits compartments are soft Left Wrist/Hand Skin/Wound: Yes Swelling and Yes Ecchymosis Head: Normocephalic Atraumatic Chest: symmetrical rise, non-labored breathing, no audible wheeze Abdomen: no guarding, non-rigid Supplemental Info 06/16/2023 x-ray right wrist:Intra-articular distal radius fracture with comminution mild loss of radial height 06/09/2023 x-ray right wrist: Intra-articular distal radius fracture with comminution mild loss of radial height Coding Level of Care Code Off vis,new,level 3 Diagnoses Other closed intra-articular fracture of distal end of right radius, initial encounter S52.571A Encounter type: initial encounter Fracture morphology: other intra-articular Laterality: right Assessment and Plan Assessment and Plan (1) Closed fracture of distal end of radius: Status: Inactive Qualifiers: Encounter type: initial encounter Fracture morphology: other intra-articular Laterality: right Qualified Code(s): S52.571A - Other intraarticular fracture of lower end of right radius, initial encounter for closed fracture Orders: Orders Wrist min 3 Views 06/16/23 S52.509A - Unspecified fracture of the lower end of unspecified radius, initial encounter for closed fracture Plan Educated the patient about the anatomy of the wrist and etiology of her pain. Spoke with her about her fracture and due to the fracture into the joint and loss of height and comminution, it is recommended that she have surgery. If she does not want to proceed with surgery, she may be casted. Spoke with her about the risks and benefits of both options. Patient should not push or pull following her surgery. She should continue to keep her wrist elevated and move her fingers. She should not take NSAIDs until after surgery. She is able to take tylenol. Risk of surgery not limited to but include (more content not included)...[facility] 05-10-2023 History of Present illness Narrative* Jason Clemons MD - 05/10/2023 1:00 PM EDT Chief Complaint Patient presents with: F/U 6 Month HPI Yadira Canas is a 62 year old female who presents here today for 6 month follow up. Here today for a 6 month follow up. GI/Uro - Denies any stomach, bowel or urinary issues. Cardio - No chest pains, dizziness, or SOB. Weight - Tries to watch diet. Hx of elevated glucose, but currently on no medication. Hasn't been able to go to [employer] as often due to no longer having a car and having difficulty with transportation. Has vouchers and does use the bus, which is helpful. Tries to get there when she can. Is down 3 lbs since her last office visit. Has tried doing some walking but this tends to flare up her back pain. Pain: Chronic back pain, limits her and activity. Does try to do some stretches at home for the back. Taking Gabapentin 300 mg, 2 pill at bed, Amitriptyline 100 mg daily, Voltaren 75 mg BID and Tylenol prn. Asking about increasing her Gabapentin because her back pain has increased. Depression & Insomnia: Taking Wellbutrin 300 mg in the am and 150 mg in pm and Amitriptyline 100 mg at bedtime. Doing well with this regimen overall. Sleeping is stable with use of regimen. HM - Pt states that she received flu shot through [facility], will request records to update pt chart. Past medical history, appointments, medications, allergies reviewed. Previous Medical History PAST MEDICAL HISTORY Diagnosis Date Allergic rhinitis Back pain Depression Previous Surgical History PAST SURGICAL HISTORY Procedure Laterality Date COLONOSCOPY FLX DX W/COLLJ SPEC WHEN PFRMD 11/01/13 Colonoscopy LIG/TRNSXJ FLP TUBE ABDL/VAG APPR UNI/BI 1989 Tubal ligation NEUROPLASTY &/TRANSPOS MEDIAN NRV CARPAL TUNNE 1980s Carpal tunnel decomp bilaterally PAST SURGICAL HISTORY OF 2013 dental extractions Family History FAMILY HISTORY Problem Relation Age of Onset Diabetes Mother Arthritis Mother Stroke Mother Patient Allergies ALLERGIES Allergen Reactions Sulfa (Sulfonamide * Hives Tetracycline Vomiting Flagyl [Metronidazo* GI Upset Sertraline GI Upset Current Medications Current Outpatient Medications on File Prior to Visit Medication Sig buPROPion XL (WELLBUTRIN XL) 150 mg 24 hr tablet Take 1 tablet by mouth once daily. Take in PM gabapentin (NEURONTIN) 300 mg capsule Take 2 capsules by mouth daily at bedtime for 180 days. amitriptyline (ELAVIL) 100 mg tablet Take 1 tablet by mouth daily at bedtime. buPROPion XL (WELLBUTRIN XL) 300 mg 24 hr tablet Take 1 tablet by mouth once daily. Take in AM diclofenac, EC, (VOLTAREN) 75 mg EC tablet TAKE 1 TABLET BY MOUTH WITH FOOD TWICE DAILY for pain and inflamation loratadine (CLARITIN) 10 mg tablet Take 1 tablet by mouth once daily. acetaminophen (TYLENOL) 500 mg tablet Take 500 mg by mouth every 6 hours as needed. FOR PAIN mv,Ca,min-folic acid-vit K1 (ONE-A-DAY WOMEN'S 50 PLUS) 400-20 mcg tab Take 1 tablet by mouth once daily. PSEUDOEPHEDRINE HCL (SUDAFED ORAL) Take by mouth. No current facility-administered medications on file prior to visit. Social History Social History Tobacco Use Smoking status: Former Packs/day: 0.50 Years: 5.00 Additional pack years: 0.00 Total pack years: 2.50 Types: Cigarettes Quit date: 05/02/2016 Years since quittin.0 Smokeless tobacco: Never Vaping Use Vaping Use: Never used Substance Use Topics Alcohol use: No Drug use: No EXAM: BP 128/70 (BP Site: Left Arm, BP Position: Sitting, BP Cuff Size: Large Adult) Pulse 96 Resp 18 Wt 90.5 kg (199 lb 9.6 oz) BMI 33.22 kg/m General Appearance: Well appearing, alert, in no acute distress, well-hydrated, well nourished. andObese. Lungs: Lungs clear to auscultation. No wheezing, rhonchi, rales.. Heart: RRR without murmur, gallop, or rubs. No ectopy. Health Maintenance List DTaP,Tdap,Td Vaccine(1 - Tdap) Never done Influenza Vaccine(1) due on 04/02/2023 Mammogram Screening due on 11/06/2023 Pap Testing due on 11/06/2023 HPV Testing due on 11/06/2023 HIV Screening due on 11/06/2023 Diabetes Screening due on 11/05/2025 Lipid Screening due on 11/06/2027 Colorectal Cancer Screening due on 03/07/2029 Hepatitis C Screening Completed Shingrix Vaccine Completed Covid-19 Vaccine Completed Data reviewed No visits with results within 2 Month(s) from this visit. Latest known visit with results is: Appointment on 11/05/2022 Component Date Value Cholesterol, Total 11/05/2022 214 (H) Triglyceride 11/05/2022 620 (H) HDL Cholesterol 11/05/2022 29 (L) Non HDL Cholesterol 11/05/2022 185 (H) Fasting Time 11/05/2022 15 VLDL Cholesterol 11/05/2022 TC:HDL Ratio 11/05/2022 7.38 (H) LDL Cholesterol 11/05/2022 LDL:HDL Ratio 11/05/2022 Protein, Total 11/05/2022 6.7 Albumin 11/05/2022 4.3 Calcium, Total 11/05/2022 8.8 Bilirubin, Total 11/05/2022 0.2 Alkaline Phosphatase 11/05/2022 112 AST 11/05/2022 19 ALT 11/05/2022 24 Glucose 11/05/2022 106 (H) BUN 11/05/2022 15 Creatinine 11/05/2022 0.87 Sodium 11/05/2022 139 Potassium 11/05/2022 4.0 Chloride 11/05/2022 100 CO2 11/05/2022 29 Anion Gap 11/05/2022 10 Estimated Glomerular Solo* 11/05/2022 75 WBC 11/05/2022 5.83 RBC 11/05/2022 4.62 Hemoglobin 11/05/2022 13.4 Hematocrit 11/05/2022 40.7 MCV 11/05/2022 88.1 MCH 11/05/2022 29.0 MCHC 11/05/2022 32.9 RDW-CV 11/05/2022 12.0 Platelet Count 11/05/2022 255 MPV 11/05/2022 9.8 Neutrophils % 11/05/2022 57.7 Abs Neut 11/05/2022 3.36 Lymphocytes % 11/05/2022 29.0 Abs Lymph 11/05/2022 1.69 Monocytes % 11/05/2022 7.7 Abs Christian 11/05/2022 0.45 Eosinophils % 11/05/2022 3.9 Abs Eosin 11/05/2022 0.23 Basophils % 11/05/2022 1.2 Abs Baso 11/05/2022 0.07 Immature Granulocytes % 11/05/2022 0.5 Abs Immature Gran 11/05/2022 0.03 NRBC 11/05/2022 0.0 Absolute nRBC 11/05/2022 <0.01 Diff Type 11/05/2022 Auto LDL Cholesterol, Direct 11/05/2022 84 VLDL Cholesterol 11/05/2022 101 (H) ASSESSMENT/PLAN: 1. Low back pain with sciatica, sciatica laterality unspecified, unspecified back pain laterality, unspecified chronicity - ICD9: 724.3, ICD10: M54.40 (primary diagnosis) Chronic low back pain - Try taking Gabapentin 1 tab in the am and 1 tab in the pm; if thi sis not effective let me know and venkatesh increase the dose to 600 mg bid 2. Depression, unspecified depression type - ICD9: 311, ICD10: F32.A - Continue current medication regimen. 3. Insomnia, unspecified type - ICD9: 780.52, ICD10: G47.00 - Continue current medication regimen. 4. Elevated cholesterol - ICD9: 272.0, ICD10: E78.00 - Cont to watch diet and exercise as able - COMP METABOLIC PANEL - LIPID PANEL BASIC 6 mo f/u I agree with the Chief Complaint, ROS, and Past Histories independently gathered by the clinical learning support specialist and the remaining scribed note accurately describes my personal service to the patient. Medical Decision Making: Problems: Moderate: 2+ stable chronic illnesses Data: Unique test(s) ordered: 2 Risk: Moderate: Drug management Medical Decision Making Level: 4 - Moderate Jason Clemons MD The documentation for this note was completed by Jolynn Brock Ma acting as scribe for Jason Clemons MD. May 10, 2023 12:28 PM. Jolynn Brock Ma documented in this encounterMer[facility]08-08-2023 Miscellaneous Notes* Telephone Encounter - Quinton Ramirez APRN.CNP - 03/09/2023 12:09 PM EDT The following approved medication requests have been transmitted electronically. Requested Prescriptions Pending Prescriptions Disp Refills buPROPion XL (WELLBUTRIN XL) 150 mg 24 hr tablet 30 tablet 11 Sig: Take 1 tablet by mouth once daily. Take in PM Quinton Ramirez APRN.CNP * Telephone Encounter - Lorena Cedeno RN - 03/09/2023 11:52 AM EDT Patient has been identified by name and date of : Yes, Lorena Cedeno RN Date 03/09/2023 Time 11:52 am Patient phones for refill(s): Requested Prescriptions Pending Prescriptions Disp Refills buPROPion XL (WELLBUTRIN XL) 150 mg 24 hr tablet 30 tablet 11 Sig: Take 1 tablet by mouth once daily. Take in PM Date of last office visit with pcp: 11/05/2022 Future appt: 05/10/2023 Last 2 Encounter Wt Readings: Date: Wt: 11/05/2022 91.8 kg (202 lb 6.4 oz) 05/06/2022 89.4 kg (197 lb) Previous labs/tests for medication: Blood Pressure: BUN (mg/dL) Date Value 11/05/2022 15 01/22/2021 17 Sodium (mmol/L) Date Value 11/05/2022 139 01/22/2021 140 Last 1 Encounter BP Readings: Date: BP: 11/05/2022 122/74 Liver Function: ALT (U/L) Date Value 11/05/2022 24 01/22/2021 21 AST (U/L) Date Value 11/05/2022 19 01/22/2021 19 Please advise. Thank you. Lorena Cedeno RN documented in this encounterMer[facility]04-07-2023 Miscellaneous Notes* Telephone Encounter - Rossi Wall Ma - 11/06/2022 11:47 AM EDT Letter mailed to pt home of results. Rossi Wall MA * Telephone Encounter - Jason Clemons MD - 11/06/2022 11:36 AM EDT Please notify patient that her lab results all look OK; stay on the same medications and follow up in 6 months as planned Jason Clemons MD documented in this encounterMercy [facility]04-06-2023 History of Present illness Narrative* Jason Clemons MD - 11/05/2022 8:40 AM EDT Chief Complaint Patient presents with: F/U 6 Month HPI Yadira Canas is a 62 year old female who presents here today for 6 month follow up. Labs ordered,not yet completed. Pt fasting today. Doing well at this time. No longer working, enjoying independence and freedom. Denies any bowel, Gi, or urinary issues. No chest pains, dizziness, or SOB. Trying to watch diet. Eats boneless/skinless chicken breast, pork, green beans (non salted), whole wheat toast with peanut butter, FiberOne cereal and eating low fat yogurt. [facility] [employer] but due to her back flaring up she quit. Does still go about once a month. Does house work at home. Happy with where she is overall at present time. Depression & Insomnia: Taking Wellbutrin 300 mg Am and 150 mg in PM and Amitriptyline 100 mg atbedtime. Doing well with this regimen overall. Sleeping at times overall stable. Some nights betterthen others. Will wake up due to her back pain and she will have to get up. Pain: Chronic back pain. Taking Gabapentin 300 mg, 2 pill at bed, Amitriptyline 100 mg daily, Voltaren 75 mg BID and Tylenol prn. Denies falls in the past year. - Declines HIV screening. Due for HPV/PAP, but declines this. Declines Mammogram. Past medical history, appointments, medications, allergies reviewed. Previous Medical History PAST MEDICAL HISTORY Diagnosis Date Allergic rhinitis Back pain Depression Previous Surgical History PAST SURGICAL HISTORY Procedure Laterality Date COLONOSCOPY FLX DX W/COLLJ SPEC WHEN PFRMD 11/01/13 Colonoscopy LIG/TRNSXJ FLP TUBE ABDL/VAG APPR UNI/BI 1989 Tubal ligation NEUROPLASTY &/TRANSPOS MEDIAN NRV CARPAL TUNNE Carpal tunnel decomp bilaterally PAST SURGICAL HISTORY OF 2013 dental extractions Family History FAMILY HISTORY Problem Relation Age of Onset Diabetes Mother Arthritis Mother Stroke Mother Patient Allergies ALLERGIES Allergen Reactions Sulfa (Sulfonamide * Hives Tetracycline Vomiting Flagyl [Metronidazo* GI Upset Sertraline GI Upset Current Medications Current Outpatient Medications on File Prior to Visit Medication Sig buPROPion XL (WELLBUTRIN XL) 300 mg 24 hr tablet Take 1 tablet by mouth once daily. Take in AM diclofenac, EC, (VOLTAREN) 75 mg EC tablet TAKE 1 TABLET BY MOUTH WITH FOOD TWICE DAILY for pain and inflamation amitriptyline (ELAVIL) 100 mg tablet Take 1 tablet by mouth daily at bedtime. gabapentin (NEURONTIN) 300 mg capsule Take 2 capsules by mouth daily at bedtime for 180 days. loratadine (CLARITIN) 10 mg tablet Take 1 tablet by mouth once daily. buPROPion XL (WELLBUTRIN XL) 150 mg 24 hr tablet Take 1 tablet by mouth once daily. Take in PM acetaminophen (TYLENOL) 500 mg tablet Take 500 mg by mouth every 6 hours as needed. FOR PAIN mv,Ca,min-folic acid-vit K1 (ONE-A-DAY WOMEN'S 50 PLUS) 400-20 mcg tab Take 1 tablet by mouth once daily. PSEUDOEPHEDRINE HCL (SUDAFED ORAL) Take by mouth. No current facility-administered medications on file prior to visit. Social History Social History Tobacco Use Smoking status: Former Packs/day: 0.50 Years: 5.00 Pack years: 2.50 Types: Cigarettes Quit date: 05/02/2016 Years since quittin.5 Smokeless tobacco: Never Vaping Use Vaping Use: Never used Substance Use Topics Alcohol use: No Drug use: No EXAM: BP 122/74 (BP Site: Left Arm, BP Position: Sitting, BP Cuff Size: Large Adult) Pulse 78 Resp 16 Wt 91.8 kg (202 lb 6.4 oz) BMI 33.68 kg/m General Appearance: Well appearing, alert, in no acute distress, well-hydrated, well nourished. andOverweight. Back: Right sided lower lumbar pain with radiation into R leg. Lungs: Lungs clear to auscultation. No wheezing, rhonchi, rales.. Heart: RRR without murmur, gallop, or rubs. No ectopy. Health Maintenance List HIV SCREENING Never done DTAP,TDAP,TD(1 - Tdap) Never done MAMMOGRAM due on 02/04/2022 COVID-19 VACCINE(5 - Booster for Moderna series) due on 03/03/2022 PAP TESTING due on 03/01/2023 HPV TESTING due on 03/01/2023 DIABETES SCREEN due on 01/23/2024 LIPID SCREEN due on 01/22/2026 COLORECTAL CANCER SCREENING due on 03/07/2029 INFLUENZA Completed HEPATITIS C SCREENING Completed SHINGRIX VACCINE Completed Data reviewed Future labs ASSESSMENT/PLAN: 1. Depression, unspecified depression type - ICD9: 311, ICD10: F32.A (primary diagnosis) - Stable on current regimen at this time. - Continue current medication regimen. 2. Insomnia, unspecified type - ICD9: 780.52, ICD10: G47.00 - Stable overall - Continue current medication regimen. 3. Low back pain with sciatica, sciatica laterality unspecified, unspecified back pain laterality, unspecified chronicity - ICD9: 724.3, ICD10: M54.40 Chronic low back pain - Stable 4. Elevated cholesterol - ICD9: 272.0, ICD10: E78.00 - Check fasting labs as ordered - Continue to watch diet/exercise as able. 6 mo f/u. Complete labs today, fasting. Will call with results. I agree with the Chief Complaint, ROS, and Past Histories independently gathered by the clinical learning support specialist and the remaining scribed note accurately describes my personal service to the patient. Medical Decision Making: Problems: Moderate: 2+ stable chronic illnesses Risk: Moderate: Drug management Medical Decision Making Level: 4 - Moderate Jason Clemons MD The documentation for this note was completed by Jolynn Brock Ma acting as scribe for Jason Clemons MD. November 05, 2022 8:43 AM. Jolynn Brock Ma documented in this encounterMer[facility]03-14-2023 Miscellaneous Notes* Telephone Encounter - Jason Clemons MD - 10/13/2022 2:29 PM EDT OK to refill as ordered Jason Clemons MD * Telephone Encounter - Terri Lyn LPN - 10/13/2022 2:17 PM EDT Last office visit: 05/06/2022 Next appointment scheduled 11/05/2022 * Telephone Encounter - Shobha Anderson - 10/13/2022 1:48 PM EDT Patient has been identified by name and date of : Yes Requested Prescriptions Pending Prescriptions Disp Refills buPROPion XL (WELLBUTRIN XL) 300 mg 24 hr tablet 30 tablet 1 Sig: Take 1 tablet by mouth once daily. Take in AM RX INSTRUCTIONS: Patient aware RX will be sent to pharmacy. No need to notify patient. documented in this encounterMercy [facility]01-13-2023 Miscellaneous Notes* Telephone Encounter - Quinton Ramirez APRN.CNP - 08/14/2022 2:34 PM EST The following approved medication requests have been transmitted electronically. Requested Prescriptions Pending Prescriptions Disp Refills buPROPion XL (WELLBUTRIN XL) 300 mg 24 hr tablet 30 tablet 1 Sig: Take 1 tablet by mouth once daily. Take in AM Quinton Ramirez APRN.CNP * Telephone Encounter - Elizabeth Hunter LPN - 08/14/2022 2:12 PM EST Patient has been identified by name and date of : Patient phones for refill(s): Requested Prescriptions Pending Prescriptions Disp Refills buPROPion XL (WELLBUTRIN XL) 300 mg 24 hr tablet 30 tablet 1 Sig: Take 1 tablet by mouth once daily. Take in AM Date of last office visit in primary care: 05/06/2022, has appt 11/05/2022 Last 2 Encounter Wt Readings: Date: Wt: 05/06/2022 89.4 kg (197 lb) 10/27/2021 89.1 kg (196 lb 8 oz) Previous labs/tests for medication: Not applicable Please advise. Thank you. Elizabeth Hunter LPN documented in this encounterMercy [facility]10-27-2022 History of Present illness Narrative* Jemal Moralez, OD - 05/28/2022 1:39 PM EDT 1. Posterior vitreous detachment of left eye No changes upon dilated exam No new holes/tears/detachments Educated pt and urged to call [facility] with any new floaters or increase in flashes 2. Combined forms of age-related cataract of both eyes Stable-monitor 3. Dry eye syndrome of both eyes Use artificial tears twice daily 4. Myopia, bilateral 5. Regular astigmatism of both eyes 6. Presbyopia Continue with current glasses Follow-up in 4 months for annual Jemal Moralez, OD May 28, 2022 1:39 PM documented in this encounterMer[facility]2022 History of Present illness Narrative* Jason Clemons MD - 05/06/2022 1:00 PM EDT Chief Complaint Patient presents with: 6 Month Exam Immunizations: Flu vaccination HPI Yadira Canas is a 61 year old female who presents here today for 6 month follow up. Declined mammogram, states she does not want to do that any more. States it really hurts her breasts and bruises her up afterwards. Denies any bowel, Gi, or urinary issues. No chest pains, dizziness, or SOB. Exercises 30 minutes 3 days per week at [employer]. She was going every day but made the decision that she really doesn't need to go to the gym every day. She has changed her eating habits, does not eating sugar, salt, starches, no fried foods. Eats chicken, vegetables, sugar free foods. Drinking a lot of water. Does not drink pop. Has coffee in the AM with non dairy cream, no sugar. Eating 70 calories fiber one brownies. Drinks 2% milk. Eating bran cereal in the AM and at lunch. Pain: Chronic back pain. Taking Gabapentin 300 mg, 2 pill at bed, Amitriptyline 100 mg daily, Voltaren 75 mg BID and Tylenol prn. Depression & Insomnia: Doing well with regimen of Amitriptyline 100 mg at bedtime, and Wellbutrin 300 mg in AM and Wellbutrin 150 mg daily in PM. Sleeping well. No SI/HI. She stopped taking the Zoloft in October due to it causing nightmares, gi upset stomach and light headedness. Past medical history, appointments, medications, allergies reviewed. Previous Medical History PAST MEDICAL HISTORY Diagnosis Date Allergic rhinitis Back pain Depression Previous Surgical History PAST SURGICAL HISTORY Procedure Laterality Date COLONOSCOPY FLX DX W/COLLJ SPEC WHEN PFRMD 11/01/13 Colonoscopy LIG/TRNSXJ FLP TUBE ABDL/VAG APPR UNI/BI 1989 Tubal ligation NEUROPLASTY &/TRANSPOS MEDIAN NRV CARPAL TUNNE Carpal tunnel decomp bilaterally PAST SURGICAL HISTORY OF 2013 dental extractions Family History FAMILY HISTORY Problem Relation Age of Onset Diabetes Mother Arthritis Mother Stroke Mother Patient Allergies ALLERGIES Allergen Reactions Sulfa (Sulfonamide * Hives Tetracycline Vomiting Flagyl [Metronidazo* GI Upset Sertraline GI Upset Current Medications Current Outpatient Medications on File Prior to Visit Medication Sig buPROPion XL (WELLBUTRIN XL) 300 mg 24 hr tablet Take 1 tablet by mouth once daily. Take in AM buPROPion XL (WELLBUTRIN XL) 150 mg 24 hr tablet Take 1 tablet by mouth once daily. Take in PM amitriptyline (ELAVIL) 100 mg tablet Take 1 tablet by mouth daily at bedtime. gabapentin (NEURONTIN) 300 mg capsule Take 2 capsules by mouth daily at bedtime for 180 days. Ciclopirox (PENLAC) 8 % solution Apply to affected area once daily. TO AFFECTED AREA. diclofenac, EC, (VOLTAREN) 75 mg EC tablet TAKE 1 TABLET BY MOUTH WITH FOOD TWICE DAILY for pain and inflamation loratadine (CLARITIN) 10 mg tablet Take 1 tablet by mouth once daily. acetaminophen (TYLENOL) 500 mg tablet Take 500 mg by mouth every 6 hours as needed. FOR PAIN mv,Ca,min-folic acid-vit K1 (ONE-A-DAY WOMEN'S 50 PLUS) 400-20 mcg tab Take 1 tablet by mouth once daily. PSEUDOEPHEDRINE HCL (SUDAFED ORAL) Take by mouth. No current facility-administered medications on file prior to visit. Social History Social History Tobacco Use Smoking status: Former Packs/day: 0.50 Years: 5.00 Pack years: 2.50 Types: Cigarettes Quit date: 05/02/2016 Years since quittin.0 Smokeless tobacco: Never Vaping Use Vaping Use: Never used Substance Use Topics Alcohol use: No Drug use: No EXAM: BP 120/78 Pulse 80 Resp 18 Wt 89.4 kg (197 lb) BMI 32.78 kg/m General Appearance: Well appearing, alert, in no acute distress, well-hydrated, well nourished. andOverweight. Lungs: Lungs clear to auscultation. No wheezing, rhonchi, rales.. Heart: RRR without murmur, gallop, or rubs. No ectopy. Health Maintenance List HIV SCREENING Never done DTAP,TDAP,TD(1 - Tdap) Never done COVID-19 VACCINE(4 - Booster for Moderna series) due on 09/25/2021 MAMMOGRAM due on 02/04/2022 INFLUENZA(1) due on 04/02/2022 PAP TESTING due on 03/01/2023 HPV TESTING due on 03/01/2023 DIABETES SCREEN due on 01/23/2024 LIPID SCREEN due on 01/22/2026 COLORECTAL CANCER SCREENING due on 03/07/2029 HEPATITIS C SCREENING Completed SHINGRIX VACCINE Completed Data reviewed None ASSESSMENT/PLAN: 1. Depression, unspecified depression type - ICD9: 311, ICD10: F32.A (primary diagnosis) Controlled Continue current medications. 2. Need for influenza vaccination - ICD9: V04.81, ICD10: Z23 - INFLUENZA VACCINE QUADRIVALENT 6 MO - 64 YRS IM 3. Insomnia, unspecified type - ICD9: 780.52, ICD10: G47.00 Controlled Continue current medications. 4. Generalized osteoarthritis - ICD9: 715.00, ICD10: M15.9 Continue current medications. 5. Back pain, unspecified back location, unspecified back pain laterality, unspecified chronicity -ICD9: 724.5, ICD10: M54.9 Chronic low back pain Controlled Continue current medications. Follow up in 6 months with fasting labs prior. I agree with the Chief Complaint, ROS, and Past Histories independently gathered by the clinical learning support specialist and the remaining scribed note accurately describes my personal service to the patient. Medical Decision Making: Problems: Moderate: 2+ stable chronic illnesses Data: Unique test(s) ordered: 3+ Risk: Moderate: Drug management Medical Decision Making Level: 4 - Moderate Jason Clemons MD The documentation for this note was completed by Rossi Wall Ma acting as scribe for Jason Clemons MD. May 06, 2022 12:34 PM. Rossi Wall Ma documented in this encounterMercy [facility]09-15-2022 Miscellaneous Notes* Telephone Encounter - Quinton Ramirez APRN.CNP - 04/16/2022 8:43 AM EDT The following approved medication requests have been transmitted electronically. Requested Prescriptions Pending Prescriptions Disp Refills buPROPion XL (WELLBUTRIN XL) 300 mg 24 hr tablet 30 tablet 1 Sig: Take 1 tablet by mouth once daily. Take in AM Quinton Ramirez APRN.CNP * Telephone Encounter - LANE Aldana - 04/15/2022 5:12 PM EDT Patient has been identified by name and date of : Yes Last office visit in this department: 10/27/2021 RX INSTRUCTIONS: Patient aware RX will be sent to pharmacy. No need to notify patient. Patient phones requesting refills as follows: Requested Prescriptions Pending Prescriptions Disp Refills buPROPion XL (WELLBUTRIN XL) 300 mg 24 hr tablet 30 tablet 1 Sig: Take 1 tablet by mouth once daily. Take in AM Please review and advise. LANE Aldana documented in this encounterMercy [facility]07-18-2022 Miscellaneous Notes* Telephone Encounter - Quinton Ramirez APRN.CNP - 02/16/2022 2:18 PM EDT The following approved medication requests have been transmitted electronically. Pending Prescriptions Disp Refills BUPROPION XL 300 MG 24 HR TAB 30 tablet 1 Sig: Take 1 tablet by mouth once daily. Take in AM PASTORA: No Quinton Ramirez APRN.CNP * Telephone Encounter - Susanna Ana Pss - 02/16/2022 1:52 PM EDT Patient has been identified by name and date of : Yes Pending Prescriptions Disp Refills BUPROPION XL 300 MG 24 HR TAB 30 tablet 1 Sig: Take 1 tablet by mouth once daily. Take in AM PASTORA: No RX INSTRUCTIONS: Patient aware RX will be sent to pharmacy. No need to notify patient. Susanna Perez Pss documented in this encounterMercy [facility]04-13-2022 Miscellaneous Notes* Telephone Encounter - Jason Clemons MD - 11/12/2021 2:39 PM EDT Noted Chart updated Jason Clemons MD * Telephone Encounter - Rossi Wall Ma - 11/12/2021 10:00 AM EDT Spoke with pt, she stated she stopped taking the Sertraline 1-2 weeks ago because it caused upset stomach and light headedness. Was also having nightmares. She feeling better off the medication. Would like Sertraline added to her allergy list. Rossi Wall Ma * Telephone Encounter - Paris Nur Pss - 11/11/2021 2:03 PM EDT Patient has been on sertraline about a month and was experiencing nightmares, so last night she stopped it and did not have issues with sleep. Please call patient to discuss the medication change. [facility] History of Present illness Narrative* Jason Clemons MD - 10/27/2021 2:00 PM EDT Chief Complaint Patient presents with: F/U 3 Month HPI Yadira Canas is a 61 year old female who presents here today for 3 month follow up. Here today for a 3 month follow up. Depression & Insomnia: Stable, taking Wellbutrin 300 mg daily, Zoloft 50 mg daily, and Amitriptyline 100 mg at bedtime. Denies feeling stressed. No SI/HI. Sleeping ok. Pain: Chronic back pain. Using Gabapentin 300 mg 2 pills at bedtime, Amitriptyline 100 mg daily, Tylenol 500 mg prn and Voltaren 75 mg BID. Pain is worse at night. Goes to [employer] Wednesday through Wednesday to exercise for 30 minutes. Does some strengthening machines; unable to walk on treadmill due to back pain. Weather permitting on going to exercise. Past medical history, appointments, medications, allergies reviewed. Previous Medical History PAST MEDICAL HISTORY Diagnosis Date Allergic rhinitis Back pain Depression Previous Surgical History PAST SURGICAL HISTORY Procedure Laterality Date COLONOSCOPY FLX DX W/COLLJ SPEC WHEN PFRMD 11/01/13 Colonoscopy LIG/TRNSXJ FLP TUBE ABDL/VAG APPR UNI/BI 1989 Tubal ligation NEUROPLASTY &/TRANSPOS MEDIAN NRV CARPAL TUNNE 1980s Carpal tunnel decomp bilaterally PAST SURGICAL HISTORY OF 2013 dental extractions Family History FAMILY HISTORY Problem Relation Age of Onset Diabetes Mother Arthritis Mother Stroke Mother Patient Allergies ALLERGIES Allergen Reactions Sulfa (Sulfonamide * Hives Tetracycline Vomiting Flagyl [Metronidazo* GI Upset Current Medications Current Outpatient Medications on File Prior to Visit Medication Sig buPROPion XL (WELLBUTRIN XL) 150 mg 24 hr tablet Take 1 tablet by mouth once daily. Take in PM Ciclopirox (PENLAC) 8 % solution Apply to affected area once daily. TO AFFECTED AREA. diclofenac, EC, (VOLTAREN) 75 mg EC tablet TAKE 1 TABLET BY MOUTH WITH FOOD TWICE DAILY for pain and inflamation sertraline (ZOLOFT) 50 mg tablet Take 1 tablet by mouth once daily. amitriptyline (ELAVIL) 100 mg tablet Take 1 tablet by mouth daily at bedtime. gabapentin (NEURONTIN) 300 mg capsule Take 2 capsules by mouth daily at bedtime for 180 days. buPROPion XL (WELLBUTRIN XL) 300 mg 24 hr tablet Take 1 tablet by mouth once daily. Take in AM loratadine (CLARITIN) 10 mg tablet Take 1 tablet by mouth once daily. acetaminophen (TYLENOL) 500 mg tablet Take 500 mg by mouth every 6 hours as needed. FOR PAIN mv,Ca,min-folic acid-vit K1 (ONE-A-DAY WOMEN'S 50 PLUS) 400-20 mcg tab Take 1 tablet by mouth once daily. PSEUDOEPHEDRINE HCL (SUDAFED ORAL) Take by mouth. No current facility-administered medications on file prior to visit. Social History Social History Tobacco Use Smoking status: Former Smoker Packs/day: 0.50 Years: 5.00 Pack years: 2.50 Types: Cigarettes Quit date: 05/02/2016 Years since quittin.4 Smokeless tobacco: Never Used Vaping Use Vaping Use: Never used Substance Use Topics Alcohol use: No Drug use: No EXAM: BP 120/76 (BP Site: Left Arm, BP Position: Sitting, BP Cuff Size: Regular Adult) Pulse 72 Resp 16 Wt 89.1 kg (196 lb 8 oz) BMI 32.70 kg/m General Appearance: Well appearing, alert, in no acute distress, well-hydrated, well nourished.. Lungs: Lungs clear to auscultation. No wheezing, rhonchi, rales.. Heart: RRR without murmur, gallop, or rubs. No ectopy. Health Maintenance List DTAP,TDAP,TD(1 - Tdap) Never done HIV SCREENING due on 01/20/2022 MAMMOGRAM due on 02/04/2022 PAP TESTING due on 03/01/2023 HPV TESTING due on 03/01/2023 DIABETES SCREEN due on 01/23/2024 LIPID SCREEN due on 01/22/2026 COLORECTAL CANCER SCREENING due on 03/07/2029 INFLUENZA Completed HEPATITIS C SCREENING Completed SHINGRIX VACCINE Completed COVID-19 VACCINE Completed MENINGOCOCCAL CONJUGATE Aged Out Data reviewed none ASSESSMENT/PLAN: 1. Depression, unspecified depression type - ICD9: 311, ICD10: F32.A (primary diagnosis) Continue current medications. 2. Back pain, unspecified back location, unspecified back pain laterality, unspecified chronicity -ICD9: 724.5, ICD10: M54.9 Chronic low back pain Continue current medications. 3. Allergic rhinitis, unspecified seasonality, unspecified trigger - ICD9: 477.9, ICD10: J30.9 Follow up in 6 months Medical Decision Making: Problems: Moderate: 2+ stable chronic illnesses Risk: Moderate: Drug management Medical Decision Making Level: 4 - Moderate Jason Clemons MD [facility] Author Sharif Chandler [facility] June 09, 2023 7:11am Note Date/Time June 09, 2023 6 :21am [facility] Department [address] [place] [address] Emergency Department Summary 06/09/23 MR#: [id number] Acct: [id number] Name: YADIRA CANAS Rep #:[id number] : 1960 62 From: Sharif Flowers PCP: Dr. Jason Clemons MD Status:RE G ER Location: ED HPI History of Present Illness Chief Complaint: Upper Extremity Injury Informant: patient Narrative Narrative: Left hand dominant female presents through public service ride after waking up on the ground with right wrist pain. She thinks she is was sleepwalking. She has done this years ago. She does not remember. She denies headache neck pain. Chronic back pain on gabapentin. No worsening pain. Able to ambulate. Pain with movement of the right wrist. Does not follow an orthopedist. [facility] Medical History Depression Pain Home Medications amitriptyline 25 mg tablet 25 mg PO DAILY 12/14/16 [History Last Taken 12/13/16] bupropion HCl 150 mg tablet,12 hr sustained-release 150 mg PO BID 12/14/16 [History Last Taken 12/14/16] diclofenac sodium 50 mg tablet,delayed release 50 mg PO DAILY 12/14/16 [History Last Taken 12/14/16] tramadol 50 mg tablet 50 mg PO DAILY 12/14/16 [History Last Taken 12/13/16] dicyclomine 10 mg capsule 10 mg PO TIDAC PRN Pain ##20 12/15/16 [Rx Last Taken Unknown] docusate sodium 100 mg capsule (DOK) 100 mg PO DAILY #20 CAPSULES 06/09/23 [Rx Last Taken Unknown] hydrocodone-acetaminophen 5-325mg 5mg-325mg 1 tab PO Q6H PRN PRN Pain 3 days #12TABLETS 06/09/23 [Rx Last Taken Unknown] Allergy/AdvReac Type Severity Reaction Status Date / Time Sulfa (Sulfonamide Allergy Other Verified 06/09/23 06:12 Antibiotics) tetracycline AdvReac Vomiting Verified 06/09/23 06:12 Surgical History History of carpal tunnel surgery Social History Smoking Status: Former smoker ROS ROS ED Constitutional Constitutional ED: Denies chills, fever(s) or sweats Eyes Eyes: Denies change in vision ENT ENT ED: Denies dysphagia or sore throat Cardiovascular Cardiovascular: Denies chest pain, leg edema, palpitations or racing heartbeat Respiratory/Chest Respiratory/Chest: Denies cough, dyspnea or dyspnea on exertion Gastrointestinal Gastrointestinal: Denies abdominal pain, diarrhea, nausea or vomiting Genitourinary Genitourinary ED: Denies dysuria, hematuria or urinary frequency Musculoskeletal Musculoskeletal: Reports extremity pain; Denies back pain or neck pain Integumentary Denies rash or wounds Neurologic Neurologic: Denies headache(s), paresthesias or weakness EXAM Physical Exam Const Vital Signs: 06/09/23 06:12 Temperature 98.1 F Temperature Source Temporal Pulse Rate 84 Respiratory Rate 16 Blood Pressure 158/85 H Blood Pressure Mean 109 Pulse Ox 94 Positive well nourished and well developed Constitutional Narrative: GCS 15 General Appearance ED: well developed and NAD HEENT Reports moist mucous membranes normocephalic and atraumatic Eyes PERRL, EOMs intact bilaterally and conjunctivae normal General Eye ED: Yes normal appearance of both eyes Neck no lymphadenopathy and supple General: Negative for tenderness Chest Wall Chest: Negative for tenderness Resp normal respiratory effort and normal air movement Effort and Inspection: symmetric chest movement; Negative for respiratory distress Cardio regular rate, regular rhythm and no murmurs Peripheral Pulses: pulses 2+ throughout GI normal to inspection, nondistended, normoactive bowel sounds and non-tender Palpation: Negative for guarding or rebound tenderness present Back/Spine no CVA tenderness and no thoracic nor lumbar tenderness Extremity Extremity Narrative: Right upper extremity: No shoulder or elbow tenderness. There is swelling distal forearm with tenderness distal radius. No hand tenderness. No gross deformities. Skin intact. Neuro vas intact. Left upper extremity: Full range of motion without tenderness. No deformities. Pulses intact distally. Lower extremities: Negative logroll bilateral lower extremities. No tenderness. No deformities. Neuro vas intact distally. General Extremety ED: Yes edema and tenderness General Extremity: edema Neuro oriented x3, CN's II-XII intact bilaterally and no sensory deficits noted Sensorium / Orientation: awake and alert Skin no rashes or lesions noted and no wounds MDM MDM MDM Narrative Medical decision making narrative: Interventions / MDM: Differential diagnosis: Fracture Diagnosis considered but do not suspect: N/A My EKG interpretation: N/A Imaging independently reviewed and interpreted by myself: Three-view x-ray rightwrist: Distal radius fracture minimal displacement mild dorsal tilt. Extra-articular. This also read by radiology. External documents reviewed: N/A Test considered but not ordered:N/A ED course: Patient has swelling distal forearm with tenderness bony prominences. Concerns for clinical fracture. Hydrocodone provided. X-ray right wrist ordered. X-ray confirms fracture she is placed in a wrist splint. She declines shoulder sling. Prescription for pain medicines and stool softener sent to her pharmacy. Orthopedic follow-up given. Procedure note: Verbal consent with splinting. Nylon sleeve was placed over theright forearm, Curlex dressing extra padding at the wrist. 4 inch plaster splint used for AP splinting, Marco wrap to secure place in a slight flexed position of the wrist. Toller procedure well. Neurovascular intact post splinting. Re-evaluation: stable Disposition discussed with patient/family/significant other: Patient Case discussed with consulting clinician: N/A This note was generated with Contour dictation software. It may contain incorrectwords, spelling, and punctuation that were not noted in checking the note beforesigning. Discharge Plan Triage Chief Complaint: Upper Extremity Injury ED Provider: Sharif Chandler Dx/Rx/DC Orders Clinical Impression: Closed fracture of distal end of radius, Fall Instructions: ED Fracture, Wrist, General Prescriptions: New docusate sodium [DOK] 100 mg capsule 100 mg PO DAILY Qty: 20 0RF hydrocodone-acetaminophen [hydrocodone-acetaminophen] 5-325 mg tablet 1 tab PO Q6H PRN PRN (Reason: Pain) 3 Days Qty: 12 0RF No Action bupropion HCl 150 MG tablet sustained-release 12 hr 150 mg PO BID tramadol 50 MG tablet 50 mg PO DAILY Patient Comments: TAKE 1 TABLET BY MOUTH EVERY 6 HOURS NEEDED FOR PAIN amitriptyline 25 MG tablet 25 mg PO DAILY Patient Comments: TAKE 1 TO 2 TABLETS BY MOUTH AT BEDTIME diclofenac sodium 50 MG tablet 50 mg PO DAILY dicyclomine 10 MG capsule 10 mg PO TIDAC PRN (Reason: Pain) Qty: 20 0RF Primary Care Provider: Jason Clemons Referrals: Prashant Garcia DO [Med Staff - Active Staff] - 3-5 Days Jason Clemons MD [Primary Care Provider] - Activity Restrictions/Additional Instructions: Fracture of distal radius of your wrist bone on the right side. Keep splint on,ice and elevate. Use pain medicine as prescribed. Stool softeners to prevent constipation. Call the office Dr. Garcia to make an appointment for follow-up evaluation. Disposition Disposition: Home, Self Care What to do if you have Problems For any increased pain, shortness of breath, bleeding, nausea or vomiting, chestpain, or any unexpected problems, contact your Primary Care Provider. Call [facility] ([phone]) or report to the closest Emergency Room. Call 911 if necessary. 06/09/23 0711 <Electronically signed by Sharif Flowers> Cosigner Signature (if applicable): CC: Dr. Prashant Garcia DO; Dr. Jason Clemons MD ~ Signed [facility] Work Phone: Evaluation note* Diagnosis Depression, unspecified depression type- Primary Back pain, unspecified back location, unspecified back pain laterality, unspecified chronicity Allergic rhinitis, unspecified seasonality, unspecified trigger [facility] Diagnosis Depression, unspecified depression type [facility]* Diagnosis Encounter for screening mammogram for breast cancer documented in this encounter [facility] note* Diagnosis Depression, unspecified depression type documented in this encounter [facility] note* Diagnosis Depression, unspecified depression type- Primary Need for influenza vaccination Need for prophylactic vaccination and inoculation against influenza Insomnia, unspecified type Generalized osteoarthritis Generalized osteoarthrosis, unspecified site Back pain, unspecified back location, unspecified back pain laterality, unspecified chronicity Elevated cholesterol Pure hypercholesterolemia documented in this encounter [facility] note* Diagnosis Posterior vitreous detachment of left eye- Primary Vitreous degeneration Combined forms of age-related cataract of both eyes Other and combined forms of senile cataract Dry eye syndrome of both eyes Myopia, bilateral Myopia Regular astigmatism of both eyes Regular astigmatism Presbyopia documented in this encounter [facility] note* Diagnosis Depression, unspecified depression type- Primary Insomnia, unspecified type Low back pain with sciatica, sciatica laterality unspecified, unspecified back pain laterality, unspecified chronicity Elevated cholesterol Pure hypercholesterolemia documented in this encounter [facility] note* Diagnosis Depression, unspecified depression type- Primary Low back pain with sciatica, sciatica laterality unspecified, unspecified back pain laterality, unspecified chronicity Insomnia, unspecified type Elevated cholesterol Pure hypercholesterolemia documented in this encounter [facility] noteNo assessment information availableWGreene [facility] Work Phone: Evaluation note* Diagnosis Low back pain with sciatica, sciatica laterality unspecified, unspecified back pain laterality, unspecified chronicity Arthritis of both hands documented in this encounter [facility] note* Diagnosis Onset Date Resolution Status Orthopedic aftercare noneact [facility] Work Phone: Evaluation note* Diagnosis Low back pain with sciatica, sciatica laterality unspecified, unspecified back pain laterality, unspecified chronicity documented in this encounter [facility] note* Diagnosis Depression, unspecified depression type documented in this encounter [facility] note* Diagnosis Encounter for screening mammogram for breast cancer documented in this encounter [facility] note* Diagnosis Low back pain with sciatica, sciatica laterality unspecified, unspecified back pain laterality, unspecified chronicity documented in this encounter [facility] note* Diagnosis Low back pain with sciatica, sciatica laterality unspecified, unspecified back pain laterality, unspecified chronicity- Primary Depression, unspecified depression type Insomnia, unspecified type Hypertriglyceridemia Pure hyperglyceridemia Mixed hyperlipidemia Elevated glucose Other abnormal glucose documented in this encounter [facility] note* Diagnosis Elevated blood pressure reading without diagnosis of hypertension- Primary Low back pain with sciatica, sciatica laterality unspecified, unspecified back pain laterality, unspecified chronicity Depression, unspecified depression type Mixed hyperlipidemia Insomnia, unspecified type [facility]* Diagnosis Depression, unspecified depression type [facility] Diagnosis Hospital discharge follow-up- Primary Other follow-up examination Mental health disorder Unspecified nonpsychotic mental disorder Depression, unspecified depression type Auditory hallucinations Hallucinations ROBERT (generalized anxiety disorder) Generalized anxiety disorder Elevated BP without diagnosis of hypertension Encounter for screening examination for other mental health and behavioral disorders Encounter for immunization Need for other specified prophylactic vaccination against single bacterial disease documented in this encounter [facility] note* Diagnosis Mental health disorder- Primary Unspecified nonpsychotic mental disorder Auditory hallucinations Hallucinations [facility]* Diagnosis Auditory hallucinations- Primary Hallucinations Depression, unspecified depression type Low back pain with sciatica, sciatica laterality unspecified, unspecified back pain laterality, unspecified chronicity [facility]* Diagnosis Insomnia, unspecified type Hypertriglyceridemia Pure hyperglyceridemia Mixed hyperlipidemia documented in this encounter [facility] note* Diagnosis Low back pain with sciatica, sciatica laterality unspecified, unspecified back pain laterality, unspecified chronicity [facility]* Diagnosis Low back pain with sciatica, sciatica laterality unspecified, unspecified back pain laterality, unspecified chronicity Arthritis of both hands [facility] Diagnosis Auditory hallucinations- Primary Hallucinations Depression, unspecified depression type ROBERT (generalized anxiety disorder) Generalized anxiety disorder Mental health disorder Unspecified nonpsychotic mental disorder Insomnia, unspecified type Elevated blood pressure reading without diagnosis of hypertension Low back pain with sciatica, sciatica laterality unspecified, unspecified back pain laterality, unspecified chronicity [facility]* Diagnosis Auditory hallucinations Hallucinations [facility]* Diagnosis Depression, unspecified depression type [facility] Diagnosis Auditory hallucinations Hallucinations [facility]* Diagnosis Depression, unspecified depression type- Primary ROBERT (generalized anxiety disorder) Generalized anxiety disorder Mixed hyperlipidemia Elevated glucose Other abnormal glucose Medication monitoring encounter Encounter for therapeutic drug monitoring Vision changes Unspecified visual disturbance Encounter for Medicare annual wellness exam Routine general medical examination at a health care facility Nicotine dependence, cigarettes, uncomplicated Other chronic pain documented in this encounter [facility] note* Diagnosis Encounter for screening mammogram for breast cancer [facility] Diagnosis Hypertriglyceridemia Pure hyperglyceridemia Mixed hyperlipidemia [facility]* Diagnosis Combined forms of age-related cataract of both eyes- Primary Other and combined forms of senile cataract Posterior vitreous detachment of left eye Vitreous degeneration Myopia, bilateral Myopia Regular astigmatism of both eyes Regular astigmatism Presbyopia [facility]* Diagnosis Paronychia of great toe of left foot- Primary Onychia and paronychia of toe Onychogryposis of toenail Other specified disease of nail [facility]* Diagnosis Low back pain with sciatica, sciatica laterality unspecified, unspecified back pain laterality, unspecified chronicity [facility]* Diagnosis Depression, unspecified depression type- Primary Mixed hyperlipidemia ROBERT (generalized anxiety disorder) Generalized anxiety disorder Low back pain with sciatica, sciatica laterality unspecified, unspecified back pain laterality, unspecified chronicity Medication monitoring encounter Encounter for therapeutic drug monitoring Elevated glucose Other abnormal glucose Hidradenitis suppurativa Hidradenitis Major depressive disorder with single episode, in full remission [facility] Additional Instructions Fracture of distal radius of your wrist bone on the right side. Keep splint on, ice and elevate. Use pain medicine as prescribed. Stool softeners to prevent constipation. Call the office Dr. Garcia to make an appointment for follow-up evaluation.[facility] Work Phone: Reason for referral (narrative)* Diagnostic Procedure Only (Routine) - Pending Review Specialty Diagnoses / Procedures Referred By Irene carson Referred To Contact [facility] Diagnoses Encounter for screening mammogram for breast cancer Procedures [facility]MER SCREENING SCREENING MAMMOGRAPHY BI 2-VIEW BREAST INC CAD Jason Clemons MD [address] [place] [address] [facility] [address] [place] [address] Referral ID Status Reason Start Date Expiration Date Visits Requested Visits Authorized [id number] Pending Review Auto-Generat ed Referral 03/18/2022 04/17/2023 1 1 [facility] Diagnostic Procedure Only (Routine) - Pending Review Specialty Diagnoses / Procedures Referred By Irene carson Referred To Contact [facility] Diagnoses Encounter for screening mammogram for breast cancer Procedures [facility] SCREENING SCREENING MAMMOGRAPHY BI 2-VIEW BREAST INC CAD Jason Clemons MD [address] [place] [address] [facility] [address] [place] [address] Referral ID Status Reason Start Date Expiration Date Visits Requested Visits Authorized [id number] Pending Review Auto-Generat ed Referral 11/10/2023 12/09/2024 1 1 [facility] Chief Complaint and Reason for Visit Chief Complaint R ARM PAIN Chief Complaint R ARM PAIN RIGHT WRIST Rm 2 Chief Complaint R ARM PAIN RIGHT WRIST Rm 2 PREOP RIGHT WRIST RM 2 RIGHT WRIST FRACTURE. RX HERE Reason for Visit Orthopedic aftercare Advance Directives Advance Directive Response Recorded Date/ Time Living Will No June 09 6:12am Power of Equity Director No June 09, 2023 6:12am Advance Directive Response Recorded Date/ Time Living Will No June 18, 023 11:13am Power of Equity Director No June 18, 2023 11:13am Reason for Referral Specialty Diagnoses / Procedures Referred By Irene carson Referred To Contact Diagnoses Mental health disorder Auditory hallucinations Procedures CONSULT TO PSYCHIATRY OFFICE/OUTPATIENT [facility] [place] 60 MINUTES Jason Clemons MD [address] [place] [address] Referral ID Status Reason Start Date Expiration Date Visits Requested Visits Authorized [id number] Pending Review PCP Requested Referral 06/05/2024 06/05/2025 1 1 Summary Purpose Family History No Family History Records FoundNo Family History Records Found Additional Source Comments Source Comments (unrecognize d section and content) In the event this informatio n is protected by the Federal Confidentiality of Alcohol and Drug Abuse Patient Records regulations: The Federal rules restrict any use of the information to criminally investigate or prosecute any alcohol or drug abuse patient.[facility] HospitalIn the event this information is protected by the Federal Confidentiality of Alcohol and Drug Abuse Patient Records regulations: The Federal rules restrict any use of the information to criminally investigate or prosecute any alcohol or drug abuse patient.[facility] HospitalIn the event this information is protected by the Federal Confidentiality of Alcohol and Drug Abuse Patient Records regulations: The Federal rules restrict any use of the information to criminally investigate or prosecute any alcohol or drug abuse patient.[facility] HospitalIn the event this information is protected by the Federal Confidentiality of Alcohol and Drug Abuse Patient Records regulations: The Federal rules restrict any use of the information to criminally investigate or prosecute any alcohol or drug abuse patient.[facility] HospitalIn the event this information is protected by the Federal Confidentiality of Alcohol and Drug Abuse Patient Records regulations: The Federal rules restrict any use of the information to criminally investigate or prosecute any alcohol or drug abuse patient.[facility] HospitalIn the event this information is protected by the Federal Confidentiality of Alcohol and Drug Abuse Patient Records regulations: The Federal rules restrict any use of the information to criminally investigate or prosecute any alcohol or drug abuse patient.[facility] HospitalIn the event this information is protected by the Federal Confidentiality of Alcohol and Drug Abuse Patient Records regulations: The Federal rules restrict any use of the information to criminally investigate or prosecute any alcohol or drug abuse patient.[facility] HospitalIn the event this information is protected by the Federal Confidentiality of Alcohol and Drug Abuse Patient Records regulations: The Federal rules restrict any use of the information to criminally investigate or prosecute any alcohol or drug abuse patient.[facility] HospitalIn the event this information is protected by the Federal Confidentiality of Alcohol and Drug Abuse Patient Records regulations: The Federal rules restrict any use of the information to criminally investigate or prosecute any alcohol or drug abuse patient.[facility] HospitalIn the event this information is protected by the Federal Confidentiality of Alcohol and Drug Abuse Patient Records regulations: The Federal rules restrict any use of the information to criminally investigate or prosecute any alcohol or drug abuse patient.[facility] HospitalIn the event this information is protected by the Federal Confidentiality of Alcohol and Drug Abuse Patient Records regulations: The Federal rules restrict any use of the information to criminally investigate or prosecute any alcohol or drug abuse patient.[facility] HospitalIn the event this information is protected by the Federal Confidentiality of Alcohol and Drug Abuse Patient Records regulations: The Federal rules restrict any use of the information to criminally investigate or prosecute any alcohol or drug abuse patient.[facility] HospitalIn the event this information is protected by the Federal Confidentiality of Alcohol and Drug Abuse Patient Records regulations: The Federal rules restrict any use of the information to criminally investigate or prosecute any alcohol or drug abuse patient.[facility] HospitalIn the event this information is protected by the Federal Confidentiality of Alcohol and Drug Abuse Patient Records regulations: The Federal rules restrict any use of the information to criminally investigate or prosecute any alcohol or drug abuse patient.[facility] HospitalIn the event this information is protected by the Federal Confidentiality of Alcohol and Drug Abuse Patient Records regulations: The Federal rules restrict any use of the information to criminally investigate or prosecute any alcohol or drug abuse patient.[facility] HospitalIn the event this information is protected by the Federal Confidentiality of Alcohol and Drug Abuse Patient Records regulations: The Federal rules restrict any use of the information to criminally investigate or prosecute any alcohol or drug abuse patient.[facility] HospitalIn the event this information is protected by the Federal Confidentiality of Alcohol and Drug Abuse Patient Records regulations: The Federal rules restrict any use of the information to criminally investigate or prosecute any alcohol or drug abuse patient.[facility] HospitalIn the event this information is protected by the Federal Confidentiality of Alcohol and Drug Abuse Patient Records regulations: The Federal rules restrict any use of the information to criminally investigate or prosecute any alcohol or drug abuse patient.[facility] HospitalIn the event this information is protected by the Federal Confidentiality of Alcohol and Drug Abuse Patient Records regulations: The Federal rules restrict any use of the information to criminally investigate or prosecute any alcohol or drug abuse patient.[facility] HospitalIn the event this information is protected by the Federal Confidentiality of Alcohol and Drug Abuse Patient Records regulations: The Federal rules restrict any use of the information to criminally investigate or prosecute any alcohol or drug abuse patient.[facility] HospitalIn the event this information is protected by the Federal Confidentiality of Alcohol and Drug Abuse Patient Records regulations: The Federal rules restrict any use of the information to criminally investigate or prosecute any alcohol or drug abuse patient.[facility] HospitalIn the event this information is protected by the Federal Confidentiality of Alcohol and Drug Abuse Patient Records regulations: The Federal rules restrict any use of the information to criminally investigate or prosecute any alcohol or drug abuse patient.[facility] HospitalIn the event this information is protected by the Federal Confidentiality of Alcohol and Drug Abuse Patient Records regulations: The Federal rules restrict any use of the information to criminally investigate or prosecute any alcohol or drug abuse patient.[facility] HospitalIn the event this information is protected by the Federal Confidentiality of Alcohol and Drug Abuse Patient Records regulations: The Federal rules restrict any use of the information to criminally investigate or prosecute any alcohol or drug abuse patient.[facility] HospitalIn the event this information is protected by the Federal Confidentiality of Alcohol and Drug Abuse Patient Records regulations: The Federal rules restrict any use of the information to criminally investigate or prosecute any alcohol or drug abuse patient.[facility] HospitalIn the event this information is protected by the Federal Confidentiality of Alcohol and Drug Abuse Patient Records regulations: The Federal rules restrict any use of the information to criminally investigate or prosecute any alcohol or drug abuse patient.[facility] HospitalIn the event this information is protected by the Federal Confidentiality of Alcohol and Drug Abuse Patient Records regulations: The Federal rules restrict any use of the information to criminally investigate or prosecute any alcohol or drug abuse patient.[facility] HospitalIn the event this information is protected by the Federal Confidentiality of Alcohol and Drug Abuse Patient Records regulations: The Federal rules restrict any use of the information to criminally investigate or prosecute any alcohol or drug abuse patient.[facility] HospitalIn the event this information is protected by the Federal Confidentiality of Alcohol and Drug Abuse Patient Records regulations: The Federal rules restrict any use of the information to criminally investigate or prosecute any alcohol or drug abuse patient.[facility] HospitalIn the event this information is protected by the Federal Confidentiality of Alcohol and Drug Abuse Patient Records regulations: The Federal rules restrict any use of the information to criminally investigate or prosecute any alcohol or drug abuse patient.[facility] HospitalIn the event this information is protected by the Federal Confidentiality of Alcohol and Drug Abuse Patient Records regulations: The Federal rules restrict any use of the information to criminally investigate or prosecute any alcohol or drug abuse patient.[facility] HospitalIn the event this information is protected by the Federal Confidentiality of Alcohol and Drug Abuse Patient Records regulations: The Federal rules restrict any use of the information to criminally investigate or prosecute any alcohol or drug abuse patient.[facility] HospitalIn the event this information is protected by the Federal Confidentiality of Alcohol and Drug Abuse Patient Records regulations: The Federal rules restrict any use of the information to criminally investigate or prosecute any alcohol or drug abuse patient.[facility] HospitalIn the event this information is protected by the Federal Confidentiality of Alcohol and Drug Abuse Patient Records regulations: The Federal rules restrict any use of the information to criminally investigate or prosecute any alcohol or drug abuse patient.[facility] HospitalIn the event this information is protected by the Federal Confidentiality of Alcohol and Drug Abuse Patient Records regulations: The Federal rules restrict any use of the information to criminally investigate or prosecute any alcohol or drug abuse patient.[facility] HospitalIn the event this information is protected by the Federal Confidentiality of Alcohol and Drug Abuse Patient Records regulations: The Federal rules restrict any use of the information to criminally investigate or prosecute any alcohol or drug abuse patient.[facility] HospitalIn the event this information is protected by the Federal Confidentiality of Alcohol and Drug Abuse Patient Records regulations: The Federal rules restrict any use of the information to criminally investigate or prosecute any alcohol or drug abuse patient.[facility] HospitalIn the event this information is protected by the Federal Confidentiality of Alcohol and Drug Abuse Patient Records regulations: The Federal rules restrict any use of the information to criminally investigate or prosecute any alcohol or drug abuse patient.[facility] HospitalIn the event this information is protected by the Federal Confidentiality of Alcohol and Drug Abuse Patient Records regulations: The Federal rules restrict any use of the information to criminally investigate or prosecute any alcohol or drug abuse patient.[facility] HospitalIn the event this information is protected by the Federal Confidentiality of Alcohol and Drug Abuse Patient Records regulations: The Federal rules restrict any use of the information to criminally investigate or prosecute any alcohol or drug abuse patient.[facility] HospitalIn the event this information is protected by the Federal Confidentiality of Alcohol and Drug Abuse Patient Records regulations: The Federal rules restrict any use of the information to criminally investigate or prosecute any alcohol or drug abuse patient.[facility] HospitalIn the event this information is protected by the Federal Confidentiality of Alcohol and Drug Abuse Patient Records regulations: The Federal rules restrict any use of the information to criminally investigate or prosecute any alcohol or drug abuse patient.[facility] HospitalIn the event this information is protected by the Federal Confidentiality of Alcohol and Drug Abuse Patient Records regulations: The Federal rules restrict any use of the information to criminally investigate or prosecute any alcohol or drug abuse patient.[facility] HospitalIn the event this information is protected by the Federal Confidentiality of Alcohol and Drug Abuse Patient Records regulations: The Federal rules restrict any use of the information to criminally investigate or prosecute any alcohol or drug abuse patient.[facility] HospitalIn the event this information is protected by the Federal Confidentiality of Alcohol and Drug Abuse Patient Records regulations: The Federal rules restrict any use of the information to criminally investigate or prosecute any alcohol or drug abuse patient.[facility] HospitalIn the event this information is protected by the Federal Confidentiality of Alcohol and Drug Abuse Patient Records regulations: The Federal rules restrict any use of the information to criminally investigate or prosecute any alcohol or drug abuse patient.[facility] HospitalIn the event this information is protected by the Federal Confidentiality of Alcohol and Drug Abuse Patient Records regulations: The Federal rules restrict any use of the information to criminally investigate or prosecute any alcohol or drug abuse patient.[facility] Reason for Visit (unrecogniz ed section and content) Reason Comments F/U 3 Month Reason Onset Date Comments Nurse Triage Call 11/11/2021 Reason Comments Refill Request Reason Onset Date Comments Refill Request 04/15/2022 Reason Onset Date Comments 6 Month Exam Immunizations 05/06/2022 Flu vaccination Reason Comments Flashes Left Eye Reason Onset Date Comments Refill Request 08/14/2022 Reason Onset Date Comments Refill Request 10/13/2022 Reason Comments F/U 6 Month Reason Comments Results Reason Onset Date Comments Refill Request 03/09/2023 Reason Onset Date Comments Refill Request 07/06/2023 Reason Onset Date Comments Refill Request 09/07/2023 Reason Onset Date Comments Refill Request 10/01/2023 Reason Onset Date Comments Refill Request 11/25/2023 Reason Comments Follow Up Reason Comments apt problem pt calling Reason Comments Follow Up 3 month follow up Reason Comments Patient Question Reason Comments Patient Update Reason Comments Hospital Follow Up Reason Onset Date Comments Symptoms 06/05/2024 Reason Comments Medication Follow-up Reason Onset Date Comments Population Health Navigation Outreach 06/21/2024 [facility] AWV Initiative Reason Onset Date Comments Refill Request 07/06/2024 Reason Onset Date Comments Refill Request 07/21/2024 Reason Onset Date Comments Pharmacy Call 09/13/2024 Reason Onset Date Comments Refill Request 10/10/2024 Reason Onset Date Comments Refill Request 10/12/2024 Reason Onset Date Comments Refill Request 10/13/2024 Reason Comments Medicare Wellness Exam 6 Month Exam Reason Onset Date Comments Refill Request 12/05/2024 Reason Comments Yearly Exam Specialty Diagnoses / Procedures Referred By Contac t Referred To Contact Optometry Diagnoses Vision changes Procedures CONSULT TO OPTOMETRY OFFICE/OUTPATIENT [facility] 60 MINUTES Jason Clemons MD [address] [place] [address] Phone: tel: fax: Referral ID Status Reason Start Date Expiration Date V isits Requested Visits Authorized [id number] Closed PCP Requested Referral 11/07/2024 11/07/2025 1 1 Reason Comments Ingrown Toenail ZOHREH great toe issues x 1 week Reason Onset Date Comments Refill Request 01/31/2025 Reason Onset Date Comments Results 02/20/2025 Care Teams (unrecognized sec tion and content) Hearing Care Practitioner Relationship Specialty Start Date End Date Jason Clemons MD [address] [place] [address] PCP - General Family Practice 08/11/10 Hearing Care Practitioner Relationship Specialty Start Date End Date Jason Clemons MD [address] [place] [address] PCP - General Family Practice 08/11/10 Hearing Care Practitioner Relationship Specialty Start Date End Date Jason Clemons MD [address] [facility] [place] [address] PCP - General Family Practice 08/11/10 Hearing Care Practitioner Relationship Specialty Start Date End Date Jason Clemons MD [address] [place] [address] PCP - General Family Practice 08/11/10 Hearing Care Practitioner Relationship Specialty Start Date End Date Jason Clemons MD [address] [place] [address] PCP - General Family Medicine 08/11/10 Hearing Care Practitioner Relationship Specialty Start Date End Date Jason Clemons MD [address] [place] [address] PCP - General Family Medicine 08/11/10 Hearing Care Practitioner Relationship Specialty Start Date End Date Jason Clemons MD [facility] [place] [address] PCP - General Family Medicine 08/11/10 Hearing Care Practitioner Relationship Specialty Start Date End Date Jason Clemons MD [address] [place] [address] PCP - General Family Medicine 08/11/10 Hearing Care Practitioner Relationship Specialty Start Date End Date Jason Clemons MD [address] [place], [place] [address] PCP - General Family Medicine 08/11/10 Hearing Care Practitioner Relationship Specialty Start Date End Date Jason Clemons MD [address] [place], [place] [address] PCP - General Family Medicine 08/11/10 Team Status: Active Member Role Status Dates Dr. Jason Clemons MD Family Provider Active Dr. Jason Clemons MD Primary Care Provider Active Team Status: Inactive Member Role Status Dates Dr. Jason Clemons MD Primary Care Provider Active Dr. Sharif Chandler DO Emergency Provider Active Team Status: Inactive Member Role Status Dates Dr. Jason Clemons MD Primary Care Provider, Referr ing Provider Active Dr. Prashant Garcia DO Attending Provider Active Team Status: Inactive Member Role Status Dates Dr. Jason Clemons MD Primary Care Provider Active Dr. Tam Briggs MD Attending Provider Active Team Status: Active Member Role Status Dates Dr. Jason Clemons MD Primary Care Provider Active Dr. Prashant Garcia DO Attending Provid er, Referring Provider, Other Provider Active Team Status: Inactive Member Role Status Dates Dr. Jason Clemons MD Primary Care Provider Active Dr. Prashant Garcia DO Attending Provider, Referring Provider Active Team Status: Inactive Member Role Status Dates Dr. Jason Clemons MD Primary Care Provider Active Dr. Sharif Chandler DO Attending Provider, Emergency Provide r Active Hearing Care Practitioner Relationship Specialty Start Date End Date Jason Clemons MD [address] [place], [place] [address] PCP - General Family Medicine 08/11/10 Team Status: Active Member Role Status Dates Dr. Jason Clemons MD Primary Care Provider Active Dr. Dulce Penn MD Attending Provider Active Dr. Prashant Garcia DO Referring Provider Active Team Status: Inactive Member Role Status Dates Dr. Jason Clemons MD Primary Care Provider Active Dr. Prashant Garcia DO Attending Provider Active Hearing Care Practitioner Relationship Specialty Start Date End Date Jason Clemons MD [address] [place] [address] PCP - General Family Medicine 08/11/10 Hearing Care Practitioner Relationship Specialty Start Date End Date Jason Clemons MD [address] [place] [address] PCP - General Family Medicine 08/11/10 Hearing Care Practitioner Relationship Specialty Start Date End Date Jason Clemons MD [address] [place] [address] PCP - General Family Medicine 08/11/10 Hearing Care Practitioner Relationship Specialty Start Date End Date Jason Clemons MD [address] [place] [address] PCP - General Family Medicine 08/11/10 Hearing Care Practitioner Relationship Specialty Start Date End Date Jason Clemons MD [address] [place] [address] PCP - General Family Medicine 08/11/10 Hearing Care Practitioner Relationship Specialty Start Date End Date Jason Clemons MD [address] [place] [address] PCP - General Family Medicine 08/11/10 Hearing Care Practitioner Relationship Specialty Start Date End Date Jason Clemons MD [address] [place] [address] PCP - General Family Medicine 08/11/10 Hearing Care Practitioner Relationship Specialty Start Date End Date Jason Clemosn MD [address] [place] [address] PCP - General Family Medicine 08/11/10 Hearing Care Practitioner Relationship Specialty Start Date End Date Jason Clemons MD [address] [place] [address] PCP - General Family Medicine 08/11/10 Hearing Care Practitioner Relationship Specialty Start Date End Date Jason Clemons MD [address] [place] [address] PCP - General Family Medicine 08/11/10 Hearing Care Practitioner Relationship Specialty Start Date End Date Jason Clemons MD [address] [place] [address] PCP - General Family Medicine 08/11/10 Carmina Suazo, QUILTER FIXER.LICENSED AIRCRAFT MAINTENANCE ENGINEER [address] [place] [address] Slitter Scorer Cut Off Operator Family Medicine 07/09/24 Hearing Care Practitioner Relationship Specialty Start Date End Date Jason Clemons MD [address] [place] [address] PCP - General Family Medicine 08/11/10 Carmina Suazo, QUILTER FIXER.LICENSED AIRCRAFT MAINTENANCE ENGINEER [address] [place] [address] Slitter Scorer Cut Off Operator Family Medicine 07/09/24 Quinton Ramirez QUILTER FIXER.LICENSED AIRCRAFT MAINTENANCE ENGINEER [address] [place] [address] Slitter Scorer Cut Off Operator Family Medicine 07/18/24 Hearing Care Practitioner Relationship Specialty Start Date End Date Jason Clemons MD [address] [place] [address] PCP - General Family Medicine 08/11/10 Carmina Suazo APRN.LICENSED AIRCRAFT MAINTENANCE ENGINEER [address] [place] [address] Slitter Scorer Cut Off Operator Family Medicine 07/09/24 Quinton Ramirez APRN.LICENSED AIRCRAFT MAINTENANCE ENGINEER [address] [place] [address] Slitter Scorer Cut Off Operator Family Medicine 07/18/24 Hearing Care Practitioner Relationship Specialty Start Date End Date Jason Clemons MD [address] [place] [address] PCP - General Family Medicine 08/11/10 Carmina Suazo APRN.LICENSED AIRCRAFT MAINTENANCE ENGINEER [address] [place] [address] Slitter Scorer Cut Off Operator Family Medicine 07/09/24 Quinton Ramirez APRN.LICENSED AIRCRAFT MAINTENANCE ENGINEER [address] [place] [address] Slitter Scorer [facility] Hearing Care Practitioner Relationship Specialty Start Date End Date Jason Clemons MD [address] [place] [address] PCP - General Family Medicine 08/11/10 Carmina Suazo APRN.LICENSED AIRCRAFT MAINTENANCE ENGINEER [address] [place] [address] Slitter Scorer Cut Off Operator Family Medicine 07/09/24 Quinton Ramirez APRN.LICENSED AIRCRAFT MAINTENANCE ENGINEER [address] [place] [address] Slitter Scorer Cut Off Operator Family Medicine 07/18/24 Hearing Care Practitioner Relationship Specialty Start Date End Date Jason Clemons MD [address] [place] [address] PCP - General Family Medicine 08/11/10 Carmina Suazo, QUILTER FIXER.LICENSED AIRCRAFT MAINTENANCE ENGINEER [address] [place] [address] Slitter Scorer Cut Off Operator Family Medicine 07/09/24 Quinton Ramirez QUILTER FIXER.LICENSED AIRCRAFT MAINTENANCE ENGINEER [address] [place] [address] Slitter Scorer [facility] 07/[facility] Hearing Care Practitioner Relationship Specialty Start Date End Date Jason Clemons MD [address] [place] [address] PCP - General Family Medicine 08/11/10 Carmina Suazo, QUILTER FIXER.LICENSED AIRCRAFT MAINTENANCE ENGINEER [address] [place] [address] Slitter Scorer Cut Off Operator Family Medicine 07/09/24 Quinton Ramirez QUILTER FIXER.LICENSED AIRCRAFT MAINTENANCE ENGINEER [address] [place] [address] Slitter Scorer Cut Off Operator Family Medicine 07/18/24 Hearing Care Practitioner Relationship Specialty Start Date End Date Jason Clemons MD [address] [place] [address] PCP - General Family Medicine 08/11/10 Carmina Suazo QUILTER FIXER.LICENSED AIRCRAFT MAINTENANCE ENGINEER [address] [place] [address] Slitter Scorer Cut Off Operator Family Medicine 07/09/24 Quinton Ramirez APRN.LICENSED AIRCRAFT MAINTENANCE ENGINEER [address] [place] [address] Slitter Scorer Cut Off Operator Family Medicine 07/18/24 Hearing Care Practitioner Relationship Specialty Start Date End Date Jason Clemons MD [address] [place] [address] PCP - General Family Medicine 08/11/10 Carmina Suazo APRN.LICENSED AIRCRAFT MAINTENANCE ENGINEER [address] [place] [address] Slitter Scorer Cut Off Operator Family Medicine 07/09/24 Quinton Ramirez APRN.LICENSED AIRCRAFT MAINTENANCE ENGINEER [address] [place] [address] Slitter Scorer Cut Off Operator Family Medicine 07/18/24 Hearing Care Practitioner Relationship Specialty Start Date End Date Jason Clemons MD [address] [place] [address] PCP - General Family Medicine 08/11/10 Carmina Suazo APRN.LICENSED AIRCRAFT MAINTENANCE ENGINEER [address] [place] [address] Slitter Scorer Cut Off Operator Family Medicine 07/09/24 Quinton Ramirez APRN.LICENSED AIRCRAFT MAINTENANCE ENGINEER [address] [place] [address] Slitter Scorer Cut Off Operator Family Medicine 07/18/24 Hearing Care Practitioner Relationship Specialty Start Date End Date Jason Clemons MD [address] [place] [address] PCP - General Family Medicine 08/11/10 Carmina Suazo APRN.LICENSED AIRCRAFT MAINTENANCE ENGINEER [address] [place] [address] Slitter Scorer Cut Off Operator Family Medicine 07/09/24 Quinton Ramirez APRN.LICENSED AIRCRAFT MAINTENANCE ENGINEER [address] [place] [address] Slitter Scorer Cut Off Operator Family Medicine 07/18/24 Hearing Care Practitioner Relationship Specialty Start Date End Date Jason Clemons MD [address] [place] [address] PCP - General Family Medicine 08/11/10 Quniton Ramirez APRN.LICENSED AIRCRAFT MAINTENANCE ENGINEER [address] [place] [address] Slitter Scorer Cut Off Operator Family [facility] 07/18/24 Hearing Care Practitioner Relationship Specialty Start Date End Date Jason Clemons MD [address] [place] [address] PCP - General Family Medicine 08/11/10 Quinton Ramirez, QUILTER FIXER.LICENSED AIRCRAFT MAINTENANCE ENGINEER [address] [place] [address] Slitter Scorer Cut Off Operator Family Medicine 07/18/24 Hearing Care Practitioner Relationship Specialty Start Date End Date Jason Clemons MD [address] [place] [address] PCP - General Family Medicine 08/11/10 Quinton Ramirez, QUILTER FIXER.LICENSED AIRCRAFT MAINTENANCE ENGINEER [address] [place] [address] Slitter Scorer Cut Off Operator Family Medicine 07/18/24 Hearing Care Practitioner Relationship Specialty Start Date End Date Jason Clemons MD [address] [place] [address] PCP - General Family Medicine 08/11/10 Quinton Ramirez APRN.LICENSED AIRCRAFT MAINTENANCE ENGINEER [address] [place] [address] [facility] Hearing Care Practitioner Relationship Specialty Start Date End Date Jason Clemons MD [address] [place] [address] PCP - General [facility] 08/11/10 Quinton Ramirez APRN.LICENSED AIRCRAFT MAINTENANCE ENGINEER [address] [place], [place] [id number] Replaced By [facility] 07/18/24 Goals (unrecognized section and content) Goals may be documented in a n alternate section INFORMATION SOURCE (unrecogn ized section and content) DATE CREATED AUTHOR 06/13/2024 [facility] DATE CREATED AUTHOR [facility]25 [facility] FOR RECORDS PERTAINING TO PATIENTS WHO ARE OR HAVE BEEN ENROLLED IN A CHEMICAL DEPENDENCY/SUBSTANCEABUSE PROGRAM, SOME INFORMATION MAY BE OMITTED. This clinical summary was aggregated from multiple sources. Caution should be exercised in using it in the provision of clinical care. This summary normalizes information from multiple sources, and as a consequence, information in this document may materially change the coding, format and clinical context of patient data. In addition, data may be omitted in some cases. CLINICAL DECISIONS SHOULD BE BASED ON THE PRIMARY CLINICAL RECORDS. [employer] provides no warranty or guarantee of the accuracy or completeness of information in this document.
[2025-03-03 11:53] LABS: Hematocrit 36.8 % (37-47); Hemoglobin 12.1 g/dL (12.0-15.0); Immature Granulocytes Count 0.040 X10^3/uL (0.0-0.0); Mean Corp Hgb Conc 32.9 g/dL (32-36); Mean Corpuscular Volume 87.8 fL (81-99); Mean Platelet Vol. 9.3 fl (6.2-12.0); NRBC Flagged by Analyzer 0 % (0-5); Platelet Count 270 K/mm3 (150-450); RBC Distribution Width CV 12.8 % (11.6-14.6); RBC Distribution Width SD 41.1 fl (35.1-43.9); Red Blood Count 4.19 M/mm3 (4.2-5.4); White Blood Count 9.6 K/mm3 (4.4-11.0)
[2025-03-03 12:12] LABS: Alcohol, Blood (Medical)-Serum < 10.1 mg/dL (<=10.0); Anion Gap 13 (5-15); BUN 15 mg/dL (4-19); BUN/Creat Ratio 21.0 RATIO (10-20); Calcium,Total 8.7 mg/dL (7.6-11.0); Carbon Dioxide 22.7 mmol/L (21.0-32.0); Chloride 105 mmol/L (98-108); Estimated Creatinine Clearance 86.21 ml/min (50-250); Glucose 110 mg/dL (70-99); Potassium 3.6 mmol/L (3.3-5.1)
[2025-03-03 13:35] LABS: Barbiturate Urine NEGATIVE (< 200 ng/mL); Benzodiazepine Urine NEGATIVE (< 200 ng/mL); PCP Urine NEGATIVE (< 25 ng/mL); THC Urine NEGATIVE (< 50 ng/mL)
--- NOTE | 2025-03-03 13:57 | CM.ED ---
Social Work Date of referral: 03/03/25 Reason for referral: Resources needed Referred by: ED nurse Patient provided consent for social work visit. Patient stated she was evicted on Wednesday from the [facility] due to non-payment of rent and has been staying at [facility]. Interventional Physiatrist completed the Social Determinants of Health with patient and provided patient with written housing resources/caseworker protective services/homeless navigators (see attached screening for details). Patient was tearful, appeared to be stressed but at the end laughed with geriatric social work professor and expressed appreciation. Paris Trejo, BEVELLER OPERATOR, WARP SPLITTER
--- NOTE | 2025-03-03 16:03 | CM.ED ---
Social Work: Backup Administrative Coordinator called Crisis to let them know patient has been cleared for placement. Crisis will proceed to look for placement. Paris Trejo, LARD MAKER, HEARING CARE PRACTITIONER
[2025-03-03 20:42] LABS: Mucous, Urine 0 SEEN /hpf (<or=2+); Squamous Epithelial Cells - UA 0 SEEN /hpf (5-10)
[2025-03-03 21:07] VITALS: BP 122/99; PULSE 89; RESP 22; TEMP 36.6; O2SAT 97
[2025-03-03 21:25] LABS: Color, Urine Yellow (Yellow); Glucose, Dipstick Normal (Normal); Ketone-Dipstick Negative (Negative); Specific Gravity, Urine 1.025 (1.002-1.030); Urine Bilirubin Dipstick Negative (Negative)
[2025-03-03 21:26] LABS: Leukocyte Esterase-Dipstick Negative /ul (Negative); Nitrite-Dipstick Negative (Negative); Occult Blood-Urine Negative /ul (Negative); Protein-Dipstick 15 mg/dl (Negative)
[2025-03-03 21:31] LABS: Red Blood Cells-Urine 0-5 SEEN /hpf (0-5)
== END 2025-03-03 21:15 ==
PROVIDERS: Emergency Medicine; Emergency Provider Emergency Medicine; PCP Family Medicine; Visit Provider Emergency Medicine
DX: R44.0 Auditory hallucinations (principal); F32.A Depression, unspecified; Z79.899 Other long term (current) drug therapy; F17.200 Nicotine dependence, unspecified, uncomplicated
CPT/HCPCS: 80048; 80307; 81001; 82077; 85025; 99285